=== PATIENT | female | born 1960 | race Caucasian/White ===

== ENCOUNTER 2017-10-28 15:09 | Inpatient (IN) | payer OTHER ==
[2017-10-28] MEDS ORDERED: SODIUM CHLORIDE 0.9% 1,000 ML IV ONE (15:28)
[2017-10-28] MEDS ORDERED: SODIUM CHLORIDE 0.9% 500 ML IV ONE (15:28)
[2017-10-28] MEDS ORDERED: INSULIN REGULAR 100 UNIT/ML VIAL IV ONE (15:29)
[2017-10-28 15:31] LABS: Glucose,Whole Blood 418 mg/dL (75-99)
--- NOTE | 2017-10-28 15:33 | ED ---
General Adult HPI - General Chief complaint: Neuro Symptoms/Deficit Stated complaint: loss of memory Time Seen by Provider: 10/28/17 15:20 Source: patient, family, RN notes reviewed Mode of arrival: ambulatory Limitations: no limitations - History of Present Illness Initial comments: Patient is a pleasant 57-year-old female presenting to the emergency department with memory problems. Patient admits to not feeling well and feeling confused. Majority of history is obtained from family. Patient onset of symptoms was yesterday but worse today. The chair was checked twice today on 2 different meters. One was 360 and the other was 560. Patient admits to being thirsty. No isolated area of weakness. Patient has had some similar symptoms previously with hyperglycemia however not as bad. - Related Data Allergies Allergy/AdvReac Type Severity Reaction Status Date / Time codeine AdvReac Nausea Verified 10/28/17 16:27 Review of Systems ROS Statement: Those systems with pertinent positive or pertinent negative responses have been documented in the HPI. ROS Other: All systems not noted in ROS Statement are negative. Constitutional: Denies: fever Eyes: Denies: eye pain ENT: Denies: ear pain Respiratory: Denies: dyspnea Cardiovascular: Denies: chest pain Endocrine: Reports: polydipsia. Denies: fatigue Gastrointestinal: Denies: abdominal pain Genitourinary: Denies: dysuria Musculoskeletal: Denies: back pain Skin: Denies: rash Neurological: Reports: confusion. Denies: weakness Past Medical History Past Medical History: CVA/TIA, Diabetes Mellitus History of Any Multi-Drug Resistant Organisms: None Reported Past Surgical History: Section, Cholecystectomy Past Psychological History: No Psychological Hx Reported Smoking Status: Never smoker Past Alcohol Use History: None Reported Past Drug Use History: None Reported General Exam Limitations: no limitations General appearance: alert, in no apparent distress Head exam: Present: atraumatic Eye exam: Present: PERRL, other (left eye with cataracts) ENT exam: Present: normal oropharynx Neck exam: Present: normal inspection Respiratory exam: Present: normal lung sounds bilaterally Cardiovascular Exam: Present: regular rate, normal rhythm GI/Abdominal exam: Present: soft. Absent: tenderness Extremities exam: Present: normal inspection Neurological exam: Present: alert, CN II-XII intact. Absent: motor sensory deficit Expanded Neurological exam: Present: protecting the airway Patient oriented to: Present: person, place, time Speech: Present: fluid speech Cranial nerves: EOM's Intact: Normal, Facial Sensation: Normal Sensory exam: Upper Extremity Light Touch: Normal, Lower Extremity Light Touch: Normal Motor strength exam: RUE: 5, LUE: 5, RLE: 5, LLE: 5 Eye Response: (4) open spontaneously Motor Response: (6) obeys commands Verbal Response: (5) oriented Psychiatric exam: Present: normal affect, normal mood Skin exam: Present: normal color Course Vital Signs 10/28/17 10/28/17 10/28/17 15:15 15:55 16:24 Temperature 98.0 F Pulse Rate 70 67 Respiratory 20 20 Rate Blood Pressure 146/114 230/96 232/92 O2 Sat by Pulse 98 96 Oximetry EKG Findings - EKG Comments: EKG Findings:: Normal sinus rhythm 72. MA 136. QRS 92. QT 418. QTC 457. Left axis. LVH with repolarization change. Medical Decision Making - Medical Decision Making Patient reevaluated and resting comfortably in bed. Patient and family updated on results and plan. Dr. Kwan has been paged for admission for hospital call. - Lab Data Result diagrams: 10/28/17 15:40 10/28/17 15:40 Lab Results 10/28/17 10/28/17 10/28/17 Range/Units 15:26 15:40 15:40 WBC 11.2 H (3.8-10.6) k/uL RBC 4.25 (3.80-5.40) m/uL Hgb 12.1 (11.4-16.0) gm/dL Hct 37.8 (34.0-46.0) % MCV 89.1 (80.0-100.0) fL MCH 28.5 (25.0-35.0) pg MCHC 32.0 (31.0-37.0) g/dL RDW 12.3 (11.5-15.5) % Plt Count 304 (150-450) k/uL Neutrophils % 74 % Lymphocytes % 17 % Monocytes % 5 % Eosinophils % 3 % Basophils % 1 % Neutrophils # 8.3 H (1.3-7.7) k/uL Lymphocytes # 1.9 (1.0-4.8) k/uL Monocytes # 0.5 (0-1.0) k/uL Eosinophils # 0.3 (0-0.7) k/uL Basophils # 0.1 (0-0.2) k/uL PT (9.0-12.0) sec INR (<1.2) APTT (22.0-30.0) sec Sodium 134 L (137-145) mmol/L Potassium 4.2 (3.5-5.1) mmol/L Chloride 99 (98-107) mmol/L Carbon Dioxide 26 (22-30) mmol/L Anion Gap 9 mmol/L BUN 34 H (7-17) mg/dL Creatinine 1.10 H (0.52-1.04) mg/dL Est GFR (MDRD) Af Amer >60 (>60 ml/min/1.73 sqM) Est GFR (MDRD) Non-Af 51 (>60 ml/min/1.73 sqM) Glucose 389 H (74-99) mg/dL POC Glucose (mg/dL) 418 H (75-99) mg/dL POC Glu [employer] Associate ID Chioma Lloyd Calcium 9.0 (8.4-10.2) mg/dL Total Bilirubin 0.2 (0.2-1.3) mg/dL AST 11 L (14-36) U/L ALT 19 (9-52) U/L Alkaline Phosphatase 58 (38-126) U/L Total Protein 5.7 L (6.3-8.2) g/dL Albumin 3.2 L (3.5-5.0) g/dL Urine Color Urine Appearance (Clear) Urine pH (5.0-8.0) Ur Specific [place] (1.001-1.035) Urine Protein (Negative) Urine Glucose (UA) (Negative) Urine Ketones (Negative) Urine Blood (Negative) Urine Nitrite (Negative) Urine Bilirubin (Negative) Urine Urobilinogen (<2.0) mg/dL Ur Leukocyte Esterase (Negative) Urine RBC (0-5) /hpf Urine WBC (0-5) /hpf Ur Squamous Epith Cells (0-4) /hpf Urine Mucus (None) /hpf Urine Opiates Screen (NotDetected) Ur Oxycodone Screen (NotDetected) Urine Methadone Screen (NotDetected) Ur Propoxyphene Screen (NotDetected) Ur Barbiturates Screen (NotDetected) U Tricyclic Antidepress (NotDetected) Ur Phencyclidine Scrn (NotDetected) Ur Amphetamines Screen (NotDetected) U Methamphetamines Scrn (NotDetected) U Benzodiazepines Scrn (NotDetected) Urine Cocaine Screen (NotDetected) U Marijuana (THC) Screen (NotDetected) Acetone, Qual Negative (Negative) 10/28/17 10/28/17 Range/Units 15:40 15:53 WBC (3.8-10.6) k/uL RBC (3.80-5.40) m/uL Hgb (11.4-16.0) gm/dL Hct (34.0-46.0) % MCV (80.0-100.0) fL MCH (25.0-35.0) pg MCHC (31.0-37.0) g/dL RDW (11.5-15.5) % Plt Count (150-450) k/uL Neutrophils % % Lymphocytes % % Monocytes % % Eosinophils % % Basophils % % Neutrophils # (1.3-7.7) k/uL Lymphocytes # (1.0-4.8) k/uL Monocytes # (0-1.0) k/uL Eosinophils # (0-0.7) k/uL Basophils # (0-0.2) k/uL PT 9.5 (9.0-12.0) sec INR 1.0 (<1.2) APTT 21.5 L (22.0-30.0) sec Sodium (137-145) mmol/L Potassium (3.5-5.1) mmol/L Chloride (98-107) mmol/L Carbon Dioxide (22-30) mmol/L Anion Gap mmol/L BUN (7-17) mg/dL Creatinine (0.52-1.04) mg/dL Est GFR (MDRD) Af Amer (>60 ml/min/1.73 sqM) Est GFR (MDRD) Non-Af (>60 ml/min/1.73 sqM) Glucose (74-99) mg/dL POC Glucose (mg/dL) (75-99) mg/dL POC Glu [employer] Associate ID Calcium (8.4-10.2) mg/dL Total Bilirubin (0.2-1.3) mg/dL AST (14-36) U/L ALT (9-52) U/L Alkaline Phosphatase (38-126) U/L Total Protein (6.3-8.2) g/dL Albumin (3.5-5.0) g/dL Urine Color Light Yellow Urine Appearance Cloudy H (Clear) Urine pH 6.0 (5.0-8.0) Ur Specific [place] 1.016 (1.001-1.035) Urine Protein 3+ H (Negative) Urine Glucose (UA) 4+ H (Negative) Urine Ketones Negative (Negative) Urine Blood Trace H (Negative) Urine Nitrite Negative (Negative) Urine Bilirubin Negative (Negative) Urine Urobilinogen <2.0 (<2.0) mg/dL Ur Leukocyte Esterase Negative (Negative) Urine RBC 1 (0-5) /hpf Urine WBC 1 (0-5) /hpf Ur Squamous Epith Cells <1 (0-4) /hpf Urine Mucus Rare H (None) /hpf Urine Opiates Screen Not Detected (NotDetected) Ur Oxycodone Screen Not Detected (NotDetected) Urine Methadone Screen Not Detected (NotDetected) Ur Propoxyphene Screen Not Detected (NotDetected) Ur Barbiturates Screen Not Detected (NotDetected) U Tricyclic Antidepress Not Detected (NotDetected) Ur Phencyclidine Scrn Not Detected (NotDetected) Ur Amphetamines Screen Not Detected (NotDetected) U Methamphetamines Scrn Not Detected (NotDetected) U Benzodiazepines Scrn Not Detected (NotDetected) Urine Cocaine Screen Not Detected (NotDetected) U Marijuana (THC) Screen Not Detected (NotDetected) Acetone, Qual (Negative) Disposition Clinical Impression: Hypertension, Altered mental status, Hyperglycemia Disposition: ADMITTED IP TO THIS HOSP Referrals: Silvino Sears DO [Primary Care Provider] - 1-2 days Decision Time: 16:29
[2017-10-28 15:48] LABS: Basophils # (A) 0.1 k/uL (0-0.2); Basophils % (A) 1 %; Eosinophils # (A) 0.3 k/uL (0-0.7); Eosinophils % (A) 3 %; HCT 37.8 % (34.0-46.0); HGB 12.1 gm/dL (11.4-16.0); Lymphocytes # (A) 1.9 k/uL (1.0-4.8); Lymphocytes % (A) 17 %; MCH 28.5 pg (25.0-35.0); MCV 89.1 fL (80.0-100.0); Mean Platelet Volume 8.4; Monocytes # (A) 0.5 k/uL (0-1.0); Monocytes % (A) 5 %; Neutrophils # (A) 8.3 k/uL (1.3-7.7); Neutrophils % (A) 74 %; Platelet Count 304 k/uL (150-450); RBC 4.25 m/uL (3.80-5.40); RDW 12.3 % (11.5-15.5); WBC 11.2 k/uL (3.8-10.6)
[2017-10-28 15:57] LABS: Prothrombin Time 9.5 sec (9.0-12.0)
[2017-10-28 16:01] LABS: ALT 19 U/L (9-52); AST 11 U/L (14-36); Albumin 3.2 g/dL (3.5-5.0); Alkaline Phosphatase 58 U/L (38-126); Anion Gap 9 mmol/L; Blood Urea Nitrogen 34 mg/dL (7-17); Carbon Dioxide 26 mmol/L (22-30); Chloride 99 mmol/L (98-107); Glucose 389 mg/dL (74-99); Potassium 4.2 mmol/L (3.5-5.1); Sodium 134 mmol/L (137-145); Total Bilirubin 0.2 mg/dL (0.2-1.3); Total Protein 5.7 g/dL (6.3-8.2)
[2017-10-28 16:05] LABS: Appearance,Urine Cloudy (Clear); Bilirubin,Urine Negative (Negative); Blood,Urine Trace (Negative); Color,Urine Light Yellow; Glucose,Urine (UA) 4+ (Negative); Ketones,Urine Negative (Negative); Leukocyte Esterase,Urine Negative (Negative); Mucus,Urine Rare /hpf; Nitrite,Urine Negative (Negative); Protein,Urine 3+ (Negative); RBC,Urine 1 /hpf (0-5); Specific Gravity,Urine 1.016 (1.001-1.035); Squamous Epithelial Cell,Urine <1 /hpf (0-4); Urobilinogen,Urine <2.0 mg/dL (<2.0); WBC,Urine 1 /hpf (0-5)
[2017-10-28 16:06] LABS: Partial Thromboplastin Time 21.5 sec (22.0-30.0)
[2017-10-28 16:13] LABS: Amphetamine Screen,Urine Not Detected (NotDetected); Benzodiazepines Screen,Urine Not Detected (NotDetected); Cocaine Screen,Urine Not Detected (NotDetected); Opiate Screen,Urine Not Detected (NotDetected); Phencyclidine Screen,Urine Not Detected (NotDetected); Tricyclic Antidepressant,Urine Not Detected (NotDetected); Urn Cannabinoid Scrn Not Detected (NotDetected)
[2017-10-28 16:14] LABS: Barbiturate Screen,Urine Not Detected (NotDetected); Methadone Screen, Urine Not Detected (NotDetected); Oxycodone Screen, Urine Not Detected (NotDetected)
--- NOTE | 2017-10-28 16:18 | XR ---
EXAMINATION TYPE: XR chest 2V DATE OF EXAM: 10/28/2017 COMPARISON: NONE INDICATION: Altered mental status. TECHNIQUE: Frontal and lateral views of the chest are obtained. FINDINGS: The heart size is normal. The pulmonary vasculature is normal. The lungs are clear. IMPRESSION: 1. No acute pulmonary process.
--- NOTE | 2017-10-28 16:18 | CT ---
EXAMINATION TYPE: CT brain wo con DATE OF EXAM: 10/28/2017 COMPARISON: NONE INDICATION: Confusion. DLP: 951.7 mGycm, Automated exposure control for dose reduction was used. CONTRAST: None CT of the brain is performed utilizing 3 mm thick sections through the posterior fossa and 3 mm thick sections through the remaining calvarium. Study is performed within 24 hours of arrival to the hosp ital. No abnormal hyperdensity is present to suggest an acute intracranial hemorrhage. No mass lesion is evident. No acute infarcts are evident. There is an old lacunar infarct within the right basal ganglion. Ventricles and sulci are appropriate for the patient age. Paranasal sinuses and mastoid air cells within the [id number] are clear. IMPRESSIONS: 1. Old right basal ganglion infarct.
[2017-10-28 16:24] LABS: Creatine Kinase MB 1.5 ng/mL (0.0-2.4); Troponin I 0.012 ng/mL (0.000-0.034)
[2017-10-28] MEDS ORDERED: ENALAPRILAT 1.25 MG/ML 1 ML VIAL IVP STA ×2 (16:25→18:19)
[2017-10-28] MEDS ORDERED: ENALAPRILAT 1.25 MG/ML 1 ML VIAL IVP PRN (16:25)
[2017-10-28] MEDS ORDERED: ASPIRIN 325 MG TAB PO STA (16:29)
[2017-10-28 16:42] LABS: Glucose,Whole Blood 336 mg/dL (75-99)
[2017-10-28 17:03] LABS: Glucose,Whole Blood 299 mg/dL (75-99)
[2017-10-28] MEDS ORDERED: cloNIDine HCL 0.1 MG TAB PO STA (19:20)
--- NOTE | 2017-10-28 20:05 | US ---
EXAMINATION TYPE: US carotid duplex BILAT DATE OF EXAM: 10/28/2017 COMPARISON: NONE CLINICAL HISTORY: Stenosis. loss of memory EXAM MEASUREMENTS: RIGHT: Peak Systolic Velocity (PSV) cm/sec ----- Right CCA: 58.4 ----- Right ICA: 87.8 ----- Right ECA: 112.5 ICA/CCA ratio: 1.5 RIGHT: End Diastole cm/sec ----- Right CCA: 10.4 ----- Right ICA: 21.9 ----- Right ECA: 0.0 LEFT: Peak Systolic Velocity (PSV) cm/sec ----- Left CCA: 67.1 ----- Left ICA: 71.3 ----- Left ECA: 68.0 ICA/CCA ratio: 1.1 LEFT: End Diastole cm/sec ----- Left CCA: 9.5 ----- Left ICA: 17.5 ----- Left ECA: 0.0 VERTEBRALS (direction of flow): Right Vertebral: Antegrade Left Vertebral: Antegrade Rhythm: Normal No significant stenosis seen, mild plaque noted. IMPRESSION: 1. No flow-limiting stenosis. Criteria for Assigning % of Stenosis / Diameter reduction (Estimation based on the indirect measurements of the internal carotid artery velocities (ICA PSV). 1. Normal (no stenosis)=ICA PSV < 125 cm/s: ratio < 2.0: ICA EDV<40 cm/s. 2. Less than 50% stenosis=ICA PSV < 125 cm/s: ratio < 2.0: ICA EDV<40 cm/s. 3. 50 to 69% stenosis=ICA PSV of 125 to 230 cm/s: ration 2.0 ? 4.0: ICA EDV 40-100 cm/s. 4. Greater than 70% stenosis to near occlusion= ICA PSV > 230 cm/s: ratio > 4.0: ICA EDV > 100 cm/s. 5. Near occlusion= ICA PSV velocities may be low or undetectable: variable ratio and ICA EDV. 6. Total occlusion=unable to detect flow.
[2017-10-28 20:10] LABS: Glucose,Whole Blood 184 mg/dL (75-99)
[2017-10-28] MEDS: HYDROCHLOROTHIAZIDE 25 MG TAB PO SCH (20:19)
[2017-10-28 21:56] VITALS: BMI 45.6
[2017-10-28 23:55] LABS: Hemoglobin A1C 12.8 % (4.0-6.0)
[2017-10-28 23:58] LABS: Glucose,Whole Blood 263 mg/dL (75-99)
[2017-10-29] MEDS: SODIUM CHLORIDE 0.9% 1,000 ML IV SCH ×3 (01:09→18:07)
[2017-10-29] MEDS: INSULIN ASPART 100 UNIT/ML 1 ML 10 ML VIAL SQ SCH ×6 (01:09→22:33)
[2017-10-29 01:18] LABS: Glucose,Whole Blood 300 mg/dL (75-99)
[2017-10-29 02:12] LABS: Glucose,Whole Blood 301 mg/dL (75-99)
[2017-10-29 03:51] LABS: Cholesterol 224 mg/dL (<200); HDL Cholesterol 40 mg/dL (40-60); LDL Cholesterol,Calculated 145 mg/dL (0-99); Triglycerides 196 mg/dL (<150)
[2017-10-29 05:24] LABS: Glucose,Whole Blood 213 mg/dL (75-99)
[2017-10-29 07:13] LABS: Glucose,Whole Blood 204 mg/dL (75-99)
[2017-10-29] MEDS: HYDROCHLOROTHIAZIDE 25 MG TAB PO SCH (08:22)
[2017-10-29] MEDS: ASPIRIN 325 MG TAB PO SCH (08:22)
[2017-10-29 12:15] LABS: Glucose,Whole Blood 263 mg/dL (75-99)
--- NOTE | 2017-10-29 14:11 | ECHOF ---
Referral Reason:Thrombus MEASUREMENTS -------- HEIGHT: 152.4 cm WEIGHT: 105.7 kg BP: 156/75 IVSd: 1.3 cm (0.6 - 1.1) LVIDd: 4.4 cm (3.9 - 5.3) LVPWd: 1.1 cm (0.6 - 1.1) IVSs: 1.5 cm LVIDs: 3.4 cm LVPWs: 1.4 cm LAESV Index (A-L): 32.33 ml/m Ao Diam: 3.9 cm (2.0 - 3.7) AV Cusp: 1.2 cm (1.5 - 2.6) LA Diam: 2.9 cm (2.7 - 3.8) MV E Craig: 0.85 m/s MV DecT: 251 ms MV A Craig: 1.11 m/s MV E/A Ratio: 0.77 RAP: 5.00 mmHg RVSP: 8.43 mmHg FINDINGS -------- Sinus rhythm. This was a technically adequate study. The left ventricular size is normal. There is mild concentric left ventricular hypertrophy. Overa ll left ventricular systolic function is normal with, an EF between 55 - 60 %. The right ventricle is normal in size and function. LA is midly dilated 29-33ml/m2. The right atrium is normal in size. The aortic valve is trileaflet, and appears structurally normal. No aortic stenosis or regurgitation. Mild mitral annular calcification present. Mild mitral regurgitation is present. Trace tricuspid regurgitation present. Right ventricular systolic pressure is normal at < 35 mmHg. There is no evidence of pulmonary hypertension. The pulmonic valve was not well visualized. The aortic root size is normal. IVC Not well visulized. There is no pericardial effusion. CONCLUSIONS -------- 1. Sinus rhythm. 2. This was a technically adequate study. 3. The left ventricular size is normal. 4. There is mild concentric left ventricular hypertrophy. 5. Overall left ventricular systolic function is normal with, an EF between 55 - 60 %. 6. LA is midly dilated 29-33ml/m2. 7. The aortic valve is trileaflet, and appears structurally normal. No aortic stenosis or regurgitati on. 8. Mild mitral annular calcification present. 9. Mild mitral regurgitation is present. 10. Trace tricuspid regurgitation present. 11. Right ventricular systolic pressure is normal at < 35 mmHg. 12. The pulmonic valve was not well visualized. 13. The aortic root size is normal. 14. IVC Not well visulized. 15. There is no pericardial effusion. FLIGHT MANAGER: Alexandro Salguero RDCS
[2017-10-29 17:14] LABS: Glucose,Whole Blood 207 mg/dL (75-99)
--- NOTE | 2017-10-29 18:48 | EEG ---
ELECTROENCEPHALOGRAM REPORT DATE OF SERVICE: 10/29/2017. REASON FOR TESTING: Altered mental status. DESCRIPTION OF THE PROCEDURE: This EEG was performed using a 21 channel digital electroencephalograph, following international 10-20 system. DESCRIPTION OF THE RECORDING: From the beginning of the tracing, and with patient's eyes closed, the background rhythm was mostly consisting of 8 Hz alpha frequency in the posterior occipital leads. No obvious asymmetry is seen. Frequent movement artifact and muscle artifacts are seen. Photic stimulation was performed with a minimal driving response seen. No pathological waves were elicited. Hyperventilation was not performed. The patient remains awake throughout the tracing. No epileptiform discharges were seen. Occasional EKG artifacts are noticed. Her EKG lead showed a regular rate and rhythm. INTERPRETATION: This awake EEG can be considered within normal limits. There is no asymmetry seen. No epileptiform discharges were noticed. The absence of epileptiform discharges does not rule out the diagnosis of epilepsy, therefore clinical correlation is recommended. MMYAMILKAL / IJKostas: [id number] /
--- NOTE | 2017-10-29 19:11 | P.CNNES ---
History of Present Illness Consult date: 10/29/17 History of Present Illness: The patient is a 57-year-old right-handed white female who is a poor historian currently. The patient was admitted to the hospital with altered mental status and elevated glucose. The patient's daughter received a text from the patient' s boyfriend yesterday morning saying that the patient woke up very confused. Her other daughter went to see her and realized that she was disoriented and confused. She then checked her Accu-Chek and her blood sugar was 533. Her daughter drove her to the emergency room. Apparently the patient's onset of symptoms symptoms according to the ER no was Sunday where she began getting confused. Urgency room her blood sugar was 389. She was hospitalized earlier in September [address] [facility] for similar event. The patient apparently had been having some issues with memory loss recently and her friend primary care physician had done a CAT scan and carotid ultrasound. In the emergency room she had a repeat CT brain which showed an old right basal ganglion infarct she hadn't carotid ultrasound which showed no flow-limiting stenosis. The patient denies any headache or dizziness. She did have a bout of vertigo at the end of September. She denies any focal weakness or numbness Review of Systems ROS unobtainable: due to mental status Past Medical History Past Medical History: CVA/TIA, Diabetes Mellitus History of Any Multi-Drug Resistant Organisms: None Reported Past Surgical History: Section, Cholecystectomy Past Psychological History: No Psychological Hx Reported Smoking Status: Never smoker Past Alcohol Use History: None Reported Past Drug Use History: None Reported Medications and Allergies Home Medications Medication Instructions Recorded Confirmed Type Hydrochlorothiazide [Hydrodiuril] 25 mg PO HS 10/28/17 10/28/17 History Insulin Glargine [Lantus] 20 unit SQ BID 10/28/17 10/28/17 History Insulin Glulisine [Apidra] See Protocol SQ TID 10/28/17 10/28/17 History Levothyroxine Sodium [Synthroid] 75 mcg PO HS 10/28/17 10/28/17 History Lisinopril [Prinivil] 10 mg PO HS 10/28/17 10/28/17 History Omeprazole 20 mg PO HS 10/28/17 10/28/17 History Oxybutynin Chloride 5 mg PO BID 10/28/17 10/28/17 History Vortioxetine Hydrobromide 10 mg PO HS 10/28/17 10/28/17 History [Trintellix] diphenhydrAMINE [Benadryl] 50 mg PO HS PRN 10/28/17 10/28/17 History Allergies Allergy/AdvReac Type Severity Reaction Status Date / Time codeine AdvReac Nausea Verified 10/28/17 16:27 Physical Examination - Vital Signs Vital Signs: Vital Signs Temp Pulse Pulse Resp BP BP Pulse Ox 10/29/17 15:00 98.6 F 73 18 183/82 95 10/29/17 07:00 98.3 F 77 20 156/75 98 10/29/17 01:33 16 10/28/17 23:29 97.4 F L 73 16 166/84 98 10/28/17 21:08 97.1 F L 67 16 148/79 98 10/28/17 20:33 65 18 192/79 Intake and Output 10/29/17 10/29/17 10/29/17 06:59 14:59 22:59 Other: # Voids 1 4 # Bowel Movements 1 Weight 106 kg Patient Weight 10/30/17 06:59 Weight 106 kg - Constitutional General appearance: average body habitus, cooperative - EENT EENT: PERRL, hearing intact - Cardiovascular Cardiovascular: regular rate, normal S1, normal S2 - Integumentary Integumentary: normal - Neurologic Mental status she was awake she was alert she was oriented to year was 2017 the month was September she was able to give her date of she knew the city she lift and but had some difficulty recalling her apartment number she was able to do simple calculations she knew the season she knew the city she was able to spell [place] but had some difficulty spelling backward there is no aphasia or dysarthria Cranial nerve examination: PERRL, EOMI, VFF, face symmetric, tongue midline, intact Speech examination: intact Sensorimotor examination: intact Detailed motor examination: grossly full strength in all extremities Reflexes: 2+: bicep - Psychiatric Psychiatric: mood/affect appropriate Results - Laboratory Findings CBC and BMP: 10/28/17 15:40 10/28/17 15:40 Abnormal Lab Findings: Abnormal Labs 10/28/17 10/28/17 10/28/17 15:26 15:40 15:40 WBC 11.2 H Neutrophils # 8.3 H APTT Sodium BUN Creatinine Glucose POC Glucose (mg/dL) 418 H Hemoglobin A1c 12.8 H AST Total Protein Albumin Triglycerides Cholesterol LDL Cholesterol, Calc Urine Appearance Urine Protein Urine Glucose (UA) Urine Blood Urine Mucus 10/28/17 10/28/17 10/28/17 15:40 15:40 15:40 WBC Neutrophils # APTT 21.5 L Sodium 134 L BUN 34 H Creatinine 1.10 H Glucose 389 H POC Glucose (mg/dL) Hemoglobin A1c AST 11 L Total Protein 5.7 L Albumin 3.2 L Triglycerides 196 H Cholesterol 224 H LDL Cholesterol, Calc 145 H Urine Appearance Urine Protein Urine Glucose (UA) Urine Blood Urine Mucus 10/28/17 10/28/17 10/28/17 15:53 16:27 16:58 WBC Neutrophils # APTT Sodium BUN Creatinine Glucose POC Glucose (mg/dL) 336 H 299 H Hemoglobin A1c AST Total Protein Albumin Triglycerides Cholesterol LDL Cholesterol, Calc Urine Appearance Cloudy H Urine Protein 3+ H Urine Glucose (UA) 4+ H Urine Blood Trace H Urine Mucus Rare H 10/28/17 10/28/17 10/29/17 20:06 23:56 01:15 WBC Neutrophils # APTT Sodium BUN Creatinine Glucose POC Glucose (mg/dL) 184 H 263 H 300 H Hemoglobin A1c AST Total Protein Albumin Triglycerides Cholesterol LDL Cholesterol, Calc Urine Appearance Urine Protein Urine Glucose (UA) Urine Blood Urine Mucus 10/29/17 10/29/17 10/29/17 02:11 05:21 07:05 WBC Neutrophils # APTT Sodium BUN Creatinine Glucose POC Glucose (mg/dL) 301 H 213 H 204 H Hemoglobin A1c AST Total Protein Albumin Triglycerides Cholesterol LDL Cholesterol, Calc Urine Appearance Urine Protein Urine Glucose (UA) Urine Blood Urine Mucus 10/29/17 10/29/17 12:11 17:12 WBC Neutrophils # APTT Sodium BUN Creatinine Glucose POC Glucose (mg/dL) 263 H 207 H Hemoglobin A1c AST Total Protein Albumin Triglycerides Cholesterol LDL Cholesterol, Calc Urine Appearance Urine Protein Urine Glucose (UA) Urine Blood Urine Mucus Assessment and Plan (1) Altered mental status Current Visit: Yes Status: Acute SNOMED Code(s): 698939656 (2) Hyperglycemia Current Visit: Yes Status: Acute SNOMED Code(s): 36962254 (3) Hypertension Current Visit: Yes Status: Acute SNOMED Code(s): 15736393 Plan: The patient is a 57-year-old woman who presented to the hospital with hypertension confusion and elevated blood glucose. On neurologic examination the patient is awake alert oriented to person and place but is disoriented to certain fax. Does have a history of previous right subcortical infarct. She had a carotid ultrasound which did not show any carotid stenosis. Recommend further testing with EEG, B12 check and thyroid screening
[2017-10-29 20:40] LABS: Glucose,Whole Blood 309 mg/dL (75-99)
[2017-10-29] MEDS ORDERED: LISINOPRIL 10 MG TAB PO SCH (21:00)
[2017-10-29] MEDS: INSULIN DETEMIR 100 UNIT/ML 10 ML VIAL SQ SCH (22:34)
[2017-10-29] MEDS: LEVOTHYROXINE 75 MCG TAB PO SCH (22:35)
[2017-10-29] MEDS: OXYBUTYNIN CHLORIDE 5 MG TAB PO SCH (22:35)
[2017-10-29] MEDS: PANTOPRAZOLE 40 MG TABLET PO SCH (22:35)
--- NOTE | 2017-10-29 23:09 | HP ---
HISTORY AND PHYSICAL DATE OF ADMISSION: 10/28/2017 CHIEF COMPLAINTS: Confusion, memory problems, abdominal pain. HISTORY OF PRESENT ILLNESS: This 57-year-old woman with a past medical history of multiple medical problems including CVA TIA diabetes type 2, history of cholecystectomy being followed by Dr. Silvino Sears in the outpatient setting, was complaining of confusion. Patient has some abdominal pain also. No chest pain. No palpitations. No fever. No headache, loss of conscious or seizures. PAST MEDICAL HISTORY: CVA, TIA, diabetes mellitus, type 2, cholecystectomy. MEDICATIONS: Prior to admission include: 1. Trentillex 10 mg q.h.s. 2. Omeprazole 10 mg. 3. Prinivil 10 mg q.h.s. 4. Synthroid 75 mcg p.o. daily. 5. Lantus 10 units subcu b.i.d. 6. HydroDIURIL 25 mg. 7. Benadryl 50 mg q.6h p.r.n. 8. Oxybutynin 5 mg p.o. b.i.d. 9. Apidra t.i.d. ALLERGIES: CODEINE. FAMILY HISTORY: No history of heart disease or strokes in the family. SOCIAL HISTORY: No history of smoking. No history of alcohol. REVIEW OF SYSTEMS: ENT: No diminished vision. No diminished hearing. Cardiac systems: No angina or palpitations. Respiration: As mentioned earlier. GI as mentioned earlier. : No dysuria. NERVOUS SYSTEM: No numbness or weakness. Allergy/Immunology: No asthma or hayfever. Hematology/Oncology: No history of anemia. Endocrine: As mentioned earlier. Constitutional: As mentioned. Dermatology: Negative. Rheumatology: Negative. Psychiatric: As mentioned earlier. PHYSICAL EXAMINATION: Alert, oriented x3. Pulse 73. Blood pressure 183/82, respiration 18, temperature 98.6, pulse ox 94% on room air. HEENT: Conjunctivae normal. NECK: No jugular venous distention. CARDIOVASCULAR: S1, S2 muffled. RESPIRATORY: Breath sounds diminished in the bases. No rhonchi. No crackles. ABDOMEN: Soft. Mild diffuse discomfort. Legs no edema and no swelling. NERVOUS SYSTEM: Higher functions as mentioned earlier. Moves all four limbs. Lymphatics: No lymph nodes palpable in the neck, axillae or groin. Skin no ulcer, rash or bleeding. LABS: WBC 11.2, sodium 134, creatinine is 1.10 and hemoglobin A1c is 12.8 and cholesterol is 224. UA noted. ASSESSMENT: 1. Change in mental status, possibly multifactorial, acute on chronic encephalopathy. 2. Diabetes type 2, uncontrolled with hemoglobin is 12.8. 3. Mild acute renal failure. 4. Hypocholesterolemia. 5. Hyponatremia. 6. Increased WBC. 7. Old right basal ganglia infarct in the CT scan. 8. History of cerebrovascular accident, transient ischemic attack. 9. Diabetes type 2. 11.Cholecystectomy. RECOMMENDATIONS AND DISCUSSION: In this 57-year-old woman who presented with multiple complex medical issues, we will monitor the patient closely. Continue the current medications, management and symptomatic treatment. Otherwise, at this time, monitor blood sugars closely. Antiplatelet agents. Neurology evaluation. Guarded prognosis. Further recommendations to follow. Neurovascular workup. CAMILA / JOHN: [id number] / MTDD
--- NOTE | 2017-10-29 23:15 | PN ---
PROGRESS NOTE DATE OF SERVICE: 10/29/2017 This 57-year-old woman who was admitted with change in mental status also thought to have either TIA or acute on chronic metabolic encephalopathy. The patient had an old right basal ganglion infarct. uncontrolled diabetes mellitus. No chest pain. No palpitations. No fever. EXAM: Alert oriented x2. Pulse 73, blood pressure 183/82, respiration 18, temperature 98.7, pulse ox 94% on room air. HEENT: Conjunctivae normal. Neck: No jugular venous distention. CARDIOVASCULAR: S1, S2 muffled. Respiratory: Breath sounds diminished in the bases. A few rhonchi. No crackles. Abdomen is soft, nontender. No mass palpable. Legs are no edema. No swelling. Nervous system: Diffusely weak. LAB: Investigations are noted. Glucose 207. ASSESSMENT: 1. Change in mental status, possible acute transient ischemic attack. 2. Old right basal ganglia infarct. 3. Gait dysfunction and generalized weakness. 4. Diabetes type 2 uncontrolled. 5. Cerebrovascular accident/transient ischemic attack. 6. History of cholecystectomy. 7. Hyponatremia mild. 8. Mild acute renal failure. 9. Hyperlipidemia. RECOMMENDATIONS AND DISCUSSION: In this 57-year-old woman who presented with multiple complex medical issues, we will monitor the patient closely. Continue the current medications, symptomatic treatment, and antiplatelet agents. PT/OT evaluation. Neurology consultation. Neurovascular workup. Otherwise I would also recommend PT/OT evaluation, possible ECF rehab also. Guarded prognosis. Further recommendations to follow. CAMILA / JOHN: [id number] /
[2017-10-29] MEDS: Vortioxetine Hydrobromide [Trintellix] 10 MG PO SCH (23:33)
[2017-10-30 02:08] LABS: Glucose,Whole Blood 194 mg/dL (75-99)
[2017-10-30] MEDS: SODIUM CHLORIDE 0.9% 1,000 ML IV SCH ×3 (03:52→17:52)
[2017-10-30 07:20] LABS: Glucose,Whole Blood 139 mg/dL (75-99)
[2017-10-30] MEDS: OXYBUTYNIN CHLORIDE 5 MG TAB PO SCH ×2 (08:05→22:18)
[2017-10-30] MEDS: HYDROCHLOROTHIAZIDE 25 MG TAB PO SCH (08:05)
[2017-10-30] MEDS: ASPIRIN 325 MG TAB PO SCH (08:05)
[2017-10-30] MEDS: INSULIN ASPART 100 UNIT/ML 1 ML 10 ML VIAL SQ SCH ×4 (08:06→22:16)
[2017-10-30] MEDS: INSULIN DETEMIR 100 UNIT/ML 10 ML VIAL SQ SCH ×2 (08:06→22:16)
[2017-10-30 09:29] LABS: Basophils # (A) 0.1 k/uL (0-0.2); Basophils % (A) 1 %; Eosinophils # (A) 0.3 k/uL (0-0.7); Eosinophils % (A) 3 %; HCT 38.6 % (34.0-46.0); HGB 12.2 gm/dL (11.4-16.0); Lymphocytes # (A) 2.2 k/uL (1.0-4.8); Lymphocytes % (A) 21 %; MCH 28.5 pg (25.0-35.0); MCHC 31.6 g/dL (31.0-37.0); MCV 90.1 fL (80.0-100.0); Mean Platelet Volume 8.1; Monocytes # (A) 0.6 k/uL (0-1.0); Monocytes % (A) 5 %; Neutrophils # (A) 7.1 k/uL (1.3-7.7); Neutrophils % (A) 68 %; Platelet Count 314 k/uL (150-450); RBC 4.29 m/uL (3.80-5.40); RDW 12.4 % (11.5-15.5); WBC 10.3 k/uL (3.8-10.6)
[2017-10-30 09:33] LABS: Anion Gap 7 mmol/L; Blood Urea Nitrogen 21 mg/dL (7-17); Calcium 9.2 mg/dL (8.4-10.2); Carbon Dioxide 29 mmol/L (22-30); Chloride 104 mmol/L (98-107); Glucose 177 mg/dL (74-99); Potassium 3.9 mmol/L (3.5-5.1); Sodium 140 mmol/L (137-145)
[2017-10-30 10:31] LABS: T4, Free (Free Thyroxine) 1.32 ng/dL (0.78-2.19)
[2017-10-30 12:20] LABS: Glucose,Whole Blood 208 mg/dL (75-99)
[2017-10-30] MEDS: THIAMINE 100 MG TAB PO SCH (12:45)
[2017-10-30] MEDS: MULTIVITAMINS, THERA 1 EACH TAB PO SCH (12:45)
[2017-10-30] MEDS: FOLIC ACID 1 MG TAB PO SCH (12:45)
[2017-10-30] MEDS ORDERED: LORazepam 2 MG/ML INJ IV STA (12:54)
--- NOTE | 2017-10-30 15:53 | P.PN ---
Subjective Progress Note Date: 10/30/17 The patient is a 57-year-old woman admitted to the hospital with confusion hyperglycemia and hypertension. The patient is laying in bed and her daughter is at her bedside. Her daughter states she's been doing about the same. The patient is still admitting to confusion. The patient is awake she is alert. She is oriented to her name. And unable to recognize her daughter. The year is 2016 the month is October she is in [facility] he is unable to give details about why she is in the hospital. Daughter reports that she has been under a lot of stress recently. Also she had been tried on some antidepressant in August 2017. The patient also admits to being under a lot of stress. She has had a CT of the brain which showed a right basal ganglia infarct. Having an MRI of the brain today. Objective - Vital Signs Vital signs: Vital Signs Temp 98.3 F 10/30/17 07:00 Pulse 78 10/30/17 07:00 Resp 16 10/30/17 07:00 BP 159/75 10/30/17 10:00 Pulse Ox 93 L 10/30/17 07:00 Intake & Output 10/29/17 10/30/17 10/30/17 18:59 06:59 18:59 Weight 106 kg Other: Voiding Method Toilet # Voids 4 5 # Bowel Movements 1 - Constitutional General appearance: Present: cooperative, obese - EENT Eyes: Present: PERRLA ENT: Present: hearing grossly normal - Respiratory Respiratory: bilateral: CTA - Cardiovascular Rhythm: regular - Neurologic Neurologic Comment(s): Neurologic examination mental status: She was awake she was alert she was oriented to person and place he was able to identify her daughter there is no aphasia or dysarthria is unable to give details of why she is in the hospital. She was unable to give details of her past medical history. Cranial nerves II through XII are grossly intact Motor examination revealed no focal weakness Coordination [id number] was intact next Deep tendon reflexes symmetric - Labs CBC & Chem 7: 10/30/17 09:02 10/30/17 09:02 Labs: Abnormal Lab Results - Last 24 Hours (Table) 10/29/17 10/29/17 10/30/17 Range/Units 17:12 20:39 02:06 BUN (7-17) mg/dL Creatinine (0.52-1.04) mg/dL Glucose (74-99) mg/dL POC Glucose (mg/dL) 207 H 309 H 194 H (75-99) mg/dL TSH (0.465-4.680) mIU/L 10/30/17 10/30/17 10/30/17 Range/Units 07:18 09:02 12:18 BUN 21 H (7-17) mg/dL Creatinine 1.12 H (0.52-1.04) mg/dL Glucose 177 H (74-99) mg/dL POC Glucose (mg/dL) 139 H 208 H (75-99) mg/dL TSH 5.020 H (0.465-4.680) mIU/L Microbiology - Last 24 Hours (Table) 10/30/17 00:30 Urine Culture - Preliminary Urine,Voided Assessment and Plan (1) Altered mental status Current Visit: Yes Status: Acute SNOMED Code(s): 459342563 (2) Hyperglycemia Current Visit: Yes Status: Acute SNOMED Code(s): 04620059 (3) Hypertension Current Visit: Yes Status: Acute SNOMED Code(s): 59776596 Plan: The patient is a 57-year-old woman with history of hyperglycemia hypertension admitted to the hospital with altered mental status. The patient is awake alert and oriented to person and place the year is 2016 and the month is October. She has mainly restricted to the memory loss to certain facts in the past. She has had a CT of the brain which showed right basal ganglia infarct which is old. She will have an MRI of the brain today. Some of her concentration difficulty may be due to underlying anxiety disorder and if MRI does not reveal any new findings can consult psychiatry
[2017-10-30] MEDS: amLODIPine 5 MG TAB PO SCH (16:09)
[2017-10-30 17:24] LABS: Glucose,Whole Blood 147 mg/dL (75-99)
--- NOTE | 2017-10-30 19:30 | P.PN ---
Subjective Progress Note Date: 10/30/17 Progress note being dictated for Dr. Rodarte. Hospital course: This is a 49-year-old female admitted with change in mental status, possible TIA or acute on chronic metabolic encephalopathy in a patient with history of right basal ganglion infarct, uncontrolled diabetes mellitus. Denies chest pain, palpitations or increasing shortness of breath. Evaluated by physical therapy, did well with no physical therapy needs identified. Daughter states patient's confusion remains the same; states it is October of 2016. Patient not recommending some of the family members; not recalling which grandchildren belongs to each of her children. Speech fluent. When patient questioned on specific details of her admission, past medical history, psychiatry history.... Responds with she does not know. Family states patient recently started on antidepressant approximate 6-8 weeks ago and that she has been under significant amount of stress. TSH, free T4 noted. MRI scheduled. Objective - Vital Signs Vital signs: Vital Signs Temp 97.7 F 10/30/17 15:00 Pulse 69 10/30/17 15:00 Resp 16 10/30/17 15:00 BP 146/95 10/30/17 15:00 Pulse Ox 93 L 10/30/17 15:00 Intake & Output 10/30/17 10/30/17 10/31/17 06:59 18:59 06:59 Intake Total 1200 Balance 1200 Intake: Oral 1200 Other: Voiding Method Toilet # Voids 5 3 - Exam PHYSICAL EXAM: VITAL SIGNS: As above GENERAL: Sitting up in bed, visiting with family around her. HEENT: Conjunctivae normal. eyes normal. Oral mucosa moist NECK: No JVD. No thyroid enlargement. No LNs CARDIOVASCULAR: S1, S2 muffled. No murmur RESPIRATION: Breath sounds diminished in the bases. No rhonchi or crackles. No wheezing ABDOMEN: Soft, nontender . No guarding. no masses palpable.Bowel sounds heard. LEGS: No edema. no swelling PSYCHIATRY: Alert and oriented -3, mood and affect normal. NERVOUS SYSTEM: Cranial N 2-12 grossly normal. Moves all 4 limbs. Diffuse weakness, No focal deficits. Speech fluent. Refer to above details. - Labs CBC & Chem 7: 10/30/17 09:02 10/30/17 09:02 Labs: Abnormal Lab Results - Last 24 Hours (Table) 10/29/17 10/30/1718 Range/Units 20:39 02:06 07:18 BUN (7-17) mg/dL Creatinine (0.52-1.04) mg/dL Glucose (74-99) mg/dL POC Glucose (mg/dL) 309 H 194 H 139 H (75-99) mg/dL TSH (0.465-4.680) mIU/L 10/30/17 10/30/17 10/30/17 Range/Units 09:02 12:18 17:22 BUN 21 H (7-17) mg/dL Creatinine 1.12 H (0.52-1.04) mg/dL Glucose 177 H (74-99) mg/dL POC Glucose (mg/dL) 208 H 147 H (75-99) mg/dL TSH 5.020 H (0.465-4.680) mIU/L Microbiology - Last 24 Hours (Table) 10/30/17 00:30 Urine Culture - Preliminary Urine,Voided Assessment and Plan Assessment: 1. Change in mental status, possible acute TIA, CVA in a patient with history of old right basal ganglia infarct. MRI pending. 2. Gait dysfunction and generalized weakness 3. Diabetes type 2, uncontrolled 4. Mild acute renal failure 5. Depression 6. Possible anxiety disorder Plan: Continue on current medication regime ,monitoring and symptomatic treatment. Scheduled for MRI. Patient states patient recently started on antidepressant about 6-8 weeks ago. If MRI negative, will consult psychiatry for evaluation. Plan of care discussed at bedside with patient and family. Stated understanding and agreement with. Further recommendations to follow. The impression and plan of care has been dictated as directed. : I performed a history and examination of this patient, discussed the same with the dictator. I agree with the dictator's note ,documented as a scribe. Any additional findings or plans will be noted.
[2017-10-30 20:37] LABS: Glucose,Whole Blood 203 mg/dL (75-99)
[2017-10-30] MEDS ORDERED: LISINOPRIL 20 MG TAB PO SCH (21:00)
[2017-10-30] MEDS: LEVOTHYROXINE 75 MCG TAB PO SCH (22:17)
[2017-10-30] MEDS: PANTOPRAZOLE 40 MG TABLET PO SCH (22:18)
[2017-10-30] MEDS: Vortioxetine Hydrobromide [Trintellix] 10 MG PO SCH (22:18)
--- NOTE | 2017-10-30 22:50 | MR ---
EXAMINATION TYPE: MR brain wo con DATE OF EXAM: 10/30/2017 COMPARISON: CT brain from 2 days ago. HISTORY: CONFUSION per order and on admission 2 days earlier. TECHNIQUE: Multiplanar, multisequence imaging of the brain and brainstem is performed without IV cont rast. FINDINGS: Diffusion weighted images demonstrate no evidence of a recent infarct or other diffusion abnormality. There is no worrisome extra-axial fluid collection. There is ventricular and sulcal prominence consis tent with diffuse cerebral atrophy. There are focal areas of T2 hyperintensity in the deep and perive ntricular white matter. This area of old infarct right fatima radiata. Midline structures demonstrate normal morphology. The craniocervical junction appears within normal limits. Normal vascular flow voids are present. There is 2.2 cm mucous retention cyst or polyp in the right maxillary sinus inferiorly. Remainder paranasal sinuses are clear. The globes are intact bilat erally. IMPRESSION: 1. No evidence of a recent infarct. 2. There is mild to moderate diffuse cerebral atrophy and chronic small vessel ischemic change with o ld right frontal lobe fatima radiata infarct redemonstrated.
[2017-10-31 02:19] LABS: Glucose,Whole Blood 267 mg/dL (75-99)
[2017-10-31 08:08] LABS: Glucose,Whole Blood 203 mg/dL (75-99)
[2017-10-31] MEDS: INSULIN ASPART 100 UNIT/ML 1 ML 10 ML VIAL SQ SCH ×4 (08:15→22:12)
[2017-10-31] MEDS: OXYBUTYNIN CHLORIDE 5 MG TAB PO SCH ×2 (08:44→22:00)
[2017-10-31] MEDS: INSULIN DETEMIR 100 UNIT/ML 10 ML VIAL SQ SCH ×2 (08:44→22:13)
[2017-10-31] MEDS: ASPIRIN 325 MG TAB PO SCH (08:44)
[2017-10-31] MEDS: amLODIPine 5 MG TAB PO SCH (08:44)
[2017-10-31] MEDS: HYDROCHLOROTHIAZIDE 25 MG TAB PO SCH (08:45)
[2017-10-31 09:07] LABS: Basophils # (A) 0.1 k/uL (0-0.2); Basophils % (A) 1 %; Eosinophils # (A) 0.3 k/uL (0-0.7); Eosinophils % (A) 3 %; HCT 36.1 % (34.0-46.0); HGB 11.3 gm/dL (11.4-16.0); Lymphocytes # (A) 1.8 k/uL (1.0-4.8); Lymphocytes % (A) 18 %; MCH 28.3 pg (25.0-35.0); MCHC 31.3 g/dL (31.0-37.0); MCV 90.5 fL (80.0-100.0); Monocytes # (A) 0.6 k/uL (0-1.0); Monocytes % (A) 6 %; Neutrophils # (A) 6.8 k/uL (1.3-7.7); Neutrophils % (A) 70 %; Platelet Count 296 k/uL (150-450); RBC 3.99 m/uL (3.80-5.40); RDW 12.4 % (11.5-15.5); WBC 9.7 k/uL (3.8-10.6)
[2017-10-31 09:27] LABS: Calcium 9.2 mg/dL (8.4-10.2); Potassium 4.3 mmol/L (3.5-5.1)
[2017-10-31] MEDS: SODIUM CHLORIDE 0.9% 1,000 ML IV SCH (11:02)
[2017-10-31 11:46] LABS: Glucose,Whole Blood 268 mg/dL (75-99)
[2017-10-31] MEDS: THIAMINE 100 MG TAB PO SCH (12:53)
[2017-10-31] MEDS: FOLIC ACID 1 MG TAB PO SCH (12:54)
[2017-10-31] MEDS: MULTIVITAMINS, THERA 1 EACH TAB PO SCH (12:54)
[2017-10-31 17:02] LABS: Glucose,Whole Blood 211 mg/dL (75-99)
[2017-10-31] MEDS ORDERED: amLODIPine 5 MG TAB PO STA (19:55)
--- NOTE | 2017-10-31 19:56 | P.PN ---
Subjective Progress Note Date: 10/31/17 Progress note being dictated for Dr. Rodarte. Hospital course: This is a 49-year-old female admitted with change in mental status, possible TIA or acute on chronic metabolic encephalopathy in a patient with history of right basal ganglion infarct, uncontrolled diabetes mellitus. Denies chest pain, palpitations or increasing shortness of breath. Evaluated by physical therapy, did well with no physical therapy needs identified. Daughter states patient's confusion remains the same; states it is October of 2016. Patient not recommending some of the family members; not recalling which grandchildren belongs to each of her children. Speech fluent. When patient questioned on specific details of her admission, past medical history, psychiatry history.... Responds with she does not know. Family states patient recently started on antidepressant approximate 6-8 weeks ago and that she has been under significant amount of stress. TSH, free T4 noted. MRI scheduled. 10/31/17 Memory deficit persists. Brain MRI reporting no evidence of recent infarct, mild to moderate diffuse cerebral atrophy with chronic small vessel ischemic change and old right frontal lobe fatima infarct redemonstrated. Psychiatry consulted with recommendations pending. Afebrile. Worsening renal function. Good diet intake with 100% consumed, no nausea vomiting. Blood sugars elevated in the 200s. Objective - Vital Signs Vital signs: Vital Signs Temp 97.5 F L 10/31/17 07:00 Pulse 83 10/31/17 07:00 Resp 18 10/31/17 07:00 BP 169/91 10/31/17 07:00 Pulse Ox 94 L 10/31/17 07:00 Intake & Output 10/30/17 10/31/17 10/31/17 18:59 06:59 18:59 Intake Total 1200 Balance 1200 Intake: Oral 1200 Other: # Voids 3 2 - Exam PHYSICAL EXAM: VITAL SIGNS: As above GENERAL: Sitting up in bed, no acute distress HEENT: Conjunctivae normal. eyes normal. Oral mucosa moist NECK: No JVD. No thyroid enlargement. No LNs CARDIOVASCULAR: S1, S2 muffled. No murmur RESPIRATION: Breath sounds diminished in the bases. No rhonchi or crackles. No wheezing ABDOMEN: Soft, nontender . No guarding. no masses palpable.Bowel sounds heard. LEGS: No edema. no swelling PSYCHIATRY: Alert and oriented -3, mood and affect normal. NERVOUS SYSTEM: Cranial N 2-12 grossly normal. Moves all 4 limbs. Diffuse weakness, No focal deficits. Speech fluent. - Labs CBC & Chem 7: 10/31/17 08:34 10/31/17 08:34 Labs: Abnormal Lab Results - Last 24 Hours (Table) 10/30/17 10/30/17 10/30/17 Range/Units 09:02 12:18 17:22 BUN 21 H (7-17) mg/dL Creatinine 1.12 H (0.52-1.04) mg/dL Glucose 177 H (74-99) mg/dL POC Glucose (mg/dL) 208 H 147 H (75-99) mg/dL TSH 5.020 H (0.465-4.680) mIU/L 10/30/17 10/31/17 10/31/17 Range/Units 20:35 02:17 07:16 BUN (7-17) mg/dL Creatinine (0.52-1.04) mg/dL Glucose (74-99) mg/dL POC Glucose (mg/dL) 203 H 267 H 203 H (75-99) mg/dL TSH (0.465-4.680) mIU/L Microbiology - Last 24 Hours (Table) 10/29/17 20:37 Blood Culture - Preliminary Blood No Growth after 24 hours 10/30/17 00:30 Urine Culture - Preliminary Urine,Voided Assessment and Plan Assessment: 1. Change in mental status, possible acute TIA, CVA in a patient with history of old right basal ganglia infarct. MRI reported no evidence of recent infarct. 2. Gait dysfunction and generalized weakness 3. Diabetes type 2, uncontrolled 4. Mild acute renal failure 5. Depression 6. Possible anxiety disorder Plan: Continue on current medication regime ,monitoring and symptomatic treatment. Psychiatry consult initiated. Worsening renal function, avoiding nephrotoxic agents, hydrochlorothiazide and lisinopril, prn Vasotec discontinued. Norvasc dose increased . Close monitoring of renal function with repeat labs ordered for a.m. Elevated blood sugars, long-acting insulin dose increased . Follow closely with psychiatry and neurology. Further recommendations to follow. Discharge planning in progress. The impression and plan of care has been dictated as directed. : I performed a history and examination of this patient, discussed the same with the dictator. I agree with the dictator's note ,documented as a scribe. Any additional findings or plans will be noted.
[2017-10-31 21:07] LABS: Glucose,Whole Blood 303 mg/dL (75-99)
[2017-10-31] MEDS: LEVOTHYROXINE 75 MCG TAB PO SCH (22:00)
[2017-10-31] MEDS: PANTOPRAZOLE 40 MG TABLET PO SCH (22:00)
[2017-10-31] MEDS: Vortioxetine Hydrobromide [Trintellix] 10 MG PO SCH (22:01)
[2017-11-01 02:08] LABS: Glucose,Whole Blood 180 mg/dL (75-99)
[2017-11-01 07:44] LABS: Glucose,Whole Blood 167 mg/dL (75-99)
[2017-11-01] MEDS: INSULIN ASPART 100 UNIT/ML 1 ML 10 ML VIAL SQ SCH ×4 (07:56→21:39)
[2017-11-01] MEDS: amLODIPine 10 MG TAB PO SCH (07:57)
[2017-11-01] MEDS: OXYBUTYNIN CHLORIDE 5 MG TAB PO SCH ×2 (07:57→20:38)
[2017-11-01] MEDS: ASPIRIN 325 MG TAB PO SCH (07:57)
[2017-11-01] MEDS: INSULIN DETEMIR 100 UNIT/ML 10 ML VIAL SQ SCH ×2 (08:57→21:39)
[2017-11-01 08:58] LABS: Basophils # (A) 0.1 k/uL (0-0.2); Basophils % (A) 1 %; Eosinophils # (A) 0.4 k/uL (0-0.7); Eosinophils % (A) 3 %; HCT 39.1 % (34.0-46.0); HGB 12.6 gm/dL (11.4-16.0); Lymphocytes # (A) 2.6 k/uL (1.0-4.8); Lymphocytes % (A) 21 %; MCH 28.5 pg (25.0-35.0); MCHC 32.2 g/dL (31.0-37.0); MCV 88.7 fL (80.0-100.0); Mean Platelet Volume 8.1; Monocytes # (A) 0.6 k/uL (0-1.0); Monocytes % (A) 5 %; Neutrophils # (A) 8.6 k/uL (1.3-7.7); Neutrophils % (A) 69 %; Platelet Count 333 k/uL (150-450); RBC 4.41 m/uL (3.80-5.40); RDW 12.4 % (11.5-15.5); WBC 12.4 k/uL (3.8-10.6)
[2017-11-01 09:31] LABS: Calcium 9.4 mg/dL (8.4-10.2); Potassium 4.5 mmol/L (3.5-5.1)
[2017-11-01] MEDS ORDERED: hydrALAZINE HCL 25 MG TAB PO SCH (10:00)
[2017-11-01 12:12] LABS: Glucose,Whole Blood 209 mg/dL (75-99)
[2017-11-01] MEDS: THIAMINE 100 MG TAB PO SCH (13:49)
[2017-11-01] MEDS: FOLIC ACID 1 MG TAB PO SCH (13:49)
[2017-11-01] MEDS: MULTIVITAMINS, THERA 1 EACH TAB PO SCH (13:49)
--- NOTE | 2017-11-01 15:42 | P.CN ---
Psychiatric Consult - . Consult date: 11/01/17 Consult:: 11/01/17 15:27 Identification: Patient is a 57-year-old female who is admitted secondary to elevated blood sugar and confusion. Reason for Consult: Consultation was requested for altered mental status History of Present Illness: Patient was seen and interviewed in her room, the chart was reviewed and her daughter was present to provide additional information. Patient's daughter states that her mother's partner reported that on Sunday the patient was asking questions such as what day it was where her car was and he thought she was making jokes. Patient continued to ask these questions and so he contacted her daughter's who came to the patient's home and brought her to the hospital. Her her daughter states that when she tested her mother's blood sugar at home it was 530. Patient states she does not remember anything at home and states she does know that she is confused at times. I asked the patient's daughter if she knew why her mother was on trintellix 10 mg at bedtime, she states that her sister reports the patient denied for a few weeks but is unclear why. Patient's daughter then stated that for the last several years her mother has had periods where she stays in bed and her boyfriend/partner has threatened to leave on several occasions. Patient has been known to have crying spells but has never sought treatment or receive treatment for her depression in the past per the patient or her daughter. Patient's daughter reported that for the last several months the patient has been forgetting things on the stove and so the boyfriend has been cooking. Patient states that her boyfriend pays the bills but it is unclear from questioning both the daughter and the patient how she handles her money area patient daughter states that she had an infarct in the past but they never noticed any changes in her and they found out at some point later in time that she could not state to me that any behavior changes were noted. Patient states that she is confused and can't remember some things but is not able to endorse symptoms of otf, psychosis and her daughter states that the last several months she's been forgetting things on the stove, and that for the last several years she's been staying in bed at times, boyfriend is threatening to leave at these times and has had crying spells. Both the patient and her daughter deny that the patient has ever made any suicide attempts in the patient denies that she is ever felt suicidal. Patient and her daughter unable to tell me why she was prescribed Trintellix several weeks ago and the patient and her daughter unable to tell me if she has had any benefit or side effects from this medication. Past Psychiatric History: Patient has no past psychiatric inpatient treatment and apparently the Trintellix was only recently prescribed. Past Medical/Surgical History: Patient has diabetes mellitus, hypothyroidism, hypertension, status post cholecystectomy status post right cataract surgery. Patient has a prior right frontal lobe infarct. Family History: Maternal uncle who is depressed Social History: Patient was born in [place] and raised in both [place] and [place]. Her father is and her mother is alive. Patient quit high school but then when on many years later to complete her diploma. She was at the age of 16. She has 4 girls and 1 boy and had great difficulty telling me their ages are the years they were born. 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 She and her are but have never . She has been living with her current partner for an unknown period of time. Substance Use History: Patient denies any drug use currently or in the past, states that she only occasionally has any alcohol. Legal History: None Mental status: Appearance/Attitude: Patient is lying in a hospital bed, made good eye contact and was cooperative Behavior: Patient didn't not exhibit any psychomotor agitation and there was some evidence of psychomotor retardation. Speech/Language: Patient's speech was slowed of normal volume, she was coherent Thought Process: Patient responded to many questions with she didn't know, at times was goal-directed in her response there is no evidence of loose associations or flight of ideas Thought Content: Patient denied any auditory or visual hallucinations and no delusions or paranoid ideation were elicited. Patient reports that she is sleeping and eating well. Patient states that she feels confused but was unable to tell me if she was feeling depressed or not. Suicidal/Homicidal Ideation: Patient denied any current suicidal or homicidal ideation Sensorium/Cognition: Patient is alert and oriented to person, place, date. Patient was able to recall apple and orange and umbrella after 3 minutes. Patient knew the current president was. Patient was able to do serial sevens. Patient had difficulty recalling her children's age and the years they were born , it took her a while to do serial sevens and she had difficulty knowing the year of her children's how old they were with the current year. Mood/Affect: Patient's mood was pleasant with a flattened affect Insight/Judgment: Patient's insight and judgment are impaired Assessment: Patient presented to the hospital with a blood sugar that was elevated to 418 and a hemoglobin A1c of 12.8, patient had an MRI which revealed diffuse atrophy, chronic small vessel ischemia and an old right frontal lobe infarct with no acute changes. Patient had recently been placed on Trintellix, for the last several weeks and at a dosage of 10 mg at bedtime. Patient became confused on Sunday asking what day it was where her car was and other questions that she should've known the answer to, she was brought into the emergency room on Sunday when her partner realized that she was not making a joke. Her daughter reports that for the last several years she has had periods where she stays in bed, the boyfriend has threatened to leave her and she has had crying spells but no suicidal ideation or attempts. Patient has never been treated for depression in the past. Patient does not care for her diabetes well and was unable to tell me if she tested her blood sugars or not. A she'll also per her daughter the last several months has been forgetting things on the stove and the boyfriend has been cooking. This time it appears that the patient has become confused and perhaps secondary to her poorly controlled diabetes as well as the addition of a new medication. She does appear to have had some cognitive difficulties with leaving things on the stove and it is unclear at this time what other difficulties she may have had. Per staff the patient has been improving since Sunday. Diagnosis: Delirium, mixed etiology Plan: I would not restart the antidepressant medication and so it was discontinued. At this time the patient has continued to improve and I suspect her confusion may have been secondary to a delirium caused by her elevated blood sugar and perhaps the addition of the antidepressant. We will follow the patient and evaluate her mental status. It is unclear what the extent of her cognitive difficulties are secondary to her infarct in the past and her chronic small vessel disease. At this time I would not start any antidepressants and she does not require any medication for her delirium as she is been cooperative with staff. 11/01/17 15:38
[2017-11-01 17:37] LABS: Glucose,Whole Blood 209 mg/dL (75-99)
--- NOTE | 2017-11-01 17:50 | P.PN ---
Subjective Progress Note Date: 11/01/17 Progress note being dictated for Dr. Rodarte. Hospital course: This is a 49-year-old female admitted with change in mental status, possible TIA or acute on chronic metabolic encephalopathy in a patient with history of right basal ganglion infarct, uncontrolled diabetes mellitus. Denies chest pain, palpitations or increasing shortness of breath. Evaluated by physical therapy, did well with no physical therapy needs identified. Daughter states patient's confusion remains the same; states it is October of 2016. Patient not recommending some of the family members; not recalling which grandchildren belongs to each of her children. Speech fluent. When patient questioned on specific details of her admission, past medical history, psychiatry history.... Responds with she does not know. Family states patient recently started on antidepressant approximate 6-8 weeks ago and that she has been under significant amount of stress. TSH, free T4 noted. MRI scheduled. 10/31/17 Memory deficit persists. Brain MRI reporting no evidence of recent infarct, mild to moderate diffuse cerebral atrophy with chronic small vessel ischemic change and old right frontal lobe fatima infarct redemonstrated. Psychiatry consulted with recommendations pending. Afebrile. Worsening renal function. Good diet intake with 100% consumed, no nausea vomiting. Blood sugars elevated in the 200s. 11/01/17 No overnight events. Metabolic encephalopathy improving. Psychiatry consult in place with recommendations pending. Blood sugars improving currently in the low 200s. Llisinopril, hydrochlorothiazide discontinued yesterday. Blood pressure med regime adjusted. Renal function slowly improving. hypertensive. Denies lightheadedness dizziness or focal deficits. Denies chest pain or palpitations. Sitting up at bedside visiting with daughter. Objective - Vital Signs Vital signs: Vital Signs Temp 98.0 F 11/01/17 07:00 Pulse 94 11/01/17 07:00 Resp 16 11/01/17 07:00 BP 174/87 11/01/17 08:22 Pulse Ox 95 11/01/17 07:00 Intake & Output 10/31/17 11/01/17 11/01/17 18:59 06:59 18:59 Intake Total 980 Balance 980 Intake: Oral 980 Other: Voiding Method Toilet Toilet Bedside Commode Bedside Commode # Voids 3 7 - Exam PHYSICAL EXAM: VITAL SIGNS: As above GENERAL: Sitting up at bedside, no acute distress, visiting with daughter HEENT: Conjunctivae normal. eyes normal. Oral mucosa moist NECK: No JVD. No thyroid enlargement. No LNs CARDIOVASCULAR: S1, S2 muffled. No murmur RESPIRATION: Breath sounds diminished in the bases. No rhonchi or crackles. No wheezing ABDOMEN: Soft, nontender . No guarding. no masses palpable.Bowel sounds heard. LEGS: No edema. no swelling PSYCHIATRY: Alert and oriented -3, mood and affect normal. NERVOUS SYSTEM: Cranial N 2-12 grossly normal. Moves all 4 limbs. Diffuse weakness, No focal deficits. Speech continues to be fluent. - Labs CBC & Chem 7: 11/01/17 08:11 11/01/17 08:11 Labs: Abnormal Lab Results - Last 24 Hours (Table) 10/31/17 10/31/17 11/01/17 Range/Units 16:59 21:01 02:05 WBC (3.8-10.6) k/uL Neutrophils # (1.3-7.7) k/uL BUN (7-17) mg/dL Creatinine (0.52-1.04) mg/dL Glucose (74-99) mg/dL POC Glucose (mg/dL) 211 H 303 H 180 H (75-99) mg/dL 11/01/17 11/01/17 11/01/17 Range/Units 07:35 08:11 08:11 WBC 12.4 H (3.8-10.6) k/uL Neutrophils # 8.6 H (1.3-7.7) k/uL BUN 27 H (7-17) mg/dL Creatinine 1.20 H (0.52-1.04) mg/dL Glucose 156 H (74-99) mg/dL POC Glucose (mg/dL) 167 H (75-99) mg/dL 11/01/17 Range/Units 12:09 WBC (3.8-10.6) k/uL Neutrophils # (1.3-7.7) k/uL BUN (7-17) mg/dL Creatinine (0.52-1.04) mg/dL Glucose (74-99) mg/dL POC Glucose (mg/dL) 209 H (75-99) mg/dL Microbiology - Last 24 Hours (Table) 10/29/17 20:37 Blood Culture - Preliminary Blood No Growth after 48 hours 10/30/17 00:30 Urine Culture - Final Urine,Voided Assessment and Plan Assessment: 1. Change in mental status, acute metabolic encephalopathy, multifactorial, delirium. possible acute TIA, CVA in a patient with history of old right basal ganglia infarct. MRI reported no evidence of recent infarct. 2. Gait dysfunction and generalized weakness 3. Diabetes type 2, uncontrolled 4. Mild acute renal failure 5. Depression 6. Possible anxiety disorder Plan: Continue on current medication regime ,monitoring and symptomatic treatment. Hydralazine increased, close monitoring of blood pressures. Lantus increased, close monitoring of blood sugars. Psychiatry evaluation/ recommendations pending. Close monitoring of renal function with repeat labs ordered for a.m. Discharge planning in progress for tomorrow-discussed with patient and daughter at bedside. The impression and plan of care has been dictated as directed. : I performed a history and examination of this patient, discussed the same with the dictator. I agree with the dictator's note ,documented as a scribe. Any additional findings or plans will be noted.
[2017-11-01] MEDS: hydrALAZINE HCL 25 MG TAB PO SCH ×2 (18:52→21:39)
[2017-11-01] MEDS: LEVOTHYROXINE 75 MCG TAB PO SCH (20:36)
[2017-11-01] MEDS: PANTOPRAZOLE 40 MG TABLET PO SCH (20:37)
[2017-11-01] MEDS ORDERED: INSULIN DETEMIR 100 UNIT/ML 10 ML VIAL SQ SCH (21:00)
[2017-11-01 21:23] LABS: Glucose,Whole Blood 231 mg/dL (75-99)
[2017-11-02 02:04] LABS: Glucose,Whole Blood 145 mg/dL (75-99)
[2017-11-02 07:38] LABS: Glucose,Whole Blood 116 mg/dL (75-99)
[2017-11-02] MEDS: INSULIN ASPART 100 UNIT/ML 1 ML 10 ML VIAL SQ SCH ×2 (07:39→12:45)
[2017-11-02 07:48] LABS: Basophils # (A) 0.1 k/uL (0-0.2); Basophils % (A) 1 %; Eosinophils # (A) 0.4 k/uL (0-0.7); Eosinophils % (A) 4 %; HCT 38.5 % (34.0-46.0); HGB 12.1 gm/dL (11.4-16.0); Lymphocytes # (A) 2.4 k/uL (1.0-4.8); Lymphocytes % (A) 22 %; MCH 28.4 pg (25.0-35.0); MCHC 31.5 g/dL (31.0-37.0); MCV 90.4 fL (80.0-100.0); Mean Platelet Volume 7.7; Monocytes # (A) 0.7 k/uL (0-1.0); Monocytes % (A) 6 %; Neutrophils # (A) 7.5 k/uL (1.3-7.7); Neutrophils % (A) 67 %; Platelet Count 344 k/uL (150-450); RBC 4.26 m/uL (3.80-5.40); RDW 12.3 % (11.5-15.5); WBC 11.3 k/uL (3.8-10.6)
[2017-11-02 08:02] LABS: Calcium 9.3 mg/dL (8.4-10.2); Potassium 4.4 mmol/L (3.5-5.1)
[2017-11-02] MEDS: INSULIN DETEMIR 100 UNIT/ML 10 ML VIAL SQ SCH (08:58)
[2017-11-02] MEDS: OXYBUTYNIN CHLORIDE 5 MG TAB PO SCH (08:58)
[2017-11-02] MEDS: amLODIPine 10 MG TAB PO SCH (08:58)
[2017-11-02] MEDS: hydrALAZINE HCL 25 MG TAB PO SCH ×2 (08:58→17:04)
[2017-11-02] MEDS: ASPIRIN 325 MG TAB PO SCH (08:59)
[2017-11-02] MEDS: MULTIVITAMINS, THERA 1 EACH TAB PO SCH (12:45)
[2017-11-02] MEDS: FOLIC ACID 1 MG TAB PO SCH (12:45)
[2017-11-02] MEDS: THIAMINE 100 MG TAB PO SCH (12:46)
[2017-11-02 12:49] LABS: Glucose,Whole Blood 189 mg/dL (75-99)
--- NOTE | 2017-11-02 14:40 | P.PN ---
Progress Note - Text Progress Note Date: 11/02/17 Interval History: Patient is a 57-year-old female who was seen today in her room , her daughter who was present yesterday is present today as well. Patient states that she may have seen me before but does not recall who I am I saw her. Patient states that she continues to feel confused about why she is in the hospital. She she stated that she was brought back to the hospital this morning. Daughter states that every morning she thinks that she has gone home and brought back to the hospital. Patient reports that she is doing no better than she was when I saw her yesterday and states that her memory is bad and she cannot recall anything. Patient reported that she was doing fine at home and states she felt better prior to her admission. She states that her blood sugars are fine even though they run high. Mental Status: Appearance/Attitude: Patient was sitting at the edge of the bed and was eating her lunch, she is dressed in a hospital gown and was cooperative Behavior: Patient did not display any psychomotor agitation or retardation. Speech/Language: Patient responded to my questions and was spontaneous speaking in a normal volume and rhythm and she was coherent Thought Process: Patient was goal-directed in her answers which mostly consisted of feeling confused about why she was here, not sure why she was here Thought Content: Patient denied any auditory or visual hallucinations and no paranoid delusional ideation was elicited. Patient reports that she is unsure if she slept well last evening and states that she was just brought here this morning. Her daughter states that every morning she thinks that she's gone home and been brought back here. Suicidal/Homicidal Ideation: Patient denies any suicidal or homicidal ideation at this time Sensorium/Cognition: Patient is alert and oriented to person, place and date. Further cognitive testing was not performed today. Mood/Affect: Patient's mood is pleasant and her affect is blunted Assessment: Patient continues to be a unable to tell me why she was started on an antidepressant, she reports that she was not feeling depressed and felt that she was doing better before she came to the hospital. She states that she is confused about why she is here. Yesterday when she was examined she was oriented 3 and was able to recall 3 objects after 3 minutes. Patient was also able to do serial sevens. She did have difficulty calculating her children's ages from the year they were born and today's date. Patient has been cooperative on the unit and has been sleeping and eating well. Plan: I spoke with both the patient and her daughter regarding the antidepressant and I would recommend that she not be restarted on an antidepressant at this time. Patient's daughter informed me yesterday that the last several months the patient has been forgetting things on her stove so the boyfriend has been doing the cooking. Patient has an MRI that reveals chronic small vessel changes, cerebral atrophy and an old right frontal lobe infarct. This time it is difficult to assess whether the patient is experiencing any evidence of depression combined with neurocognitive deficits as when she was admitted to the hospital her blood sugars were elevated and she was disoriented and confused. I discussed with her daughter that once the patient is discharged , over the next several months she can be observed to assess whether she is experiencing any symptoms of depression and/or evidence that she is having cognitive difficulties to request a referral psychiatric/psychological evaluation. If there are any further questions or concerns please don't hesitate to contact me and I will sign off the case at this time.
[2017-11-02 14:54] VITALS: BP 147/69; PULSE 80; RESP 18; TEMP 97.8
--- NOTE | 2017-11-02 15:12 | P.PN ---
Subjective Progress Note Date: 11/02/17 The patient is a 57-year-old man woman admitted to the hospital with hypertension hyperglycemia and confusion. The patient has been having progressive problems with anxiety depression and memory loss over the past several months prior to admission. She had been started on an antidepressant by her primary care physician. The patient's daughter is at her bedside. The patient states she's doing about the same. She states she is not sure whether she has seen the examiner before. She does not recall going into the MRI scanner. She did have an MRI of the brain which did not show any acute findings. She had an EEG which was normal. Slightly elevated TSH. He has no focal neurologic deficits on examination. Denies any headache weakness numbness or visual complaint. Objective - Vital Signs Vital signs: Vital Signs Temp 97.8 F 11/02/17 14:53 Pulse 80 11/02/17 14:53 Resp 18 11/02/17 14:53 BP 147/69 11/02/17 14:53 Pulse Ox 96 11/02/17 14:53 Intake & Output 11/01/17 11/02/17 11/02/17 18:59 06:59 18:59 Intake Total 960 590 Balance 960 590 Intake: Oral 960 590 Other: Voiding Method Toilet Toilet # Voids 3 3 1 # Bowel Movements 0 - Constitutional General appearance: Present: obese - EENT Eyes: Present: EOMI, PERRLA ENT: Present: hearing grossly normal - Neurologic Neurologic Comment(s): Neurologic examination Mental status she was awake she was alert she was oriented to place. The year was 2016 she was not sure of the month although per the past several visits he was able to name the month. Is able to name her children was able to do calculations and spell world able to name what states she is in there is no a aphasia or dysarthria next Cranial nerves II through XII are grossly intact etc. motor examination revealed no focal weakness X Coordination was intact next Gait she had a normal gait - Musculoskeletal Musculoskeletal: Present: gait normal - Labs CBC & Chem 7: 11/02/17 07:31 11/02/17 07:31 Labs: Abnormal Lab Results - Last 24 Hours (Table) 11/01/17 11/01/17 11/02/17 Range/Units 17:33 21:15 02:00 WBC (3.8-10.6) k/uL BUN (7-17) mg/dL Creatinine (0.52-1.04) mg/dL Glucose (74-99) mg/dL POC Glucose (mg/dL) 209 H 231 H 145 H (75-99) mg/dL 11/02/17 11/02/17 11/02/17 Range/Units 07:31 07:31 07:35 WBC 11.3 H (3.8-10.6) k/uL BUN 30 H (7-17) mg/dL Creatinine 1.31 H (0.52-1.04) mg/dL Glucose 122 H (74-99) mg/dL POC Glucose (mg/dL) 116 H (75-99) mg/dL 11/02/17 Range/Units 12:09 WBC (3.8-10.6) k/uL BUN (7-17) mg/dL Creatinine (0.52-1.04) mg/dL Glucose (74-99) mg/dL POC Glucose (mg/dL) 189 H (75-99) mg/dL Microbiology - Last 24 Hours (Table) 10/29/17 20:37 Blood Culture - Preliminary Blood No Growth after 72 hours Assessment and Plan (1) Altered mental status Current Visit: Yes Status: Acute SNOMED Code(s): 501959676 (2) Hyperglycemia Current Visit: Yes Status: Acute SNOMED Code(s): 50545028 (3) Hypertension Current Visit: Yes Status: Acute SNOMED Code(s): 35544369 Plan: The patient is a 57-year-old woman with history of ongoing memory loss prior to admission which had become exacerbated on admission when she came in with hypertension and hyperglycemia. The patient has no focal neurologic deficit. She may have underlying cognitive impairment which can be worked up further outpatient with neuropsychological testing.
--- NOTE | 2017-11-02 19:39 | P.DS ---
Providers Date of admission: 10/28/17 16:29 Expected date of discharge: 11/02/17 Attending physician: Stew Rodarte Consults: 10/28/17 16:30 Consult Physician Urgent Consulting Provider: Sunshine Marlow Consult Reason/Comments: ams Do you want consulting provider notified?: Yes 10/31/17 09:31 Consult Physician Urgent Consulting Provider: Ashlee Davenport Consult Reason/Comments: altered mental status change Do you want consulting provider notified?: Already Contacted [facility] [place] Hospital Course: Final Diagnoses: 1. Change in mental status, acute hypertensive encephalopathy, acute metabolic encephalopathy, multifactorial, delirium. TIA, CVA ruled out in a patient with history of old right basal ganglia infarct. MRI reported no evidence of recent infarct. 2. Hypertensive urgency, improved 3. Diabetes type 2, better controlled 4. Mild acute renal failure 5. Depression 6. Possible anxiety disorder Hospital course:This is a 49-year-old female admitted with change in mental status, hypertensive urgency, hyperglycemic, hypertensive encephalopathy , acute metabolic encephalopathy. Evaluated by physical therapy, neurology, psychiatry. Neurology workup completed, ruling out TIA, CVA. EEG reported as normal. MRI non-acute. Psychiatry recommended antidepressant be discontinued and not be restarted at this time. Norvasc added to patient's current home med regime, with close monitoring of renal function. Repeat BMP in 3 days. Patient has been cleared by both psychiatry and neurology for discharge. Patient is being discharged home in a stable condition with guarded prognosis. PHYSICAL EXAM: GENERAL: VSS, A & O X 3,no acute distress, visiting with daughter.CARDIOVASCULAR : S1, S2 muffled. No murmur RESPIRATION: Breath sounds diminished in the bases. No rhonchi or crackles. No wheezing.ABDOMEN: Soft, nontender . No guarding. no masses palpable.Bowel sounds heard.NERVOUS SYSTEM:No focal deficits. The impression and plan of care has been dictated as directed. : I performed a history and examination of this patient, discussed the same with the dictator. I agree with the dictator's note ,documented as a scribe. Any additional findings or plans will be noted. Time taken: 35 minutes Patient Condition at Discharge: Stable Plan - Discharge Summary Discharge Rx Participant: Yes New Discharge Prescriptions: New amLODIPine BESYLATE [Norvasc] 5 mg PO DAILY #30 tablet Aspirin EC [Ecotrin Low Dose] 81 mg PO DAILY #30 tablet. Folic Acid 1 mg PO DAILY@1200 #30 tab Multivitamins, Thera [Multivitamin (formulary)] 1 each PO DAILY@1200 #30 tab Thiamine [Vitamin B-1] 100 mg PO DAILY@1200 #30 tab Insulin Detemir [Levemir] 30 unit SQ BID 30 Days #2 syr Continue Oxybutynin Chloride 5 mg PO BID Omeprazole 20 mg PO HS Hydrochlorothiazide [Hydrodiuril] 25 mg PO HS Lisinopril [Prinivil] 10 mg PO HS Levothyroxine Sodium [Synthroid] 75 mcg PO HS Discontinued diphenhydrAMINE [Benadryl] 50 mg PO HS PRN PRN Reason: Allergy Symptoms Insulin Glargine [Lantus] 20 unit SQ BID Vortioxetine Hydrobromide [Trintellix] 10 mg PO HS Insulin Glulisine [Apidra] See Protocol SQ TID Discharge Medication List Hydrochlorothiazide [Hydrodiuril] 25 mg PO HS 10/28/17 [History] Levothyroxine Sodium [Synthroid] 75 mcg PO HS 10/28/17 [History] Lisinopril [Prinivil] 10 mg PO HS 10/28/17 [History] Omeprazole 20 mg PO HS 10/28/17 [History] Oxybutynin Chloride 5 mg PO BID 10/28/17 [History] Aspirin EC [Ecotrin Low Dose] 81 mg PO DAILY #30 tablet. 11/02/17 [Rx] Folic Acid 1 mg PO DAILY@1200 #30 tab 11/02/17 [Rx] Insulin Detemir [Levemir] 30 unit SQ BID 30 Days #2 syr 11/02/17 [Rx] Multivitamins, Thera [Multivitamin (formulary)] 1 each PO DAILY@1200 #30 tab [Rx] Thiamine [Vitamin B-1] 100 mg PO DAILY@1200 #30 tab 11/02/17 [Rx] amLODIPine BESYLATE [Norvasc] 5 mg PO DAILY #30 tablet 11/02/17 [Rx] Follow up Appointment(s)/Referral(s): [facility], Psychiatry [Other] - 1 Week Sunshine Marlow MD [STAFF PHYSICIAN] - 2 Weeks Silvino Sears DO [Primary Care Provider] - 11/06/17 (Office currently closed, please call for appointment. ) Ambulatory/Diagnostic Orders: Complete Blood Count w/diff [LAB.AMB] Time Frame: 3 Days, Location: Determined By Patient Patient Instructions/Handouts: Hypertension (DC), Diabetic Hyperglycemia (DC) Activity/Diet/Wound Care/Special Instructions: [facility]: #[phone] Cardiac, diabetic diet accu cheks achs, maintain log and take to F.U visit with PCP for further rec. Activity as tolerated. Fall precautions. Maintain log of daily AM BP, take to F/U visit with PCP for further rec. Discharge Disposition: HOME WITH HOME HEALTH SERVICES
--- NOTE | 2017-11-12 14:52 | EEG ---
ELECTROENCEPHALOGRAM REPORT DATE OF EE10/29/2017 ELECTROENCEPHALOGRAPHIC EXAMINATION REPORT: INDICATION FOR EXAMINATION: This patient is a 57-year-old female being evaluated for altered mental status and confusion. AGE: 57. EEG FINDINGS: A routine 21-channel awake digital EEG recording was accomplished utilizing the 10-20 international system with bipolar and referential montages. The background activity in the most alert resting state consists of a low to medium amplitude, fairly well- developed and well-sustained 8 Hz activity over the posterior head regions. This posterior rhythm attenuates to eye opening. Muscle and movement artifact was observed on a few occasions during the tracing. Hyperventilation was not performed. Photic stimulation at flash frequencies of 2-30 Hz produced a good symmetrical occipital driving response. No epileptiform discharges were seen. IMPRESSION: This EEG is within normal limits for the patient's age. The EEG failed to reveal any focal, lateralized, or epileptiform abnormalities. Clinical correlation is recommended. MMROCKY / ALIREZAN: [id number] /
== END 2017-11-02 18:08 | disposition home health service (06) | DRG 77 ==
LOC: EC 15:09 → 4MS4W 16:29 → OBSVTOIN 16:29 → 4MS4W 20:19
PROVIDERS: ADMIT Hospitalist; ATTEND Hospitalist
DX: I67.4 Hypertensive encephalopathy (principal); G93.41 Metabolic encephalopathy; E87.1 Hypo-osmolality and hyponatremia; E11.65 Type 2 diabetes mellitus with hyperglycemia; F32.9 Major depressive disorder, single episode, unspecified; I10 Essential (primary) hypertension; R26.9 Unspecified abnormalities of gait and mobility; F41.8 Other specified anxiety disorders; Z79.4 Long term (current) use of insulin; Z79.899 Other long term (current) drug therapy; Z90.49 Acquired absence of other specified parts of digestive tract; Z86.73 Personal history of transient ischemic attack (TIA), and cerebral infarction without residual deficits; Z88.5 Allergy status to narcotic agent; I16.0 Hypertensive urgency; E78.5 Hyperlipidemia, unspecified
CPT/HCPCS: 36415; 70450; 70551; 71046; 80048; 80053; 80061; 80306; 81001; 82009; 82550; 82553; 82607; 83036; 84439; 84443; 84484; 85025; 85610; 85730; 87040; 87086; 93005; 93306; 93880; 95819; 96360; 96361; 96374; 96376; 99285

== ENCOUNTER → 2020-01-18 | Outpatient (CLI) | payer OTHER | END | disposition home or self-care (01) | LOC: LABWHC1 08:40 | PROVIDERS: ATTEND Surgery | DX: U07.1 COVID-19 (principal) | CPT/HCPCS: 87635 ==

== ENCOUNTER → 2020-02-03 | Day surgery (SDC) | payer OTHER ==
[2020-02-02 10:58] VITALS: BMI 35.4
[~2020-02-03] MED LIST: DEXAMETHASONE SOD PHOSPHATE 10 MG/ML 1 ML VIAL IV ONE; HEPARIN SODIUM,PORCINE 5,000 UNIT/ML 1 ML VIAL ONE; HYDROmorphone 0.5 MG/0.5 ML SYRINGE IVP PRN; LACTATED RINGERS 1,000 ML IV SCH; LIDOCAINE 1% (10MG/ML) FOR IV START INTRADERMA PRN; LIDOCAINE 2%-EPI 1:100,000 20 ML VIAL ONE; MIDAZOLAM 2 MG/2 ML VIAL IV ONE; MIDAZOLAM 2 MG/2 ML VIAL IV PRN; MIDAZOLAM 2 MG/2 ML VIAL ONE; ONDANSETRON 4 MG/2 ML VIAL IVP ONE; PROPOFOL 10 MG/ML 20 ML VIAL IV ONE; ROPIVACAINE 5 MG/ML 30 ML VIAL ONE; SODIUM CHLORIDE 0.9% 1,000 ML IV ONE; ceFAZolin 2 GM in SODIUM CHLORIDE 0.9% 500 ML 500 ML IRRIGATION ONE; fentaNYL (PF) 50 MCG/ML 2 ML AMP IV ONE; fentaNYL (PF) 50 MCG/ML 2 ML AMP ONE
[2020-02-03 07:10] LABS: Glucose,Whole Blood 143 mg/dL (75-99)
--- NOTE | 2020-02-03 07:30 | P.GSHP ---
History of Present Illness H&P Date: 02/03/20 Chief Complaint: chronic renal failure 59 year old female with history of chronic renal failure presented to the office for discussion of creation of a fistula for future dialysis access. Patient presents to the hospital today for left upper extremity lynn fistula creation. In office she had an ultrasound that showed good size cephalic vein at the wrist which is suitable for fistula creation. She denies any fevers, chills, chest pain or shortness of breath. - Review of Systems All systems: negative (what is mentioned in HPI or PMH) Past Medical History Past Medical History: CVA/TIA, Diabetes Mellitus, Hypertension, Renal Disease Additional Past Medical History / Comment(s): HX OF CVA X2 -WITH MEMORY LOSS AND MOVES SLOWLY-USES WALKER., HX OF HEPATITIS B., BACK PAIN. History of Any Multi-Drug Resistant Organisms: None Reported Past Surgical History: Section, Cholecystectomy Past Anesthesia/Blood Transfusion Reactions: No Reported Reaction Smoking Status: Never smoker - Past Family History Mother Family Medical History: No Reported History Medications and Allergies Home Medications Medication Instructions Recorded Confirmed Type Levothyroxine Sodium [Synthroid] 75 mcg PO DAILY 10/28/17 02/02/20 History Oxybutynin Chloride 10 mg PO BID 10/28/17 02/02/20 History amLODIPine BESYLATE [Norvasc] 5 mg PO DAILY #30 tablet 11/02/17 02/02/20 Rx Allopurinol [Zyloprim] 100 mg PO DAILY 01/19/20 02/02/20 History Atorvastatin [Lipitor] 10 mg PO DAILY 01/19/20 02/02/20 History Docusate Sodium [Dok] 100 mg PO DIRECTED PRN 01/19/20 02/02/20 History Ergocalciferol [Vitamin D2] 50,000 unit PO MO 01/19/20 02/02/20 History Furosemide [Lasix] 40 mg PO DAILY 01/19/20 02/02/20 History Insulin Glargine,Hum.rec.anlog 20 unit SQ BID 01/19/20 02/02/20 History [Basaglar Kwikpen U-100] Magnesium Oxide 400 mg PO DAILY 01/19/20 02/02/20 History Metoprolol Tartrate [Lopressor] 100 mg PO BID 01/19/20 02/02/20 History Allergies Allergy/AdvReac Type Severity Reaction Status Date / Time codeine AdvReac Nausea Verified 02/03/20 06:32 Surgical - Exam Vital Signs Temp Pulse Resp BP Pulse Ox 97.1 F L 64 16 173/69 95 02/03/20 07:05 02/03/20 07:05 02/03/20 07:05 02/03/20 07:05 02/03/20 07:05 palpable radial and ulnar pulse bilaterally. - General well developed, no distress, no pain - Eyes PERRL - ENT normal pinna, normal nares - Neck no masses, no bruits, trachea midline - Respiratory normal expansion - Cardiovascular Rhythm: regular - Abdomen Abdomen: soft, non tender - Integumentary no rash - Neurologic normal coordination, normal sensation - Psychiatric oriented to time, oriented to person, oriented to place, speech is normal Results - Labs Abnormal Lab Results - Last 24 Hours (Table) 02/03/20 Range/Units 07:02 POC Glucose (mg/dL) 143 H (75-99) mg/dL Assessment and Plan Assessment: 1. Chronic renal failure 2. DM 3. CAD Plan: To OR for creation of left upper extremity Lynn fistula.
[2020-02-03 09:27] VITALS: TEMP 97.4
[2020-02-03 09:34] LABS: Glucose,Whole Blood 181 mg/dL (75-99)
--- NOTE | 2020-02-03 09:36 | P.OP ---
Date of Procedure: 02/03/20 Preoperative Diagnosis: Chronic Renal Failure Postoperative Diagnosis: Chronic renal failure Procedure(s) Performed: Left upper extremity radiocephalic Lynn fistula creation Anesthesia: regional Surgeon: Olivier Camacho Estimated Blood Loss (ml): 15 IV fluids (ml): 800 Pathology: none sent Condition: stable Disposition: PACU Indications for Procedure: 59-year-old female with history of chronic renal failure presents to the operating room for creation of left upper extremity Lynn fistula. She underwent ultrasound which demonstrated the cephalic vein at the wrist measuring 2.9 mm and therefore attempts to create a Lynn fistula was scheduled. She is currently not on hemodialysis but is anticipated to start in the next coming months. Description of Procedure: After written and informed consent was obtained from the patient the patient was brought to the operative suite and laid in a supine position. The left arm was prepped and draped in the usual sterile fashion after appropriate anesthesia was performed per the anesthesiologist. Utilizing ultrasound the cephalic vein was visualized and marked and shown to be good size. A small vertical incision was then created with a 15 blade scalpel just proximal to the wrist and dissection was carried down to the radial artery which was dissected free in a circumferential manner. Proximal distal control was then obtained with vessel loops. Attention was then placed back to the cephalic vein which was located and dissected free in a circumferential manner distally to the wrist. At the wrist it was ligated with silk suture. Further dissection was carried around the vein and the vein was brought over to the radial artery. Serial dilation was then performed on the vein and good backbleeding was noted. Patient was administered 3000 units of heparin and the radial artery was clamped at the proximal and distal aspect. Utilizing 11 blade scalpel and arteriotomy was created and extended with Pott Limon scissors. There was good brisk backbleeding noted from the radial artery and pulsatile blood flow visualized from the proximal aspect. The vein was then spatulated and an end-to-side anastomosis was created with a 7-0 Prolene suture. Prior to last sutures being placed the control was released from the vein revealing good backbleeding and distal control on the radial artery was released revealing good back flow. The proximal control was then released and good pulsatile blood flow was visualized in the fistula and final sutures were secured. The area was copiously irrigated with antibiotic solution. Hemostasis was assured. The vessels were then interrogated with Doppler which demonstrated good multiphasic signal distal to the anastomosis as well as positive bruit within the vein consistent with good fistula creation. Under ultrasound there was pulsatile flow noted in the cephalic vein. The incision was then closed in a multilayer fashion. The skin was cleansed and dressings were placed. Patient does procedure well and was sent to PACU for recovery. Plan - Discharge Summary Discharge Rx Participant: Yes New Discharge Prescriptions: No Action Oxybutynin Chloride 10 mg PO BID Levothyroxine Sodium [Synthroid] 75 mcg PO DAILY amLODIPine BESYLATE [Norvasc] 5 mg PO DAILY #30 tablet Furosemide [Lasix] 40 mg PO DAILY Allopurinol [Zyloprim] 100 mg PO DAILY Metoprolol Tartrate [Lopressor] 100 mg PO BID Ergocalciferol [Vitamin D2] 50,000 unit PO MO Atorvastatin [Lipitor] 10 mg PO DAILY Magnesium Oxide 400 mg PO DAILY Insulin Glargine,Hum.rec.anlog [Basaglar Kwikpen U-100] 20 unit SQ BID Docusate Sodium [Dok] 100 mg PO DIRECTED PRN PRN Reason: Constipation Discharge Medication List Levothyroxine Sodium [Synthroid] 75 mcg PO DAILY 10/28/17 [History] Oxybutynin Chloride 10 mg PO BID 10/28/17 [History] amLODIPine BESYLATE [Norvasc] 5 mg PO DAILY #30 tablet 11/02/17 [Rx] Allopurinol [Zyloprim] 100 mg PO DAILY 01/19/20 [History] Atorvastatin [Lipitor] 10 mg PO DAILY 01/19/20 [History] Docusate Sodium [Dok] 100 mg PO DIRECTED PRN 01/19/20 [History] Ergocalciferol [Vitamin D2] 50,000 unit PO MO 01/19/20 [History] Furosemide [Lasix] 40 mg PO DAILY 01/19/20 [History] Insulin Glargine,Hum.rec.anlog [Basaglar Kwikpen U-100] 20 unit SQ BID 01/19/20 [History] Magnesium Oxide 400 mg PO DAILY 01/19/20 [History] Metoprolol Tartrate [Lopressor] 100 mg PO BID 01/19/20 [History] Follow up Appointment(s)/Referral(s): Olivier Camacho DO [STAFF PHYSICIAN] - 2 Weeks Discharge Disposition: HOME SELF-CARE
[2020-02-03 10:11] VITALS: RESP 20
[2020-02-03] MEDS: diphenhydrAMINE 50 MG/ML 1 ML VIAL IVP ONE ×2 (10:25→11:00)
[2020-02-03 11:04] VITALS: BP 159/71; PULSE 70
--- NOTE | 2020-02-03 18:12 | P.ANPRN ---
Procedure Note - Anesthesia - Nerve Block Performed Left Supraclavicular Single Time Out Performed: Yes Date of Procedure: 02/03/20 Procedure Start Time: Procedure Stop Time: Location of Patient: PreOp Indication: Acute Post-Operative Pain, Requested by Surgeon Specifically requested for management of pain by DrNelida: Olivier Camacho Sedation Type: Sedate with meaningful contact maintained Preparation: Sterile Prep Position: Supine Catheter: None Needle Types: Pajunk Needle Gauge: 21 Ultrasound used to visualize needle placement: Yes Ultrasound used to observe medication spread: Yes Injectate: 0.5% Ropivacaine (see comment for volume) Adjunct: Epinephrine (see comment for dilution ratio) Blood Aspirated: No Pain Paresthesia on Injection Noted: No Resistance on Injection: Normal Image Stored and Saved: Yes Events: Uneventful and Well Tolerated (10cc 0.5% ropivacaine 5cc 2% lidocaine with epi)
== END | disposition home or self-care (01) ==
LOC: OR 06:10
PROVIDERS: ATTEND Surgery
DX: I12.9 Hypertensive chronic kidney disease with stage 1 through stage 4 chronic kidney disease, or unspecified chronic kidney disease (principal); E11.22 Type 2 diabetes mellitus with diabetic chronic kidney disease; N18.9 Chronic kidney disease, unspecified; I25.10 Atherosclerotic heart disease of native coronary artery without angina pectoris; F03.90 Unspecified dementia, unspecified severity, without behavioral disturbance, psychotic disturbance, mood disturbance, and anxiety; E66.9 Obesity, unspecified; Z86.73 Personal history of transient ischemic attack (TIA), and cerebral infarction without residual deficits; Z11.59 Encounter for screening for other viral diseases; Z86.19 Personal history of other infectious and parasitic diseases; Z90.49 Acquired absence of other specified parts of digestive tract; Z98.891 History of uterine scar from previous surgery; Z79.890 Hormone replacement therapy; Z79.4 Long term (current) use of insulin; Z79.899 Other long term (current) drug therapy; Z88.5 Allergy status to narcotic agent; Z68.35 Body mass index [BMI] 35.0-35.9, adult
CPT/HCPCS: 36821; 64415; 76942; 87635; J2250; J1200; J1644; J1100; J0690; J2405; J3010; J2795; J2704; 64418

== ENCOUNTER → 2020-07-27 | Day surgery (SDC) | payer OTHER ==
[2020-07-26 12:21] VITALS: BMI 40.2
[~2020-07-27] MED LIST changes: -DEXAMETHASONE SOD PHOSPHATE 10 MG/ML 1 ML VIAL IV ONE; -HEPARIN SODIUM,PORCINE 5,000 UNIT/ML 1 ML VIAL ONE; -HYDROmorphone 0.5 MG/0.5 ML SYRINGE IVP PRN; -LACTATED RINGERS 1,000 ML IV SCH; -LIDOCAINE 1% (10MG/ML) FOR IV START INTRADERMA PRN; +LIDOCAINE 1% INJ 10MG/ML (20 ML MDV) SQ ONE; -LIDOCAINE 2%-EPI 1:100,000 20 ML VIAL ONE; +METOPROLOL TARTRATE 50 MG TAB PO ONE; -MIDAZOLAM 2 MG/2 ML VIAL IV PRN; -MIDAZOLAM 2 MG/2 ML VIAL ONE; -ONDANSETRON 4 MG/2 ML VIAL IVP ONE; -PROPOFOL 10 MG/ML 20 ML VIAL IV ONE; -ROPIVACAINE 5 MG/ML 30 ML VIAL ONE; -SODIUM CHLORIDE 0.9% 1,000 ML IV ONE; +SODIUM CHLORIDE 0.9% 500 ML 500 ML IV ONE; +SODIUM CHLORIDE 0.9% 500 ML 500 ML IV SCH; +amLODIPine 5 MG TAB PO ONE; -ceFAZolin 2 GM in SODIUM CHLORIDE 0.9% 500 ML 500 ML IRRIGATION ONE; -fentaNYL (PF) 50 MCG/ML 2 ML AMP ONE; +hydrALAZINE HCL 20 MG/ML 1 ML VIAL IVP STA; +hydrALAZINE HCL 20 MG/ML 1 ML VIAL ONE
[2020-07-27 11:17] LABS: Glucose,Whole Blood 77 mg/dL (75-99)
[2020-07-27 11:22] VITALS: RESP 16; TEMP 98.1
[2020-07-27 11:23] LABS: Basophils # (A) 0.1 k/uL (0-0.2); Basophils % (A) 1 %; Eosinophils # (A) 0.4 k/uL (0-0.7); Eosinophils % (A) 3 %; HCT 33.8 % (34.0-46.0); Lymphocytes # (A) 2.1 k/uL (1.0-4.8); Lymphocytes % (A) 19 %; MCH 30.5 pg (25.0-35.0); MCHC 32.5 g/dL (31.0-37.0); MCV 93.7 fL (80.0-100.0); Mean Platelet Volume 8.9; Monocytes # (A) 0.7 k/uL (0-1.0); Monocytes % (A) 6 %; Neutrophils # (A) 7.8 k/uL (1.3-7.7); Neutrophils % (A) 70 %; Platelet Count 335 k/uL (150-450); RDW 14.1 % (11.5-15.5); WBC 11.1 k/uL (3.8-10.6)
[2020-07-27 11:47] LABS: Calcium 8.9 mg/dL (8.4-10.2); Potassium 4.1 mmol/L (3.5-5.1)
[2020-07-27 12:48] LABS: Glucose,Whole Blood 83 mg/dL (75-99)
--- NOTE | 2020-07-27 16:48 | P.OP ---
Description of Procedure: DATE OF SERVICE: 07/27/2020. SURGEON: Olivier Camacho PREOPERATIVE DIAGNOSIS: ESRD POSTOPERATIVE DIAGNOSIS: ESRD. OPERATION: Right tunneled hemodialysis catheter placement under ultrasound guided right internal jugular vein access. ANESTHESIA: local with moderate sedation x 22 minutes ESTIMATED BLOOD LOSS: 10cc SPECIMENS REMOVED: COMPLICATIONS: None After written informed consent was obtained and all risks, benefits, competitions were described the procedure was performed at bedside. Utilizing ultrasound the right internal jugular vein was visualized and shown to be patent without any thrombus. Utilizing a multipurpose needle the right internal jugular vein was accessed. Dark nonpulsatile blood flow was visualized. Guidewire was placed and needle was removed. Attention was then placed to the chest area and after local anesthetic was infused overlying the chest wall approximately 2 fingerbreadths below the angle of the clavicle small incision was created with 11 blade scalpel. Small incision was then also created at the neck access site. A 23 cm palindrome tunneled him analysis catheter was then tunneled from the chest to the neck incision site. Serial dilation was then performed under direct visualization of fluoroscopy. Breakaway sheath was then placed and catheter was placed through the breakaway sheath. The catheter was then assessed for patency injured flushed easily and then was hep-locked. The catheter was then sutured in place with nylon suture. The area was then cleansed and dressings were placed. Patient tolerated procedure well. Plan - Discharge Summary Discharge Rx Participant: No New Discharge Prescriptions: No Action Oxybutynin Chloride 10 mg PO BID Levothyroxine Sodium [Synthroid] 75 mcg PO DAILY amLODIPine BESYLATE [Norvasc] 5 mg PO DAILY #30 tablet Furosemide [Lasix] 40 mg PO DAILY allopurinoL [Zyloprim] 100 mg PO DAILY Metoprolol Tartrate [Lopressor] 100 mg PO BID Ergocalciferol [Vitamin D2] 50,000 unit PO MO Atorvastatin [Lipitor] 10 mg PO DAILY Magnesium Oxide 400 mg PO DAILY Insulin Glargine,Hum.rec.anlog [Basaglar Kwikpen U-100] 22 unit SQ BID Docusate Sodium [Dok] 100 mg PO DIRECTED PRN PRN Reason: Constipation Discharge Medication List Levothyroxine Sodium [Synthroid] 75 mcg PO DAILY 10/28/17 [History] Oxybutynin Chloride 10 mg PO BID 10/28/17 [History] amLODIPine BESYLATE [Norvasc] 5 mg PO DAILY #30 tablet 11/02/17 [Rx] Atorvastatin [Lipitor] 10 mg PO DAILY 01/19/20 [History] Docusate Sodium [Dok] 100 mg PO DIRECTED PRN 01/19/20 [History] Ergocalciferol [Vitamin D2] 50,000 unit PO MO 01/19/20 [History] Furosemide [Lasix] 40 mg PO DAILY 01/19/20 [History] Insulin Glargine,Hum.rec.anlog [Basaglar Kwikpen U-100] 22 unit SQ BID 01/19/20 [History] Magnesium Oxide 400 mg PO DAILY 01/19/20 [History] Metoprolol Tartrate [Lopressor] 100 mg PO BID 01/19/20 [History] allopurinoL [Zyloprim] 100 mg PO DAILY 01/19/20 [History] Follow up Appointment(s)/Referral(s): Olivier Camacho DO [STAFF PHYSICIAN] - 2 Weeks Discharge Disposition: HOME SELF-CARE
--- NOTE | 2020-07-27 17:21 | XR ---
EXAMINATION TYPE: XR chest 1V portable DATE OF EXAM: 07/27/2020 COMPARISON: 10/28/2017 HISTORY: Catheter placement TECHNIQUE: FINDINGS: There is dual-lumen right central venous catheter with tip in the right atrium. There is no heart failure nor confluent pneumonic infiltrate. Costophrenic angles are clear. IMPRESSION: No active cardiopulmonary disease. Normal heart. No change.
[2020-07-27 18:55] VITALS: PULSE 66
[2020-07-27 18:56] VITALS: BP 151/84
--- NOTE | 2020-07-28 09:53 | IR ---
Fluoroscopy HISTORY: Dialysis catheter placement 0.6 minutes fluoroscopy time supplied to the referring clinician. 116 intraoperative C-arm images do cument the procedure. See dictated report from vascular surgery.
== END | disposition home or self-care (01) ==
LOC: CATHCVL 10:27
PROVIDERS: ATTEND Surgery
DX: I12.0 Hypertensive chronic kidney disease with stage 5 chronic kidney disease or end stage renal disease (principal); E11.22 Type 2 diabetes mellitus with diabetic chronic kidney disease; N18.6 End stage renal disease; D64.9 Anemia, unspecified; K80.20 Calculus of gallbladder without cholecystitis without obstruction; E21.3 Hyperparathyroidism, unspecified; Z86.73 Personal history of transient ischemic attack (TIA), and cerebral infarction without residual deficits; E55.9 Vitamin D deficiency, unspecified; Z90.49 Acquired absence of other specified parts of digestive tract; Z98.891 History of uterine scar from previous surgery; Z83.3 Family history of diabetes mellitus; Z82.49 Family history of ischemic heart disease and other diseases of the circulatory system; Z79.899 Other long term (current) drug therapy
CPT/HCPCS: 36558; 76937; 77001; 80048; 85025; 81025; 71045; C1769 ×2; C1750; J2250; J0360; J2001; J3010; J1644; 36556

== ENCOUNTER 2020-12-20 17:23 | Emergency (ER) | payer OTHER ==
[2020-12-20 19:21] VITALS: BP 161/78; PULSE 59; RESP 15; TEMP 97.8
[2020-12-20 19:25] LABS: Glucose,Whole Blood 156 mg/dL (75-99)
== END 2020-12-20 20:50 | disposition left against medical advice (07) ==
LOC: EC 17:23
DX: Z53.21 Procedure and treatment not carried out due to patient leaving prior to being seen by health care provider (principal)
CPT/HCPCS: 36415; 99499

== ENCOUNTER 2021-07-29 01:08 | Emergency (ER) | payer OTHER ==
[2021-07-29 01:26] VITALS: BP 162/66; PULSE 75; RESP 16; TEMP 97.8
--- NOTE | 2021-07-29 01:40 | ED ---
Weakness HPI - General Chief complaint: Fall Stated complaint: Fall Time Seen by Provider: 07/29/21 01:16 Source: EMS, RN notes reviewed, old records reviewed Mode of arrival: EMS Limitations: physical limitation - History of Present Illness Initial comments: This is a 60-year-old female of a DO NOT RESUSCITATE presenting with for evaluation of persistent weakness persistent falls increasing weakness increasing activity level. Patient otherwise is a poor historian history of pain from family. MD Complaint: generalized weakness, lack of energy, difficulty walking -: month(s) Location: generalized Severity: moderate Severity scale (1-10): 6 Consistency: constant Improves with: none Worsens with: none Context: recent illness, history of similar Associated Symptoms: confusion, loss of appetite, nausea/vomiting - Related Data Home Medications Medication Instructions Recorded Confirmed Levothyroxine Sodium [Synthroid] 75 mcg PO DAILY 10/28/17 07/27/20 Oxybutynin Chloride 10 mg PO BID 10/28/17 07/27/20 Atorvastatin [Lipitor] 10 mg PO DAILY 01/19/20 07/27/20 Docusate Sodium [Dok] 100 mg PO DIRECTED PRN 01/19/20 07/27/20 Ergocalciferol [Vitamin D2] 50,000 unit PO MO 01/19/20 07/27/20 Furosemide [Lasix] 40 mg PO DAILY 01/19/20 07/27/20 Insulin Glargine,Hum.rec.anlog 22 unit SQ BID 01/19/20 07/27/20 [Basaglar Kwikpen U-100] Magnesium Oxide 400 mg PO DAILY 01/19/20 07/27/20 Metoprolol Tartrate [Lopressor] 100 mg PO BID 01/19/20 07/27/20 allopurinoL [Zyloprim] 100 mg PO DAILY 01/19/20 07/27/20 Previous Rx's Medication Instructions Recorded amLODIPine BESYLATE [Norvasc] 5 mg PO DAILY #30 tablet 11/02/17 Allergies Allergy/AdvReac Type Severity Reaction Status Date / Time codeine AdvReac Nausea Verified 12/20/20 19:17 Review of Systems ROS Statement: Those systems with pertinent positive or pertinent negative responses have been documented in the HPI. ROS Other: All systems not noted in ROS Statement are negative. Past Medical History Past Medical History: CVA/TIA, Diabetes Mellitus, Dialysis, Hypertension, Renal Disease Additional Past Medical History / Comment(s): HX OF CVA X2 -WITH MEMORY LOSS AND MOVES SLOWLY-USES WALKER., HX OF HEPATITIS B., BACK PAIN. Never started dialysis per spouse History of Any Multi-Drug Resistant Organisms: None Reported Past Surgical History: Section, Cholecystectomy Additional Past Surgical History / Comment(s): left upper arm fistula Past Anesthesia/Blood Transfusion Reactions: No Reported Reaction Past Psychological History: No Psychological Hx Reported Smoking Status: Never smoker Past Alcohol Use History: None Reported Past Drug Use History: Marijuana - Past Family History Mother Family Medical History: No Reported History General Exam Limitations: physical limitation General appearance: alert, in no apparent distress Head exam: Present: atraumatic, normocephalic, normal inspection Eye exam: Present: normal appearance, PERRL, EOMI. Absent: scleral icterus, conjunctival injection, periorbital swelling ENT exam: Present: normal exam, mucous membranes moist Neck exam: Present: normal inspection. Absent: tenderness, meningismus, lymphadenopathy Respiratory exam: Present: normal lung sounds bilaterally. Absent: respiratory distress, wheezes, rales, rhonchi, stridor Cardiovascular Exam: Present: regular rate, normal rhythm, normal heart sounds. Absent: systolic murmur, diastolic murmur, rubs, gallop, clicks GI/Abdominal exam: Present: soft, normal bowel sounds. Absent: distended, tenderness, guarding, rebound, rigid Extremities exam: Present: normal inspection, full ROM, normal capillary refill. Absent: tenderness, pedal edema, joint swelling, calf tenderness Back exam: Present: normal inspection Neurological exam: Present: alert, oriented X3, CN II-XII intact Psychiatric exam: Present: normal affect, normal mood Skin exam: Present: warm, dry, intact, normal color. Absent: rash Course Vital Signs 07/29/21 01:21 Temperature 97.8 F Pulse Rate 75 Respiratory 16 Rate Blood Pressure 162/66 O2 Sat by Pulse 95 Oximetry - Reevaluation(s) Reevaluation #1: Medical records reviewed Patient has significant improvement here in the emergency department Patient informed results and questions answered EKG Findings - EKG Comments: EKG Findings:: EkG shows nsr 65 VA 150 QRS 116 QRc 503 Medical Decision Making - Medical Decision Making 60 female with significantly decreased weakness increasing renal failure dehydration, patient will be discharged home back to care of family. - Lab Data Result diagrams: 07/29/21 02:04 07/29/21 02:04 Lab Results 07/29/21 07/29/21 07/29/21 Range/Units 02:04 02:04 02:04 WBC 7.9 (3.8-10.6) k/uL RBC 3.29 L (3.80-5.40) m/uL Hgb 10.7 L (11.4-16.0) gm/dL Hct 33.5 L (34.0-46.0) % MCV 101.8 H (80.0-100.0) fL MCH 32.5 (25.0-35.0) pg MCHC 32.0 (31.0-37.0) g/dL RDW 12.8 (11.5-15.5) % Plt Count 335 (150-450) k/uL MPV 7.8 Neutrophils % 61 % Lymphocytes % 25 % Monocytes % 7 % Eosinophils % 4 % Basophils % 1 % Neutrophils # 4.8 (1.3-7.7) k/uL Lymphocytes # 1.9 (1.0-4.8) k/uL Monocytes # 0.6 (0-1.0) k/uL Eosinophils # 0.3 (0-0.7) k/uL Basophils # 0.1 (0-0.2) k/uL Macrocytosis Slight PT 10.0 (9.0-12.0) sec INR 0.9 (<1.2) APTT 23.5 (22.0-30.0) sec Sodium 132 L (137-145) mmol/L Potassium 4.4 (3.5-5.1) mmol/L Chloride 94 L (98-107) mmol/L Carbon Dioxide 28 (22-30) mmol/L Anion Gap 10 mmol/L BUN 44 H (7-17) mg/dL Creatinine 4.80 H (0.52-1.04) mg/dL Est GFR (CKD-EPI)AfAm 11 (>60 ml/min/1.73 sqM) Est GFR (CKD-EPI)NonAf 9 (>60 ml/min/1.73 sqM) Glucose 179 H (74-99) mg/dL Plasma Lactic Acid Artur (0.7-2.0) mmol/L Calcium 8.7 (8.4-10.2) mg/dL Phosphorus 7.4 H (2.5-4.5) mg/dL Magnesium 2.3 (1.6-2.3) mg/dL Total Bilirubin 0.2 (0.2-1.3) mg/dL AST 14 (14-36) U/L ALT 9 (4-34) U/L Alkaline Phosphatase 54 (38-126) U/L Creatine Kinase 32 (30-135) U/L Troponin I (0.000-0.034) ng/mL NT-Pro-B Natriuret Pep pg/mL Total Protein 6.0 L (6.3-8.2) g/dL Albumin 3.6 (3.5-5.0) g/dL Urine Color Urine Appearance (Clear) Urine pH (5.0-8.0) Ur Specific [place] (1.001-1.035) Urine Protein (Negative) Urine Glucose (UA) (Negative) Urine Ketones (Negative) Urine Blood (Negative) Urine Nitrite (Negative) Urine Bilirubin (Negative) Urine Urobilinogen (<2.0) mg/dL Ur Leukocyte Esterase (Negative) Urine RBC (0-5) /hpf Urine WBC (0-5) /hpf Ur Squamous Epith Cells (0-4) /hpf Urine Bacteria (None) /hpf Hyaline Casts (0-2) /lpf 07/29/21 07/29/21 07/29/21 Range/Units 02:04 02:04 02:04 WBC (3.8-10.6) k/uL RBC (3.80-5.40) m/uL Hgb (11.4-16.0) gm/dL Hct (34.0-46.0) % MCV (80.0-100.0) fL MCH (25.0-35.0) pg MCHC (31.0-37.0) g/dL RDW (11.5-15.5) % Plt Count (150-450) k/uL MPV Neutrophils % % Lymphocytes % % Monocytes % % Eosinophils % % Basophils % % Neutrophils # (1.3-7.7) k/uL Lymphocytes # (1.0-4.8) k/uL Monocytes # (0-1.0) k/uL Eosinophils # (0-0.7) k/uL Basophils # (0-0.2) k/uL Macrocytosis PT (9.0-12.0) sec INR (<1.2) APTT (22.0-30.0) sec Sodium (137-145) mmol/L Potassium (3.5-5.1) mmol/L Chloride (98-107) mmol/L Carbon Dioxide (22-30) mmol/L Anion Gap mmol/L BUN (7-17) mg/dL Creatinine (0.52-1.04) mg/dL Est GFR (CKD-EPI)AfAm (>60 ml/min/1.73 sqM) Est GFR (CKD-EPI)NonAf (>60 ml/min/1.73 sqM) Glucose (74-99) mg/dL Plasma Lactic Acid Artur 1.3 (0.7-2.0) mmol/L Calcium (8.4-10.2) mg/dL Phosphorus (2.5-4.5) mg/dL Magnesium (1.6-2.3) mg/dL Total Bilirubin (0.2-1.3) mg/dL AST (14-36) U/L ALT (4-34) U/L Alkaline Phosphatase (38-126) U/L Creatine Kinase (30-135) U/L Troponin I 0.015 (0.000-0.034) ng/mL NT-Pro-B Natriuret Pep 2850 pg/mL Total Protein (6.3-8.2) g/dL Albumin (3.5-5.0) g/dL Urine Color Urine Appearance (Clear) Urine pH (5.0-8.0) Ur Specific [place] (1.001-1.035) Urine Protein (Negative) Urine Glucose (UA) (Negative) Urine Ketones (Negative) Urine Blood (Negative) Urine Nitrite (Negative) Urine Bilirubin (Negative) Urine Urobilinogen (<2.0) mg/dL Ur Leukocyte Esterase (Negative) Urine RBC (0-5) /hpf Urine WBC (0-5) /hpf Ur Squamous Epith Cells (0-4) /hpf Urine Bacteria (None) /hpf Hyaline Casts (0-2) /lpf 07/29/21 Range/Units 02:46 WBC (3.8-10.6) k/uL RBC (3.80-5.40) m/uL Hgb (11.4-16.0) gm/dL Hct (34.0-46.0) % MCV (80.0-100.0) fL MCH (25.0-35.0) pg MCHC (31.0-37.0) g/dL RDW (11.5-15.5) % Plt Count (150-450) k/uL MPV Neutrophils % % Lymphocytes % % Monocytes % % Eosinophils % % Basophils % % Neutrophils # (1.3-7.7) k/uL Lymphocytes # (1.0-4.8) k/uL Monocytes # (0-1.0) k/uL Eosinophils # (0-0.7) k/uL Basophils # (0-0.2) k/uL Macrocytosis PT (9.0-12.0) sec INR (<1.2) APTT (22.0-30.0) sec Sodium (137-145) mmol/L Potassium (3.5-5.1) mmol/L Chloride (98-107) mmol/L Carbon Dioxide (22-30) mmol/L Anion Gap mmol/L BUN (7-17) mg/dL Creatinine (0.52-1.04) mg/dL Est GFR (CKD-EPI)AfAm (>60 ml/min/1.73 sqM) Est GFR (CKD-EPI)NonAf (>60 ml/min/1.73 sqM) Glucose (74-99) mg/dL Plasma Lactic Acid Artur (0.7-2.0) mmol/L Calcium (8.4-10.2) mg/dL Phosphorus (2.5-4.5) mg/dL Magnesium (1.6-2.3) mg/dL Total Bilirubin (0.2-1.3) mg/dL AST (14-36) U/L ALT (4-34) U/L Alkaline Phosphatase (38-126) U/L Creatine Kinase (30-135) U/L Troponin I (0.000-0.034) ng/mL NT-Pro-B Natriuret Pep pg/mL Total Protein (6.3-8.2) g/dL Albumin (3.5-5.0) g/dL Urine Color Light Yellow Urine Appearance Clear (Clear) Urine pH 7.5 (5.0-8.0) Ur Specific [place] 1.008 (1.001-1.035) Urine Protein 1+ H (Negative) Urine Glucose (UA) 2+ H (Negative) Urine Ketones Negative (Negative) Urine Blood Negative (Negative) Urine Nitrite Negative (Negative) Urine Bilirubin Negative (Negative) Urine Urobilinogen <2.0 (<2.0) mg/dL Ur Leukocyte Esterase Moderate H (Negative) Urine RBC <1 (0-5) /hpf Urine WBC 16 H (0-5) /hpf Ur Squamous Epith Cells 1 (0-4) /hpf Urine Bacteria Rare H (None) /hpf Hyaline Casts 3 H (0-2) /lpf - Radiology Data Radiology results: report reviewed (Chest and pelvis x-ray are negative for traumatic injury), image reviewed Disposition Clinical Impression: Fall, Weakness Disposition: HOME SELF-CARE Condition: Fair Instructions (If sedation given, give patient instructions): Fall Prevention for Older Adults (ED), Weakness (ED), Fall Prevention (ED) Is patient prescribed a controlled substance at d/c from ED?: No Referrals: None,Stated [Primary Care Provider] - 1-2 days
--- NOTE | 2021-07-29 02:18 | XR ---
EXAMINATION TYPE: XR chest 1V DATE OF EXAM: 07/29/2021 COMPARISON: 07/27/2020 HISTORY: Fall. Pain TECHNIQUE: Single view FINDINGS: Heart and mediastinum are normal. Lungs are clear. Diaphragm is normal. Bony thorax is inta ct. IMPRESSION: Normal chest. No change.
--- NOTE | 2021-07-29 02:18 | XR ---
EXAMINATION TYPE: XR pelvis AP view DATE OF EXAM: 07/29/2021 COMPARISON: NONE HISTORY: Fall. Weakness TECHNIQUE: Single view FINDINGS: Pelvic ring is intact. Proximal femurs and hip joints are intact. IMPRESSION: Normal exam. No fracture.
[2021-07-29 02:28] LABS: Basophils # (A) 0.1 k/uL (0-0.2); Basophils % (A) 1 %; Eosinophils # (A) 0.3 k/uL (0-0.7); Eosinophils % (A) 4 %; HCT 33.5 % (34.0-46.0); HGB 10.7 gm/dL (11.4-16.0); Lymphocytes # (A) 1.9 k/uL (1.0-4.8); Lymphocytes % (A) 25 %; MCH 32.5 pg (25.0-35.0); MCV 101.8 fL (80.0-100.0); Macrocytosis Slight; Mean Platelet Volume 7.8; Monocytes # (A) 0.6 k/uL (0-1.0); Monocytes % (A) 7 %; Neutrophils # (A) 4.8 k/uL (1.3-7.7); Neutrophils % (A) 61 %; Platelet Count 335 k/uL (150-450); RBC 3.29 m/uL (3.80-5.40); RDW 12.8 % (11.5-15.5); WBC 7.9 k/uL (3.8-10.6)
[2021-07-29 02:48] LABS: Albumin 3.6 g/dL (3.5-5.0); Calcium 8.7 mg/dL (8.4-10.2); INR 0.9 (<1.2); Magnesium 2.3 mg/dL (1.6-2.3); Partial Thromboplastin Time 23.5 sec (22.0-30.0); Phosphorus 7.4 mg/dL (2.5-4.5); Potassium 4.4 mmol/L (3.5-5.1); Total Bilirubin 0.2 mg/dL (0.2-1.3)
[2021-07-29 03:19] LABS: Appearance,Urine Clear (Clear); Bacteria,Urine Rare /hpf; Bilirubin,Urine Negative (Negative); Blood,Urine Negative (Negative); Color,Urine Light Yellow; Glucose,Urine (UA) 2+ (Negative); Hyaline Casts,Urine 3 /lpf (0-2); Ketones,Urine Negative (Negative); Leukocyte Esterase,Urine Moderate (Negative); Nitrite,Urine Negative (Negative); PH, Urine 7.5 (5.0-8.0); Protein,Urine 1+ (Negative); RBC,Urine <1 /hpf (0-5); Specific Gravity,Urine 1.008 (1.001-1.035); Squamous Epithelial Cell,Urine 1 /hpf (0-4); Urobilinogen,Urine <2.0 mg/dL (<2.0); WBC,Urine 16 /hpf (0-5)
== END 2021-07-29 04:27 | disposition home or self-care (01) ==
LOC: EC 01:08
DX: R53.1 Weakness (principal); E11.9 Type 2 diabetes mellitus without complications; I10 Essential (primary) hypertension; F12.90 Cannabis use, unspecified, uncomplicated; Z79.890 Hormone replacement therapy; Z79.4 Long term (current) use of insulin; Z79.899 Other long term (current) drug therapy; W19.XXXA Unspecified fall, initial encounter
CPT/HCPCS: 36415; 71045; 72170; 80053; 81001; 82550; 83605; 83735; 83880; 84100; 84484; 85025; 85610; 85730; 87086; 93005; 99285

== ENCOUNTER 2021-08-31 13:29 | Inpatient (IN) | payer OTHER ==
[2021-08-31] MEDS ORDERED: ACETAMINOPHEN TAB 500 MG TAB PO STA (13:46)
[2021-08-31] MEDS ORDERED: ACETAMINOPHEN IV (For NPO) 1,000 MG in EMPTY BAG 1 BAG IVPB ONE (14:01)
--- NOTE | 2021-08-31 14:20 | ED ---
General Adult HPI - General Source: EMS Mode of arrival: EMS Limitations: no limitations <Lewis Mejia Juliane - Last Filed: 08/31/21 15:06> <Yuliya Valero Zaina - Last Filed: 09/08/21 00:51> - General Chief complaint: Recheck/Abnormal Lab/Rx Stated complaint: Back Pain Time Seen by Provider: 08/31/21 13:33 - History of Present Illness Initial comments: Dictation was produced using [employer] ([employer] / [employer]) dictation software. please excuse any grammatical, word or spelling errors. Chief Complaint: 60-year-old female past medical history dementia presents emergency department for pain History of Present Illness: Is 60-year-old female she has past medical history dementia. Patient is brought in by EMS. Patient unable to provide history present illness. According to EMS patient had episode where she appeared to be in pain at dialysis. She was sent to the emergency room. EMS reports that she initially told dialysis staff that she was having abdominal pain. She didn't told EMS staff that she was having back pain. Patient evaluated the bedside does not provide any history. at the bedside states that patient is prescribed Toradol. has been giving patient large amounts of Toradol last couple days. The ROS documented in this emergency department record has been reviewed and confirmed by me. Those systems with pertinent positive or negative responses have been documented in the HPI. All other systems are other negative and/or noncontributory. PHYSICAL EXAM: General Impression: Tremulous HEENT: Normocephalic atraumatic, extra-ocular movements intact, pupils equal and reactive to light bilaterally, dry mucous membranes Cardiovascular: Heart regular rate and rhythm Chest: no retractions, no tachypnea Abdomen: abdomen soft, non-tender, non-distended, no organomegaly Musculoskeletal: Pulses present and equal in all extremities, no peripheral edema Motor: no focal deficits noted Neurological: CN II-XII grossly intact, no focal motor or sensory deficits noted ED course: 60-year-old female presents emergency department for pain episode while at dialysis. According to EMS patient completed dialysis. Patient unable to provide history of present illness. Vital signs upon arrival shows denture 103.9, heart rate 133, respiratory 24, oxygen of 89% on room air. is at the bedside provides more history present illness. She is allegedly fine the last couple days until this morning she slipped to be significantly weak that her baseline. She has has a history of dementia and mentally and neurologically she appears to be at her baseline according . He did notice that patient had a slight cough. Patient has been exposed to her daughter who allegedly had coronavirus. Patient's ideal body weight is 49.9 kg 452 female. Patient given 1500 mL bolus. Patient has a white count of 27.3. There is concern of sepsis. Patient still has normal blood pressure. Metabolic panel shows elevated renal markers. She has history of ESRD. Lactic acidosis of 4.9. Rest of metabolic panel is unremarkable. Normal abdominal labs. Chest x-ray shows interstitial findings concerning for interstitial at this point clinical presentation concerning for sepsis. Given patient has history of ESRD there is concern of bacteremia. Patient is reevaluated the bedside her tachycardia is improved. Patient was rolled onto her back. She did not have any ulcer or rash to her back. Negative Brudzinski's, negative Kernig's negative Lhermitte sign. She does not have any neck stiffness. Patient again complained to me of stomach pain. Computed tomography scan ordered. Patient started on broad-spectrum antibiotics. Patient is signed out to Dr. Valero for follow-up of pending computed tomography scan. (Lewis Mejia) - Related Data Home Medications Medication Instructions Recorded Confirmed Levothyroxine Sodium [Synthroid] 75 mcg PO DAILY 10/28/17 08/31/21 Oxybutynin Chloride 5 mg PO DAILY 10/28/17 08/31/21 Ergocalciferol [Vitamin D2 50,000 unit PO MO 01/19/20 08/31/21 (DRISDOL)] Insulin Glargine,Hum.rec.anlog 22 unit SQ BID 01/19/20 08/31/21 [Basaglar Kwikpen U-100] Magnesium Oxide 400 mg PO DAILY 01/19/20 08/31/21 allopurinoL [Zyloprim] 100 mg PO DAILY 01/19/20 08/31/21 Acetaminophen [Tylenol Arthritis] 1,300 mg PO TID PRN 08/31/21 08/31/21 Aspirin EC [Ecotrin Low Dose] 81 mg PO DAILY 08/31/21 08/31/21 Calcium Acetate [PhosLo] 667 mg PO TID-W/MEALS 08/31/21 08/31/21 Diclofenac Sodium Gel [Voltaren 1 applicate TOPICAL QID PRN 08/31/21 08/31/21 Gel] Loratadine 10 mg PO DAILY 08/31/21 08/31/21 Nystatin 100,000 Unit/gm Powd 1 applic TOPICAL BID PRN 08/31/21 08/31/21 [Mycostatin Powder] Rosuvastatin Calcium [Crestor] 5 mg PO DAILY 08/31/21 08/31/21 Thiamine [Vitamin B-1] 100 mg PO DAILY 08/31/21 08/31/21 amLODIPine [Norvasc] 10 mg PO DAILY 08/31/21 08/31/21 traMADol HCL 50 mg PO BID PRN 08/31/21 08/31/21 Previous Rx's Medication Instructions Recorded Cefuroxime [Ceftin] 250 mg PO BID 3 Days #6 tab 09/05/21 Famotidine [Pepcid] 20 mg PO DAILY #30 tab 09/05/21 Phenazopyridine [Pyridium] 100 mg PO TID #6 tab 09/05/21 Sennosides-Docusate Sodium 1 each PO DAILY tab 09/05/21 [Senokot-S] Sucralfate [Carafate] 1 gm PO AC-TID #90 tab 09/05/21 hydrALAZINE HCL [Apresoline] 25 mg PO TID #90 tab 09/05/21 methocarbamoL [Robaxin] 750 mg PO TID PRN #90 tab 09/05/21 Allergies Allergy/AdvReac Type Severity Reaction Status Date / Time codeine AdvReac Nausea Verified 08/31/21 16:53 Review of Systems ROS Other: All systems not noted in ROS Statement are negative. <Lewis Mejia - Last Filed: 08/31/21 15:06> ROS Other: All systems not noted in ROS Statement are negative. <Yuliya Valero - Last Filed: 09/08/21 00:51> ROS Statement: Those systems with pertinent positive or pertinent negative responses have been documented in the HPI. Past Medical History Past Medical History: CVA/TIA, Diabetes Mellitus, Dialysis, Hypertension, Renal Disease Additional Past Medical History / Comment(s): HX OF CVA X2 -WITH MEMORY LOSS AND MOVES SLOWLY-USES WALKER., HX OF HEPATITIS B., BACK PAIN. Never started dialysis per spouse History of Any Multi-Drug Resistant Organisms: None Reported Past Surgical History: Section, Cholecystectomy Additional Past Surgical History / Comment(s): left upper arm fistula Past Anesthesia/Blood Transfusion Reactions: No Reported Reaction Past Psychological History: No Psychological Hx Reported Smoking Status: Never smoker Past Alcohol Use History: None Reported Past Drug Use History: Marijuana - Past Family History Mother Family Medical History: No Reported History <Lewis Mejia - Last Filed: 08/31/21 15:06> General Exam Limitations: no limitations <Lewis Mejia - Last Filed: 08/31/21 15:06> Course Vital Signs 08/31/21 08/31/21 08/31/21 13:30 13:43 17:00 Temperature 100.1 F H 103.9 F H Pulse Rate 133 H 90 Respiratory 24 16 Rate Blood Pressure 178/133 111/93 O2 Sat by Pulse 89 L 3 L Oximetry 08/31/21 18:47 Temperature 101 F H Pulse Rate 95 Respiratory 14 Rate Blood Pressure 112/55 O2 Sat by Pulse 97 Oximetry Procedures - Sepsis Sepsis Focused Exam #1 Time Sepsis Criteria Met: 15:07 Sepsis Focused Exam Date: 08/31/21 Sepsis Focused Exam Time: 15:09 Sepsis Focused Exam Complete: Yes Vital Signs & RN Notes Reviewed: Yes Capillary Refill: > 2 Seconds: Fingers, Toes Peripheral Pulses: Normal: Radial (R), Radial (L), Posterior Tibialis (R), Posterior Tibialis (L), Dorsalis Pedis (R), Dorsalis Pedis (L) Skin Color: Normal for Patient Respiratory Exam: normal lung sounds Cardiovascular Exam: tachycardia <Lewis Mejia - Last Filed: 08/31/21 15:06> Medical Decision Making - Lab Data Result diagrams: 08/31/21 Unknown 08/31/21 13:55 <Lewis Mejia - Last Filed: 08/31/21 15:06> - Lab Data Result diagrams: 09/04/21 07:54 09/04/21 07:54 <Yuliya Valero - Last Filed: 09/08/21 00:51> - Medical Decision Making Patient signed out to me. Does receive CT scan without contrast as radiologist recommends not giving the patient contrast. Reviewed CT result which is negative for acute process. Patient admitted to the floor on antibiotics. (Yuliya Valero) - Lab Data Lab Results 08/31/21 08/31/21 08/31/21 Range/Units 13:55 13:55 13:59 PT (9.0-12.0) sec INR (<1.2) APTT (22.0-30.0) sec Sodium 133 L (137-145) mmol/L Potassium 4.8 (3.5-5.1) mmol/L Chloride 89 L (98-107) mmol/L Carbon Dioxide 24 (22-30) mmol/L Anion Gap 20 mmol/L BUN 35 H (7-17) mg/dL Creatinine 4.33 H (0.52-1.04) mg/dL Est GFR (CKD-EPI)AfAm 12 (>60 ml/min/1.73 sqM) Est GFR (CKD-EPI)NonAf 10 (>60 ml/min/1.73 sqM) Glucose 185 H (74-99) mg/dL Lactic Ac Sepsis Rflx Plasma Lactic Acid Artur 4.9 H* (0.7-2.0) mmol/L Calcium 9.6 (8.4-10.2) mg/dL Magnesium 2.1 (1.6-2.3) mg/dL Total Bilirubin 0.6 (0.2-1.3) mg/dL AST 27 (14-36) U/L ALT 16 (4-34) U/L Alkaline Phosphatase 72 (38-126) U/L Total Protein 8.1 (6.3-8.2) g/dL Albumin 4.8 (3.5-5.0) g/dL Urine Color Urine Appearance (Clear) Urine pH (5.0-8.0) Ur Specific [place] (1.001-1.035) Urine Protein (Negative) Urine Glucose (UA) (Negative) Urine Ketones (Negative) Urine Blood (Negative) Urine Nitrite (Negative) Urine Bilirubin (Negative) Urine Urobilinogen (<2.0) mg/dL Ur Leukocyte Esterase (Negative) Urine RBC (0-5) /hpf Urine WBC Clumps (None) /hpf Ur Squamous Epith Cells (0-4) /hpf Urine Bacteria (None) /hpf Urine Mucus (None) /hpf Urine Yeast (Budding) (None) /hpf Coronavirus (PCR) Not Detected (Not Detectd) 08/31/21 08/31/21 08/31/21 Range/Units 14:15 14:32 15:17 PT 11.2 (9.0-12.0) sec INR 1.1 (<1.2) APTT 22.2 (22.0-30.0) sec Sodium (137-145) mmol/L Potassium (3.5-5.1) mmol/L Chloride (98-107) mmol/L Carbon Dioxide (22-30) mmol/L Anion Gap mmol/L BUN (7-17) mg/dL Creatinine (0.52-1.04) mg/dL Est GFR (CKD-EPI)AfAm (>60 ml/min/1.73 sqM) Est GFR (CKD-EPI)NonAf (>60 ml/min/1.73 sqM) Glucose (74-99) mg/dL Lactic Ac Sepsis Rflx Y Plasma Lactic Acid Artur (0.7-2.0) mmol/L Calcium (8.4-10.2) mg/dL Magnesium (1.6-2.3) mg/dL Total Bilirubin (0.2-1.3) mg/dL AST (14-36) U/L ALT (4-34) U/L Alkaline Phosphatase (38-126) U/L Total Protein (6.3-8.2) g/dL Albumin (3.5-5.0) g/dL Urine Color Yellow Urine Appearance Turbid H (Clear) Urine pH 5.5 (5.0-8.0) Ur Specific [place] 1.018 (1.001-1.035) Urine Protein 2+ H (Negative) Urine Glucose (UA) 1+ H (Negative) Urine Ketones Negative (Negative) Urine Blood Small H (Negative) Urine Nitrite Negative (Negative) Urine Bilirubin Negative (Negative) Urine Urobilinogen <2.0 (<2.0) mg/dL Ur Leukocyte Esterase Negative (Negative) Urine RBC 2 (0-5) /hpf Urine WBC Clumps Few H (None) /hpf Ur Squamous Epith Cells 1 (0-4) /hpf Urine Bacteria Occasional H (None) /hpf Urine Mucus Rare H (None) /hpf Urine Yeast (Budding) Many H (None) /hpf Coronavirus (PCR) (Not Detectd) Disposition <Lewis Mejia - Last Filed: 08/31/21 15:06> Is patient prescribed a controlled substance at d/c from ED?: No Decision to Admit Reason: Admit from EC Decision Date: 08/31/21 Decision Time: 17:54 <Yuliya Valero - Last Filed: 09/08/21 00:51> Clinical Impression: Altered mental status, Sepsis, ESRD (end stage renal disease) on dialysis, Pyrexia Disposition: ADMITTED IP TO THIS HOSP Condition: Stable
[2021-08-31 14:37] LABS: Albumin 4.8 g/dL (3.5-5.0); Calcium 9.6 mg/dL (8.4-10.2); Magnesium 2.1 mg/dL (1.6-2.3); Potassium 4.8 mmol/L (3.5-5.1); Total Bilirubin 0.6 mg/dL (0.2-1.3); Total Protein 8.1 g/dL (6.3-8.2)
[2021-08-31 14:37] LABS: Basophils # (A) 0.1 k/uL (0-0.2); Basophils % (A) 0 %; Eosinophils # (A) 0.1 k/uL (0-0.7); Eosinophils % (A) 0 %; HCT 37.5 % (34.0-46.0); HGB 11.7 gm/dL (11.4-16.0); Lymphocytes # (A) 0.7 k/uL (1.0-4.8); Lymphocytes % (A) 3 %; MCH 32.8 pg (25.0-35.0); MCHC 31.1 g/dL (31.0-37.0); MCV 105.5 fL (80.0-100.0); Macrocytosis Moderate; Mean Platelet Volume 7.9; Monocytes # (A) 1.4 k/uL (0-1.0); Monocytes % (A) 5 %; Neutrophils # (A) 24.8 k/uL (1.3-7.7); Neutrophils % (A) 91 %; Platelet Count 326 k/uL (150-450); RBC 3.56 m/uL (3.80-5.40); WBC 27.3 k/uL (3.8-10.6)
--- NOTE | 2021-08-31 14:47 | XR ---
EXAMINATION TYPE: XR chest 1V portable DATE OF EXAM: 08/31/2021 COMPARISON: 07/29/2021 HISTORY: Fever TECHNIQUE: Single frontal view of the chest is obtained. FINDINGS: Limited inspiration heart size normal. Perihilar interstitial changes seen with no pleural effusion or pneumothorax. Diffuse osteopenia and arthropathy of the shoulders. IMPRESSION: Perihilar interstitial findings could been the basis of interstitial pneumonitis. Venous congestion not excluded correlate clinically.
[2021-08-31] MEDS ORDERED: VANCOMYCIN IV PER PHARMACY 1 EACH MISC MISCELLANE PRN (14:59)
[2021-08-31] MEDS ORDERED: PIPERACILLIN-TAZOBACTAM 3.375 GM in SODIUM CHLORIDE 0.9% 100 ML IVPB STA (15:00)
[2021-08-31] MEDS ORDERED: SODIUM CHLORIDE 0.9% 1,500 ML IV STA (15:01)
[2021-08-31] MEDS ORDERED: VANCOMYCIN 1,500 MG in SODIUM CHLORIDE 0.9% 250 ML IVPB STA (15:09)
[2021-08-31] MEDS ORDERED: MORPHINE SULFATE 4 MG/ML SYRINGE IVP STA (15:22)
[2021-08-31 15:37] LABS: Appearance,Urine Turbid (Clear); Bacteria,Urine Occasional /hpf; Bilirubin,Urine Negative (Negative); Blood,Urine Small (Negative); Budding Yeast,Urine Many /hpf; Color,Urine Yellow; Glucose,Urine (UA) 1+ (Negative); Ketones,Urine Negative (Negative); Leukocyte Esterase,Urine Negative (Negative); Mucus,Urine Rare /hpf; Nitrite,Urine Negative (Negative); PH, Urine 5.5 (5.0-8.0); Protein,Urine 2+ (Negative); RBC,Urine 2 /hpf (0-5); Specific Gravity,Urine 1.018 (1.001-1.035); Squamous Epithelial Cell,Urine 1 /hpf (0-4); Urobilinogen,Urine <2.0 mg/dL (<2.0)
[2021-08-31 15:47] LABS: INR 1.1 (<1.2); Partial Thromboplastin Time 22.2 sec (22.0-30.0); Prothrombin Time 11.2 sec (9.0-12.0)
[2021-08-31] MEDS ORDERED: LORazepam 2 MG/ML INJ IV STA (17:11)
[2021-08-31] MEDS ORDERED: NALOXONE 0.4 MG/ML 1 ML VIAL IV PRN (17:55)
--- NOTE | 2021-08-31 18:08 | CT ---
EXAMINATION TYPE: CT abdomen pelvis wo con DATE OF EXAM: 08/31/2021 COMPARISON: None available. HISTORY: Back pain after dialysis. Sepsis. CT DLP: 1521.4 mGycm Automated exposure control for dose reduction was used. TECHNIQUE: Helical acquisition of images was performed from the lung bases through the pelvis. FINDINGS: LUNG BASES: No significant abnormality is appreciated. LIVER/GB: No acute abnormality is appreciated. Cholecystectomy and associated biliary ductal dilatati on seen. PANCREAS: No significant abnormality is seen. SPLEEN: No significant abnormality is seen. ADRENALS: No significant abnormality is seen. KIDNEYS: No significant abnormality is seen. FREE AIR: No free air is visualized RETROPERITONEAL ADENOPATHY: None visualized REPRODUCTIVE ORGANS: No significant abnormality is seen URINARY BLADDER: No acute abnormality is seen. Urinary bladder is decompressed by Potter catheter wit h trace intraluminal air seen. PELVIC ADENOPATHY: None visualized. OSSEOUS STRUCTURES: No significant abnormality is seen. BOWEL: No significant abnormality is seen. OTHER: Advanced atherosclerotic disease involving the peripheral arteries and abdominal distal branch es. IMPRESSION: NO ACUTE ABNORMALITY. CHRONIC FINDINGS ABOVE.
[2021-08-31] MEDS ORDERED: NON FORMULARY DRUG (Acetaminophen [Tylenol Arthritis] 650 MG Tablet) PO PRN (21:55)
--- NOTE | 2021-08-31 21:55 | P.HPIM ---
History of Present Illness H&P Date: 08/31/21 Chief Complaint: abdominal pain, sepsis, UTI, end-stage renal disease, hyper tension, HISTORY OF PRESENT ILLNESS 60-year-old female mentally challenged with past medical history of dementia, TIA/CVA, type 2 diabetes, stage V chronic kidney disease, peripheral arterial disease, hypertension and hyperlipidemia who had recurrent urinary tract infection who presented to the emergency department at [facility] on 08/31/2021 because of an episode of severe pain at dialysis her abdominal pain started gradually and become a lot worse at dialysis Center patient pain was impenetrable end up coming to the emergency departmentpatient found to have sepsis from a known source originally try to exclude the possibility of abscess or perforation CAT scan of the abdomen and pelvis was order and done failed to show any abscess or any abnormality. Her urine was very positive white blood cell was high and lactic acid was significantly elevated to indicate patient be in septic. Patient was giving 1 g of Vanco along with Zosyn and admitted to the hospital for the above problem. REVIEW OF SYSTEMS Constitutional: positive fever and chills along with night sweats no weight change positive generalized weakness and fatigue with tiredness and daytime sleepiness. EENT: No headache. No blurred vision or double vision, no loss of vision. No loss of Hearing, no ringing in the ears, no dizziness. No nasal drainage or c ongestion. No epistaxis. No sore throat. Lungs: No shortness of breath, cough, no sputum production. No wheezing. Cardiovascular: No chest pain, no lower extremity edema. mild palpitation and tachycardia.. No paroxysmal nocturnal dyspnea. No orthopnea. No lightheadedness or dizziness. No syncopal episodes. Abdominal: No abdominal pain. No nausea, vomiting. No diarrhea. No constipation. No bloody or tarry stools.. No loss of appetite. Genitourinary: worsening incontinence burning of discomfort patient is on hemodialysis. Musculoskeletal: No myalgias. No muscle weakness, no gait dysfunction, no frequent falls. No back pain. No neck pain. Integumentary: No wounds, no lesions. No rash or pruritus. No unusual bruising. No change in hair or nails. Neurologic: altered mental status with worsening confusion and encephalopathy.. Psychiatric: No depression. No anxiety. No mood swings. Endocrine: No abnormal blood sugars. No weight change. No excessive sweating or thirst. No cold intolerance. SOCIAL HISTORY patient does not smoke, no alcohol abuse, she is and use marijuana sometimes. FAMILY HISTORY she had 5 children with no major medical problem. Both parents passed from atherosclerotic heart disease. Family history of diabetes hypertension and heart disease along with depression. PHYSICAL EXAMINATION Gen: This is mildly overweight laying on her side apparently her abdominal pain is slightly bit better. HEENT: Head is atraumatic, normocephalic. Pupils equal, round. Sclerae is anicteric. NECK: Supple. No JVD. No lymphadenopathy. No thyromegaly. LUNGS: Clear to auscultation. No wheezes or rhonchi. No intercostal retractions. HEART: Regular rate and rhythm. No murmur. ABDOMEN: soft positive bowel sounds slight discomfort lower abdominal region area with tenderness no rebound or rigidity. EXTREMITIES: No pedal edema. No calf tenderness. NEUROLOGICAL: Patient is awake, alert with confusion. Cranial nerves 2 through 12 are grossly intact. not able to do gait exam. ASSESSMENT AND PLAN 1.sepsis: Not a clear source at this point most likely right tract all other results are negative with her white blood cell been 27,000 with positive lactic acid and CAT scan does not show any abscess at the time, patient was giving 1 g of Vanco along with Zosyn culture was done awaiting results at this point continue current management will consult infectious disease and nephrology. Repeat lactic acid after hydration after antibiotics. 2 severe abdominal pain the only source so far to be found his urinary tract infection continue to treat underlying disease watch for any further symptom with her abdominal pain. 3 severe pyrexia secondary to UTI and sepsis continue treat underlying disease watch for any further fever or chills. 4 end-stage renal disease on hemodialysis 3 times a week, consult nephrology and resume dialysis at this point. 5 hypertension: Remain on amlodipine 10 mg a day continue medication. 6 type 2 diabetes: Has been on Humalog along with Evangelista clear 22 units twice a day Accu-Chek with sliding scales coverage and be done. 7 hypothyroidism: Continue levothyroxine 75 g daily. 8 hyperlipidemia: Continue Crestor at 5 mg a day. 9 GI prophylaxis: Patient be on Pepcid. 10 DVT prophylaxis: Heparin subcutaneous abuse. CODE STATUS: Full code. COVID-19 testing was negative patient was admitted to the hospital during pandemic time. Patient will be admitted to the hospital for a minimum of 2 night stay. Past Medical History Past Medical History: CVA/TIA, Diabetes Mellitus, Dialysis, Hypertension, Renal Disease Additional Past Medical History / Comment(s): HX OF CVA X2 -WITH MEMORY LOSS AND MOVES SLOWLY-USES WALKER., HX OF HEPATITIS B., BACK PAIN. Never started dialysis per spouse History of Any Multi-Drug Resistant Organisms: None Reported Past Surgical History: Section, Cholecystectomy Additional Past Surgical History / Comment(s): left upper arm fistula Past Anesthesia/Blood Transfusion Reactions: No Reported Reaction Past Psychological History: No Psychological Hx Reported Smoking Status: Never smoker Past Alcohol Use History: None Reported Past Drug Use History: Marijuana - Past Family History Mother Family Medical History: No Reported History Medications and Allergies Home Medications Medication Instructions Recorded Confirmed Type Levothyroxine Sodium [Synthroid] 75 mcg PO DAILY 10/28/17 08/31/21 History Oxybutynin Chloride 5 mg PO DAILY 10/28/17 08/31/21 History Ergocalciferol [Vitamin D2] 50,000 unit PO MO 01/19/20 08/31/21 History Insulin Glargine,Hum.rec.anlog 22 unit SQ BID 01/19/20 08/31/21 History [Basaglar Kwikpen U-100] Magnesium Oxide 400 mg PO DAILY 01/19/20 08/31/21 History allopurinoL [Zyloprim] 100 mg PO DAILY 01/19/20 08/31/21 History Acetaminophen [Tylenol Arthritis] 1,300 mg PO TID PRN 08/31/21 08/31/21 History Aspirin EC [Ecotrin Low Dose] 81 mg PO DAILY 08/31/21 08/31/21 History Calcium Acetate [Phoslo] 667 mg PO TID-W/MEALS 08/31/21 08/31/21 History Diclofenac Sodium Gel [Voltaren 1 applicate TOPICAL QID PRN 08/31/21 08/31/21 History Gel] Loratadine 10 mg PO DAILY 08/31/21 08/31/21 History Nystatin 100,000 Unit/gm Powd 1 applic TOPICAL BID PRN 08/31/21 08/31/21 History [Mycostatin Powder] Rosuvastatin Calcium [Crestor] 5 mg PO DAILY 08/31/21 08/31/21 History Thiamine [Vitamin B-1] 100 mg PO DAILY 08/31/21 08/31/21 History amLODIPine [Norvasc] 10 mg PO DAILY 08/31/21 08/31/21 History traMADol HCL 50 mg PO BID PRN 08/31/21 08/31/21 History Allergies Allergy/AdvReac Type Severity Reaction Status Date / Time codeine AdvReac Nausea Verified 08/31/21 16:53 Physical Exam Vitals: Vital Signs Temp Pulse Resp BP Pulse Ox 08/31/21 18:47 101 F H 95 14 112/55 97 08/31/21 17:00 90 16 111/93 3 L 08/31/21 13:43 103.9 F H 08/31/21 13:30 100.1 F H 133 H 24 178/133 89 L Intake and Output 08/31/21 08/31/21 08/31/21 06:59 14:59 22:59 Other: Weight 103.5 kg Results CBC & Chem 7: 08/31/21 Unknown 08/31/21 13:55 Labs: Abnormal Lab Results - Last 24 Hours (Table) 08/31/21 08/31/21 08/31/21 Range/Units 13:55 13:55 14:15 WBC (3.8-10.6) k/uL RBC (3.80-5.40) m/uL MCV (80.0-100.0) fL Neutrophils # (1.3-7.7) k/uL Lymphocytes # (1.0-4.8) k/uL Monocytes # (0-1.0) k/uL Sodium 133 L (137-145) mmol/L Chloride 89 L (98-107) mmol/L BUN 35 H (7-17) mg/dL Creatinine 4.33 H (0.52-1.04) mg/dL Glucose 185 H (74-99) mg/dL Plasma Lactic Acid Artur 4.9 H* (0.7-2.0) mmol/L Urine Appearance Turbid H (Clear) Urine Protein 2+ H (Negative) Urine Glucose (UA) 1+ H (Negative) Urine Blood Small H (Negative) Urine WBC Clumps Few H (None) /hpf Urine Bacteria Occasional H (None) /hpf Urine Mucus Rare H (None) /hpf Urine Yeast (Budding) Many H (None) /hpf 08/31/21 08/31/21 Range/Units 19:11 Unknown WBC 27.3 H (3.8-10.6) k/uL RBC 3.56 L (3.80-5.40) m/uL MCV 105.5 H (80.0-100.0) fL Neutrophils # 24.8 H (1.3-7.7) k/uL Lymphocytes # 0.7 L (1.0-4.8) k/uL Monocytes # 1.4 H (0-1.0) k/uL Sodium (137-145) mmol/L Chloride (98-107) mmol/L BUN (7-17) mg/dL Creatinine (0.52-1.04) mg/dL Glucose (74-99) mg/dL Plasma Lactic Acid Artur 2.1 H* (0.7-2.0) mmol/L Urine Appearance (Clear) Urine Protein (Negative) Urine Glucose (UA) (Negative) Urine Blood (Negative) Urine WBC Clumps (None) /hpf Urine Bacteria (None) /hpf Urine Mucus (None) /hpf Urine Yeast (Budding) (None) /hpf
[2021-08-31] MEDS: traMADol 50 MG TAB PO PRN (22:39)
[2021-09-01 06:06] LABS: Glucose,Whole Blood 130 mg/dL (75-99)
[2021-09-01] MEDS: LEVOTHYROXINE 75 MCG TAB PO SCH (06:39)
[2021-09-01] MEDS: CALCIUM ACETATE 667 MG TAB PO SCH ×3 (06:39→17:24)
[2021-09-01] MEDS ORDERED: VANCOMYCIN 1,500 MG in SODIUM CHLORIDE 0.9% 250 ML IVPB ONE (08:00)
[2021-09-01 09:17] LABS: Basophils # (A) 0.1 k/uL (0-0.2); Basophils % (A) 0 %; Eosinophils % (A) 0 %; HCT 30.1 % (34.0-46.0); Lymphocytes # (A) 1.9 k/uL (1.0-4.8); Lymphocytes % (A) 6 %; MCH 33.6 pg (25.0-35.0); MCHC 32.2 g/dL (31.0-37.0); MCV 104.5 fL (80.0-100.0); Macrocytosis Slight; Mean Platelet Volume 8.3; Monocytes # (A) 1.4 k/uL (0-1.0); Monocytes % (A) 5 %; Neutrophils # (A) 27.4 k/uL (1.3-7.7); Neutrophils % (A) 88 %; Platelet Count 268 k/uL (150-450); RBC 2.88 m/uL (3.80-5.40); RDW 13.5 % (11.5-15.5)
[2021-09-01 09:19] LABS: Calcium 8.7 mg/dL (8.4-10.2); Potassium 4.7 mmol/L (3.5-5.1)
[2021-09-01 09:21] LABS: HGB 9.7 gm/dL (11.4-16.0)
[2021-09-01] MEDS: HEPARIN SODIUM,PORCINE/PF 5,000 UNIT/0.5 ML SYRINGE SQ SCH ×2 (09:25→20:03)
[2021-09-01] MEDS: ATORVASTATIN 10 MG TAB PO SCH (09:26)
[2021-09-01] MEDS: ASPIRIN 81 MG PO SCH (09:26)
[2021-09-01] MEDS: LORATADINE 10 MG TAB PO SCH (09:26)
[2021-09-01] MEDS: OXYBUTYNIN CHLORIDE 5 MG TAB PO SCH (09:26)
[2021-09-01] MEDS: FAMOTIDINE 20 MG TAB PO SCH (09:26)
[2021-09-01] MEDS: THIAMINE 100 MG TAB PO SCH (09:26)
[2021-09-01] MEDS: allopurinoL 100 MG TAB PO SCH (09:26)
[2021-09-01] MEDS: amLODIPine 10 MG TAB PO SCH (09:26)
[2021-09-01] MEDS: MAGNESIUM OXIDE 400 MG TAB PO SCH (09:26)
[2021-09-01] MEDS: INSULIN DETEMIR (LEVEMIR) 100 UNIT/ML SYR SQ SCH ×2 (09:28→20:03)
[2021-09-01 11:39] LABS: Glucose,Whole Blood 200 mg/dL (75-99)
--- NOTE | 2021-09-01 12:29 | P.PN ---
Subjective Progress Note Date: 09/01/21 HISTORY OF PRESENT ILLNESS 60-year-old female mentally challenged with past medical history of dementia, TIA/CVA, type 2 diabetes, stage V chronic kidney disease, peripheral arterial disease, hypertension and hyperlipidemia who had recurrent urinary tract infection who presented to the emergency department at [facility] on 08/31/2021 because of an episode of severe pain at dialysis her abdominal pain started gradually and become a lot worse at dialysis Center patient pain was impenetrable end up coming to the emergency departmentpatient found to have sepsis from a known source originally try to exclude the possibility of abscess or perforation CAT scan of the abdomen and pelvis was order and done failed to show any abscess or any abnormality. Her urine was very positive white blood cell was high and lactic acid was significantly elevated to indicate patient be in septic. Patient was giving 1 g of Vanco along with Zosyn and admitted to the hospital for the above problem. 09/01: Patient's mental status is improved from yesterday, she is more awake. She also states that she is feeling better from yesterday. A has been afebrile since midnight, heart rate 86, blood pressure 150/74, pulse ox 94% on 3 L nasal cannula. Repeat blood work reveals WBC 31, hemoglobin 9.7, platelet count 268. Sodium 132, potassium 4.7, chloride 92, CO2 27, BUN 43 creatinine 5.33. Blood sugars are running between 130 and 200. Regarding discharge planning, is stating to the case management assistant the patient is barely able to walk and looking [facility]. PT and OT in place. REVIEW OF SYSTEMS Constitutional: positive fever and chills along with night sweats no weight change positive generalized weakness and fatigue with tiredness and daytime sleepiness. EENT: No headache. No blurred vision or double vision, no loss of vision. No loss of Hearing, no ringing in the ears, no dizziness. No nasal drainage or congestion. No epistaxis. No sore throat. Lungs: No shortness of breath, cough, no sputum production. No wheezing. Cardiovascular: No chest pain, no lower extremity edema. mild palpitation and tachycardia.. No paroxysmal nocturnal dyspnea. No orthopnea. No lightheadedness or dizziness. No syncopal episodes. Abdominal: No abdominal pain. No nausea, vomiting. No diarrhea. No constipation. No bloody or tarry stools.. No loss of appetite. Genitourinary: worsening incontinence burning of discomfort patient is on hemodialysis. Musculoskeletal: No myalgias. No muscle weakness, no gait dysfunction, no fr equent falls. No back pain. No neck pain. Integumentary: No wounds, no lesions. No rash or pruritus. No unusual bruising. No change in hair or nails. Neurologic: altered mental status with worsening confusion and encephalopathy.. Psychiatric: No depression. No anxiety. No mood swings. Endocrine: No abnormal blood sugars. No weight change. No excessive sweating or thirst. No cold intolerance. PHYSICAL EXAMINATION Gen: This is mildly overweight laying on her side apparently her abdominal pain is slightly bit better. HEENT: Head is atraumatic, normocephalic. Pupils equal, round. Sclerae is anicteric. NECK: Supple. No JVD. No lymphadenopathy. No thyromegaly. LUNGS: Clear to auscultation. No wheezes or rhonchi. No intercostal retractions. HEART: Regular rate and rhythm. No murmur. ABDOMEN: soft positive bowel sounds slight discomfort lower abdominal region area with tenderness no rebound or rigidity. EXTREMITIES: No pedal edema. No calf tenderness. NEUROLOGICAL: Patient is awake, alert with confusion. Cranial nerves 2 through 12 are grossly intact. not able to do gait exam. ASSESSMENT AND PLAN 1. Sepsis: Not a clear source at this point most likely right tract all other results are negative with her white blood cell been 27,000 with positive lactic acid and CAT scan does not show any abscess at the time, patient was giving 1 g of Vanco along with Zosyn culture was done awaiting results at this point continue current management will consult infectious disease and nephrology. Repeat lactic acid after hydration after antibiotics. 2 severe abdominal pain that resolved. Nothing on CAT scan to explain symptoms. 3 severe pyrexia secondary to UTI and sepsis continue treat underlying disease watch for any further fever or chills. 4 lactic acidosis secondary to sepsis. 5 end-stage renal disease on hemodialysis 3 times a week, consult nephrology and resume dialysis at this point. 6 hypertension: Remain on amlodipine 10 mg a day continue medication. 7 type 2 diabetes: Has been on Humalog along with Levemir 22 units twice a day Accu-Chek with sliding scales coverage and be done. 8 hypothyroidism: Continue levothyroxine 75 g daily. 9 hyperlipidemia: Continue Crestor at 5 mg a day. 10 GI prophylaxis: Patient be on Pepcid. 11 DVT prophylaxis: Heparin subcutaneous abuse. 12 generalized debility. PT, OT, subacute rehab. CODE STATUS: Full code. COVID-19 testing was negative patient was admitted to the hospital during pandemic time. DISCHARGE DIAGNOSES Subacute rehab at [facility] Impression and plan of care have been directed as dictated by the signing physician. Maricarmen Cherry nurse practitioner acting as scribe for signing physician. Objective - Vital Signs Vital signs: Vital Signs Temp 98.3 F 09/01/21 08:00 Pulse 86 09/01/21 08:00 Resp 18 09/01/21 08:00 BP 150/74 09/01/21 08:00 Pulse Ox 94 L 09/01/21 08:00 Intake & Output 08/31/21 09/01/21 09/01/21 18:59 06:59 18:59 Intake Total 30 0 Output Total 175 Balance 30 -175 Weight 103.5 kg 103.5 kg Intake: IV 30 Invasive Line 1 20 Invasive Line 2 10 Oral 0 Output: Urine 175 Other: Voiding Method Indwelling Catheter # Bowel Movements 1 - Labs CBC & Chem 7: 09/01/21 08:29 09/01/21 08:29 Labs: Abnormal Lab Results - Last 24 Hours (Table) 08/31/21 08/31/21 08/31/21 Range/Units 13:55 13:55 14:15 WBC (3.8-10.6) k/uL RBC (3.80-5.40) m/uL Hgb (11.4-16.0) gm/dL Hct (34.0-46.0) % MCV (80.0-100.0) fL Neutrophils # (1.3-7.7) k/uL Lymphocytes # (1.0-4.8) k/uL Monocytes # (0-1.0) k/uL Sodium 133 L (137-145) mmol/L Chloride 89 L (98-107) mmol/L BUN 35 H (7-17) mg/dL Creatinine 4.33 H (0.52-1.04) mg/dL Glucose 185 H (74-99) mg/dL POC Glucose (mg/dL) (75-99) mg/dL Plasma Lactic Acid Artur 4.9 H* (0.7-2.0) mmol/L Urine Appearance Turbid H (Clear) Urine Protein 2+ H (Negative) Urine Glucose (UA) 1+ H (Negative) Urine Blood Small H (Negative) Urine WBC Clumps Few H (None) /hpf Urine Bacteria Occasional H (None) /hpf Urine Mucus Rare H (None) /hpf Urine Yeast (Budding) Many H (None) /hpf 08/31/21 08/31/21 08/31/21 Range/Units 19:11 22:21 Unknown WBC 27.3 H (3.8-10.6) k/uL RBC 3.56 L (3.80-5.40) m/uL Hgb (11.4-16.0) gm/dL Hct (34.0-46.0) % MCV 105.5 H (80.0-100.0) fL Neutrophils # 24.8 H (1.3-7.7) k/uL Lymphocytes # 0.7 L (1.0-4.8) k/uL Monocytes # 1.4 H (0-1.0) k/uL Sodium (137-145) mmol/L Chloride (98-107) mmol/L BUN (7-17) mg/dL Creatinine (0.52-1.04) mg/dL Glucose (74-99) mg/dL POC Glucose (mg/dL) (75-99) mg/dL Plasma Lactic Acid Artur 2.1 H* 3.0 H* (0.7-2.0) mmol/L Urine Appearance (Clear) Urine Protein (Negative) Urine Glucose (UA) (Negative) Urine Blood (Negative) Urine WBC Clumps (None) /hpf Urine Bacteria (None) /hpf Urine Mucus (None) /hpf Urine Yeast (Budding) (None) /hpf 09/01/21 09/01/21 09/01/21 Range/Units 06:01 08:29 08:29 WBC 31.0 H (3.8-10.6) k/uL RBC 2.88 L (3.80-5.40) m/uL Hgb 9.7 L D (11.4-16.0) gm/dL Hct 30.1 L (34.0-46.0) % MCV 104.5 H (80.0-100.0) fL Neutrophils # (1.3-7.7) k/uL Lymphocytes # (1.0-4.8) k/uL Monocytes # (0-1.0) k/uL Sodium 132 L (137-145) mmol/L Chloride 92 L (98-107) mmol/L BUN 43 H (7-17) mg/dL Creatinine 5.33 H (0.52-1.04) mg/dL Glucose 116 H (74-99) mg/dL POC Glucose (mg/dL) 130 H (75-99) mg/dL Plasma Lactic Acid Artur (0.7-2.0) mmol/L Urine Appearance (Clear) Urine Protein (Negative) Urine Glucose (UA) (Negative) Urine Blood (Negative) Urine WBC Clumps (None) /hpf Urine Bacteria (None) /hpf Urine Mucus (None) /hpf Urine Yeast (Budding) (None) /hpf
[2021-09-01] MEDS ORDERED: DARBEPOETIN ALFA 40 MCG/0.4 ML SYRINGE SQ SCH (16:00)
[2021-09-01 16:18] LABS: Glucose,Whole Blood 162 mg/dL (75-99)
[2021-09-01] MEDS: traMADol 50 MG TAB PO PRN (17:24)
--- NOTE | 2021-09-01 19:51 | CONS ---
CONSULTATION REASON FOR CONSULTATION: End-stage renal disease. HISTORY OF PRESENT ILLNESS: Patient is a 60-year-old female with end-stage renal disease, on hemodialysis on a Sunday, Sunday, Sunday schedule at the [facility]. Patient is not sure why she was admitted to the hospital. Upon review of medical records, it appears that she does have underlying dementia and has recurrent urinary tract infections. She presented with abdominal pain. Patient had about 2-1/2 hours of treatment yesterday. Patient currently denies any significant chest pains or shortness of breath. CT of the abdomen done yesterday shows no significant abnormality. Blood pressure is not low; in fact it is high. PAST MEDICAL HISTORY: End-stage renal disease, type 2 diabetes, history of CVA/TIA, hypertension, hepatitis B, dementia, CKD mineral bone disorder. PAST SURGICAL HISTORY: , cholecystectomy, left forearm AV fistula. SOCIAL HISTORY: Negative for smoking, drug abuse or alcohol abuse. MEDICATIONS: Medications at home prior to admission included Synthroid, oxybutynin, vitamin D2, magnesium, Zyloprim, PhosLo, Norvasc, tramadol, loratadine. ALLERGIES: ALLERGIES include CODEINE. PHYSICAL EXAMINATION: Patient is comfortable, awake, not in any acute distress. EXAMINATION OF THE HEART: S1 and S2. EXAMINATION OF LUNGS: Bilateral breath sounds are heard. Abdomen is soft, non-tender. Examination of lower extremities shows edema 1+ bilaterally. 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 Patient is moving all 4 extremities. LABS: Sodium 132, potassium 4.7, BUN 43, creatinine 5.3, hemoglobin of 9.7 g/dL. ASSESSMENT: 1. End-stage renal disease, on hemodialysis on a Sunday, Sunday, Sunday schedule. We will arrange for hemodialysis in a.m. 2. Abdominal pain with no major abnormality noted on the CT. UA does not show significant WBCs. 3. Chronic kidney disease mineral bone disorder. 4. Hypertension, maintained on Norvasc. 5. Anemia of chronic disease. Will add Aranesp. PLAN: Hemodialysis in a.m. Add Aranesp for anemia. Continue current phosphate binders. Thank you for this consultation. MMODL / IJN: [id number] /
[2021-09-01 20:01] LABS: Glucose,Whole Blood 154 mg/dL (75-99)
[2021-09-02 05:51] LABS: Glucose,Whole Blood 96 mg/dL (75-99)
[2021-09-02] MEDS: CALCIUM ACETATE 667 MG TAB PO SCH ×3 (06:37→17:22)
[2021-09-02] MEDS: traMADol 50 MG TAB PO PRN (06:37)
[2021-09-02] MEDS: LEVOTHYROXINE 75 MCG TAB PO SCH (06:37)
[2021-09-02 07:00] LABS: Appearance,Urine Clear (Clear); Bacteria,Urine Rare /hpf; Bilirubin,Urine Negative (Negative); Blood,Urine Moderate (Negative); Color,Urine Light Yellow; Glucose,Urine (UA) Trace (Negative); Granular Casts,Urine 1 /lpf (0); Hyaline Casts,Urine 4 /lpf (0-2); Ketones,Urine Negative (Negative); Leukocyte Esterase,Urine Moderate (Negative); Nitrite,Urine Negative (Negative); PH, Urine 7.5 (5.0-8.0); Protein,Urine 1+ (Negative); RBC,Urine 3 /hpf (0-5); Specific Gravity,Urine 1.008 (1.001-1.035); Squamous Epithelial Cell,Urine <1 /hpf (0-4); Urobilinogen,Urine <2.0 mg/dL (<2.0); WBC,Urine 20 /hpf (0-5)
[2021-09-02] MEDS: allopurinoL 100 MG TAB PO SCH (09:00)
[2021-09-02] MEDS: ATORVASTATIN 10 MG TAB PO SCH (09:00)
[2021-09-02] MEDS: INSULIN DETEMIR (LEVEMIR) 100 UNIT/ML SYR SQ SCH ×2 (09:00→20:16)
[2021-09-02] MEDS: ASPIRIN 81 MG PO SCH (09:00)
[2021-09-02] MEDS: amLODIPine 10 MG TAB PO SCH (09:00)
[2021-09-02] MEDS: LORATADINE 10 MG TAB PO SCH (09:01)
[2021-09-02] MEDS: FAMOTIDINE 20 MG TAB PO SCH (09:01)
[2021-09-02] MEDS: MAGNESIUM OXIDE 400 MG TAB PO SCH (09:01)
[2021-09-02] MEDS: HEPARIN SODIUM,PORCINE/PF 5,000 UNIT/0.5 ML SYRINGE SQ SCH ×2 (09:01→20:17)
[2021-09-02] MEDS: OXYBUTYNIN CHLORIDE 5 MG TAB PO SCH (09:01)
--- NOTE | 2021-09-02 09:01 | P.CONS ---
History of Present Illness - Reason for Consult Consult date: 09/01/21 FUO Requesting physician: Maricarmen Cherry - Chief Complaint abd pain x few days - History of Present Illness History of present illness : Patient is a 60-year-old female with a past medical history significant for end-stage renal disease on dialysis however the patient still makes urine patient presented to the hospital for evaluation of abdominal pain pain is mostly in the lower abdominal area and mention she wanted to pee describing to be more of a sharp in nature unable to quantify it any further some nausea but no vomiting denies having any chest pain no shortness of breath or cough on presentation to the hospital patient did have a fever of 103.9 F patient also have elevated white count 27.0 which is up to 31,000 today did have elevated BUN and creatinine from her renal failure elevated lactic acid level exams are normal urine was significantly positive fatima PCR was negative patient did have a chest x-ray perihilar interstitial findings could be on the basis of interstitial pneumonitis patient did have a CT of abdominal pelvis no acute abnormality patient received a dose of Zosyn subsequent has been continued on vancomycin infectious was consulted for further management because of her fever patient not have a good historian so most information has been obtained from review the chart Review of system: Positive point has been mentioned in HPI complete review could not be obtained because of underlying mental status Past medical history : Reviewed, documented below Past surgical history : Reviewed, documented below Social history: Reviewed, documented below Medications: Reviewed, as documented below EXAMINATION: Vital sigans= Reviewed and documented below GENERAL DESCRIPTION: Middle-aged female lying in bed, no distress. No tachypnea or accessory muscle of respiration use. HEENT: Shows Pallor , no scleral icterus. Oral mucous membrane is dry. NECK: Trachea central, no thyromegaly. LUNGS: Unlabored breathing. Clear to auscultation anteriorly. No wheeze or crackle. HEART: S1, S2, regular rate and rhythm. ABDOMEN: Soft, mild lower abdominal tenderness , no guarding or rigidity EXTREMITIES: No edema of feet. SKIN: No rash, no masses palpable. NEUROLOGICAL: The patient is awake, alert, oriented x2, mood and affect normal. LABS AND RADIOLOGY: Reviewed results see below Assessment : Patient presented to hospital with sepsis in this we did have fever elevated white count patient complaining mostly of the lower abdominal pain even though the patient is a dialysis dependent still making urine high clinic suspicious for urinary source CT abdominal pelvis was negative for any other acute findings chest x-ray was negative no evidence of any cellulitis at her dialysis catheter site Plan: 1-we will repeat her UA and a culture 2-empirically add Rocephin 1 g daily We will follow on clinical condition and cultures to further adjust medication if needed Thank you for this consultation we will follow the patient along with you Past Medical History Past Medical History: CVA/TIA, Dementia, Diabetes Mellitus, Dialysis, Hypertension, Renal Disease Additional Past Medical History / Comment(s): CVA x2 w/ memory loss, uses walker at home, hepatitis B, back pain, ESRD on hemodialysis History of Any Multi-Drug Resistant Organisms: None Reported Past Surgical History: Section, Cholecystectomy Additional Past Surgical History / Comment(s): left upper arm fistula Past Anesthesia/Blood Transfusion Reactions: No Reported Reaction Past Psychological History: No Psychological Hx Reported Smoking Status: Unknown if ever smoked Past Alcohol Use History: None Reported Past Drug Use History: Marijuana - Past Family History Mother Family Medical History: No Reported History Medications and Allergies Home Medications Medication Instructions Recorded Confirmed Type Levothyroxine Sodium [Synthroid] 75 mcg PO DAILY 10/28/17 08/31/21 History Oxybutynin Chloride 5 mg PO DAILY 10/28/17 08/31/21 History Ergocalciferol [Vitamin D2] 50,000 unit PO MO 01/19/20 08/31/21 History Insulin Glargine,Hum.rec.anlog 22 unit SQ BID 01/19/20 08/31/21 History [Basaglar Kwikpen U-100] Magnesium Oxide 400 mg PO DAILY 01/19/20 08/31/21 History allopurinoL [Zyloprim] 100 mg PO DAILY 01/19/20 08/31/21 History Acetaminophen [Tylenol Arthritis] 1,300 mg PO TID PRN 08/31/21 08/31/21 History Aspirin EC [Ecotrin Low Dose] 81 mg PO DAILY 08/31/21 08/31/21 History Calcium Acetate [Phoslo] 667 mg PO TID-W/MEALS 08/31/21 08/31/21 History Diclofenac Sodium Gel [Voltaren 1 applicate TOPICAL QID PRN 08/31/21 08/31/21 History Gel] Loratadine 10 mg PO DAILY 08/31/21 08/31/21 History Nystatin 100,000 Unit/gm Powd 1 applic TOPICAL BID PRN 08/31/21 08/31/21 History [Mycostatin Powder] Rosuvastatin Calcium [Crestor] 5 mg PO DAILY 08/31/21 08/31/21 History Thiamine [Vitamin B-1] 100 mg PO DAILY 08/31/21 08/31/21 History amLODIPine [Norvasc] 10 mg PO DAILY 08/31/21 08/31/21 History traMADol HCL 50 mg PO BID PRN 08/31/21 08/31/21 History Allergies Allergy/AdvReac Type Severity Reaction Status Date / Time codeine AdvReac Nausea Verified 08/31/21 16:53 Physical Exam Vitals: Vital Signs Temp Pulse Pulse Resp BP BP Pulse Ox 09/01/21 13:28 18 09/01/21 12:00 89 18 158/72 99 09/01/21 08:00 98.3 F 86 18 150/74 94 L 09/01/21 03:56 98.3 F 104 H 16 148/70 95 09/01/21 00:00 98.1 F 105 H 16 146/61 95 08/31/21 20:00 100.5 F H 101 H 15 174/64 94 L 08/31/21 18:47 101 F H 95 14 112/55 97 08/31/21 17:00 90 16 111/93 3 L Intake and Output 09/01/21 09/01/21 09/01/21 06:59 14:59 22:59 Intake Total 10 240 Output Total 175 Balance 10 65 Intake: IV 10 Invasive Line 1 10 Oral 240 Output: Urine 175 Other: Voiding Method Indwelling Catheter Indwelling Catheter # Bowel Movements 1 Weight 103.5 kg Results CBC & Chem 7: 09/01/21 08:29 09/01/21 08:29 Labs: Abnormal Lab Results - Last 24 Hours (Table) 08/31/21 08/31/21 09/01/21 Range/Units 19:11 22:21 06:01 WBC (3.8-10.6) k/uL RBC (3.80-5.40) m/uL Hgb (11.4-16.0) gm/dL Hct (34.0-46.0) % MCV (80.0-100.0) fL Neutrophils # (1.3-7.7) k/uL Monocytes # (0-1.0) k/uL Sodium (137-145) mmol/L Chloride (98-107) mmol/L BUN (7-17) mg/dL Creatinine (0.52-1.04) mg/dL Glucose (74-99) mg/dL POC Glucose (mg/dL) 130 H (75-99) mg/dL Plasma Lactic Acid Artur 2.1 H* 3.0 H* (0.7-2.0) mmol/L 09/01/21 09/01/21 09/01/21 Range/Units 08:29 08:29 11:38 WBC 31.0 H (3.8-10.6) k/uL RBC 2.88 L (3.80-5.40) m/uL Hgb 9.7 L D (11.4-16.0) gm/dL Hct 30.1 L (34.0-46.0) % MCV 104.5 H (80.0-100.0) fL Neutrophils # 27.4 H (1.3-7.7) k/uL Monocytes # 1.4 H (0-1.0) k/uL Sodium 132 L (137-145) mmol/L Chloride 92 L (98-107) mmol/L BUN 43 H (7-17) mg/dL Creatinine 5.33 H (0.52-1.04) mg/dL Glucose 116 H (74-99) mg/dL POC Glucose (mg/dL) 200 H (75-99) mg/dL Plasma Lactic Acid Artur (0.7-2.0) mmol/L 09/01/21 Range/Units 16:17 WBC (3.8-10.6) k/uL RBC (3.80-5.40) m/uL Hgb (11.4-16.0) gm/dL Hct (34.0-46.0) % MCV (80.0-100.0) fL Neutrophils # (1.3-7.7) k/uL Monocytes # (0-1.0) k/uL Sodium (137-145) mmol/L Chloride (98-107) mmol/L BUN (7-17) mg/dL Creatinine (0.52-1.04) mg/dL Glucose (74-99) mg/dL POC Glucose (mg/dL) 162 H (75-99) mg/dL Plasma Lactic Acid Artur (0.7-2.0) mmol/L
[2021-09-02] MEDS: THIAMINE 100 MG TAB PO SCH (09:05)
[2021-09-02 09:51] LABS: HCT 30.5 % (34.0-46.0); HGB 9.5 gm/dL (11.4-16.0); Hypochromasia Slight; MCH 32.9 pg (25.0-35.0); MCHC 31.1 g/dL (31.0-37.0); MCV 106.1 fL (80.0-100.0); Macrocytosis Moderate; Mean Platelet Volume 8.6; Platelet Count 279 k/uL (150-450); RBC 2.87 m/uL (3.80-5.40); RDW 13.7 % (11.5-15.5)
[2021-09-02 09:55] LABS: Calcium 8.9 mg/dL (8.4-10.2); Potassium 4.3 mmol/L (3.5-5.1)
[2021-09-02 11:47] LABS: Glucose,Whole Blood 116 mg/dL (75-99)
--- NOTE | 2021-09-02 15:26 | P.PN ---
Subjective Progress Note Date: 09/02/21 HISTORY OF PRESENT ILLNESS 60-year-old female mentally challenged with past medical history of dementia, TIA/CVA, type 2 diabetes, stage V chronic kidney disease, peripheral arterial disease, hypertension and hyperlipidemia who had recurrent urinary tract infection who presented to the emergency department at [facility] on 08/31/2021 because of an episode of severe pain at dialysis her abdominal pain started gradually and become a lot worse at dialysis Center patient pain was impenetrable end up coming to the emergency departmentpatient found to have sepsis from a known source originally try to exclude the possibility of abscess or perforation CAT scan of the abdomen and pelvis was order and done failed to show any abscess or any abnormality. Her urine was very positive white blood cell was high and lactic acid was significantly elevated to indicate patient be in septic. Patient was giving 1 g of Vanco along with Zosyn and admitted to the hospital for the above problem. 09/01: Patient's mental status is improved from yesterday, she is more awake. She also states that she is feeling better from yesterday. A has been afebrile since midnight, heart rate 86, blood pressure 150/74, pulse ox 94% on 3 L nasal cannula. Repeat blood work reveals WBC 31, hemoglobin 9.7, platelet count 268. Sodium 132, potassium 4.7, chloride 92, CO2 27, BUN 43 creatinine 5.33. Blood sugars are running between 130 and 200. Regarding discharge planning, is stating to the case work aide the patient is barely able to walk and looking at [facility]. PT and OT in place. 09/02: Patient has been afebrile, heart rate 82, blood pressure 137/64, pulse ox 93% on room air. Urinalysis sent this morning is clear, moderate blood, moderate leukoesterase. Vancomycin level 26.8. Blood sugars running between 96-162. Urine cultures are in progress. Blood culture no growth at 24 hours 2 specimens. Patient has been seen by Dr. Tellez and recommended adding Rocephin 1 g daily, patient is currently on Rocephin and vancomycin. She was also been seen by Dr. Shelby with plan for hemodialysis today, Aranesp added for anemia of chronic kidney disease. Patient has been seen by physical therapy with recommendations for subacute rehab and now has changes mind that he wants her to come home. He is her primary caregiver. post office manager has ordered a wheelchair. REVIEW OF SYSTEMS Constitutional: positive fever and chills along with night sweats no weight change positive generalized weakness and fatigue with tiredness and daytime sleepiness. EENT: No headache. No blurred vision or double vision, no loss of vision. No loss of Hearing, no ringing in the ears, no dizziness. No nasal drainage or congestion. No epistaxis. No sore throat. Lungs: No shortness of breath, cough, no sputum production. No wheezing. Cardiovascular: No chest pain, no lower extremity edema. mild palpitation and tachycardia.. No paroxysmal nocturnal dyspnea. No orthopnea. No lightheadedness or dizziness. No syncopal episodes. Abdominal: No abdominal pain. No nausea, vomiting. No diarrhea. No constipation. No bloody or tarry stools. No loss of appetite. Genitourinary: worsening incontinence burning of discomfort patient is on hemodialysis. Musculoskeletal: No myalgias. No muscle weakness, no gait dysfunction, no frequent falls. No back pain. No neck pain. Integumentary: No wounds, no lesions. No rash or pruritus. No unusual bruising. No change in hair or nails. Neurologic: altered mental status with worsening confusion and encephalopathy.. Psychiatric: No depression. No anxiety. No mood swings. Endocrine: Noted mildly abnormal blood sugars. No weight change. No excessive sweating or thirst. No cold intolerance. PHYSICAL EXAMINATION Gen: This is mildly overweight laying on her side apparently her abdominal pain is slightly bit better. HEENT: Head is atraumatic, normocephalic. Pupils equal, round. Sclerae is anicteric. NECK: Supple. No JVD. No lymphadenopathy. No thyromegaly. LUNGS: Clear to auscultation. No wheezes or rhonchi. No intercostal retractions. HEART: Regular rate and rhythm. No murmur. ABDOMEN: soft positive bowel sounds slight discomfort lower abdominal region area with tenderness no rebound or rigidity. EXTREMITIES: No pedal edema. No calf tenderness. NEUROLOGICAL: Patient is awake, alert 3. Cranial nerves 2 through 12 are grossly intact. not able to do gait exam. ASSESSMENT AND PLAN 1. Sepsis metabolic encephalopathy secondary to possible UTI. Patient is on ceftriaxone and vancomycin. Consult with Dr. petersen is appreciated. Urine culture is in progress. 2 severe abdominal pain that resolved. Nothing on CAT scan to explain symptoms. 3 severe pyrexia secondary to UTI and sepsis continue treat underlying disease watch for any further fever or chills. 4 lactic acidosis secondary to sepsis. 5 end-stage renal disease on hemodialysis 3 times a week, consult nephrology and resume dialysis at this point. 6 hypertension: Remain on amlodipine 10 mg a day continue medication. 7 type 2 diabetes: Has been on Humalog along with Levemir 22 units twice a day Accu-Chek with sliding scales coverage and be done. 8 hypothyroidism: Continue levothyroxine 75 g daily. 9 hyperlipidemia: Continue Crestor at 5 mg a day. 10. Anemia of chronic kidney disease. Patient has been started on Aranesp. 11. GI prophylaxis: Patient be on Pepcid. 12. DVT prophylaxis: Heparin subcutaneous abuse. 13. Generalized debility. PT, OT, subacute rehab. CODE STATUS: Full code. COVID-19 testing was negative patient was admitted to the hospital during pandemic time. DISCHARGE DIAGNOSES Home with Home Care, case work aide has ordered wheelchair for home Impression and plan of care have been directed as dictated by the signing physician. Maricarmen Cherry nurse practitioner acting as scribe for signing physician. Objective - Vital Signs Vital signs: Vital Signs Temp 98.2 F 09/02/21 08:00 Pulse 82 09/02/21 08:00 Resp 18 09/02/21 08:00 BP 137/64 09/02/21 08:00 Pulse Ox 93 L 09/02/21 08:00 Intake & Output 09/01/21 09/02/21 09/02/21 18:59 06:59 18:59 Intake Total 358 240 Output Total 175 450 500 Balance 183 -450 -260 Intake: Oral 358 240 Output: Urine 175 450 500 Other: Voiding Method Indwelling Catheter Indwelling Catheter # Bowel Movements 0 - Labs CBC & Chem 7: 09/02/21 06:27 09/02/21 06:27 Labs: Abnormal Lab Results - Last 24 Hours (Table) 09/01/21 09/01/21 09/01/21 Range/Units 08:29 08:29 11:38 WBC 31.0 H (3.8-10.6) k/uL RBC 2.88 L (3.80-5.40) m/uL Hgb 9.7 L D (11.4-16.0) gm/dL Hct 30.1 L (34.0-46.0) % MCV 104.5 H (80.0-100.0) fL Neutrophils # 27.4 H (1.3-7.7) k/uL Monocytes # 1.4 H (0-1.0) k/uL Sodium 132 L (137-145) mmol/L Chloride 92 L (98-107) mmol/L BUN 43 H (7-17) mg/dL Creatinine 5.33 H (0.52-1.04) mg/dL Glucose 116 H (74-99) mg/dL POC Glucose (mg/dL) 200 H (75-99) mg/dL Urine Protein (Negative) Urine Glucose (UA) (Negative) Urine Blood (Negative) Ur Leukocyte Esterase (Negative) Urine WBC (0-5) /hpf Urine Bacteria (None) /hpf Hyaline Casts (0-2) /lpf 09/01/21 09/01/21 09/02/21 Range/Units 16:17 20:00 05:45 WBC (3.8-10.6) k/uL RBC (3.80-5.40) m/uL Hgb (11.4-16.0) gm/dL Hct (34.0-46.0) % MCV (80.0-100.0) fL Neutrophils # (1.3-7.7) k/uL Monocytes # (0-1.0) k/uL Sodium (137-145) mmol/L Chloride (98-107) mmol/L BUN (7-17) mg/dL Creatinine (0.52-1.04) mg/dL Glucose (74-99) mg/dL POC Glucose (mg/dL) 162 H 154 H (75-99) mg/dL Urine Protein 1+ H (Negative) Urine Glucose (UA) Trace H (Negative) Urine Blood Moderate H (Negative) Ur Leukocyte Esterase Moderate H (Negative) Urine WBC 20 H (0-5) /hpf Urine Bacteria Rare H (None) /hpf Hyaline Casts 4 H (0-2) /lpf Microbiology - Last 24 Hours (Table) 09/01/21 13:04 Urine Culture - Preliminary Urine,Catheterized 08/31/21 14:18 Blood Culture - Preliminary Blood No Growth after 24 hours 08/31/21 14:00 Blood Culture - Preliminary Blood No Growth after 24 hours
[2021-09-02 16:38] LABS: Glucose,Whole Blood 99 mg/dL (75-99)
--- NOTE | 2021-09-02 17:04 | PN ---
PROGRESS NOTE Patient is seen for followup for end-stage renal disease. She is scheduled for hemodialysis today. Patient was admitted with increased weakness. She is noted to have an elevated white count. No growth noted on the blood cultures or urine cultures. PHYSICAL EXAMINATION: On examination today, blood pressure 158/67, heart rate 92 per minute. Patient is afebrile. Examination of the heart S1, S2. Examination of the lungs, bilateral breath sounds are heard. Abdomen is soft, nontender. Examination of lower extremities shows no evidence of edema. CH[employer]ER exam shows patient moving all four extremities. LAB: Show sodium 131, potassium 4.3, chloride 94, BUN 57, creatinine 6.6, hemoglobin 9.5. ASSESSMENT: 1. End-stage renal disease on hemodialysis on a Sunday, Sunday, Sunday schedule. 2. Underlying dementia. 3. CKD mineral bone disorder. 4. Mental status changes, now improved. 5. Abdominal pain with no major abnormalities noted on CT. PLAN: Hemodialysis today. MMODL / IJN: [id number] /
[2021-09-02] MEDS: PHENAZOPYRIDINE 100 MG TAB PO SCH ×2 (20:15→22:23)
[2021-09-02 20:17] LABS: Glucose,Whole Blood 103 mg/dL (75-99)
--- NOTE | 2021-09-03 01:37 | PN ---
PROGRESS NOTE DATE OF SERVICE: 09/02/2021 REASON FOR FOLLOWUP: Sepsis, likely urinary source. INTERVAL HISTORY: The patient is afebrile. The patient is feeling better, breathing comfortably. Patient denies having any chest pain. No shortness of breath or cough. Abdominal pain has improved. No vomiting or diarrhea. PHYSICAL EXAMINATION: Her blood pressure is 126/55 with a pulse of 67, temperature 97.6. She is 94% on room air. General description is a middle-aged female lying in bed in no distress. Respiratory system: Unlabored breathing, decreased intensity of breath sounds, no wheeze. Heart S1, S2. Regular rate and rhythm. Abdomen soft, no tenderness. LABS: Hemoglobin is 9.5, white count 20,000, creatinine 6.60. DIAGNOSTIC IMPRESSION AND PLAN: Patient with a fever, elevated white count, source likely urinary in this patient symptoms clinically improving with Rocephin and that will be continued for now while monitoring her clinical course and culture closely. Continues supportive care. MMODL / IJN: [id number] /
[2021-09-03] MEDS: LEVOTHYROXINE 75 MCG TAB PO SCH (06:11)
[2021-09-03] MEDS: INSULIN DETEMIR (LEVEMIR) 100 UNIT/ML SYR SQ SCH ×2 (06:12→20:08)
[2021-09-03] MEDS: CALCIUM ACETATE 667 MG TAB PO SCH ×3 (06:12→17:39)
[2021-09-03 06:50] LABS: Glucose,Whole Blood 129 mg/dL (75-99)
[2021-09-03 07:09] LABS: HCT 31.1 % (34.0-46.0); Hypochromasia Slight; MCH 33.6 pg (25.0-35.0); MCHC 32.2 g/dL (31.0-37.0); MCV 104.3 fL (80.0-100.0); Macrocytosis Slight; Mean Platelet Volume 8.1; Platelet Count 305 k/uL (150-450); RBC 2.98 m/uL (3.80-5.40); RDW 13.3 % (11.5-15.5); WBC 14.1 k/uL (3.8-10.6)
[2021-09-03 08:18] LABS: Calcium 9.3 mg/dL (8.4-10.2); Potassium 4.1 mmol/L (3.5-5.1)
[2021-09-03 08:23] LABS: Vancomycin,Random 19.5 ug/mL
[2021-09-03] MEDS: ATORVASTATIN 10 MG TAB PO SCH (10:00)
[2021-09-03] MEDS: MAGNESIUM OXIDE 400 MG TAB PO SCH (10:00)
[2021-09-03] MEDS: ASPIRIN 81 MG PO SCH (10:00)
[2021-09-03] MEDS: THIAMINE 100 MG TAB PO SCH (10:00)
[2021-09-03] MEDS: amLODIPine 10 MG TAB PO SCH (10:00)
[2021-09-03] MEDS: HEPARIN SODIUM,PORCINE/PF 5,000 UNIT/0.5 ML SYRINGE SQ SCH ×2 (10:00→20:08)
[2021-09-03] MEDS: FAMOTIDINE 20 MG TAB PO SCH (10:00)
[2021-09-03] MEDS: allopurinoL 100 MG TAB PO SCH (10:00)
[2021-09-03] MEDS: PHENAZOPYRIDINE 100 MG TAB PO SCH ×3 (10:00→20:07)
[2021-09-03] MEDS: OXYBUTYNIN CHLORIDE 5 MG TAB PO SCH (10:00)
[2021-09-03] MEDS: LORATADINE 10 MG TAB PO SCH (10:02)
--- NOTE | 2021-09-03 10:11 | P.PN ---
Subjective Patient is seen in follow-up for end-stage renal disease. She is maintained on hemodialysis on Sunday schedule. Patient has dementia and is not a reliable historian. Denies pain. Oral intake fair. Vital signs are stable. General: The patient appeared well nourished and normally developed. HEENT: Head exam is unremarkable. LUNGS: Breath sounds decreased. HEART: Rate and Rhythm are regular. ABDOMEN: Soft, obese. EXTREMITITES: Trace edema. Objective - Vital Signs Vital signs: Vital Signs Temp 98.0 F 09/03/21 04:00 Pulse 70 09/03/21 04:00 Resp 18 09/03/21 04:00 BP 144/80 09/03/21 04:00 Pulse Ox 93 L 09/03/21 04:00 Intake & Output 09/02/21 09/03/21 09/03/21 18:59 06:59 18:59 Intake Total 590 180 Output Total 3000 1 Balance -2410 179 Weight 102.9 kg Intake: Intake, IV Titration 50 Amount cefTRIAXone 1 gm In 50 Sodium Chloride 0.9% 50 ml @ 100 mls/hr IVPB Q24HR [facility] Rx#:[id number] Oral 540 180 Output: Urine 500 1 Hemodialysis 2500 Other: Voiding Method Indwelling Catheter Bedside Commode # Voids 1 - Labs CBC & Chem 7: 09/03/21 06:33 09/03/21 06:33 Labs: Abnormal Lab Results - Last 24 Hours (Table) 09/02/21 09/02/21 09/03/21 Range/Units 11:45 20:15 06:33 WBC (3.8-10.6) k/uL RBC (3.80-5.40) m/uL Hgb (11.4-16.0) gm/dL Hct (34.0-46.0) % MCV (80.0-100.0) fL BUN 36 H (7-17) mg/dL Creatinine 4.79 H (0.52-1.04) mg/dL Glucose 119 H (74-99) mg/dL POC Glucose (mg/dL) 116 H 103 H (75-99) mg/dL 09/03/21 09/03/21 Range/Units 06:33 06:47 WBC 14.1 H (3.8-10.6) k/uL RBC 2.98 L (3.80-5.40) m/uL Hgb 10.0 L (11.4-16.0) gm/dL Hct 31.1 L (34.0-46.0) % MCV 104.3 H (80.0-100.0) fL BUN (7-17) mg/dL Creatinine (0.52-1.04) mg/dL Glucose (74-99) mg/dL POC Glucose (mg/dL) 129 H (75-99) mg/dL Microbiology - Last 24 Hours (Table) 09/01/21 13:04 Urine Culture - Final Urine,Catheterized 08/31/21 14:18 Blood Culture - Preliminary Blood No Growth after 48 hours 08/31/21 14:00 Blood Culture - Preliminary Blood No Growth after 48 hours 09/02/21 06:00 Urine Culture - Preliminary Urine,Voided Assessment and Plan Plan: Assessment: 1. End-stage renal disease maintained on hemodialysis on Sunday schedule. 2. Abdominal pain. No acute findings noted on CT of the abdomen and pelvis. 3. Dementia. 4. Chronic kidney disease mineral bone disease maintained on PhosLo. 5. Anemia of chronic kidney disease maintained on Aranesp. 6. Hypertension with chronic kidney disease. Stable. Plan: Hemodialysis Sunday.
[2021-09-03 11:56] LABS: Glucose,Whole Blood 151 mg/dL (75-99)
[2021-09-03] MEDS ORDERED: VANCOMYCIN 1,500 MG in SODIUM CHLORIDE 0.9% 250 ML IVPB ONE (12:00)
[2021-09-03 16:43] LABS: Glucose,Whole Blood 154 mg/dL (75-99)
--- NOTE | 2021-09-03 17:48 | P.PN ---
Subjective Progress Note Date: 09/03/21 HISTORY OF PRESENT ILLNESS 60-year-old female mentally challenged with past medical history of dementia, TIA/CVA, type 2 diabetes, stage V chronic kidney disease, peripheral arterial disease, hypertension and hyperlipidemia who had recurrent urinary tract infection who presented to the emergency department at [facility] on 08/31/2021 because of an episode of severe pain at dialysis her abdominal pain started gradually and become a lot worse at dialysis Center patient pain was impenetrable end up coming to the emergency departmentpatient found to have sepsis from a known source originally try to exclude the possibility of abscess or perforation CAT scan of the abdomen and pelvis was order and done failed to show any abscess or any abnormality. Her urine was very positive white blood cell was high and lactic acid was significantly elevated to indicate patient be in septic. Patient was giving 1 g of Vanco along with Zosyn and admitted to the hospital for the above problem. 09/01: Patient's mental status is improved from yesterday, she is more awake. She also states that she is feeling better from yesterday. A has been afebrile since midnight, heart rate 86, blood pressure 150/74, pulse ox 94% on 3 L nasal cannula. Repeat blood work reveals WBC 31, hemoglobin 9.7, platelet count 268. Sodium 132, potassium 4.7, chloride 92, CO2 27, BUN 43 creatinine 5.33. Blood sugars are running between 130 and 200. Regarding discharge planning, is stating to the rn case management the patient is barely able to walk and looking [facility] [place]. PT and OT in place. 09/02: Patient has been afebrile, heart rate 82, blood pressure 137/64, pulse ox 93% on room air. Urinalysis sent this morning is clear, moderate blood, moderate leukoesterase. Vancomycin level 26.8. Blood sugars running between 96-162. Urine cultures are in progress. Blood culture no growth at 24 hours 2 specimens. Patient has been seen by Dr. Tellez and recommended adding Rocephin 1 g daily, patient is currently on Rocephin and vancomycin. She was also been seen by Dr. Shleby with plan for hemodialysis today, Aranesp added for anemia of chronic kidney disease. Patient has been seen by physical therapy with recommendations for subacute rehab and now has changes mind that he wants her to come home. He is her primary caregiver. geological manager has ordered a wheelchair. Well/18: Patient is complaining of epigastric abdominal pain, could be constipated, no nausea no vomiting, no melena, no hematochezia negative for urinary tract infection, as cultures did not show anything microbes growing, patient is off vancomycin, as discontinued by infectious disease. We'll going to start Carafate, 1 g 3 times a day, status post cholecystectomy in the past. Patient has advanced atherosclerosis, based on abdominal vascular imaging studies REVIEW OF SYSTEMS Constitutional: positive fever and chills along with night sweats no weight c hange positive generalized weakness and fatigue with tiredness and daytime sleepiness. EENT: No headache. No blurred vision or double vision, no loss of vision. No loss of Hearing, no ringing in the ears, no dizziness. No nasal drainage or congestion. No epistaxis. No sore throat. Lungs: No shortness of breath, cough, no sputum production. No wheezing. Cardiovascular: No chest pain, no lower extremity edema. mild palpitation and tachycardia.. No paroxysmal nocturnal dyspnea. No orthopnea. No lightheadedness or dizziness. No syncopal episodes. Abdominal: No abdominal pain. No nausea, vomiting. No diarrhea. No constipation. No bloody or tarry stools. No loss of appetite. Genitourinary: worsening incontinence burning of discomfort patient is on hemodialysis. Musculoskeletal: No myalgias. No muscle weakness, no gait dysfunction, no frequent falls. No back pain. No neck pain. Integumentary: No wounds, no lesions. No rash or pruritus. No unusual bruising. No change in hair or nails. Neurologic: altered mental status with worsening confusion and encephalopathy.. Psychiatric: No depression. No anxiety. No mood swings. Endocrine: Noted mildly abnormal blood sugars. No weight change. No excessive sweating or thirst. No cold intolerance. PHYSICAL EXAMINATION Gen: This is mildly overweight laying on her side apparently her abdominal pain is slightly bit better. HEENT: Head is atraumatic, normocephalic. Pupils equal, round. Sclerae is anicteric. NECK: Supple. No JVD. No lymphadenopathy. No thyromegaly. LUNGS: Clear to auscultation. No wheezes or rhonchi. No intercostal retractions. HEART: Regular rate and rhythm. No murmur. ABDOMEN: soft positive bowel sounds slight discomfort lower abdominal region area with tenderness no rebound or rigidity. EXTREMITIES: No pedal edema. No calf tenderness. NEUROLOGICAL: Patient is awake, alert 3. Cranial nerves 2 through 12 are grossly intact. not able to do gait exam. ASSESSMENT AND PLAN 1. Sepsis metabolic encephalopathy secondary to possible UTI. Patient is on ceftriaxone and vancomycin. Consult with Dr. petersen is appreciated. Urine culture is in progress. 2 severe abdominal pain that resolved. Cannot rule out gastroparesis, Nothing on CAT scan to explain symptoms. Psych Carafate 1 g 3 times a day cannot rule out mesenteric ischemia, check for LDH 3 severe pyrexia secondary to UTI and sepsis continue treat underlying disease watch for any further fever or chills. 4 lactic acidosis secondary to sepsis. 5 end-stage renal disease on hemodialysis 3 times a week, consult nephrology and resume dialysis at this point. 6 hypertension: Remain on amlodipine 10 mg a day continue medication. 7 type 2 diabetes: Has been on Humalog along with Levemir 22 units twice a day Accu-Chek with sliding scales coverage and be done. 8 hypothyroidism: Continue levothyroxine 75 g daily. 9 hyperlipidemia: Continue Crestor at 5 mg a day. 10. Anemia of chronic kidney disease. Patient has been started on Aranesp. 11. GI prophylaxis: Patient be on Pepcid. 12. DVT prophylaxis: Heparin subcutaneous abuse. 13. Generalized debility. PT, OT, subacute rehab. CODE STATUS: Full code. COVID-19 testing was negative patient was admitted to the hospital during pandemic time. DISCHARGE DIAGNOSES Home with Home Care, rn case management has ordered wheelchair for home Objective - Vital Signs Vital signs: Vital Signs Temp 98.9 F 09/03/21 15:54 Pulse 92 09/03/21 15:54 Resp 20 09/03/21 15:54 BP 176/90 09/03/21 15:54 Pulse Ox 96 09/03/21 15:54 Intake & Output 09/02/21 09/03/21 09/03/21 18:59 06:59 18:59 Intake Total 590 180 Output Total 3000 1 Balance -2410 179 Weight 102.9 kg Intake: Intake, IV Titration 50 Amount cefTRIAXone 1 gm In 50 Sodium Chloride 0.9% 50 ml @ 100 mls/hr IVPB Q24HR [facility] Rx#:[id number] Oral 540 180 Output: Urine 500 1 Hemodialysis 2500 Other: Voiding Method Indwelling Catheter Bedside Commode Bedside Commode # Voids 1 1 - Labs CBC & Chem 7: 09/03/21 06:33 09/03/21 06:33 Labs: Abnormal Lab Results - Last 24 Hours (Table) 09/02/21 09/03/21 09/03/21 Range/Units 20:15 06:33 06:33 WBC 14.1 H (3.8-10.6) k/uL RBC 2.98 L (3.80-5.40) m/uL Hgb 10.0 L (11.4-16.0) gm/dL Hct 31.1 L (34.0-46.0) % MCV 104.3 H (80.0-100.0) fL BUN 36 H (7-17) mg/dL Creatinine 4.79 H (0.52-1.04) mg/dL Glucose 119 H (74-99) mg/dL POC Glucose (mg/dL) 103 H (75-99) mg/dL 09/03/21 09/03/21 09/03/21 Range/Units 06:47 11:55 16:41 WBC (3.8-10.6) k/uL RBC (3.80-5.40) m/uL Hgb (11.4-16.0) gm/dL Hct (34.0-46.0) % MCV (80.0-100.0) fL BUN (7-17) mg/dL Creatinine (0.52-1.04) mg/dL Glucose (74-99) mg/dL POC Glucose (mg/dL) 129 H 151 H 154 H (75-99) mg/dL Microbiology - Last 24 Hours (Table) 08/31/21 14:00 Blood Culture - Preliminary Blood No Growth after 72 hours 09/02/21 06:00 Urine Culture - Final Urine,Voided 08/31/21 14:18 Blood Culture - Preliminary Blood No Growth after 72 hours 09/01/21 13:04 Urine Culture - Final Urine,Catheterized
[2021-09-03] MEDS: traMADol 50 MG TAB PO PRN (20:08)
[2021-09-03] MEDS: hydrALAZINE HCL 25 MG TAB PO SCH (20:09)
[2021-09-03 20:22] LABS: Glucose,Whole Blood 179 mg/dL (75-99)
--- NOTE | 2021-09-03 23:23 | PN ---
PROGRESS NOTE DATE OF SERVICE: 09/03/2021 REASON FOR FOLLOWUP: Urinary tract infection. INTERVAL HISTORY: Patient is afebrile. The patient is more awake and alert. The patient is breathing comfortably. Denies any chest pain, shortness of breath or cough. Abdominal pain has improved. No vomiting or diarrhea. PHYSICAL EXAMINATION: Blood pressure 119/73 with a pulse of 83, temperature 98.6. She is 93% on room air. General description is a middle-aged female lying in bed in no distress. Respiratory system: Unlabored breathing, clear to auscultation anteriorly. Heart S1, S2. Regular rate. Abdomen: Soft. No tenderness. LABS: Hemoglobin is 10, white count 14.1, creatinine 4.79. Urine culture so far negative. DIAGNOSTIC IMPRESSION AND PLAN: Patient admitted to the hospital with fever and abdominal pain. CT of abdomen and pelvis was negative. Positive UA concerning for a urinary tract infection responding to the Rocephin that will be continued for now while monitoring clinical course closely. Continue supportive care. MMODL / IJN: [id number] /
[2021-09-04 06:18] LABS: Glucose,Whole Blood 97 mg/dL (75-99)
[2021-09-04] MEDS: SUCRALFATE 1 GM TAB PO SCH ×3 (06:41→16:00)
[2021-09-04] MEDS: LEVOTHYROXINE 75 MCG TAB PO SCH (06:41)
[2021-09-04] MEDS: CALCIUM ACETATE 667 MG TAB PO SCH ×3 (06:41→16:00)
[2021-09-04] MEDS: traMADol 50 MG TAB PO PRN (06:41)
[2021-09-04 08:16] LABS: Basophils # (A) 0.1 k/uL (0-0.2); Basophils % (A) 1 %; Eosinophils # (A) 0.3 k/uL (0-0.7); Eosinophils % (A) 3 %; HCT 33.2 % (34.0-46.0); HGB 10.6 gm/dL (11.4-16.0); Lymphocytes # (A) 1.7 k/uL (1.0-4.8); Lymphocytes % (A) 16 %; MCH 32.8 pg (25.0-35.0); MCV 102.7 fL (80.0-100.0); Macrocytosis Slight; Mean Platelet Volume 8.6; Monocytes # (A) 0.7 k/uL (0-1.0); Monocytes % (A) 7 %; Neutrophils # (A) 7.4 k/uL (1.3-7.7); Neutrophils % (A) 71 %; Platelet Count 366 k/uL (150-450); RBC 3.23 m/uL (3.80-5.40); RDW 13.1 % (11.5-15.5); WBC 10.3 k/uL (3.8-10.6)
[2021-09-04 08:25] LABS: Albumin 3.7 g/dL (3.5-5.0); Calcium 9.5 mg/dL (8.4-10.2); Total Bilirubin 0.5 mg/dL (0.2-1.3); Total Protein 6.7 g/dL (6.3-8.2)
--- NOTE | 2021-09-04 09:10 | P.PN ---
Subjective Patient is seen in follow-up for end-stage renal disease. She is maintained on hemodialysis on Sunday schedule. Patient has dementia and is not a reliable historian. Denies pain. Oral intake fair. No vomiting or diarrhea. Vital signs are stable. General: The patient appeared well nourished and normally developed. HEENT: Head exam is unremarkable. LUNGS: Breath sounds decreased. HEART: Rate and Rhythm are regular. ABDOMEN: Soft, obese. EXTREMITITES: Trace edema. Objective - Vital Signs Vital signs: Vital Signs Temp 98.6 F 09/03/21 20:00 Pulse 92 09/04/21 04:00 Resp 18 09/04/21 04:00 BP 164/79 09/04/21 04:00 Pulse Ox 96 09/04/21 04:00 Intake & Output 09/03/21 09/04/21 09/04/21 18:59 06:59 18:59 Intake Total 360 970 Output Total 1 Balance 359 970 Weight 102 kg Intake: Oral 360 970 Output: Urine 1 Other: Voiding Method Bedside Commode Bedside Commode # Voids 1 2 - Labs CBC & Chem 7: 09/04/21 07:54 09/04/21 07:54 Labs: Abnormal Lab Results - Last 24 Hours (Table) 09/03/21 09/03/21 09/03/21 Range/Units 11:55 16:41 20:07 RBC (3.80-5.40) m/uL Hgb (11.4-16.0) gm/dL Hct (34.0-46.0) % MCV (80.0-100.0) fL Sodium (137-145) mmol/L BUN (7-17) mg/dL Creatinine (0.52-1.04) mg/dL Glucose (74-99) mg/dL POC Glucose (mg/dL) 151 H 154 H 179 H (75-99) mg/dL Lactate Dehydrogenase (313-618) U/L 09/04/21 09/04/21 Range/Units 07:54 07:54 RBC 3.23 L (3.80-5.40) m/uL Hgb 10.6 L (11.4-16.0) gm/dL Hct 33.2 L (34.0-46.0) % MCV 102.7 H (80.0-100.0) fL Sodium 134 L (137-145) mmol/L BUN 43 H (7-17) mg/dL Creatinine 5.71 H (0.52-1.04) mg/dL Glucose 130 H (74-99) mg/dL POC Glucose (mg/dL) (75-99) mg/dL Lactate Dehydrogenase 301 L (313-618) U/L Microbiology - Last 24 Hours (Table) 08/31/21 14:00 Blood Culture - Preliminary Blood No Growth after 72 hours 09/02/21 06:00 Urine Culture - Final Urine,Voided 08/31/21 14:18 Blood Culture - Preliminary Blood No Growth after 72 hours Assessment and Plan Plan: Assessment: 1. End-stage renal disease maintained on hemodialysis on Sunday schedule. 2. Abdominal pain. No acute findings noted on CT of the abdomen and pelvis. 3. Dementia. 4. Chronic kidney disease mineral bone disease maintained on PhosLo. 5. Anemia of chronic kidney disease maintained on Aranesp. 6. Hypertension with chronic kidney disease. Stable. Plan: Hemodialysis Sunday. Add hydralazine 25 mg 3 times daily. To be held for systolic blood pressure less than 125.
[2021-09-04] MEDS: amLODIPine 10 MG TAB PO SCH (10:04)
[2021-09-04] MEDS: ASPIRIN 81 MG PO SCH (10:04)
[2021-09-04] MEDS: HEPARIN SODIUM,PORCINE/PF 5,000 UNIT/0.5 ML SYRINGE SQ SCH ×2 (10:04→21:11)
[2021-09-04] MEDS: allopurinoL 100 MG TAB PO SCH (10:04)
[2021-09-04] MEDS: THIAMINE 100 MG TAB PO SCH (10:04)
[2021-09-04] MEDS: FAMOTIDINE 20 MG TAB PO SCH (10:04)
[2021-09-04] MEDS: MAGNESIUM OXIDE 400 MG TAB PO SCH (10:04)
[2021-09-04] MEDS: LORATADINE 10 MG TAB PO SCH (10:04)
[2021-09-04] MEDS: ATORVASTATIN 10 MG TAB PO SCH (10:04)
[2021-09-04] MEDS: PHENAZOPYRIDINE 100 MG TAB PO SCH ×3 (10:05→21:10)
[2021-09-04] MEDS: SENNOSIDES-DOCUSATE SODIUM 1 EACH TAB PO SCH (10:05)
[2021-09-04] MEDS: OXYBUTYNIN CHLORIDE 5 MG TAB PO SCH (10:05)
[2021-09-04] MEDS ORDERED: methocarbamoL 750 MG TAB PO PRN (10:27)
[2021-09-04] MEDS ORDERED: traMADol 50 MG TAB PO PRN (10:28)
[2021-09-04 11:32] LABS: Glucose,Whole Blood 152 mg/dL (75-99)
[2021-09-04] MEDS: INSULIN DETEMIR (LEVEMIR) 100 UNIT/ML SYR SQ SCH ×2 (13:09→21:11)
--- NOTE | 2021-09-04 15:48 | P.PN ---
Subjective Progress Note Date: 09/04/21 HISTORY OF PRESENT ILLNESS 60-year-old female mentally challenged with past medical history of dementia, TIA/CVA, type 2 diabetes, stage V chronic kidney disease, peripheral arterial disease, hypertension and hyperlipidemia who had recurrent urinary tract infection who presented to the emergency department at [facility] on 08/31/2021 because of an episode of severe pain at dialysis her abdominal pain started gradually and become a lot worse at dialysis Center patient pain was impenetrable end up coming to the emergency departmentpatient found to have sepsis from a known source originally try to exclude the possibility of abscess or perforation CAT scan of the abdomen and pelvis was order and done failed to show any abscess or any abnormality. Her urine was very positive white blood cell was high and lactic acid was significantly elevated to indicate patient be in septic. Patient was giving 1 g of Vanco along with Zosyn and admitted to the hospital for the above problem. 09/01: Patient's mental status is improved from yesterday, she is more awake. She also states that she is feeling better from yesterday. A has been afebrile since midnight, heart rate 86, blood pressure 150/74, pulse ox 94% on 3 L nasal cannula. Repeat blood work reveals WBC 31, hemoglobin 9.7, platelet count 268. Sodium 132, potassium 4.7, chloride 92, CO2 27, BUN 43 creatinine 5.33. Blood sugars are running between 130 and 200. Regarding discharge planning, is stating to the case hardener the patient is barely able to walk and [facility] PT and OT in place. 09/02: Patient has been afebrile, heart rate 82, blood pressure 137/64, pulse ox 93% on room air. Urinalysis sent this morning is clear, moderate blood, moderate leukoesterase. Vancomycin level 26.8. Blood sugars running between 96-162. Urine cultures are in progress. Blood culture no growth at 24 hours 2 specimens. Patient has been seen by Dr. Tellez and recommended adding Rocephin 1 g daily, patient is currently on Rocephin and vancomycin. She was also been seen by Dr. Shelby with plan for hemodialysis today, Aranesp added for anemia of chronic kidney disease. Patient has been seen by physical therapy with recommendations for subacute rehab and now has changes mind that he wants her to come home. He is her primary caregiver. manager research and development has ordered a wheelchair. 09/03: Patient is complaining of epigastric abdominal pain, could be constipated, no nausea no vomiting, no melena, no hematochezia negative for urinary tract infection, as cultures did not show anything microbes growing, patient is off vancomycin, as discontinued by infectious disease. We'll going to start Carafate, 1 g 3 times a day, status post cholecystectomy in the past. Patient has advanced atherosclerosis, based on abdominal vascular imaging studies 09/04: Patient's abdominal pain has improved, with Carafate, patient's also doing much better, moderate muscle spasms, using Robaxin. Patient has significant short-term memory loss, cannot remember what she did yesterday, including abdominal pain and chest. Therapy has seen her, with recommendations for subacute rehab, case hardener consulted, for discharge planning, no fever today, still no bowel movement, bowel protocol in place and is on Rocephin, for presumed UTI, urine culture no growth so far, [address] Tellez following, REVIEW OF SYSTEMS Constitutional: positive fever and chills along with night sweats no weight change positive generalized weakness and fatigue with tiredness and daytime sleepiness. EENT: No headache. No blurred vision or double vision, no loss of vision. No loss of Hearing, no ringing in the ears, no dizziness. No nasal drainage or congestion. No epistaxis. No sore throat. Lungs: No shortness of breath, cough, no sputum production. No wheezing. Cardiovascular: No chest pain, no lower extremity edema. mild palpitation and tachycardia.. No paroxysmal nocturnal dyspnea. No orthopnea. No lightheadedness or dizziness. No syncopal episodes. Abdominal: No abdominal pain. No nausea, vomiting. No diarrhea. No constipation. No bloody or tarry stools. No loss of appetite. Genitourinary: worsening incontinence burning of discomfort patient is on hemodialysis. Musculoskeletal: No myalgias. No muscle weakness, no gait dysfunction, no frequent falls. No back pain. No neck pain. Integumentary: No wounds, no lesions. No rash or pruritus. No unusual bruising. No change in hair or nails. Neurologic: altered mental status with worsening confusion and encephalopathy.. Psychiatric: No depression. No anxiety. No mood swings. Endocrine: Noted mildly abnormal blood sugars. No weight change. No excessive sweating or thirst. No cold intolerance. PHYSICAL EXAMINATION Gen: This is mildly overweight laying on her side apparently her abdominal pain is slightly bit better. HEENT: Head is atraumatic, normocephalic. Pupils equal, round. Sclerae is anicteric. NECK: Supple. No JVD. No lymphadenopathy. No thyromegaly. LUNGS: Clear to auscultation. No wheezes or rhonchi. No intercostal retractions. HEART: Regular rate and rhythm. No murmur. ABDOMEN: soft positive bowel sounds slight discomfort lower abdominal region area with tenderness no rebound or rigidity. EXTREMITIES: No pedal edema. No calf tenderness. NEUROLOGICAL: Patient is awake, alert 3. Cranial nerves 2 through 12 are grossly intact. not able to do gait exam. ASSESSMENT AND PLAN 1. Sepsis metabolic encephalopathy secondary to possible UTI. Patient is on ceftriaxone and vancomycin. Consult with Dr. petersen is appreciated. Urine culture is in progress. 2 severe abdominal pain that resolved. Cannot rule out gastroparesis, Nothing on CAT scan to explain symptoms. Psych Carafate 1 g 3 times a day cannot rule out mesenteric ischemia, check for LDH 3 severe pyrexia secondary to UTI and sepsis continue treat underlying disease watch for any further fever or chills. 4 lactic acidosis secondary to sepsis. 5 end-stage renal disease on hemodialysis 3 times a week, consult nephrology and resume dialysis at this point. 6 hypertension: Remain on amlodipine 10 mg a day continue medication. 7 type 2 diabetes: Has been on Humalog along with Levemir 22 units twice a day Accu-Chek with sliding scales coverage and be done. 8 hypothyroidism: Continue levothyroxine 75 g daily. 9 hyperlipidemia: Continue Crestor at 5 mg a day. 10. Anemia of chronic kidney disease. Patient has been started on Aranesp. 11. GI prophylaxis: Patient be on Pepcid. 12. DVT prophylaxis: Heparin subcutaneous abuse. 13. Generalized debility. PT, OT, subacute rehab. CODE STATUS: Full code. COVID-19 testing was negative patient was admitted to the hospital during pandemic time. DISCHARGE DIAGNOSES Home with Home Care, case hardener has ordered wheelchair for home Current Medications Allopurinol (Allopurinol 100 Mg Tab) 100 mg PO DAILY ANJALI Last Admin: 09/04/21 10:04 Dose: 100 mg Documented by: Amlodipine Besylate (Amlodipine 5 Mg Tab) 10 mg PO DAILY [facility] Aspirin (Aspirin 81 Mg) 81 mg PO DAILY [facility] Last Admin: 09/04/21 10:04 Dose: 81 mg Documented by: Atorvastatin Calcium (Atorvastatin 10 Mg Tab) 10 mg PO DAILY [facility] Last Admin: 09/04/21 10:04 Dose: 10 mg Documented by: Calcium Acetate (Calcium Acetate 667 Mg Tab) 667 mg PO TID-W/MEALS [facility] Last Admin: 09/04/21 13:10 Dose: 667 mg Documented by: Darbepoetin Poli (Darbepoetin Poli 40 Mcg/0.4 Ml Syringe) 40 mcg SQ Q7D [facility] Last Admin: 09/01/21 17:24 Dose: 40 mcg Documented by: Ergocalciferol (Ergocalciferol 1,250 Mcg (50,000 Iu) Capsule) 1,250 mcg PO MO [facility] Famotidine (Famotidine 20 Mg Tab) 20 mg PO DAILY [facility] Last Admin: 09/04/21 10:04 Dose: 20 mg Documented by: Heparin Sodium (Porcine) (Heparin Sodium,Porcine/Pf 5,000 Unit/0.5 Ml Syringe) 5,000 unit SQ Q12HR [facility] Last Admin: 09/04/21 10:04 Dose: 5,000 unit Documented by: Hydralazine HCl (Hydralazine Hcl 25 Mg Tab) 25 mg PO TID [facility] Ceftriaxone Sodium 1 gm/ (Sodium Chloride) 50 mls @ 100 mls/hr IVPB Q24HR [facility] Last Admin: 09/04/21 10:05 Dose: 100 mls/hr Documented by: Insulin Detemir (Insulin Detemir (Levemir) 100 Unit/Ml Syr) 22 unit SQ BID@0700,2100 [facility] Last Admin: 09/04/21 13:09 Dose: 22 unit Documented by: Levothyroxine Sodium (Levothyroxine 75 Mcg Tab) 75 mcg PO DAILY@0630 [facility] Last Admin: 09/04/21 06:41 Dose: 75 mcg Documented by: Loratadine (Loratadine 10 Mg Tab) 10 mg PO DAILY [facility] Last Admin: 09/04/21 10:04 Dose: 10 mg Documented by: Magnesium Oxide (Magnesium Oxide 400 Mg Tab) 400 mg PO DAILY [facility] Last Admin: 09/04/21 10:04 Dose: 400 mg Documented by: Methocarbamol (Methocarbamol 750 Mg Tab) 750 mg PO TID PRN PRN Reason: Muscle Spasm Last Admin: 09/04/21 13:10 Dose: 750 mg Documented by: Naloxone HCl (Naloxone 0.4 Mg/Ml 1 Ml Vial) 0.2 mg IV Q2M PRN PRN Reason: Opioid Reversal Oxybutynin Chloride (Oxybutynin Chloride 5 Mg Tab) 5 mg PO DAILY [facility] Last Admin: 09/04/21 10:05 Dose: 5 mg Documented by: Phenazopyridine HCl (Phenazopyridine 100 Mg Tab) 100 mg PO TID [facility] Last Admin: 09/04/21 10:05 Dose: 100 mg Documented by: Senna/Docusate Sodium (Sennosides-Docusate Sodium 1 Each Tab) 1 each PO DAILY [facility] Last Admin: 09/04/21 10:05 Dose: 1 each Documented by: Sucralfate (Sucralfate 1 Gm Tab) 1 gm PO AC-TID [facility] Last Admin: 09/04/21 13:10 Dose: 1 gm Documented by: Thiamine HCl (Thiamine 100 Mg Tab) 100 mg PO DAILY [facility] Last Admin: 09/04/21 10:04 Dose: 100 mg Documented by: Tramadol HCl (Tramadol 50 Mg Tab) 50 mg PO QID PRN PRN Reason: Pain Vital Signs Temp 98 F 09/04/21 13:05 Pulse 75 09/04/21 13:05 Resp 16 09/04/21 13:05 BP 93/56 09/04/21 13:05 Pulse Ox 94 L 09/04/21 14:00 Intake & Output 09/03/21 09/04/21 09/04/21 18:59 06:59 18:59 Intake Total 360 970 240 Output Total 1 Balance 359 970 240 Weight 102 kg Intake: Oral 360 970 240 Output: Urine 1 Other: Voiding Method Bedside Commode Bedside Commode Bedside Commode # Voids 1 2 1 Laboratory Results - Last 24 Hours 09/03/21 09/03/21 09/04/21 16:41 20:07 06:17 WBC RBC Hgb Hct MCV MCH MCHC RDW Plt Count MPV Neutrophils % Lymphocytes % Monocytes % Eosinophils % Basophils % Neutrophils # Lymphocytes # Monocytes # Eosinophils # Basophils # Macrocytosis Sodium Potassium Chloride Carbon Dioxide Anion Gap BUN Creatinine Est GFR (CKD-EPI)AfAm Est GFR (CKD-EPI)NonAf Glucose POC Glucose (mg/dL) 154 H 179 H 97 POC Glu Rotor Assembler ID Salena Lin, Ema Hendricks Calcium Total Bilirubin AST ALT Alkaline Phosphatase Lactate Dehydrogenase Total Protein Albumin 09/04/21 09/04/21 09/04/21 07:54 07:54 11:30 WBC 10.3 RBC 3.23 L Hgb 10.6 L Hct 33.2 L MCV 102.7 H MCH 32.8 MCHC 32.0 RDW 13.1 Plt Count 366 MPV 8.6 Neutrophils % 71 Lymphocytes % 16 Monocytes % 7 Eosinophils % 3 Basophils % 1 Neutrophils # 7.4 Lymphocytes # 1.7 Monocytes # 0.7 Eosinophils # 0.3 Basophils # 0.1 Macrocytosis Slight Sodium 134 L Potassium 4.0 Chloride 98 Carbon Dioxide 22 Anion Gap 14 BUN 43 H Creatinine 5.71 H Est GFR (CKD-EPI)AfAm 9 Est GFR (CKD-EPI)NonAf 7 Glucose 130 H POC Glucose (mg/dL) 152 H POC Glu Rotor Assembler ID Caroline Hopkins Calcium 9.5 Total Bilirubin 0.5 AST 15 ALT 12 Alkaline Phosphatase 71 Lactate Dehydrogenase 301 L Total Protein 6.7 Albumin 3.7 Objective - Vital Signs Vital signs: Vital Signs Temp 98 F 09/04/21 13:05 Pulse 75 09/04/21 13:05 Resp 16 09/04/21 13:05 BP 93/56 09/04/21 13:05 Pulse Ox 94 L 09/04/21 14:00 Intake & Output 09/03/21 09/04/21 09/04/21 18:59 06:59 18:59 Intake Total 360 970 240 Output Total 1 Balance 359 970 240 Weight 102 kg Intake: Oral 360 970 240 Output: Urine 1 Other: Voiding Method Bedside Commode Bedside Commode Bedside Commode # Voids 1 2 1 - Labs CBC & Chem 7: 09/04/21 07:54 09/04/21 07:54 Labs: Abnormal Lab Results - Last 24 Hours (Table) 09/03/21 09/03/21 09/04/21 Range/Units 16:41 20:07 07:54 RBC 3.23 L (3.80-5.40) m/uL Hgb 10.6 L (11.4-16.0) gm/dL Hct 33.2 L (34.0-46.0) % MCV 102.7 H (80.0-100.0) fL Sodium (137-145) mmol/L BUN (7-17) mg/dL Creatinine (0.52-1.04) mg/dL Glucose (74-99) mg/dL POC Glucose (mg/dL) 154 H 179 H (75-99) mg/dL Lactate Dehydrogenase (313-618) U/L 09/04/21 09/04/21 Range/Units 07:54 11:30 RBC (3.80-5.40) m/uL Hgb (11.4-16.0) gm/dL Hct (34.0-46.0) % MCV (80.0-100.0) fL Sodium 134 L (137-145) mmol/L BUN 43 H (7-17) mg/dL Creatinine 5.71 H (0.52-1.04) mg/dL Glucose 130 H (74-99) mg/dL POC Glucose (mg/dL) 152 H (75-99) mg/dL Lactate Dehydrogenase 301 L (313-618) U/L Microbiology - Last 24 Hours (Table) 08/31/21 14:00 Blood Culture - Preliminary Blood No Growth after 72 hours 09/02/21 06:00 Urine Culture - Final Urine,Voided 08/31/21 14:18 Blood Culture - Preliminary Blood No Growth after 72 hours
[2021-09-04] MEDS: hydrALAZINE HCL 25 MG TAB PO SCH ×2 (16:00→21:10)
[2021-09-04 16:39] LABS: Glucose,Whole Blood 198 mg/dL (75-99)
--- NOTE | 2021-09-04 17:39 | PN ---
PROGRESS NOTE DATE OF SERVICE: 09/04/2021 REASON FOR FOLLOWUP: Fever, likely urinary intact infection. INTERVAL HISTORY: The patient is afebrile. The patient is breathing comfortably. The denies having any chest pain, shortness of breath or cough. No nausea or vomiting. Abdominal pain has improved and no diarrhea. PHYSICAL EXAMINATION: Blood pressure 93/56, pulse of 75, temperature 98. She is 94% on room air. General description is a middle-aged female up in the chair in no distress. Respiratory system: Unlabored breathing, decreased intensity of breath sounds. No wheeze. Heart S1, S2. Regular rate and rhythm. Abdomen soft, no tenderness. LABS: Hemoglobin is 10.3, white count 10.3, creatinine 5.71. Blood culture negative. Urine came back negative. DIAGNOSTIC IMPRESSION AND PLAN: Patient admitted to hospital with sepsis and a fever, elevated white count, source likely urinary. Patient's urine cultures came back negative the urine cultures repeat were done and the patient was on antibiotics, clinically responding to the Rocephin, which will be continued. Discontinue vancomycin and transition to oral antibiotic on discharge. MMODL / IJN: [id number] /
[2021-09-04 20:05] LABS: Glucose,Whole Blood 121 mg/dL (75-99)
[2021-09-05 05:57] LABS: Glucose,Whole Blood 86 mg/dL (75-99)
[2021-09-05] MEDS: LEVOTHYROXINE 75 MCG TAB PO SCH (06:56)
[2021-09-05] MEDS: SUCRALFATE 1 GM TAB PO SCH ×2 (06:56→11:23)
[2021-09-05] MEDS: CALCIUM ACETATE 667 MG TAB PO SCH ×2 (06:56→11:57)
[2021-09-05] MEDS: hydrALAZINE HCL 25 MG TAB PO SCH ×2 (07:36→11:23)
[2021-09-05] MEDS: INSULIN DETEMIR (LEVEMIR) 100 UNIT/ML SYR SQ SCH (07:40)
[2021-09-05] MEDS ORDERED: amLODIPine 10 MG TAB PO SCH ×2 (09:00)
[2021-09-05] MEDS ORDERED: ERGOCALCIFEROL 1,250 MCG (50,000 IU) CAPSULE PO SCH (09:00)
[2021-09-05] MEDS ORDERED: amLODIPine 5 MG TAB PO SCH (09:00)
--- NOTE | 2021-09-05 09:04 | P.PN ---
Subjective Patient is seen in follow-up for end-stage renal disease. She is maintained on hemodialysis on Sunday schedule. Patient has dementia and is not a reliable historian. Denies pain. Oral intake fair. No vomiting or diarrhea. Tolerating dialysis well. Vital signs are stable. General: The patient appeared well nourished and normally developed. HEENT: Head exam is unremarkable. LUNGS: Breath sounds decreased. HEART: Rate and Rhythm are regular. ABDOMEN: Soft, obese. EXTREMITITES: Trace edema. Objective - Vital Signs Vital signs: Vital Signs Temp 97.7 F 09/05/21 04:00 Pulse 87 09/05/21 04:00 Resp 18 09/05/21 04:00 BP 164/72 09/05/21 04:00 Pulse Ox 94 L 09/05/21 04:00 Intake & Output 09/04/21 09/05/21 09/05/21 18:59 06:59 18:59 Intake Total 580 Output Total 250 Balance 330 Weight 103.3 kg Intake: Intake, IV Titration 100 Amount cefTRIAXone 1 gm In 100 Sodium Chloride 0.9% 50 ml @ 100 mls/hr IVPB Q24HR [facility] Rx#:[id number] Oral 480 Output: Urine 250 Other: Voiding Method Bedside Commode Bedside Commode # Voids 1 1 - Labs CBC & Chem 7: 09/04/21 07:54 09/04/21 07:54 Labs: Abnormal Lab Results - Last 24 Hours (Table) 09/04/21 09/04/21 09/04/21 Range/Units 11:30 16:37 20:00 POC Glucose (mg/dL) 152 H 198 H 121 H (75-99) mg/dL Microbiology - Last 24 Hours (Table) 08/31/21 14:18 Blood Culture - Preliminary Blood No Growth after 96 hours 08/31/21 14:00 Blood Culture - Preliminary Blood No Growth after 96 hours Assessment and Plan Plan: Assessment: 1. End-stage renal disease maintained on hemodialysis on Sunday schedule. 2. Abdominal pain. No acute findings noted on CT of the abdomen and pelvis. ?UTI. On antibiotics per infectious disease. 3. Dementia. 4. Chronic kidney disease mineral bone disease maintained on PhosLo. 5. Anemia of chronic kidney disease maintained on Aranesp. 6. Hypertension with chronic kidney disease. Plan: Currently seen while undergoing hemodialysis. Next treatment on Sunday.
--- NOTE | 2021-09-05 10:40 | P.DS ---
Providers Date of admission: 08/31/21 17:57 Expected date of discharge: 09/05/21 Attending physician: Alek Brown Consults: 08/31/21 17:56 Consult Physician Urgent Consulting Provider: Sapna Shelby Consult Reason/Comments: esrd on hd Do you want consulting provider notified?: Yes 09/01/21 12:24 Consult Physician Routine Consulting Provider: Prabhakar Tellez Consult Reason/Comments: sepsis, unclear source Do you want consulting provider notified?: Yes Primary care physician: Miguel Valencia MD Hospital Course: HISTORY OF PRESENT ILLNESS 60-year-old female mentally challenged with past medical history of dementia, TIA/CVA, type 2 diabetes, stage V chronic kidney disease, peripheral arterial disease, hypertension and hyperlipidemia who had recurrent urinary tract infection who presented to the emergency department at [facility] on 08/31/2021 because of an episode of severe pain at dialysis her abdominal pain started gradually and become a lot worse at dialysis Center patient pain was impenetrable end up coming to the emergency departmentpatient found to have sepsis from a known source originally try to exclude the possibility of abscess or perforation CAT scan of the abdomen and pelvis was order and done failed to show any abscess or any abnormality. Her urine was very positive white blood cell was high and lactic acid was significantly elevated to indicate patient be in septic. Patient was giving 1 g of Vanco along with Zosyn and admitted to the hospital for the above problem. 09/01: Patient's mental status is improved from yesterday, she is more awake. She also states that she is feeling better from yesterday. A has been afebrile since midnight, heart rate 86, blood pressure 150/74, pulse ox 94% on 3 L nasal cannula. Repeat blood work reveals WBC 31, hemoglobin 9.7, platelet count 268. Sodium 132, potassium 4.7, chloride 92, CO2 27, BUN 43 creatinine 5.33. Blood sugars are running between 130 and 200. Regarding discharge planning, is stating to the protective services case worker the patient is barely able to walk and looking at [facility]. PT and OT in place. 09/02: Patient has been afebrile, heart rate 82, blood pressure 137/64, pulse ox 93% on room air. Urinalysis sent this morning is clear, moderate blood, moderate leukoesterase. Vancomycin level 26.8. Blood sugars running between 96-162. Urine cultures are in progress. Blood culture no growth at 24 hours 2 specimens. Patient has been seen by Dr. Tellez and recommended adding Rocephin 1 g daily, patient is currently on Rocephin and vancomycin. She was also been seen by Dr. Shelby with plan for hemodialysis today, Aranesp added for anemia of chronic kidney disease. Patient has been seen by physical therapy with recommendations for subacute rehab and now has changes mind that he wants her to come home. He is her primary caregiver. business management manager has ordered a wheelchair. 09/03: Patient is complaining of epigastric abdominal pain, could be constipated, no nausea no vomiting, no melena, no hematochezia negative for urinary tract infection, as cultures did not show anything microbes growing, patient is off vancomycin, as discontinued by infectious disease. We'll going to start Carafate, 1 g 3 times a day, status post cholecystectomy in the past. Patient has advanced atherosclerosis, based on abdominal vascular imaging studies 09/04: Patient's abdominal pain has improved, with Carafate, patient's also doing much better, moderate muscle spasms, using Robaxin. Patient has significant short-term memory loss, cannot remember what she did yesterday, including abdominal pain and chest. Therapy has seen her, with recommendations for subacute rehab, protective services case worker consulted, for discharge planning, no fever to day, still no bowel movement, bowel protocol in place and is on Rocephin, for presumed UTI, urine culture no growth so far, [address] Tellez following, 09/05: Patient's is undergoing hemodialysis at this time. Contacted patient's and he is agreeable that she will have support at home, home care to be arranged and also a wheelchair by protective services case worker. We are recommending follow-up with Dr. IRA Urbano for outpatient sleep study and also follow-up with neurology. Patient is noted to have some short-term memory deficits which can be worked up as a outpatient. Patient is afebrile, heart rate 64, blood pressure 164/80, pulse ox 99% on room air. TSH is 2.570. Dr. Tellez has recommended discontinuing vancomycin and plan to transition to oral antibiotics at discharge. Patient will be discharged today in stable condition. DISCHARGE DIAGNOSES 1. Sepsis metabolic encephalopathy secondary to possible UTI. 2 severe abdominal pain that resolved. Cannot rule out gastroparesis, cannot rule out mesenteric ischemia. 3 severe pyrexia secondary to UTI and sepsis 4 lactic acidosis secondary to sepsis. 5 end-stage renal disease on hemodialysis 3 times a week 6 hypertension 7 type 2 diabetes 8 hypothyroidism 9 hyperlipidemia 10. Anemia of chronic kidney disease. 11. Rule out obstructive sleep apnea, recommend outpatient sleep study. 12. COVID-19 testing was negative patient was admitted to the hospital during pandemic time. DISCHARGE DIAGNOSES Home with Home Care, protective services case worker has ordered wheelchair for home Greater than 35 minutes was utilized and coordinating patient's discharge. Impression and plan of care have been directed as dictated by the signing physician. Maricarmen Cherry nurse practitioner acting as scribe for signing physician. Patient Condition at Discharge: Stable Plan - Discharge Summary Discharge Rx Participant: No New Discharge Prescriptions: New methocarbamoL [Robaxin] 750 mg PO TID PRN #90 tab PRN Reason: Muscle Spasm Cefuroxime [Ceftin] 250 mg PO BID 3 Days #6 tab hydrALAZINE HCL [Apresoline] 25 mg PO TID #90 tab Sucralfate [Carafate] 1 gm PO AC-TID #90 tab Famotidine [Pepcid] 20 mg PO DAILY #30 tab Phenazopyridine [Pyridium] 100 mg PO TID #6 tab Sennosides-Docusate Sodium [Senokot-S] 1 each PO DAILY tab Continue Oxybutynin Chloride 5 mg PO DAILY Levothyroxine Sodium [Synthroid] 75 mcg PO DAILY allopurinoL [Zyloprim] 100 mg PO DAILY Ergocalciferol [Vitamin D2 (DRISDOL)] 50,000 unit PO MO Magnesium Oxide 400 mg PO DAILY Insulin Glargine,Hum.rec.anlog [Basaglar Kwikpen U-100] 22 unit SQ BID amLODIPine [Norvasc] 10 mg PO DAILY Thiamine [Vitamin B-1] 100 mg PO DAILY traMADol HCL 50 mg PO BID PRN PRN Reason: Pain Nystatin 100,000 Unit/gm Powd [Mycostatin Powder] 1 applic TOPICAL BID PRN PRN Reason: Rash Loratadine 10 mg PO DAILY Diclofenac Sodium Gel [Voltaren Gel] 1 applicate TOPICAL QID PRN PRN Reason: pain in hands Calcium Acetate [PhosLo] 667 mg PO TID-W/MEALS Aspirin EC [Ecotrin Low Dose] 81 mg PO DAILY Rosuvastatin Calcium [Crestor] 5 mg PO DAILY Acetaminophen [Tylenol Arthritis] 1,300 mg PO TID PRN PRN Reason: Pain Discharge Medication List Levothyroxine Sodium [Synthroid] 75 mcg PO DAILY 10/28/17 [History] Oxybutynin Chloride 5 mg PO DAILY 10/28/17 [History] Ergocalciferol [Vitamin D2 (DRISDOL)] 50,000 unit PO MO 01/19/20 [History] Insulin Glargine,Hum.rec.anlog [Basaglar Kwikpen U-100] 22 unit SQ BID 01/19/20 [History] Magnesium Oxide 400 mg PO DAILY 01/19/20 [History] allopurinoL [Zyloprim] 100 mg PO DAILY 01/19/20 [History] Acetaminophen [Tylenol Arthritis] 1,300 mg PO TID PRN 08/31/21 [History] Aspirin EC [Ecotrin Low Dose] 81 mg PO DAILY 08/31/21 [History] Calcium Acetate [PhosLo] 667 mg PO TID-W/MEALS 08/31/21 [History] Diclofenac Sodium Gel [Voltaren Gel] 1 applicate TOPICAL QID PRN 08/31/21 [History] Loratadine 10 mg PO DAILY 08/31/21 [History] Nystatin 100,000 Unit/gm Powd [Mycostatin Powder] 1 applic TOPICAL BID PRN 08/31/21 [History] Rosuvastatin Calcium [Crestor] 5 mg PO DAILY 08/31/21 [History] Thiamine [Vitamin B-1] 100 mg PO DAILY 08/31/21 [History] amLODIPine [Norvasc] 10 mg PO DAILY 08/31/21 [History] traMADol HCL 50 mg PO BID PRN 08/31/21 [History] Cefuroxime [Ceftin] 250 mg PO BID 3 Days #6 tab 09/05/21 [Rx] Famotidine [Pepcid] 20 mg PO DAILY #30 tab 09/05/21 [Rx] Phenazopyridine [Pyridium] 100 mg PO TID #6 tab 09/05/21 [Rx] Sennosides-Docusate Sodium [Senokot-S] 1 each PO DAILY tab 09/05/21 [Rx] Sucralfate [Carafate] 1 gm PO AC-TID #90 tab 09/05/21 [Rx] hydrALAZINE HCL [Apresoline] 25 mg PO TID #90 tab 09/05/21 [Rx] methocarbamoL [Robaxin] 750 mg PO TID PRN #90 tab 09/05/21 [Rx] Follow up Appointment(s)/Referral(s): [facility], [NON-STAFF] - None,Stated [REFERRING] - 1-2 days Fabienne Marlow MD [REFERRING] - 2 Weeks Telly Urbano MD [STAFF PHYSICIAN] - 2 Weeks Activity/Diet/Wound Care/Special Instructions: Patient requires a transport chair at discharge to assist with ADLs which is unable to be done with a cane or walker because of unsteady gait/dementia. Patient is not able to self propel but has someone at home that will be able to help Discharge Disposition: HOME WITH HOME HEALTH SERVICES
[2021-09-05] MEDS: HEPARIN SODIUM,PORCINE/PF 5,000 UNIT/0.5 ML SYRINGE SQ SCH (11:22)
[2021-09-05] MEDS: FAMOTIDINE 20 MG TAB PO SCH (11:23)
[2021-09-05] MEDS: ATORVASTATIN 10 MG TAB PO SCH (11:23)
[2021-09-05] MEDS: allopurinoL 100 MG TAB PO SCH (11:23)
[2021-09-05] MEDS: ASPIRIN 81 MG PO SCH (11:23)
[2021-09-05] MEDS: OXYBUTYNIN CHLORIDE 5 MG TAB PO SCH (11:23)
[2021-09-05] MEDS: MAGNESIUM OXIDE 400 MG TAB PO SCH (11:24)
[2021-09-05] MEDS: SENNOSIDES-DOCUSATE SODIUM 1 EACH TAB PO SCH (11:24)
[2021-09-05] MEDS: LORATADINE 10 MG TAB PO SCH (11:24)
[2021-09-05] MEDS: PHENAZOPYRIDINE 100 MG TAB PO SCH (11:24)
[2021-09-05] MEDS: THIAMINE 100 MG TAB PO SCH (11:24)
[2021-09-05 12:02] VITALS: BP 178/84; PULSE 75; RESP 21; TEMP 97.9
[2021-09-05 12:09] LABS: Glucose,Whole Blood 151 mg/dL (75-99)
== END 2021-09-05 14:46 | disposition home health service (06) | DRG 871 ==
LOC: EC 13:29 → 3SCARD 17:57
PROVIDERS: ADMIT Internal Medicine Geriatric Medicine; ATTEND Internal Medicine Geriatric Medicine
DX: A41.9 Sepsis, unspecified organism (principal); G93.41 Metabolic encephalopathy; N18.6 End stage renal disease; I12.0 Hypertensive chronic kidney disease with stage 5 chronic kidney disease or end stage renal disease; E87.2 Acidosis; N39.0 Urinary tract infection, site not specified; Z68.41 Body mass index [BMI] 40.0-44.9, adult; E83.9 Disorder of mineral metabolism, unspecified; D63.1 Anemia in chronic kidney disease; E11.22 Type 2 diabetes mellitus with diabetic chronic kidney disease; F03.90 Unspecified dementia, unspecified severity, without behavioral disturbance, psychotic disturbance, mood disturbance, and anxiety; E11.51 Type 2 diabetes mellitus with diabetic peripheral angiopathy without gangrene; Z79.4 Long term (current) use of insulin; Z99.2 Dependence on renal dialysis; R65.20 Severe sepsis without septic shock; Z20.822 Contact with and (suspected) exposure to COVID-19; G47.33 Obstructive sleep apnea (adult) (pediatric); E66.9 Obesity, unspecified; E03.9 Hypothyroidism, unspecified; E78.5 Hyperlipidemia, unspecified; M54.9 Dorsalgia, unspecified; Z79.82 Long term (current) use of aspirin; Z79.890 Hormone replacement therapy; Z79.899 Other long term (current) drug therapy; Z86.73 Personal history of transient ischemic attack (TIA), and cerebral infarction without residual deficits; Z90.49 Acquired absence of other specified parts of digestive tract; Z87.19 Personal history of other diseases of the digestive system; Z86.19 Personal history of other infectious and parasitic diseases; Z87.440 Personal history of urinary (tract) infections; Z98.891 History of uterine scar from previous surgery; Z98.890 Other specified postprocedural states; Z88.5 Allergy status to narcotic agent; Z82.49 Family history of ischemic heart disease and other diseases of the circulatory system; Z83.3 Family history of diabetes mellitus; Z81.8 Family history of other mental and behavioral disorders
CPT/HCPCS: 36415; 71045; 74176; 80048; 80053; 80202; 81001; 82607; 83605; 83615; 83735; 84443; 85025; 85027; 85610; 85730; 87040; 87086; 87635; 90935; 93005; 96365; 96367; 96375; 99285

== ENCOUNTER 2021-10-08 14:15 | Emergency (ER) | payer OTHER ==
[2021-10-08 14:47] VITALS: TEMP 98
--- NOTE | 2021-10-08 15:16 | ED ---
General Adult HPI - General Chief complaint: Abdominal Pain Stated complaint: Abd Pain Time Seen by Provider: 10/08/21 15:14 Source: patient, EMS Mode of arrival: EMS Limitations: no limitations - History of Present Illness Initial comments: Patient presents to the ED by ambulance for evaluation. Patient states that she has had central abdominal pain, nausea and vomiting since this morning. Patient states that she is unsure of her last bowel movement. Patient is a dialysis patient, and she states that she was last dialyzed yesterday. Patient states that she does still make urine, but she states that she feels that she has been having trouble voiding urine recently. Patient denies trauma or injury, fever or chills, headache, focal numbness/weakness/neuro deficit, chest pain or pressure, dyspnea, cough or cold symptoms, palpitations, dizziness, back or flank pain, diarrhea, bloody or melanotic stool, hematemesis, dysuria, hematuria, or any other symptoms or complaints. - Related Data Home Medications Medication Instructions Recorded Confirmed Levothyroxine Sodium [Synthroid] 75 mcg PO DAILY 10/28/17 10/08/21 Oxybutynin Chloride 5 mg PO DAILY 10/28/17 10/08/21 Ergocalciferol [Vitamin D2 50,000 unit PO MO 01/19/20 10/08/21 (DRISDOL)] Insulin Glargine,Hum.rec.anlog 22 unit SQ BID 01/19/20 10/08/21 [Basaglar Kwikpen U-100] Magnesium Oxide 400 mg PO DAILY 01/19/20 10/08/21 allopurinoL [Zyloprim] 100 mg PO DAILY 01/19/20 10/08/21 Acetaminophen [Tylenol Arthritis] 1,300 mg PO TID PRN 08/31/21 10/08/21 Aspirin EC [Ecotrin Low Dose] 81 mg PO DAILY 08/31/21 10/08/21 Calcium Acetate [PhosLo] 667 mg PO TID-W/MEALS 08/31/21 10/08/21 Diclofenac Sodium Gel [Voltaren 1 applicate TOPICAL QID PRN 08/31/21 10/08/21 Gel] Loratadine 10 mg PO DAILY 08/31/21 10/08/21 Nystatin 100,000 Unit/gm Powd 1 applic TOPICAL BID PRN 08/31/21 10/08/21 [Mycostatin Powder] Rosuvastatin Calcium [Crestor] 5 mg PO DAILY 08/31/21 10/08/21 Thiamine [Vitamin B-1] 100 mg PO DAILY 08/31/21 10/08/21 amLODIPine [Norvasc] 10 mg PO DAILY 08/31/21 10/08/21 traMADol HCL 50 mg PO BID PRN 08/31/21 10/08/21 Cephalexin [Keflex] 500 mg PO Q6HR 10/08/21 10/08/21 Docusate Sodium [Dok] 100 mg PO BID PRN 10/08/21 10/08/21 Ondansetron Odt [Zofran Odt] 4 mg PO Q12HR PRN 10/08/21 10/08/21 Previous Rx's Medication Instructions Recorded Famotidine [Pepcid] 20 mg PO DAILY #30 tab 09/05/21 Sucralfate [Carafate] 1 gm PO AC-TID #90 tab 09/05/21 hydrALAZINE HCL [Apresoline] 25 mg PO TID #90 tab 09/05/21 methocarbamoL [Robaxin] 750 mg PO TID PRN #90 tab 09/05/21 Ciprofloxacin HCl [Cipro] 250 mg PO Q12HR 5 Days #10 tab 10/08/21 Allergies Allergy/AdvReac Type Severity Reaction Status Date / Time codeine AdvReac Nausea Verified 10/08/21 14:47 Review of Systems ROS Statement: Those systems with pertinent positive or pertinent negative responses have been documented in the HPI. ROS Other: All systems not noted in ROS Statement are negative. Past Medical History Past Medical History: CVA/TIA, Dementia, Diabetes Mellitus, Dialysis, Hypertension, Renal Disease Additional Past Medical History / Comment(s): CVA x2 w/ memory loss, uses walker at home, hepatitis B, back pain, ESRD on hemodialysis History of Any Multi-Drug Resistant Organisms: None Reported Past Surgical History: Section, Cholecystectomy Additional Past Surgical History / Comment(s): left upper arm fistula Past Anesthesia/Blood Transfusion Reactions: No Reported Reaction Past Psychological History: No Psychological Hx Reported Smoking Status: Never smoker Past Alcohol Use History: Rare Past Drug Use History: Marijuana - Past Family History Mother Family Medical History: No Reported History General Exam Limitations: no limitations, altered mental status General appearance: alert, in no apparent distress Head exam: Present: atraumatic, normocephalic Eye exam: Present: normal appearance, EOMI ENT exam: Present: mucous membranes moist Neck exam: Present: other (Trachea is in midline) Respiratory exam: Present: normal lung sounds bilaterally. Absent: respiratory distress, wheezes, rales, rhonchi, stridor Cardiovascular Exam: Present: regular rate, normal rhythm, normal heart sounds, other (Normal radial pulses bilaterally) GI/Abdominal exam: Present: soft, normal bowel sounds, other (Mild generalized abdominal tenderness; obese abdomen). Absent: guarding, rebound Extremities exam: Absent: tenderness, pedal edema, calf tenderness Back exam: Absent: CVA tenderness (R), CVA tenderness (L) Neurological exam: Present: alert, oriented X3. Absent: motor sensory deficit Psychiatric exam: Present: normal affect, normal mood Skin exam: Present: warm, dry, intact, normal color Course Vital Signs 10/08/21 10/08/21 10/08/21 14:43 16:20 19:30 Temperature 98 F Pulse Rate 84 68 86 Respiratory 20 18 18 Rate Blood Pressure 191/74 179/73 153/84 O2 Sat by Pulse 95 94 L 95 Oximetry - Reevaluation(s) Reevaluation #1: 10/08/21 20:46 Patient states that her pain and nausea have improved with ED treatment. Patient denies development of any new symptoms while in the ED. Patient has not had any vomiting while in the ED. Patient and are aware the patient's test results, and they both feel comfortable with the patient being discharged home at this time. Patient was instructed to follow up closely with her primary care provider. Patient was also instructed to have a low threshold for return to the emergency department should her symptoms worsen. Patient was counseled about abdominal pain, nausea/vomiting and UTIs. Patient was clearly explained return and follow-up instructions, and she feels comfortable with this plan. Patient's states that the patient is currently being treated for a UTI with a course of Keflex, but she only has a couple of pills left. I have explained to the patient's that I will be prescribing her a new course of a different antibiotic (ciprofloxacin). EKG Findings - EKG Comments: EKG Findings:: Normal sinus rhythm, ventricular rate of 78 bpm, no ectopy, normal ME and QRS intervals, normal QT interval, normal axis, nonspecific T-wave abnormality Medical Decision Making - Medical Decision Making Patient has a nonsurgical abdominal exam. Patient is afebrile and without leukocytosis. Patient's CT abdomen/pelvis shows no acute abnormality. Patient does appear to have a UTI based on her UA findings. Given this, will treat the patient with a course of ciprofloxacin (patient was given her first dose in the ED). Patient's states that the patient is on the tail end of a course of Keflex for treatment of a UTI currently, and I have told him that I will be p rescribing her a new antibiotic course at this time. Will discharge patient home with her at this time. Patient feels comfortable with this plan. - Lab Data Result diagrams: 10/08/21 15:58 10/08/21 15:58 Lab Results 10/08/21 10/08/21 10/08/21 Range/Units 15:58 15:58 15:58 WBC 7.7 (3.8-10.6) k/uL RBC 3.55 L (3.80-5.40) m/uL Hgb 11.6 (11.4-16.0) gm/dL Hct 37.3 (34.0-46.0) % MCV 105.1 H (80.0-100.0) fL MCH 32.7 (25.0-35.0) pg MCHC 31.1 (31.0-37.0) g/dL RDW 13.2 (11.5-15.5) % Plt Count 316 (150-450) k/uL MPV 7.9 Neutrophils % 78 % Lymphocytes % 12 % Monocytes % 8 % Eosinophils % 0 % Basophils % 1 % Neutrophils # 6.0 (1.3-7.7) k/uL Lymphocytes # 0.9 L (1.0-4.8) k/uL Monocytes # 0.6 (0-1.0) k/uL Eosinophils # 0.0 (0-0.7) k/uL Basophils # 0.1 (0-0.2) k/uL Hypochromasia Slight Macrocytosis Slight PT (9.0-12.0) sec INR (<1.2) APTT (22.0-30.0) sec Sodium 136 L (137-145) mmol/L Potassium 4.0 (3.5-5.1) mmol/L Chloride 95 L (98-107) mmol/L Carbon Dioxide 29 (22-30) mmol/L Anion Gap 12 mmol/L BUN 34 H (7-17) mg/dL Creatinine 5.24 H (0.52-1.04) mg/dL Est GFR (CKD-EPI)AfAm 9 (>60 ml/min/1.73 sqM) Est GFR (CKD-EPI)NonAf 8 (>60 ml/min/1.73 sqM) Glucose 183 H (74-99) mg/dL Plasma Lactic Acid Artur 1.3 (0.7-2.0) mmol/L Calcium 9.2 (8.4-10.2) mg/dL Total Bilirubin 0.9 (0.2-1.3) mg/dL AST 25 (14-36) U/L ALT 20 (4-34) U/L Alkaline Phosphatase 62 (38-126) U/L Troponin I (0.000-0.034) ng/mL Total Protein 6.5 (6.3-8.2) g/dL Albumin 3.7 (3.5-5.0) g/dL Lipase 83 (23-300) U/L Urine Color Urine Appearance (Clear) Urine pH (5.0-8.0) Ur Specific [place] (1.001-1.035) Urine Protein (Negative) Urine Glucose (UA) (Negative) Urine Ketones (Negative) Urine Blood (Negative) Urine Nitrite (Negative) Urine Bilirubin (Negative) Urine Urobilinogen (<2.0) mg/dL Ur Leukocyte Esterase (Negative) Urine RBC (0-5) /hpf Urine WBC (0-5) /hpf Ur Squamous Epith Cells (0-4) /hpf Urine Bacteria (None) /hpf Hyaline Casts (0-2) /lpf Acetone, Qual Negative (Negative) 10/08/21 10/08/21 10/08/21 Range/Units 15:58 15:58 19:50 WBC (3.8-10.6) k/uL RBC (3.80-5.40) m/uL Hgb (11.4-16.0) gm/dL Hct (34.0-46.0) % MCV (80.0-100.0) fL MCH (25.0-35.0) pg MCHC (31.0-37.0) g/dL RDW (11.5-15.5) % Plt Count (150-450) k/uL MPV Neutrophils % % Lymphocytes % % Monocytes % % Eosinophils % % Basophils % % Neutrophils # (1.3-7.7) k/uL Lymphocytes # (1.0-4.8) k/uL Monocytes # (0-1.0) k/uL Eosinophils # (0-0.7) k/uL Basophils # (0-0.2) k/uL Hypochromasia Macrocytosis PT 10.0 (9.0-12.0) sec INR 0.9 (<1.2) APTT 24.1 (22.0-30.0) sec Sodium (137-145) mmol/L Potassium (3.5-5.1) mmol/L Chloride (98-107) mmol/L Carbon Dioxide (22-30) mmol/L Anion Gap mmol/L BUN (7-17) mg/dL Creatinine (0.52-1.04) mg/dL Est GFR (CKD-EPI)AfAm (>60 ml/min/1.73 sqM) Est GFR (CKD-EPI)NonAf (>60 ml/min/1.73 sqM) Glucose (74-99) mg/dL Plasma Lactic Acid Artur (0.7-2.0) mmol/L Calcium (8.4-10.2) mg/dL Total Bilirubin (0.2-1.3) mg/dL AST (14-36) U/L ALT (4-34) U/L Alkaline Phosphatase (38-126) U/L Troponin I 0.032 (0.000-0.034) ng/mL Total Protein (6.3-8.2) g/dL Albumin (3.5-5.0) g/dL Lipase (23-300) U/L Urine Color Dark Yellow Urine Appearance Cloudy H (Clear) Urine pH 8.5 H (5.0-8.0) Ur Specific [place] 1.016 (1.001-1.035) Urine Protein 2+ H (Negative) Urine Glucose (UA) 1+ H (Negative) Urine Ketones Negative (Negative) Urine Blood Negative (Negative) Urine Nitrite Positive H (Negative) Urine Bilirubin Negative (Negative) Urine Urobilinogen 2.0 (<2.0) mg/dL Ur Leukocyte Esterase Moderate H (Negative) Urine RBC 2 (0-5) /hpf Urine WBC 25 H (0-5) /hpf Ur Squamous Epith Cells 67 H (0-4) /hpf Urine Bacteria Occasional H (None) /hpf Hyaline Casts 5 H (0-2) /lpf Acetone, Qual (Negative) - Radiology Data Noncontrast CT abdomen/pelvis: Extensive atherosclerotic vascular disease. No acute abnormality of the abdomen and pelvis. There is improved aeration of the lung bases compared to old exam. Disposition Clinical Impression: Abdominal pain, Nausea and vomiting, Chronic renal insufficiency, UTI (urinary tract infection) Disposition: HOME SELF-CARE Condition: Stable Instructions (If sedation given, give patient instructions): Abdominal Pain (ED), Acute Nausea and Vomiting (ED), Urinary Tract Infection in Women (ED), Chronic Kidney Disease (ED) Additional Instructions: Return to the ER immediately should you develop new or worsening pain, persistent vomiting, a fever, feeling dizzy or faint, or new or worsening symptoms. Follow up closely with your primary care provider. Prescriptions: Ciprofloxacin HCl [Cipro] 250 mg PO Q12HR 5 Days #10 tab Is patient prescribed a controlled substance at d/c from ED?: No Referrals: Silvino Sears DO [Primary Care Provider] - 1-2 days Time of Disposition: 20:53
[2021-10-08] MEDS ORDERED: ONDANSETRON 4 MG/2 ML VIAL IVP STA (15:29)
[2021-10-08] MEDS ORDERED: HYDROmorphone 0.5 MG/0.5 ML SYRINGE IVP STA (15:29)
[2021-10-08 16:41] LABS: Basophils # (A) 0.1 k/uL (0-0.2); Basophils % (A) 1 %; Eosinophils % (A) 0 %; HCT 37.3 % (34.0-46.0); HGB 11.6 gm/dL (11.4-16.0); Hypochromasia Slight; Lymphocytes # (A) 0.9 k/uL (1.0-4.8); Lymphocytes % (A) 12 %; MCH 32.7 pg (25.0-35.0); MCHC 31.1 g/dL (31.0-37.0); MCV 105.1 fL (80.0-100.0); Macrocytosis Slight; Mean Platelet Volume 7.9; Monocytes # (A) 0.6 k/uL (0-1.0); Monocytes % (A) 8 %; Neutrophils % (A) 78 %; Platelet Count 316 k/uL (150-450); RBC 3.55 m/uL (3.80-5.40); RDW 13.2 % (11.5-15.5); WBC 7.7 k/uL (3.8-10.6)
[2021-10-08 16:49] LABS: INR 0.9 (<1.2); Partial Thromboplastin Time 24.1 sec (22.0-30.0)
[2021-10-08 16:52] LABS: ALT 20 U/L (4-34); AST 25 U/L (14-36); African American GFR (CKD) 9 (>60 ml/min/1.73 sqM); Albumin 3.7 g/dL (3.5-5.0); Alkaline Phosphatase 62 U/L (38-126); Anion Gap 12 mmol/L; Blood Urea Nitrogen 34 mg/dL (7-17); Calcium 9.2 mg/dL (8.4-10.2); Carbon Dioxide 29 mmol/L (22-30); Chloride 95 mmol/L (98-107); Glucose 183 mg/dL (74-99); Lipase 83 U/L (23-300); Non-African American GFR(CKD) 8 (>60 ml/min/1.73 sqM); Sodium 136 mmol/L (137-145); Total Bilirubin 0.9 mg/dL (0.2-1.3); Total Protein 6.5 g/dL (6.3-8.2)
--- NOTE | 2021-10-08 16:54 | CT ---
EXAMINATION TYPE: CT abdomen pelvis wo con DATE OF EXAM: 10/08/2021 COMPARISON: 08/31/2021 HISTORY: generalized pain, vomiting CT DLP: 1179.4 mGycm Automated exposure control for dose reduction was used. Lung bases are clear. There is no pleural effusion. Heart size is normal. Liver and spleen are intact. Stomach is intact. There is extensive vascular calcification. There are clips from cholecystectomy. There is no pancreatic mass. There is no adrenal mass. Kidneys have normal size. There is no hydronephrosis. Ureters are not dilat ed. There is no retroperitoneal adenopathy. There is 3 x 2 cm umbilical hernia contains fat. Bladder distends smoothly. There is no inguinal hernia. Uterus is anteverted. There is no free fluid in the p farzad. Appendix not seen. No sign thickened appendix. There is no mesenteric edema. There is no ascites or free air. There is no sign of a bowel obstructio n. The lumbar vertebrae have normal alignment. Posterior elements are intact. There is no compression fr acture. Bony pelvis is intact. Hip joints are intact. IMPRESSION: Extensive atherosclerotic vascular disease. No acute abnormality of the abdomen and pelvis. There is improved aeration of the lung bases compared to old exam.
[2021-10-08 17:21] VITALS: RESP 18
[2021-10-08 20:28] LABS: Appearance,Urine Cloudy (Clear); Bacteria,Urine Occasional /hpf; Bilirubin,Urine Negative (Negative); Blood,Urine Negative (Negative); Color,Urine Dark Yellow; Glucose,Urine (UA) 1+ (Negative); Hyaline Casts,Urine 5 /lpf (0-2); Ketones,Urine Negative (Negative); Leukocyte Esterase,Urine Moderate (Negative); Nitrite,Urine Positive (Negative); PH, Urine 8.5 (5.0-8.0); Protein,Urine 2+ (Negative); RBC,Urine 2 /hpf (0-5); Specific Gravity,Urine 1.016 (1.001-1.035); Squamous Epithelial Cell,Urine 67 /hpf (0-4); WBC,Urine 25 /hpf (0-5)
[2021-10-08] MEDS ORDERED: CIPROFLOXACIN HCL 250 MG TAB PO STA (20:38)
[2021-10-08] MEDS ORDERED: ONDANSETRON 4 MG ODT STARTER PACK 2 TAB BTL PO STA (20:53)
[2021-10-08 21:15] VITALS: BP 160/74; PULSE 88
== END 2021-10-08 21:15 | disposition home or self-care (01) ==
LOC: EC 14:15
DX: N39.0 Urinary tract infection, site not specified (principal); I12.0 Hypertensive chronic kidney disease with stage 5 chronic kidney disease or end stage renal disease; E11.22 Type 2 diabetes mellitus with diabetic chronic kidney disease; N18.6 End stage renal disease; Z86.73 Personal history of transient ischemic attack (TIA), and cerebral infarction without residual deficits; Z99.2 Dependence on renal dialysis; Z79.899 Other long term (current) drug therapy; Z79.82 Long term (current) use of aspirin; Z79.4 Long term (current) use of insulin
CPT/HCPCS: 51798; 36415; 93005; 80053; 82009; 83605; 83690; 84484; 85025; 85610; 85730; 81001; 87086; 74176; 99284; 96374; 96375; J2405; S0119; J1170

== ENCOUNTER 2022-01-05 13:13 | Emergency (ER) | payer OTHER ==
[2022-01-05 13:25] VITALS: RESP 18; TEMP 98.9
--- NOTE | 2022-01-05 14:36 | XR ---
EXAMINATION TYPE: XR chest 2V DATE OF EXAM: 01/05/2022 COMPARISON: NONE TECHNIQUE: PA and lateral views submitted. HISTORY: Shortness of breath FINDINGS: The lungs are clear and there is no pneumothorax, pleural effusion, or focal pneumonia. Heart size mildly prominent. No overt failure. Hypertrophic and degenerative change of the spine. Surgical clips in the abdomen. IMPRESSION: 1. Mild cardiomegaly.
[2022-01-05 15:21] LABS: Basophils % (A) 0 %; Eosinophils # (A) 0.2 k/uL (0-0.7); Eosinophils % (A) 2 %; HCT 31.9 % (34.0-46.0); Lymphocytes # (A) 1.3 k/uL (1.0-4.8); Lymphocytes % (A) 17 %; MCH 32.5 pg (25.0-35.0); MCHC 31.3 g/dL (31.0-37.0); MCV 103.8 fL (80.0-100.0); Macrocytosis Slight; Mean Platelet Volume 8.5; Monocytes # (A) 0.7 k/uL (0-1.0); Monocytes % (A) 9 %; Neutrophils # (A) 5.5 k/uL (1.3-7.7); Neutrophils % (A) 70 %; Platelet Count 266 k/uL (150-450); RBC 3.08 m/uL (3.80-5.40); RDW 12.8 % (11.5-15.5); WBC 7.8 k/uL (3.8-10.6)
[2022-01-05 15:24] LABS: INR 0.9 (<1.2); Partial Thromboplastin Time 22.9 sec (22.0-30.0); Prothrombin Time 10.1 sec (9.0-12.0)
[2022-01-05] MEDS ORDERED: ACETAMINOPHEN TAB 500 MG TAB PO STA (15:52)
--- NOTE | 2022-01-05 15:58 | ED ---
SOB HPI - General Chief Complaint: Shortness of Breath Stated Complaint: SOB Time Seen by Provider: 01/05/22 14:45 Source: patient, family Mode of arrival: wheelchair Limitations: physical limitation - History of Present Illness Initial Comments: 61-year-old female with past medical history of CVA, dementia, end-stage renal disease on hemodialysis Sunday, Sunday and Sunday. She presents to the emergency department with shortness of breath. She was at [facility] on December 25 for CHF exacerbation. She had a stroke while hospitalized and was transferred down to [facility]. She was discharged on December 31. She has been at home and is cared for by her . She reports that she is short of breath and is having difficulty laying flat. She was not discharged home on any diuretics. She has not missed any dialysis sessions. states that she went yesterday. No fevers, chills or cough. Denies history of DVT or PE. No other alleviating, precipitating or modifying factors - Related Data Home Medications Medication Instructions Recorded Confirmed Levothyroxine Sodium [Synthroid] 75 mcg PO DAILY 10/28/17 01/05/22 Oxybutynin Chloride 10 mg PO BID 10/28/17 01/05/22 Ergocalciferol [Vitamin D2 50,000 unit PO RITCHIE 01/19/20 01/05/22 (DRISDOL)] Insulin Glargine,Hum.rec.anlog 22 unit SQ BID 01/19/20 01/05/22 [Basaglar Kwikpen U-100] allopurinoL [Zyloprim] 100 mg PO DAILY 01/19/20 01/05/22 Acetaminophen [Tylenol Arthritis] 1,300 mg PO Q6H PRN 08/31/21 01/05/22 Aspirin EC [Ecotrin Low Dose] 81 mg PO DAILY 08/31/21 01/05/22 Calcium Acetate [PhosLo] 2,001 mg PO TID-W/MEALS 08/31/21 01/05/22 Diclofenac Sodium Gel [Voltaren 2 gm TOPICAL BID PRN 08/31/21 01/05/22 Gel] Loratadine 10 mg PO DAILY PRN 08/31/21 01/05/22 amLODIPine [Norvasc] 10 mg PO DAILY 08/31/21 01/05/22 traMADol HCL 50 mg PO BID PRN 08/31/21 01/05/22 Docusate Sodium [Dok] 100 mg PO BID PRN 10/08/21 01/05/22 Calcium Acetate [Phoslo] 667 mg PO DAILY PRN 01/05/22 01/05/22 Clopidogrel [Plavix] 75 mg PO DAILY 01/05/22 01/05/22 Fluticasone Nasal [place] [Flonase 1 spray EA NOSTRIL DAILY PRN 01/05/22 01/05/22 Nasal [place]] Metoprolol Tartrate [Lopressor] 100 mg PO BID 01/05/22 01/05/22 Sennosides/Docusate Sodium [Senna 1 cap PO DAILY 01/05/22 01/05/22 Plus 8.6-50 mg Softgel] Previous Rx's Medication Instructions Recorded hydrALAZINE HCL [Apresoline] 25 mg PO TID #90 tab 09/05/21 Allergies Allergy/AdvReac Type Severity Reaction Status Date / Time codeine AdvReac Nausea Verified 01/05/22 15:50 Review of Systems ROS Statement: Those systems with pertinent positive or pertinent negative responses have been documented in the HPI. ROS Other: All systems not noted in ROS Statement are negative. Past Medical History Past Medical History: CVA/TIA, Dementia, Diabetes Mellitus, Dialysis, Hypertension, Renal Disease Additional Past Medical History / Comment(s): CVA x2 w/ memory loss, uses walker at home, hepatitis B, back pain, ESRD on hemodialysis History of Any Multi-Drug Resistant Organisms: None Reported Past Surgical History: Section, Cholecystectomy Additional Past Surgical History / Comment(s): left upper arm fistula Past Anesthesia/Blood Transfusion Reactions: No Reported Reaction Past Psychological History: No Psychological Hx Reported Smoking Status: Never smoker Past Alcohol Use History: Rare Past Drug Use History: Marijuana - Past Family History Mother Family Medical History: No Reported History General Exam Limitations: physical limitation Course Vital Signs 01/05/22 01/05/22 01/05/22 13:20 15:50 19:34 Temperature 98.9 F Pulse Rate 66 61 76 Respiratory 18 18 18 Rate Blood Pressure 106/54 139/49 127/89 O2 Sat by Pulse 99 98 99 Oximetry Medical Decision Making - Medical Decision Making Upon arrival patient is placed into room 9. A thorough history and physical exam was performed. IV access is established and laboratory studies are conducted and reviewed. BNP is 4250. This is followed by chest x-ray which demonstrates no fluid. Mild cardiomegaly. Patient has saturations of 99% on room air. I did follow this with a CT of the patient's chest to rule out blood clot because of her recent hospitalization. A CTA of the chest fails to demonstrate a pulmonary embolism at this time. There is an incidental right 9 mm pulmonary nodule. Coronary calcifications noted. Patient was complaining of a headache prior to CT and therefore I did perform a CT of the head as she had recent CVA. It demonstrates remote right basal ganglia infarct with no acute process. I did discuss these results with the patient. I also called and spoke with Dr. Shelby. She feels that the patient is stable for discharge home and must receive her dialysis tomorrow as she was giving contrast. states that she will be going to dialysis. Informed them that they should return for any new or worsening symptoms but need to see the primary care doctor within 2-4 days. Patient and family agreed and the patient was discharged home in stable condition - Lab Data Result diagrams: 01/05/22 15:00 01/05/22 15:00 Lab Results 01/05/22 01/05/22 01/05/22 Range/Units 15:00 15:00 15:00 WBC 7.8 (3.8-10.6) k/uL RBC 3.08 L (3.80-5.40) m/uL Hgb 10.0 L (11.4-16.0) gm/dL Hct 31.9 L (34.0-46.0) % MCV 103.8 H (80.0-100.0) fL MCH 32.5 (25.0-35.0) pg MCHC 31.3 (31.0-37.0) g/dL RDW 12.8 (11.5-15.5) % Plt Count 266 (150-450) k/uL MPV 8.5 Neutrophils % 70 % Lymphocytes % 17 % Monocytes % 9 % Eosinophils % 2 % Basophils % 0 % Neutrophils # 5.5 (1.3-7.7) k/uL Lymphocytes # 1.3 (1.0-4.8) k/uL Monocytes # 0.7 (0-1.0) k/uL Eosinophils # 0.2 (0-0.7) k/uL Basophils # 0.0 (0-0.2) k/uL Macrocytosis Slight PT 10.1 (9.0-12.0) sec INR 0.9 (<1.2) APTT 22.9 (22.0-30.0) sec Sodium 136 L (137-145) mmol/L Potassium 4.0 (3.5-5.1) mmol/L Chloride 99 (98-107) mmol/L Carbon Dioxide 31 H (22-30) mmol/L Anion Gap 6 mmol/L BUN 23 H (7-17) mg/dL Creatinine 3.99 H (0.52-1.04) mg/dL Est GFR (CKD-EPI)AfAm 13 (>60 ml/min/1.73 sqM) Est GFR (CKD-EPI)NonAf 11 (>60 ml/min/1.73 sqM) Glucose 110 H (74-99) mg/dL Plasma Lactic Acid Artur (0.7-2.0) mmol/L Calcium 8.6 (8.4-10.2) mg/dL Phosphorus 3.5 (2.5-4.5) mg/dL Magnesium 1.8 (1.6-2.3) mg/dL Total Bilirubin 0.5 (0.2-1.3) mg/dL AST 15 (14-36) U/L ALT 10 (4-34) U/L Alkaline Phosphatase 51 (38-126) U/L Troponin I (0.000-0.034) ng/mL NT-Pro-B Natriuret Pep pg/mL Total Protein 5.6 L (6.3-8.2) g/dL Albumin 3.2 L (3.5-5.0) g/dL 01/05/22 01/05/22 01/05/22 Range/Units 15:00 15:00 15:00 WBC (3.8-10.6) k/uL RBC (3.80-5.40) m/uL Hgb (11.4-16.0) gm/dL Hct (34.0-46.0) % MCV (80.0-100.0) fL MCH (25.0-35.0) pg MCHC (31.0-37.0) g/dL RDW (11.5-15.5) % Plt Count (150-450) k/uL MPV Neutrophils % % Lymphocytes % % Monocytes % % Eosinophils % % Basophils % % Neutrophils # (1.3-7.7) k/uL Lymphocytes # (1.0-4.8) k/uL Monocytes # (0-1.0) k/uL Eosinophils # (0-0.7) k/uL Basophils # (0-0.2) k/uL Macrocytosis PT (9.0-12.0) sec INR (<1.2) APTT (22.0-30.0) sec Sodium (137-145) mmol/L Potassium (3.5-5.1) mmol/L Chloride (98-107) mmol/L Carbon Dioxide (22-30) mmol/L Anion Gap mmol/L BUN (7-17) mg/dL Creatinine (0.52-1.04) mg/dL Est GFR (CKD-EPI)AfAm (>60 ml/min/1.73 sqM) Est GFR (CKD-EPI)NonAf (>60 ml/min/1.73 sqM) Glucose (74-99) mg/dL Plasma Lactic Acid Artur 1.1 (0.7-2.0) mmol/L Calcium (8.4-10.2) mg/dL Phosphorus (2.5-4.5) mg/dL Magnesium (1.6-2.3) mg/dL Total Bilirubin (0.2-1.3) mg/dL AST (14-36) U/L ALT (4-34) U/L Alkaline Phosphatase (38-126) U/L Troponin I 0.021 (0.000-0.034) ng/mL NT-Pro-B Natriuret Pep 4250 pg/mL Total Protein (6.3-8.2) g/dL Albumin (3.5-5.0) g/dL - EKG Data EKG Comments: EKG demonstrates a sinus bradycardia with a rate of 57. [place] interval 159. QRS 109. QTC of 447. No acute ST segment elevations or depressions Disposition Clinical Impression: Acute respiratory insufficiency, ESRD (end stage renal disease) on dialysis Disposition: HOME SELF-CARE Condition: Stable Instructions (If sedation given, give patient instructions): Dyspnea (ED) Additional Instructions: Please follow-up for your dialysis tomorrow. Return for any new or worsening symptoms Is patient prescribed a controlled substance at d/c from ED?: No Referrals: Miguel Valencia MD [Primary Care Provider] - 1-2 days Time of Disposition: 19:39
[2022-01-05 16:02] LABS: Albumin 3.2 g/dL (3.5-5.0); Calcium 8.6 mg/dL (8.4-10.2); Magnesium 1.8 mg/dL (1.6-2.3); Phosphorus 3.5 mg/dL (2.5-4.5); Total Bilirubin 0.5 mg/dL (0.2-1.3); Total Protein 5.6 g/dL (6.3-8.2)
--- NOTE | 2022-01-05 18:11 | CT ---
EXAMINATION TYPE: CT brain wo con DATE OF EXAM: 01/05/2022 HISTORY:61 F recent CVA, headache CT DLP: 1202.4 mGycm. Automated Exposure Control for Dose Reduction was Utilized. TECHNIQUE: CT scan of the head is performed without contrast. COMPARISON: 10/28/2017 FINDINGS: There is no acute intracranial hemorrhage or midline shift identified. There is diffuse v entricular and sulcal prominence consistent with diffuse age-related cerebral atrophy. The previously seen right basal ganglia small encephalomalacia pattern is redemonstrated, unchanged, consistent wit h old infarction. There is low-attenuation in the periventricular white matter consistent with chroni c small vessel ischemic change. There is no definite new attenuation defect. The globes are intact an d the visualized sinuses are clear. IMPRESSION: No acute intracranial hemorrhage or midline shift. Remote right basal ganglia infarction demonstrated.
--- NOTE | 2022-01-05 18:21 | CT ---
EXAMINATION TYPE: CT chest angio for PE with contrast and with 3-D reconstruction renderings DATE OF EXAM: 01/05/2022 COMPARISON: NONE HISTORY: SOB, recent hospitalization. Pt labs GFR-11, Creat-3.99 BUN-23. Dr. Valero signed off on orde r, stating patient would be dialyzed after CT. CT DLP: 584.8 mGycm. Automated Exposure Control for Dose Reduction was Utilized. CONTRAST: CTA scan of the thorax is performed with IV Contrast, patient injected with 80 mL of Isovue 370. MIP Images are created on CT scanner and reviewed. 3D reconstructed images are created on an independent workstation and reviewed. FINDINGS: There is at least mild patient/breathing motion artifact. AIRWAYS/LUNGS AND PLEURAL SPACES: The airways are unremarkable. The lungs are negative for acute find ings. However 8 9 mm soft tissue pulmonary nodule is located in the right midlung zone on axial image 43 of 126. MEDIASTINUM: There is [id number] enhancement of the pulmonary artery and its branches, without CT evidence for pulmonary embolism. There are no acute aortic findings. Mild left and right coronary calcifications are noted. No cardiomegaly or pericardial effusion. Mitral valve plane calcifications noted. There are no greater than 1 cm hilar or mediastinal lymph nodes. OTHER: No additional significant abnormality is seen. IMPRESSION: 1. No evidence of pulmonary embolism. 2. Mild left and right coronary calcifications noted. 3. Incidental: 9 mm right pulmonary nodule for which six-month follow-up CT is recommended. Also, his tory of prior outside CT chest is available for comparison, an addendum can be made to this report.
[2022-01-05 19:35] VITALS: BP 127/89; PULSE 76
== END 2022-01-05 19:52 | disposition home or self-care (01) ==
LOC: EC 13:13
DX: R06.89 Other abnormalities of breathing (principal); E11.22 Type 2 diabetes mellitus with diabetic chronic kidney disease; I12.0 Hypertensive chronic kidney disease with stage 5 chronic kidney disease or end stage renal disease; N18.6 End stage renal disease; F03.90 Unspecified dementia, unspecified severity, without behavioral disturbance, psychotic disturbance, mood disturbance, and anxiety; F12.90 Cannabis use, unspecified, uncomplicated; Z99.2 Dependence on renal dialysis; Z79.82 Long term (current) use of aspirin; Z79.02 Long term (current) use of antithrombotics/antiplatelets; Z79.4 Long term (current) use of insulin; Z79.890 Hormone replacement therapy; Z79.899 Other long term (current) drug therapy; Z86.73 Personal history of transient ischemic attack (TIA), and cerebral infarction without residual deficits
CPT/HCPCS: 36415; 93005; 83880; 80053; 83605; 83735; 84100; 84484; 85025; 85610; 85730; 71046; 70450; 71275; 99285; Q9967

== ENCOUNTER 2022-12-01 11:15 | Emergency (ER) | payer OTHER ==
[2022-12-01 11:56] VITALS: RESP 20; TEMP 98.9
--- NOTE | 2022-12-01 12:34 | ED ---
General Adult HPI - General Chief complaint: Shortness of Breath Stated complaint: Cough,Difficulty Swallowing Time Seen by Provider: 12/01/22 12:00 Source: patient, family, RN notes reviewed, old records reviewed Mode of arrival: wheelchair Limitations: no limitations - History of Present Illness Initial comments: 62-year-old female history of end-stage renal disease on hemodialysis presents for evaluation of productive cough and difficulty swallowing. Apparently patient's symptoms have been present for the past several weeks. She's had some associated dyspnea. The history is obtained almost entirely from the patient's who is at bedside. He he states that he's also had cough which is productive over the past several weeks. No reported fever. The patient just hemodialysis today which is her scheduled today. No central chest pain. No abdominal pain. Mild dyspnea. History is limited. Patient has history of dementia and previous CVA. - Related Data Home Medications Medication Instructions Recorded Confirmed Levothyroxine Sodium [Synthroid] 75 mcg PO DAILY 10/28/17 12/01/22 Oxybutynin Chloride 5 mg PO BID 10/28/17 12/01/22 Ergocalciferol [Vitamin D2 50,000 unit PO Q7D 01/19/20 12/01/22 (DRISDOL)] allopurinoL [Zyloprim] 100 mg PO DAILY 01/19/20 12/01/22 Acetaminophen [Tylenol Arthritis] 1,300 mg PO Q8H 08/31/21 12/01/22 Aspirin EC [Ecotrin Low Dose] 81 mg PO DAILY 08/31/21 12/01/22 Loratadine 10 mg PO DAILY 08/31/21 12/01/22 amLODIPine [Norvasc] 10 mg PO DAILY 08/31/21 12/01/22 traMADol HCL 50 mg PO BID PRN 08/31/21 12/01/22 Amitriptyline HCl [Elavil] 10 mg PO HS 12/01/22 12/01/22 Atorvastatin [Lipitor] 40 mg PO DAILY 12/01/22 12/01/22 Clotrimazole/Betameth Cream 1 applic TOPICAL DAILY 12/01/22 12/01/22 [Lotrisone] Insulin Glargine,Hum.rec.anlog 30 units SQ DAILY 12/01/22 12/01/22 [Lantus Solostar Pen] Lidocaine-Prilocaine Cream [Emla 1 applic TOPICAL DAILY PRN 12/01/22 12/01/22 Cream 2.5%/2.5%] Phoslyra 667mg 2,001 mg PO AC-TID 12/01/22 12/01/22 Allergies Allergy/AdvReac Type Severity Reaction Status Date / Time codeine AdvReac Nausea Verified 12/01/22 13:55 Review of Systems ROS Statement: Those systems with pertinent positive or pertinent negative responses have been documented in the HPI. ROS Other: All systems not noted in ROS Statement are negative. Past Medical History Past Medical History: CVA/TIA, Dementia, Diabetes Mellitus, Dialysis, Hypertension, Renal Disease Additional Past Medical History / Comment(s): CVA x2 w/ memory loss, uses walker at home, hepatitis B, back pain, ESRD on hemodialysis History of Any Multi-Drug Resistant Organisms: None Reported Past Surgical History: Section, Cholecystectomy Additional Past Surgical History / Comment(s): left upper arm fistula Past Anesthesia/Blood Transfusion Reactions: No Reported Reaction Past Psychological History: No Psychological Hx Reported Smoking Status: Never smoker Past Alcohol Use History: Rare Past Drug Use History: Marijuana - Past Family History Mother Family Medical History: No Reported History General Exam Limitations: no limitations General appearance: alert, in no apparent distress Head exam: Present: atraumatic, normocephalic Eye exam: Present: normal appearance, PERRL ENT exam: Present: normal exam, normal oropharynx Neck exam: Present: normal inspection. Absent: tenderness, meningismus Respiratory exam: Present: normal lung sounds bilaterally. Absent: respiratory distress, wheezes, stridor Cardiovascular Exam: Present: regular rate, normal rhythm GI/Abdominal exam: Present: soft. Absent: distended, tenderness Extremities exam: Present: normal inspection, normal capillary refill. Absent: pedal edema Neurological exam: Present: alert. Absent: motor sensory deficit Skin exam: Present: warm, dry, intact. Absent: cyanosis, diaphoretic Course Vital Signs 12/01/22 12/01/22 11:52 12:48 Temperature 98.9 F Pulse Rate 51 L 87 Respiratory 20 20 Rate Blood Pressure 186/81 166/94 O2 Sat by Pulse 99 98 Oximetry EKG Findings - EKG Comments: EKG Findings:: Sinus rhythm with PVC LVH, rate of 91, [place] interval 142, QRS duration 112, QTC 418, no ST segment elevation - EKG Results: EKG: interpreted by FAYE Medical Decision Making - Medical Decision Making Was pt. sent in by a medical professional or institution (ABHISHEK Serrano, SERVICE DESK TECHNICIAN, urgent care, hospital, or assisted...) When possible be specific @ -No Did you speak to anyone other than the patient for history (EMS, parent, family, police, friend...)? What history was obtained from this source @ -Further history is obtained from the patient's who is at bedside Did you review nursing and triage notes (agree or disagree)? Why? @ -I reviewed and agree with nursing and triage notes Were old charts reviewed (outside hosp., previous admission, EMS record, old EKG, old radiological studies, urgent care reports/EKG's, assisted records)? Report findings @ -No old charts were reviewed Differential Diagnosis (chest pain, altered mental status, abdominal pain women, abdominal pain men, vaginal bleeding, weakness, fever, dyspnea, syncope, headache, dizziness, GI bleed, back pain, seizure, CVA, palpatations, mental health, musculoskeletal)? @ -Differential Dyspnea: Coronary syndrome, arrhythmia, tamponade, asthma, COPD, pulmonary embolism, pneumonia, pneumothorax, pulmonary effusion, anaphylaxis, diabetic ketoacidosis, flailed chest, pulmonary contusion, diaphragmatic rupture, anemia, neuromuscular, this is not meant to be an all-inclusive list. EKG interpreted by me (3pts min.). @ -As above X-rays interpreted by me (1pt min.). @ -Chest x-ray negative for acute process, reviewed by myself, agree with the radiologist rotation CT interpreted by me (1pt min.). @ -CT findings reviewed U/S interpreted by me (1pt. min.). @ -None done What testing was considered but not performed or refused? (CT, X-rays, U/S, lab s)? Why? @ -None What meds were considered but not given or refused? Why? @ -None Did you discuss the management of the patient with other professionals (professionals i.e. ABHISHEK Serrano, SERVICE DESK TECHNICIAN, lab, RT, psych nurse, social services director, quality process engineer, teacher, code enforcement officer, rn field case manager)? Give summary @ -No Was smoking cessation discussed for >3mins.? @ -No Was critical care preformed (if so, how long)? @ -No Were there social determinants of health that impacted care today? How? (Homelessness, low income, unemployed, alcoholism, drug addiction, transportation, low edu. Level, literacy, decrease access to med. care, fci, rehab)? @ -No Was there de-escalation of care discussed even if they declined (Discuss DNR or withdrawal of care, Hospice)? DNR status @ -No What co-morbidities impacted this encounter? (DM, HTN, Smoking, COPD, CAD, Cancer, CVA, ARF, Chemo, Hep., AIDS, mental health diagnosis, sleep apnea, morbid obesity)? @ -None Was patient admitted / discharged? Hospital course, mention meds given and route, prescriptions, significant lab abnormalities, going to OR and other pertinent info. @ -62-year-old female with end-stage renal disease with presented with dyspnea, and cough. Symptoms have been present for several weeks. Patient is a poor historian but history is obtained from the patient's . I did workup including CBC, CMP. There is a mild leukocytosis of 14 with uncertain etiology. She has chronic kidney disease and is on hemodialysis creatinine elevated consistent with his disease. Chest x-ray is clear. I did perform a CT soft tissue neck because she complained of swallowing which is been present for several weeks. There may be a fullness noted which will require direct visualization by ENT. I did discuss this with the patient. Ultimately she feeling better at the time of reevaluation without specific treatment. She is able to speak and eat is no stridor. There is no tachypnea. No hypoxia. Vital signs are stable. She will arrange for hemodialysis tomorrow she will return to the emergency department with any worsening or changing symptoms. Undiagnosed new problem with uncertain prognosis? @ -No Drug Therapy requiring intensive monitoring for toxicity (Heparin, Nitro, I nsulin, Cardizem)? @ -No Were any procedures done? @ -No Diagnosis/symptom? @ -Dyspnea, cough Acute, or Chronic, or Acute on Chronic? @ -Acute Uncomplicated (without systemic symptoms) or Complicated (systemic symptoms)? @ -Uncomplicated Side effects of treatment? @ -No Exacerbation, Progression, or Severe Exacerbation? @ -No Poses a threat to life or bodily function? How? (Chest pain, [place], NH, pneumonia, PE, COPD, DKA, ARF, appy, cholecystitis, CVA, Diverticulitis, Homicidal, Suicidal, threat to staff... and all critical care pts) @ -No - Lab Data Result diagrams: 12/01/22 12:50 12/01/22 12:50 Lab Results 12/01/22 12/01/22 12/01/22 Range/Units 12:50 12:50 12:50 WBC 14.4 H (3.8-10.6) k/uL RBC 4.18 (3.80-5.40) m/uL Hgb 13.4 (11.4-16.0) gm/dL Hct 41.6 (34.0-46.0) % MCV 99.5 (80.0-100.0) fL MCH 32.2 (25.0-35.0) pg MCHC 32.3 (31.0-37.0) g/dL RDW 14.3 (11.5-15.5) % Plt Count 338 (150-450) k/uL MPV 9.0 Neutrophils % 83 % Lymphocytes % 10 % Monocytes % 5 % Eosinophils % 1 % Basophils % 1 % Neutrophils # 12.0 H (1.3-7.7) k/uL Lymphocytes # 1.4 (1.0-4.8) k/uL Monocytes # 0.8 (0-1.0) k/uL Eosinophils # 0.1 (0-0.7) k/uL Basophils # 0.1 (0-0.2) k/uL Macrocytosis Slight PT 9.9 (9.0-12.0) sec INR 0.9 (<1.2) APTT 22.7 (22.0-30.0) sec Sodium 137 (137-145) mmol/L Potassium 4.3 (3.5-5.1) mmol/L Chloride 94 L (98-107) mmol/L Carbon Dioxide 27 (22-30) mmol/L Anion Gap 16 mmol/L BUN 50 H (7-17) mg/dL Creatinine 5.53 H (0.52-1.04) mg/dL Est GFR (CKD-EPI)AfAm 9 (>60 ml/min/1.73 sqM) Est GFR (CKD-EPI)NonAf 8 (>60 ml/min/1.73 sqM) Glucose 175 H (74-99) mg/dL Plasma Lactic Acid Artur (0.7-2.0) mmol/L Calcium 9.4 (8.4-10.2) mg/dL Magnesium 2.2 (1.6-2.3) mg/dL Total Bilirubin 0.4 (0.2-1.3) mg/dL AST 24 (14-36) U/L ALT 27 (4-34) U/L Alkaline Phosphatase 71 (38-126) U/L NT-Pro-B Natriuret Pep pg/mL Total Protein 6.9 (6.3-8.2) g/dL Albumin 4.2 (3.5-5.0) g/dL 12/01/22 12/01/22 Range/Units 12:50 12:50 WBC (3.8-10.6) k/uL RBC (3.80-5.40) m/uL Hgb (11.4-16.0) gm/dL Hct (34.0-46.0) % MCV (80.0-100.0) fL MCH (25.0-35.0) pg MCHC (31.0-37.0) g/dL RDW (11.5-15.5) % Plt Count (150-450) k/uL MPV Neutrophils % % Lymphocytes % % Monocytes % % Eosinophils % % Basophils % % Neutrophils # (1.3-7.7) k/uL Lymphocytes # (1.0-4.8) k/uL Monocytes # (0-1.0) k/uL Eosinophils # (0-0.7) k/uL Basophils # (0-0.2) k/uL Macrocytosis PT (9.0-12.0) sec INR (<1.2) APTT (22.0-30.0) sec Sodium (137-145) mmol/L Potassium (3.5-5.1) mmol/L Chloride (98-107) mmol/L Carbon Dioxide (22-30) mmol/L Anion Gap mmol/L BUN (7-17) mg/dL Creatinine (0.52-1.04) mg/dL Est GFR (CKD-EPI)AfAm (>60 ml/min/1.73 sqM) Est GFR (CKD-EPI)NonAf (>60 ml/min/1.73 sqM) Glucose (74-99) mg/dL Plasma Lactic Acid Artur 1.4 (0.7-2.0) mmol/L Calcium (8.4-10.2) mg/dL Magnesium (1.6-2.3) mg/dL Total Bilirubin (0.2-1.3) mg/dL AST (14-36) U/L ALT (4-34) U/L Alkaline Phosphatase (38-126) U/L NT-Pro-B Natriuret Pep 4160 pg/mL Total Protein (6.3-8.2) g/dL Albumin (3.5-5.0) g/dL Disposition Clinical Impression: ESRD (end stage renal disease) on dialysis, Dyspnea Disposition: HOME SELF-CARE Condition: Fair Instructions (If sedation given, give patient instructions): Dyspnea (ED) Is patient prescribed a controlled substance at d/c from ED?: No Referrals: Miguel Valencia MD [Primary Care Provider] - 1-2 days Durga Chris MD [STAFF PHYSICIAN] - 1-2 days Carolina Chandra MD [STAFF PHYSICIAN] - 1-2 days Dorothy Mcmillan III, MD [STAFF PHYSICIAN] - 1-2 days Time of Disposition: 16:19
[2022-12-01 12:50] VITALS: BP 166/94; PULSE 87
--- NOTE | 2022-12-01 13:14 | XR ---
EXAMINATION TYPE: XR chest 2V DATE OF EXAM: 12/01/2022 1:11 PM COMPARISON: Chest radiographs from chest radiograph 01/05/2022, CTA chest 01/05/2022 TECHNIQUE: XR chest 2V Frontal and lateral views of the chest. CLINICAL INDICATION:Female, 62 years old with history of difficulty breathing; FINDINGS: Lungs/Pleura: There is no evidence of pleural effusion, focal consolidation, or pneumothorax. Pulmonary vascularity: Unremarkable. Heart/mediastinum: Cardiomediastinal silhouette is prominent in size. Musculoskeletal: No acute osseous pathology. IMPRESSION: No acute cardiopulmonary disease/process. No significant change from prior examination.
[2022-12-01 13:24] LABS: Basophils # (A) 0.1 k/uL (0-0.2); Basophils % (A) 1 %; Eosinophils # (A) 0.1 k/uL (0-0.7); Eosinophils % (A) 1 %; HCT 41.6 % (34.0-46.0); HGB 13.4 gm/dL (11.4-16.0); Lymphocytes # (A) 1.4 k/uL (1.0-4.8); Lymphocytes % (A) 10 %; MCH 32.2 pg (25.0-35.0); MCHC 32.3 g/dL (31.0-37.0); MCV 99.5 fL (80.0-100.0); Macrocytosis Slight; Monocytes # (A) 0.8 k/uL (0-1.0); Monocytes % (A) 5 %; Neutrophils % (A) 83 %; Platelet Count 338 k/uL (150-450); RBC 4.18 m/uL (3.80-5.40); RDW 14.3 % (11.5-15.5); WBC 14.4 k/uL (3.8-10.6)
[2022-12-01 13:33] LABS: INR 0.9 (<1.2)
[2022-12-01 13:34] LABS: Partial Thromboplastin Time 22.7 sec (22.0-30.0); Prothrombin Time 9.9 sec (9.0-12.0)
[2022-12-01 13:41] LABS: Albumin 4.2 g/dL (3.5-5.0); Calcium 9.4 mg/dL (8.4-10.2); Magnesium 2.2 mg/dL (1.6-2.3); Potassium 4.3 mmol/L (3.5-5.1); Total Bilirubin 0.4 mg/dL (0.2-1.3); Total Protein 6.9 g/dL (6.3-8.2)
--- NOTE | 2022-12-01 15:33 | CT ---
EXAMINATION TYPE: CT soft tissue neck wo con DATE OF EXAM: 12/01/2022 COMPARISON: None HISTORY: 62-year-old female cough, congestion, dysphagia TECHNIQUE: Contiguous axial scanning of the soft tissues of the neck without IV contrast. Coronal and sagittal reconstructions performed. CT DLP: 571.3 mGycm Automated exposure control for dose reduction was used. FINDINGS: Atherosclerotic calcifications within the carotid siphons. Otherwise, visualized intracranial structu res show no gross abnormal. There is a 2.0 cm polyp or mucosal retention cyst along the floor of the right maxillary sinus. Orbit s and globes are intact. Mastoid air cells well pneumatized. The nasopharynx is clear. Oropharynx is clear. Limitation due to lack of IV contrast especially of the cervical mucosal space. Possible asymmetric thickening of the left aryepiglottic fold, axial image 70. Unclear if this is pos itional related. Refer to axial image 70. Glottic and subglottic structures as well as the tracheal column and visualized upper lungs appear cl ear. Nodular and enlarged right lobe of the thyroid gland. Dedicated thyroid ultrasound can assess for any potential underlying nodules and to determine any for FNA. The submandibular and parotid glands are satisfactory. No cervical lymphadenopathy by CT size criteria. Central disc osteophyte complex at T1-T2 may cause mild narrowing of the spinal canal. IMPRESSION: 1. ASYMMETRIC THICKENING OF THE LEFT ARYEPIGLOTTIC FOLD. UNCLEAR IF THIS IS RELATED TO PATIENT'S POSI TION OR AN UNDERLYING MUCOSAL LESION. CONSIDER REFERRING THE PATIENT FOR DIRECT VISUALIZATION. 2. A 2.0 CM POLYP OR MUCOSAL RETENTION CYST ALONG THE FLOOR OF THE RIGHT MAXILLARY SINUS. 3. NODULAR, ENLARGED RIGHT LOBE OF THE THYROID GLAND. DEDICATED THYROID ULTRASOUND CAN ASSESS FOR ANY UNDERLYING NODULES AND DETERMINE THE NEED FOR FNA.
== END 2022-12-01 16:58 | disposition home or self-care (01) ==
LOC: EC 11:15
DX: E11.22 Type 2 diabetes mellitus with diabetic chronic kidney disease (principal); I12.0 Hypertensive chronic kidney disease with stage 5 chronic kidney disease or end stage renal disease; N18.6 End stage renal disease; R06.00 Dyspnea, unspecified; F12.90 Cannabis use, unspecified, uncomplicated; Z99.2 Dependence on renal dialysis; Z88.5 Allergy status to narcotic agent; Z79.4 Long term (current) use of insulin; Z79.82 Long term (current) use of aspirin; Z90.49 Acquired absence of other specified parts of digestive tract
CPT/HCPCS: 36415; 70490; 71046; 80053; 83605; 83735; 83880; 85025; 85610; 85730; 93005; 99285

== ENCOUNTER 2023-10-08 13:25 | Inpatient (IN) | payer MEDICARE, OTHER ==
[2023-10-08] MEDS ORDERED: SODIUM CHLORIDE 0.9% 500 ML 500 ML IV ONE (13:36)
[2023-10-08 13:57] LABS: Glucose,Whole Blood 112 mg/dL (70-110)
[2023-10-08 14:01] LABS: Basophils % (A) 0 %; Eosinophils # (A) 0.1 k/uL (0-0.7); Eosinophils % (A) 1 %; HGB 12.9 gm/dL (11.4-16.0); Lymphocytes # (A) 1.5 k/uL (1.0-4.8); Lymphocytes % (A) 17 %; MCH 33.4 pg (25.0-35.0); MCHC 33.2 g/dL (31.0-37.0); MCV 100.8 fL (80.0-100.0); Macrocytosis Slight; Mean Platelet Volume 9.8; Monocytes % (A) 11 %; Neutrophils # (A) 6.3 k/uL (1.3-7.7); Neutrophils % (A) 70 %; Platelet Count 278 k/uL (150-450); RBC 3.87 m/uL (3.80-5.40); RDW 14.8 % (11.5-15.5); WBC 9.1 k/uL (3.8-10.6)
[2023-10-08 14:09] LABS: INR 0.9 (<1.2); Prothrombin Time 10.5 sec (10.0-12.5)
[2023-10-08 14:10] LABS: Partial Thromboplastin Time 22.5 sec (22.0-30.0)
[2023-10-08 14:20] LABS: ALT 51 U/L (4-34); AST 35 U/L (14-36); African American GFR (CKD) 6 (>60 ml/min/1.73 sqM); Albumin 4.1 g/dL (3.5-5.0); Alkaline Phosphatase 117 U/L (38-126); Anion Gap 12 mmol/L; Blood Urea Nitrogen 44 mg/dL (7-17); Calcium 8.1 mg/dL (8.4-10.2); Carbon Dioxide 29 mmol/L (22-30); Chloride 95 mmol/L (98-107); Glucose 120 mg/dL (74-99); Non-African American GFR(CKD) 5 (>60 ml/min/1.73 sqM); Potassium 3.8 mmol/L (3.5-5.1); Sodium 136 mmol/L (137-145); Total Bilirubin 0.8 mg/dL (0.2-1.3)
--- NOTE | 2023-10-08 15:10 | XR ---
EXAMINATION TYPE: XR chest 2V DATE OF EXAM: 10/08/2023 2:58 PM CLINICAL INDICATION:Female, 63 years old with history of altered mental status; COMPARISON: Chest radiographs from 01/05/2022. TECHNIQUE: XR chest 2V Frontal and lateral views of the chest. FINDINGS: Lungs/Pleura: Increased perihilar prominence on the left. There is no evidence of pleural effusion, f ocal consolidation, or pneumothorax. Pulmonary vascularity: Unremarkable. Heart/mediastinum: Cardiomediastinal silhouette is unremarkable. Musculoskeletal: No acute osseous pathology. Other findings: None IMPRESSION: Low lung volumes. Increased left perihilar fullness thought to correlate with CT pulmonary vessels ar en't.
--- NOTE | 2023-10-08 15:16 | CT ---
EXAMINATION TYPE: CT brain wo con DATE OF EXAM: 10/08/2023 COMPARISON: 01/05/2022 INDICATION: AMS DLP: 1110.4 mGycm, Automated exposure control for dose reduction was used. CONTRAST: None CT of the brain is performed utilizing 3 mm thick sections through the posterior fossa and 3 mm thick sections through the remaining calvarium. Study is performed within 24 hours of arrival to the hosp ital. No abnormal hyperdensity is present to suggest an acute intracranial hemorrhage. No mass lesion is evident. Ossifications along the anterior falx. No significant mass effect on the a djacent brain is evident. No acute infarcts are evident. Periventricular white matter hypodensity is present more so on the rig ht compatible with microvascular ischemic change. Some prior lacunar infarct in the right basal gangl ion is not excluded. Ventricles and sulci are appropriate for the patient age. Paranasal sinuses and mastoid air cells within the [id number] are clear. IMPRESSION: 1. No acute intracranial process. Follow-up MRI can be performed as clinically indicated. 2. Chronic appearing periventricular white matter ischemic type changes. Old lacunar infarct, present previously, may be in the right periventricular basal ganglion
--- NOTE | 2023-10-08 15:44 | ED ---
General Adult HPI - General Chief complaint: Altered Mental Status Stated complaint: AMS Time Seen by Provider: 10/08/23 13:35 Source: patient, EMS, RN notes reviewed, old records reviewed Mode of arrival: EMS Limitations: altered mental status - History of Present Illness Initial comments: This is a 63-year-old female with a past medical history significant for renal dialysis. According to EMS they were called because of altered mental status with this patient. Patient was able to speak but very quietly and they can barely hear her talk. Patient is not answering any questions but is able to follow all commands from me as far as opening her mouth taking deep breaths shaking her head up and down. Patient denies any pain and she indicates is by nodding. No other history is available this time no one is with the patient. Patient was diagnosed with COVID last week - Related Data Home Medications Medication Instructions Recorded Confirmed Levothyroxine Sodium [Synthroid] 75 mcg PO DAILY 10/28/17 10/08/23 Oxybutynin Chloride 5 mg PO BID 10/28/17 10/08/23 allopurinoL [Zyloprim] 100 mg PO DAILY 01/19/20 10/08/23 Aspirin EC [Ecotrin Low Dose] 81 mg PO DAILY 08/31/21 10/08/23 Insulin Glargine,Hum.rec.anlog 25 units SQ BID 12/01/22 10/08/23 [Lantus Solostar Pen] Lidocaine-Prilocaine Cream [Emla 1 applic TOPICAL DAILY PRN 12/01/22 10/08/23 Cream 2.5%/2.5%] Clotrimazole [Clotrimazole AF] 1 applic TOPICAL BID 10/08/23 10/08/23 Diclofenac Sodium [Diclofenac 1 applic TOPICAL DAILY PRN 10/08/23 10/08/23 Sodium 1%] Omeprazole 20 mg PO DAILY 10/08/23 10/08/23 Ondansetron Odt [Zofran Odt] 4 - 8 mg PO BID PRN 10/08/23 10/08/23 amLODIPine [Norvasc] 5 mg PO BID 10/08/23 10/08/23 carvediloL [Coreg] 6.25 mg PO BID 10/08/23 10/08/23 hydrALAZINE HCL [Apresoline] 50 mg PO BID 10/08/23 10/08/23 Allergies Allergy/AdvReac Type Severity Reaction Status Date / Time codeine AdvReac Nausea Verified 10/08/23 15:30 Review of Systems ROS Statement: Those systems with pertinent positive or pertinent negative responses have been documented in the HPI. ROS Other: All systems not noted in ROS Statement are negative. Past Medical History Past Medical History: CVA/TIA, Dementia, Diabetes Mellitus, Dialysis, Hypertension, Renal Disease Additional Past Medical History / Comment(s): CVA x2 w/ memory loss, uses walker at home, hepatitis B, back pain, ESRD on hemodialysis History of Any Multi-Drug Resistant Organisms: None Reported Past Surgical History: Section, Cholecystectomy Additional Past Surgical History / Comment(s): left upper arm fistula Past Anesthesia/Blood Transfusion Reactions: No Reported Reaction Past Psychological History: No Psychological Hx Reported Smoking Status: Never smoker Past Alcohol Use History: Rare Past Drug Use History: Marijuana - Past Family History Mother Family Medical History: No Reported History General Exam - General Exam Comments Initial Comments: GENERAL: Patient is well-developed and well-nourished. Patient is nontoxic and well- hydrated and is in no acute distress. ENT: Neck is soft and supple. No significant lymphadenopathy is noted. Oropharynx is clear. Moist mucous membranes. Neck has full range of motion without milagro citing any pain. EYES: The sclera were anicteric and conjunctiva were pink and moist. Extraocular movements were intact and pupils were equal round and reactive to light. Eyelids were unremarkable. PULMONARY: Unlabored respirations. Good breath sounds bilaterally. No audible rales rhonchi or wheezing was noted. CARDIOVASCULAR: There is a regular rate and rhythm without any murmurs gallops or rubs. ABDOMEN: Soft and nontender with normal bowel sounds. SKIN: Skin is clear with no lesions or rashes and otherwise unremarkable. NEUROLOGIC: Patient is alert and oriented cannot assess orientation secondary to the fact the patient will not speak to me. Cranial nerves II through XII are grossly intact. Motor and sensory are also intact. Symmetrical smile. Cerebellar exam grossly intact. MUSCULOSKELETAL: Normal extremities with adequate strength and full range of motion. No lower extremity swelling or edema. No calf tenderness. LYMPHATICS: No significant lymphadenopathy is noted PSYCHIATRIC: Unable to assess Limitations: altered mental status Course Vital Signs 10/08/23 10/08/23 13:31 14:42 Temperature 98.6 F Pulse Rate 64 63 Respiratory 20 16 Rate Blood Pressure 237/91 192/91 O2 Sat by Pulse 97 Oximetry Medical Decision Making - Medical Decision Making EKG is interpreted by myself. EKG shows sinus rhythm at 65 bpm CO interval 163 QRS 124 QT interval 449 QTC is 461. Patient does have Q waves in leads V2 Was pt. sent in by a medical professional or institution (, [facility], FRONT OFFICE DEVELOPER, urgent care, hospital, or jail...) When possible be specific @ -No Did you speak to anyone other than the patient for history (EMS, parent, family, police, friend...)? What history was obtained from this source @ -I spoke with the about the case because the patient is too quiet to hear her answers Did you review nursing and triage notes (agree or disagree)? Why? @ -I reviewed and agree with nursing and triage notes Were old charts reviewed (outside hosp., previous admission, EMS record, old EKG, old radiological studies, urgent care reports/EKG's, jail records)? Report findings @ -I reviewed old charts in all lab work on this patient Differential Diagnosis (chest pain, altered mental status, abdominal pain women, abdominal pain men, vaginal bleeding, weakness, fever, dyspnea, syncope, headache, dizziness, GI bleed, back pain, seizure, CVA, palpatations, mental health, musculoskeletal)? @ -Differential Altered Mental Status: Hypoglycemia, DKA, hypercapnia, ETOH, overdose, CO poisoning, trauma, myxedema coma, HTN encephalopathy, infection, encephalitis, psychosis, intercranial hemorrhage, hepatic encephalopathy, meningitis, CVA, this is not meant to be an all-inclusive list EKG interpreted by me (3pts min.). @ -As above X-rays interpreted by me (1pt min.). @ -None done CT interpreted by me (1pt min.). @ -None done U/S interpreted by me (1pt. min.). @ -None done What testing was considered but not performed or refused? (CT, X-rays, U/S, labs)? Why? @ -None What meds were considered but not given or refused? Why? @ -None Did you discuss the management of the patient with other professionals (professionals i.e. , [employer], FRONT OFFICE DEVELOPER, lab, RT, psych nurse, social work lecturer, admiralty lawyer, teacher, giving officer, dependency case manager)? Give summary @ -I spoke with Dr. Ford he agreed to admit the patient admitted the patient wrote admitting orders Was smoking cessation discussed for >3mins.? @ -No Was critical care preformed (if so, how long)? @ -No Were there social determinants of health that impacted care today? How? (Homelessness, low income, unemployed, alcoholism, drug addiction, transportation, low edu. Level, literacy, decrease access to med. care, fpc, rehab)? @ -No Was there de-escalation of care discussed even if they declined (Discuss DNR or withdrawal of care, Hospice)? DNR status @ -No What co-morbidities impacted this encounter? (DM, HTN, Smoking, COPD, CAD, Cancer, CVA, ARF, Chemo, Hep., AIDS, mental health diagnosis, sleep apnea, morbid obesity)? @ -None Was patient admitted / discharged? Hospital course, mention meds given and route, prescriptions, significant lab abnormalities, going to OR and other pertinent info. @ -Patient still remains extremely quiet when talking she has not vomited since she's been in the emergency department the states she has vomited multiple times at home. Patient's lab work was reasonably normal except of creatinine being elevated. I spoke with Dr. Ford he wanted the patient that he wanted a consult to nephrology and neuro Undiagnosed new problem with uncertain prognosis? @ -No Drug Therapy requiring intensive monitoring for toxicity (Heparin, Nitro, Insulin, Cardizem)? @ -No Were any procedures done? @ -No Diagnosis/symptom? @ -Altered mental status Acute, or Chronic, or Acute on Chronic? @ -Acute Uncomplicated (without systemic symptoms) or Complicated (systemic symptoms)? @ -Complicated Side effects of treatment? @ -No Exacerbation, Progression, or Severe Exacerbation? @ -No Poses a threat to life or bodily function? How? (Chest pain, USA, VT, pneumonia, PE, COPD, DKA, ARF, appy, cholecystitis, CVA, Diverticulitis, Homicidal, Suicidal, threat to staff... and all critical care pts) @ -No Diagnosis/symptom? @ -Missed dialysis Acute, or Chronic, or Acute on Chronic? @ -Acute Uncomplicated (without systemic symptoms) or Complicated (systemic symptoms)? @ -Complicated Side effects of treatment? @ -none Exacerbation, Progression, or Severe Exacerbation] @ -No Poses a threat to life or bodily function? @ -This could lead to fluid overload or N abnormalities which resulted in organ dysfunction or possible - Lab Data Result diagrams: 10/08/23 13:53 10/08/23 13:53 Lab Results 10/08/23 10/08/23 10/08/23 Range/Units 13:53 13:53 13:53 WBC 9.1 (3.8-10.6) k/uL RBC 3.87 (3.80-5.40) m/uL Hgb 12.9 (11.4-16.0) gm/dL Hct 39.0 (34.0-46.0) % MCV 100.8 H (80.0-100.0) fL MCH 33.4 (25.0-35.0) pg MCHC 33.2 (31.0-37.0) g/dL RDW 14.8 (11.5-15.5) % Plt Count 278 (150-450) k/uL MPV 9.8 Neutrophils % 70 % Lymphocytes % 17 % Monocytes % 11 % Eosinophils % 1 % Basophils % 0 % Neutrophils # 6.3 (1.3-7.7) k/uL Lymphocytes # 1.5 (1.0-4.8) k/uL Monocytes # 1.0 (0-1.0) k/uL Eosinophils # 0.1 (0-0.7) k/uL Basophils # 0.0 (0-0.2) k/uL Macrocytosis Slight PT 10.5 (10.0-12.5) sec INR 0.9 (<1.2) APTT 22.5 (22.0-30.0) sec Sodium 136 L (137-145) mmol/L Potassium 3.8 (3.5-5.1) mmol/L Chloride 95 L (98-107) mmol/L Carbon Dioxide 29 (22-30) mmol/L Anion Gap 12 mmol/L BUN 44 H (7-17) mg/dL Creatinine 7.61 H* (0.52-1.04) mg/dL Est GFR (CKD-EPI)AfAm 6 (>60 ml/min/1.73 sqM) Est GFR (CKD-EPI)NonAf 5 (>60 ml/min/1.73 sqM) Glucose 120 H (74-99) mg/dL POC Glucose (mg/dL) (70-110) mg/dL POC Glu Crown Pouncer ID Calcium 8.1 L (8.4-10.2) mg/dL Total Bilirubin 0.8 (0.2-1.3) mg/dL AST 35 (14-36) U/L ALT 51 H (4-34) U/L Alkaline Phosphatase 117 (38-126) U/L Troponin I (0.000-0.034) ng/mL Total Protein 7.0 (6.3-8.2) g/dL Albumin 4.1 (3.5-5.0) g/dL 10/08/23 10/08/23 Range/Units 13:53 13:55 WBC (3.8-10.6) k/uL RBC (3.80-5.40) m/uL Hgb (11.4-16.0) gm/dL Hct (34.0-46.0) % MCV (80.0-100.0) fL MCH (25.0-35.0) pg MCHC (31.0-37.0) g/dL RDW (11.5-15.5) % Plt Count (150-450) k/uL MPV Neutrophils % % Lymphocytes % % Monocytes % % Eosinophils % % Basophils % % Neutrophils # (1.3-7.7) k/uL Lymphocytes # (1.0-4.8) k/uL Monocytes # (0-1.0) k/uL Eosinophils # (0-0.7) k/uL Basophils # (0-0.2) k/uL Macrocytosis PT (10.0-12.5) sec INR (<1.2) APTT (22.0-30.0) sec Sodium (137-145) mmol/L Potassium (3.5-5.1) mmol/L Chloride (98-107) mmol/L Carbon Dioxide (22-30) mmol/L Anion Gap mmol/L BUN (7-17) mg/dL Creatinine (0.52-1.04) mg/dL Est GFR (CKD-EPI)AfAm (>60 ml/min/1.73 sqM) Est GFR (CKD-EPI)NonAf (>60 ml/min/1.73 sqM) Glucose (74-99) mg/dL POC Glucose (mg/dL) 112 H (70-110) mg/dL POC Glu Crown Pouncer ID Hugo Mata Calcium (8.4-10.2) mg/dL Total Bilirubin (0.2-1.3) mg/dL AST (14-36) U/L ALT (4-34) U/L Alkaline Phosphatase (38-126) U/L Troponin I 0.030 (0.000-0.034) ng/mL Total Protein (6.3-8.2) g/dL Albumin (3.5-5.0) g/dL Disposition Clinical Impression: Altered mental status, Missed dialysis Disposition: ADMITTED IP TO THIS HOSP Referrals: Des Vazquez DO [Primary Care Provider] - 1-2 days Time of Disposition: 15:54
[2023-10-08] MEDS: amLODIPine 5 MG TAB PO SCH ×2 (17:05→20:34)
[2023-10-08] MEDS: carvediloL 6.25 MG TAB PO SCH (17:05)
[2023-10-08] MEDS: hydrALAZINE HCL 50 MG TAB PO SCH ×2 (17:07→20:35)
[2023-10-08 19:29] LABS: Appearance,Urine Clear (Clear); Bilirubin,Urine Negative (Negative); Blood,Urine Negative (Negative); Color,Urine Colorless; Glucose,Urine (UA) 2+ (Negative); Hyaline Casts,Urine 1 /lpf (0-2); Ketones,Urine Negative (Negative); Leukocyte Esterase,Urine Negative (Negative); Mucus,Urine Rare /hpf; Nitrite,Urine Negative (Negative); Protein,Urine 2+ (Negative); RBC,Urine <1 /hpf (0-5); Specific Gravity,Urine 1.009 (1.001-1.035); Squamous Epithelial Cell,Urine <1 /hpf (0-4); Urobilinogen,Urine <2.0 mg/dL (<2.0); WBC,Urine 1 /hpf (0-5)
[2023-10-08 19:38] LABS: Amphetamine Screen,Urine Not Detected (NotDetected); Barbiturate Screen,Urine Not Detected (NotDetected); Benzodiazepines Screen,Urine Not Detected (NotDetected); Cocaine Screen,Urine Not Detected (NotDetected); Methadone Screen, Urine Not Detected (NotDetected); Opiate Screen,Urine Not Detected (NotDetected); Oxycodone Screen, Urine Not Detected (NotDetected); Phencyclidine Screen,Urine Not Detected (NotDetected); Tricyclic Antidepressant,Urine Not Detected (NotDetected); Urn Cannabinoid Scrn Not Detected (NotDetected)
[2023-10-08] MEDS: oxyBUTYnin chloride 5 MG TAB PO SCH (20:34)
--- NOTE | 2023-10-08 20:54 | P.HPIM ---
History of Present Illness H&P Date: 10/08/23 Chief Complaint: Not feeling well This is a 63-year-old patient, with chronic stable medical conditions include end-stage kidney disease on hemodialysis, prior to stroke with some memory loss, hypertension, diabetes,. Patient is accompanied by her at the bedside. Patient has been feeling lethargic for a few weeks. About 2 weeks ago patient was in influenza A for which she was at [facility]. Patient been having vomiting on and off. Decreased appetite. Yesterday patient developed some loose stools. Missed hemodialysis today. Has a left arm AV fistula. Appetite has been poor. Decided to be brought in. In the ER patient actually had a sandwich. Normally uses a walker or a wheelchair. Unsteady gait because of arthritis. Review of systems: GEN.: Tired sleepy EYES: None HEENT: None NECK: None RESPIRATORY: None CARDIOVASCULAR: None GASTROINTESTINAL: Had diarrhea yesterday no abdominal pain]. Has been having nausea vomiting GENITOURINARY:[Non] MUSCULOSKELETAL:[Some joint pains ] LYMPHATICS:[Non] HEMATOLOGICAL:[Non] PSYCHIATRY:[Forgetful from prior stroke] NEUROLOGICAL:[Non] Social history: Does not smoke. Alcohol rarely. Some marijuana. . Physical examination: VITAL SIGNS: 98.6, 72, 16, 145 x 49, 97% room air GENERAL: BMI 30.7, reclining and awake tired eating sandwich. EYES:[Pupils equal. Conjunctiva norm]l. HEENT:[External appearance of nose and ears normal, oral cavity grossly jessica]. NECK:[JVD unable to assess; masses not palpabl]. HEART:[First and second heart sounds are normal; no nahid]. LUNGS[ Respiratory rate normal; clear to auscultatio]. ABDOMEN:[Soft, nontender, liver spleen not palpable, no masses palpabl]. PSYCH:[Patient able to answer simple questions ]l. MUSCULOSKELETAL:No Clubbing/cyanosis;muscles-grossly intact NEUROLOGICAL:[Cranial nerves grossly intact; no facial asymmetry, power and sensation grossly intac]. LYMPHATICS:[No lymph nodes palpable in the axilla and nec] INVESTIGATIONS, reviewed in the clinical context: EKG tracing personally reviewed by me-normal sinus rhythm. Some LVH. Nonspecific ST/T wave changes. White count 9.1 hemoglobin 12.9 platelets 278 sodium 136 potassium 3.8 BUN 44 creatinine 7.61 Urine drug screen: Unremarkable Chest x-ray film personally reviewed by me-, poor inspiratory film. Vessels are crowded Assessment plan: -Probable uremic/metabolic encephalopathy from incomplete dialysis. Patient missed her dialysis today. Nephrology consulted. --Nausea vomiting likely from uremia End-stage kidney disease on hemodialysis Left forearm AV fistula. -Obesity BMI 30.7 -Hyperuricemia Allopurinol -Diabetes mellitus type 2, chronically insulin Lantus. Accu-Cheks with sliding scale -Hypothyroid Synthroid -GERD PPI -Essential hypertension Coreg, hydralazine, amlodipine -Chronic urinary incontinence Oxybutynin -Cognitive impairment from prior stroke Care was discussed with the patient . Questions answered. Nephrology consulted. Past Medical History Past Medical History: CVA/TIA, Dementia, Diabetes Mellitus, Dialysis, Hypertension, Renal Disease Additional Past Medical History / Comment(s): CVA x2 w/ memory loss, uses walker at home, hepatitis B, back pain, ESRD on hemodialysis History of Any Multi-Drug Resistant Organisms: None Reported Past Surgical History: Section, Cholecystectomy Additional Past Surgical History / Comment(s): left upper arm fistula Past Anesthesia/Blood Transfusion Reactions: No Reported Reaction Past Psychological History: No Psychological Hx Reported Smoking Status: Never smoker Past Alcohol Use History: Rare Past Drug Use History: Marijuana - Past Family History Mother Family Medical History: No Reported History Medications and Allergies Home Medications Medication Instructions Recorded Confirmed Type Levothyroxine Sodium [Synthroid] 75 mcg PO DAILY 10/28/17 10/08/23 History Oxybutynin Chloride 5 mg PO BID 10/28/17 10/08/23 History allopurinoL [Zyloprim] 100 mg PO DAILY 01/19/20 10/08/23 History Aspirin EC [Ecotrin Low Dose] 81 mg PO DAILY 08/31/21 10/08/23 History Insulin Glargine,Hum.rec.anlog 25 units SQ BID 12/01/22 10/08/23 History [Lantus Solostar Pen] Lidocaine-Prilocaine Cream [Emla 1 applic TOPICAL DAILY PRN 12/01/22 10/08/23 History Cream 2.5%/2.5%] Clotrimazole [Clotrimazole AF] 1 applic TOPICAL BID 10/08/23 10/08/23 History Diclofenac Sodium [Diclofenac 1 applic TOPICAL DAILY PRN 10/08/23 10/08/23 History Sodium 1%] Omeprazole 20 mg PO DAILY 10/08/23 10/08/23 History Ondansetron Odt [Zofran Odt] 4 - 8 mg PO BID PRN 10/08/23 10/08/23 History amLODIPine [Norvasc] 5 mg PO BID 10/08/23 10/08/23 History carvediloL [Coreg] 6.25 mg PO BID 10/08/23 10/08/23 History hydrALAZINE HCL [Apresoline] 50 mg PO BID 10/08/23 10/08/23 History Allergies Allergy/AdvReac Type Severity Reaction Status Date / Time codeine AdvReac Nausea Verified 10/08/23 15:30 Physical Exam Vitals: Vital Signs Temp Pulse Resp BP Pulse Ox 10/08/23 20:33 72 16 145/49 97 10/08/23 18:03 76 18 168/64 96 10/08/23 16:43 69 18 175/105 96 10/08/23 14:42 63 16 192/91 10/08/23 13:31 98.6 F 64 20 237/91 97 Intake and Output 10/08/23 10/08/23 10/08/23 06:59 14:59 22:59 Other: Weight 86.183 kg Results CBC & Chem 7: 10/08/23 13:53 10/08/23 13:53 Labs: Abnormal Lab Results - Last 24 Hours (Table) 10/08/23 10/08/23 10/08/23 Range/Units 13:53 13:53 13:55 MCV 100.8 H (80.0-100.0) fL Sodium 136 L (137-145) mmol/L Chloride 95 L (98-107) mmol/L BUN 44 H (7-17) mg/dL Creatinine 7.61 H* (0.52-1.04) mg/dL Glucose 120 H (74-99) mg/dL POC Glucose (mg/dL) 112 H (70-110) mg/dL Calcium 8.1 L (8.4-10.2) mg/dL ALT 51 H (4-34) U/L Urine Protein (Negative) Urine Glucose (UA) (Negative) Urine Mucus (None) /hpf 10/08/23 Range/Units 18:43 MCV (80.0-100.0) fL Sodium (137-145) mmol/L Chloride (98-107) mmol/L BUN (7-17) mg/dL Creatinine (0.52-1.04) mg/dL Glucose (74-99) mg/dL POC Glucose (mg/dL) (70-110) mg/dL Calcium (8.4-10.2) mg/dL ALT (4-34) U/L Urine Protein 2+ H (Negative) Urine Glucose (UA) 2+ H (Negative) Urine Mucus Rare H (None) /hpf
[2023-10-09] MEDS: PANTOPRAZOLE 40 MG TABLET PO SCH (06:15)
[2023-10-09] MEDS: carvediloL 6.25 MG TAB PO SCH ×2 (06:15→17:09)
[2023-10-09] MEDS: LEVOTHYROXINE 75 MCG TAB PO SCH (06:15)
[2023-10-09 06:17] LABS: Glucose,Whole Blood 97 mg/dL (70-110)
[2023-10-09] MEDS: hydrALAZINE HCL 50 MG TAB PO SCH ×2 (09:27→17:09)
[2023-10-09] MEDS: allopurinoL 100 MG TAB PO SCH (09:27)
[2023-10-09] MEDS: oxyBUTYnin chloride 5 MG TAB PO SCH ×2 (09:27→22:53)
[2023-10-09] MEDS: amLODIPine 5 MG TAB PO SCH ×2 (09:27→22:53)
[2023-10-09] MEDS: ASPIRIN 81 MG PO SCH (09:27)
--- NOTE | 2023-10-09 11:10 | P.NPCON ---
History of Present Illness - Reason for Consult end stage renal disease - History of Present Illness Patient is a 63-year-old female with end-stage renal disease maintained on hemodialysis on a Sunday schedule. Patient was admitted to the hospital with complaints of increased weakness. She did not have her dialysis yesterday. Status post admission for influenza A at the [facility] about 2 weeks ago. Patient admits to decreased oral intake. History of diarrhea prior to admission. Overall patient is a poor historian. No complaints of chest pains or shortness of breath. Potassium is 3.8 and no evidence of CHF noted on chest x-ray. No fever noted. Review of Systems As per HPI. Past Medical History Past Medical History: CVA/TIA, Dementia, Diabetes Mellitus, Dialysis, Hypertension, Renal Disease Additional Past Medical History / Comment(s): CVA x2 w/ memory loss, uses walker at home, hepatitis B, back pain, ESRD on hemodialysis History of Any Multi-Drug Resistant Organisms: None Reported Past Surgical History: Section, Cholecystectomy Additional Past Surgical History / Comment(s): left upper arm fistula Past Anesthesia/Blood Transfusion Reactions: No Reported Reaction Past Psychological History: No Psychological Hx Reported Smoking Status: Never smoker Past Alcohol Use History: Rare Past Drug Use History: Marijuana Additional Drug Use History / Comment(s): occasional use - Past Family History Mother Family Medical History: No Reported History Medications and Allergies Home Medications Medication Instructions Recorded Confirmed Type Levothyroxine Sodium [Synthroid] 75 mcg PO DAILY 10/28/17 10/08/23 History Oxybutynin Chloride 5 mg PO BID 10/28/17 10/08/23 History allopurinoL [Zyloprim] 100 mg PO DAILY 01/19/20 10/08/23 History Aspirin EC [Ecotrin Low Dose] 81 mg PO DAILY 08/31/21 10/08/23 History Insulin Glargine,Hum.rec.anlog 25 units SQ BID 12/01/22 10/08/23 History [Lantus Solostar Pen] Lidocaine-Prilocaine Cream [Emla 1 applic TOPICAL DAILY PRN 12/01/22 10/08/23 History Cream 2.5%/2.5%] Clotrimazole [Clotrimazole AF] 1 applic TOPICAL BID 10/08/23 10/08/23 History Diclofenac Sodium [Diclofenac 1 applic TOPICAL DAILY PRN 10/08/23 10/08/23 History Sodium 1%] Omeprazole 20 mg PO DAILY 10/08/23 10/08/23 History Ondansetron Odt [Zofran Odt] 4 - 8 mg PO BID PRN 10/08/23 10/08/23 History amLODIPine [Norvasc] 5 mg PO BID 10/08/23 10/08/23 History carvediloL [Coreg] 6.25 mg PO BID 10/08/23 10/08/23 History hydrALAZINE HCL [Apresoline] 50 mg PO BID 10/08/23 10/08/23 History Allergies Allergy/AdvReac Type Severity Reaction Status Date / Time codeine AdvReac Nausea Verified 10/08/23 15:30 Physical Exam Vitals: Vital Signs Temp Pulse Pulse Resp BP BP Pulse Ox 10/09/23 07:17 97.4 F L 68 17 138/53 97 10/09/23 02:00 98.5 F 71 154/72 94 L 10/08/23 23:47 98.5 F 91 168/81 95 10/08/23 20:33 72 16 145/49 97 10/08/23 18:03 76 18 168/64 96 10/08/23 16:43 69 18 175/105 96 10/08/23 14:42 63 16 192/91 10/08/23 13:31 98.6 F 64 20 237/91 97 Intake and Output 10/08/23 10/09/23 10/09/23 22:59 06:59 14:59 Output Total 250 Balance -250 Output: Urine 250 Other: Voiding Method Indwelling Catheter Weight 86.183 kg Patient is comfortable. No acute distress Examination of the heart S1 and S2 Examination of the lungs bilateral breath sounds are heard Abdomen is soft nontender. Examination of lower extremities shows no significant edema Left arm AV fistula noted. Results - Lab Results Most recent lab results Calcium 8.1 mg/dL (8.4-10.2) L 10/08/23 13:53 10/08/23 13:53 10/08/23 13:53 Assessment and Plan Assessment: 1. End-stage renal disease on hemodialysis on a Sunday schedule via left arm AV fistula 2. Increased weakness and lethargy 3. History of influenza A about 2 weeks ago 4. CKD mineral bone disorder 5. Hypertension with CKD stage V Plan: Hemodialysis in the a.m. Encourage increase oral intake Check phosphorus with labs in a.m. Continue current antihypertensive medications. Thank you for the consultation. Will continue to follow the patient with you during her hospitalization.
[2023-10-09 11:21] LABS: Glucose,Whole Blood 149 mg/dL (70-110)
[2023-10-09] MEDS: PSYLLIUM HUSK 100% 6 GM PACKET PO SCH ×2 (12:10→22:53)
--- NOTE | 2023-10-09 13:46 | EEG ---
ELECTROENCEPHALOGRAM REPORT PREAMBLE: This is a 63-year-old female who was brought to the hospital for being lethargic and altered. This study is performed to rule out any epileptiform activity. EEG FINDINGS: This is a 21-channel digital EEG recorded with video component, utilizing 10/20 international system with referential and bipolar montages. Background consists of well-developed, moderately well-regulated, predominantly 7.5 hertz theta activity seen in mid to posterior head region. Background seems to be reactive to eye opening and closing. The background infrequently reaches to alpha rhythm as well. Photic driving response was not seen. Drowsiness was seen in later part of the study, with more persistent lower theta frequency rhythm. Deeper stages of sleep were not seen. No focal or generalized epileptiform activity was seen. EKG channel showed no obvious arrhythmia. IMPRESSION: This is a borderline abnormal EEG due to minimal background slowing, suggestive of mild encephalopathy. No epileptiform activity was seen. MMYAMILKAL / IJN: [id number] /
[2023-10-09 16:23] LABS: Glucose,Whole Blood 174 mg/dL (70-110)
--- NOTE | 2023-10-09 16:42 | P.PN ---
Progress Note - Text Progress Note Date: 10/09/23 Chief Complaint: Not feeling well This is a 63-year-old patient, with chronic stable medical conditions include end-stage kidney disease on hemodialysis, prior to stroke with some memory loss, hypertension, diabetes,. Patient is accompanied by her at the bedside. Patient has been feeling lethargic for a few weeks. About 2 weeks ago patient was in influenza A for which she was at [facility]. Patient been having vomiting on and off. Decreased appetite. Yesterday patient developed some loose stools. Missed hemodialysis today. Has a left arm AV fistula. Appetite has been poor. Decided to be brought in. In the ER patient actually had a sandwich. Normally uses a walker or a wheelchair. Unsteady gait because of arthritis. October 09, 2023: Patient refused to breakfast. But had about 100% of her lunch. Had 1 loose stool earlier. C. difficile ordered. EEG negative for epileptiform activity. Hemodialysis per nephrology Active Medications Allopurinol (Allopurinol 100 Mg Tab) 100 mg PO DAILY [facility] Last Admin: 10/09/23 09:27 Dose: 100 mg Amlodipine Besylate (Amlodipine 5 Mg Tab) 5 mg PO BID [facility] Last Admin: 10/09/23 09:27 Dose: 5 mg Aspirin (Aspirin 81 Mg) 81 mg PO DAILY [facility] Last Admin: 10/09/23 09:27 Dose: 81 mg Carvedilol (Carvedilol 6.25 Mg Tab) 6.25 mg PO BID-W/MEALS [facility] Last Admin: 10/09/23 06:15 Dose: 6.25 mg Hydralazine HCl (Hydralazine Hcl 50 Mg Tab) 50 mg PO BID [facility] Last Admin: 10/09/23 09:27 Dose: 50 mg Levothyroxine Sodium (Levothyroxine 75 Mcg Tab) 75 mcg PO DAILY@0630 [facility] Last Admin: 10/09/23 06:15 Dose: 75 mcg Ondansetron HCl (Ondansetron 4 Mg/2 Ml Vial) 4 mg IVP Q8HR PRN PRN Reason: Nausea And Vomiting Oxybutynin Chloride (Oxybutynin Chloride 5 Mg Tab) 5 mg PO BID [facility] Last Admin: 10/09/23 09:27 Dose: 5 mg Pantoprazole Sodium (Pantoprazole 40 Mg Tablet) 40 mg PO AC-BRKFST [facility] Last Admin: 10/09/23 06:15 Dose: 40 mg Psyllium Hydrophilic Mucilloid (Psyllium Husk 100% 6 Gm Packet) 6 gm PO BID [facility] Last Admin: 10/09/23 12:10 Dose: 6 gm Social history: Does not smoke. Alcohol rarely. Some marijuana. . Physical examination: VITAL SIGNS: 97.4, 68, 17, 138 x 53, 97% room air GENERAL: Laying in bed, tired h. EYES:[Pupils equal. Conjunctiva norm]l. HEENT:[External appearance of nose and ears normal, oral cavity grossly jessica]. NECK:[JVD unable to assess; masses not palpabl]. HEART:[First and second heart sounds are normal; no nahid]. LUNGS[ Respiratory rate normal; clear to auscultatio]. ABDOMEN:[Soft, nontender, liver spleen not palpable, no masses palpabl]. PSYCH:[Patient able to answer simple questions ]l. MUSCULOSKELETAL:No Clubbing/cyanosis;muscles-grossly intact INVESTIGATIONS, reviewed in the clinical context: EKG tracing personally reviewed by me-normal sinus rhythm. Some LVH. Nonspec ific ST/T wave changes. White count 9.1 hemoglobin 12.9 platelets 278 sodium 136 potassium 3.8 BUN 44 creatinine 7.61 Urine drug screen: Unremarkable Chest x-ray film personally reviewed by me-, poor inspiratory film. Vessels are crowded Assessment plan: -Probable uremic/metabolic encephalopathy from incomplete dialysis.: Slow to respond Patient missed her dialysis on day of presentation. Nephrology consulted. --Nausea vomiting likely from uremia End-stage kidney disease on hemodialysis Left forearm AV fistula. -Obesity BMI 30.7 -Hyperuricemia Allopurinol -Diabetes mellitus type 2, chronically insulin Levemir 12 units at night.. Accu-Cheks with sliding scale -Hypothyroid Synthroid -GERD PPI -Essential hypertension Coreg, hydralazine, amlodipine -Chronic urinary incontinence Oxybutynin -Cognitive impairment from prior stroke Continue current treatment plan. Increase hydralazine to 50 mg 3 times daily. Start Levemir 12 units at night. Past Medical History Past Medical History: CVA/TIA, Dementia, Diabetes Mellitus, Dialysis, Hypertension, Renal Disease Additional Past Medical History / Comment(s): CVA x2 w/ memory loss, uses walker at home, hepatitis B, back pain, ESRD on hemodialysis History of Any Multi-Drug Resistant Organisms: None Reported Past Surgical History: Section, Cholecystectomy Additional Past Surgical History / Comment(s): left upper arm fistula Past Anesthesia/Blood Transfusion Reactions: No Reported Reaction Past Psychological History: No Psychological Hx Reported Smoking Status: Never smoker Past Alcohol Use History: Rare Past Drug Use History: Marijuana
[2023-10-09] MEDS: ONDANSETRON 4 MG/2 ML VIAL IVP PRN (20:36)
[2023-10-09] MEDS: ACETAMINOPHEN TAB 500 MG TAB PO PRN (20:37)
[2023-10-09] MEDS ORDERED: INSULIN DETEMIR (LEVEMIR) 100 UNIT/ML SYR SQ SCH (21:00)
[2023-10-09 21:23] LABS: Glucose,Whole Blood 150 mg/dL (70-110)
[2023-10-10] MEDS: hydrALAZINE HCL 50 MG TAB PO SCH ×4 (00:22→21:48)
[2023-10-10 05:54] LABS: Glucose,Whole Blood 101 mg/dL (70-110)
[2023-10-10] MEDS: PANTOPRAZOLE 40 MG TABLET PO SCH (06:17)
[2023-10-10] MEDS: LEVOTHYROXINE 75 MCG TAB PO SCH (06:17)
[2023-10-10] MEDS: carvediloL 6.25 MG TAB PO SCH ×2 (06:18→17:04)
[2023-10-10] MEDS: amLODIPine 5 MG TAB PO SCH ×2 (08:25→21:48)
[2023-10-10] MEDS: oxyBUTYnin chloride 5 MG TAB PO SCH ×2 (08:25→21:48)
[2023-10-10] MEDS: allopurinoL 100 MG TAB PO SCH (08:25)
[2023-10-10] MEDS: ASPIRIN 81 MG PO SCH (08:25)
[2023-10-10] MEDS: PSYLLIUM HUSK 100% 6 GM PACKET PO SCH ×2 (08:25→21:48)
--- NOTE | 2023-10-10 09:48 | P.CNNES ---
History of Present Illness Consult date: 10/09/23 Requesting physician: Enrique Peterson Reason for Consult: Altered mental status History of Present Illness: Patient is a 63-year-old female with history of ESRD, on hemodialysis, came to the hospital by ambulance yesterday at 1:25 PM for altered mental status. Patient does not remember details why she came to the hospital, states "I do not know". As per EMS flowsheet, when they arrived, patient was laying on the c ouch. Patient was responsive to painful stimuli. It was reported that patient had become altered about an hour prior. Patient has tested positive for flu last week. She had nausea and vomiting since then and has been fatigued. Patient was on dialysis and her last treatment was on 10/05/2023. Patient was scheduled for it today (yesterday on day of arrival), but has not had gone yet. Pupils are equal and reactive to light. Once patient was in the ambulance, she was able to be relieved disperse some answers. She was alert and oriented x 1. Negative on the stroke scale. Her blood glucose was 167. Blood pressure 140/77, pulse rate 65, respiration 16 saturation 95%. Patient at present states that she lives with her , Mr. Means. She does not know for how long she has been having hemodialysis. She admits to missing some dialysis. Patient states that she has been using walker for "long time". CT head showed no acute intracranial process. Chronic appearing periventricular white matter ischemic type changes. Old lacunar infarct present previously may be in the right periventricular basal ganglion. I reviewed CT head, and agree with the findings. EKG shows sinus rhythm. Blood test shows normal CBC, PT PTT, sodium is 136 potassium 3.8, BUN 44, creatinine 0.61. AST normal, ALT mildly elevated 51, troponin negative, UA negative. Urine drug screen negative. Review of Systems Constitutional: Denies chills, Denies fever Eyes: denies blurred vision, denies diplopia, denies pain Ears: deny: decreased hearing, ear discharge Ears, nose, mouth and throat: Denies headache, Denies sore throat, Denies vertigo Cardiovascular: Reports shortness of breath, Denies chest pain Respiratory: Denies cough, Denies excessive sputum Gastrointestinal: Denies abdominal pain, Denies diarrhea, Denies nausea, Denies vomiting Genitourinary: Denies dysuria, Denies hematuria Musculoskeletal: Denies low back pain, Denies neck pain Integumentary: Denies pruritus, Denies rash Neurological: Reports as per HPI, Denies aphasia, Denies convulsions, Denies numbness, Denies paralysis, Denies transient paralysis Psychiatric: Denies anxiety, Denies depression Endocrine: Reports fatigue, Denies weight change Hematologic/Lymphatic: Reports easy bruising, Denies easy bleeding Past Medical History Past Medical History: CVA/TIA, Dementia, Diabetes Mellitus, Dialysis, Hypertension, Renal Disease Additional Past Medical History / Comment(s): CVA x2 w/ memory loss, uses walker at home, hepatitis B, back pain, ESRD on hemodialysis History of Any Multi-Drug Resistant Organisms: None Reported Past Surgical History: Section, Cholecystectomy Additional Past Surgical History / Comment(s): left upper arm fistula Past Anesthesia/Blood Transfusion Reactions: No Reported Reaction Past Psychological History: No Psychological Hx Reported Smoking Status: Never smoker Past Alcohol Use History: Rare Past Drug Use History: Marijuana Additional Drug Use History / Comment(s): occasional use - Past Family History Mother Family Medical History: No Reported History Medications and Allergies Home Medications Medication Instructions Recorded Confirmed Type Levothyroxine Sodium [Synthroid] 75 mcg PO DAILY 10/28/17 10/08/23 History Oxybutynin Chloride 5 mg PO BID 10/28/17 10/08/23 History allopurinoL [Zyloprim] 100 mg PO DAILY 01/19/20 10/08/23 History Aspirin EC [Ecotrin Low Dose] 81 mg PO DAILY 08/31/21 10/08/23 History Insulin Glargine,Hum.rec.anlog 25 units SQ BID 12/01/22 10/08/23 History [Lantus Solostar Pen] Lidocaine-Prilocaine Cream [Emla 1 applic TOPICAL DAILY PRN 12/01/22 10/08/23 History Cream 2.5%/2.5%] Clotrimazole [Clotrimazole AF] 1 applic TOPICAL BID 10/08/23 10/08/23 History Diclofenac Sodium [Diclofenac 1 applic TOPICAL DAILY PRN 10/08/23 10/08/23 History Sodium 1%] Omeprazole 20 mg PO DAILY 10/08/23 10/08/23 History Ondansetron Odt [Zofran Odt] 4 - 8 mg PO BID PRN 10/08/23 10/08/23 History amLODIPine [Norvasc] 5 mg PO BID 10/08/23 10/08/23 History carvediloL [Coreg] 6.25 mg PO BID 10/08/23 10/08/23 History hydrALAZINE HCL [Apresoline] 50 mg PO BID 10/08/23 10/08/23 History Allergies Allergy/AdvReac Type Severity Reaction Status Date / Time codeine AdvReac Nausea Verified 10/08/23 15:30 Physical Examination - Vital Signs Vital Signs: Vital Signs Temp Pulse Pulse Resp BP BP Pulse Ox 10/09/23 14:00 98.7 F 72 19 155/54 96 10/09/23 07:17 97.4 F L 68 17 138/53 97 10/09/23 02:00 98.5 F 71 154/72 94 L 10/08/23 23:47 98.5 F 91 168/81 95 10/08/23 20:33 72 16 145/49 97 10/08/23 18:03 76 18 168/64 96 10/08/23 16:43 69 18 175/105 96 Intake and Output 10/09/23 10/09/23 10/09/23 06:59 14:59 22:59 Output Total 250 Balance -250 Output: Urine 250 Other: Voiding Method Indwelling Catheter Weight 86.183 kg Patient is an elderly female, who is in no acute distress. Patient is alert awake. Patient believes it is February and the year is 2023. She knows that she is in the hospital but does not know the name, and knows that she is in [place] in [place] and name of the current president Mr. Montiel. Speech and language functions are normal. Patient can name and repeat very well. No aphasia or dysarthria. Attention, concentration is mild to moderately impaired and fund of knowledge also somewhat limited. Detailed cognitive function testing deferred. On cranial nerve examination, pupils are equal, round and reacting to light, visual saleem are full on confrontation, with no neglect on double simultaneous stimulation. Extraocular muscles are intact with no nystagmus. Face is sym metric, tongue protrudes to the midline. Palatal elevation and sensation normal, hearing and shoulder shrug normal, facial sensation normal. On muscle strength testing, there is no pronator drift and the strength is normal in arms and legs distally and proximally. Deep tendon reflexes are symmetric but overall very hypoactive and plantars are downgoing. Sensory to touch is equal with no neglect on double simultaneous stimulation. Cerebellar function showed no ataxia for [id number] testing. No dysdiadochokinesia. No ataxia for [id number] testing on either side. Tone and bulk of muscles normal. Patient has very mild myoclonic jerks of outstretched hands, left more than right Gait deferred.. On general examination, there is no carotid bruit or murmur, S1-S2 audible. Chest is clear on consultation. Abdomen is soft nontender. No organomegaly, bowel sounds present. Peripheral pulses are present. No peripheral edema. Results - Laboratory Findings CBC and BMP: 10/08/23 13:53 10/08/23 13:53 Abnormal Lab Findings: Abnormal Labs 10/08/23 10/08/23 10/08/23 13:53 13:53 13:55 MCV 100.8 H Sodium 136 L Chloride 95 L BUN 44 H Creatinine 7.61 H* Glucose 120 H POC Glucose (mg/dL) 112 H Calcium 8.1 L ALT 51 H Urine Protein Urine Glucose (UA) Urine Mucus 10/08/23 10/09/23 18:43 11:20 MCV Sodium Chloride BUN Creatinine Glucose POC Glucose (mg/dL) 149 H Calcium ALT Urine Protein 2+ H Urine Glucose (UA) 2+ H Urine Mucus Rare H Assessment and Plan Assessment: * Altered mental status, likely due to metabolic encephalopathy. Likely due to missing hemodialysis. * End-stage renal disease, on hemodialysis * Obesity * Diabetes, poorly controlled * Hypothyroidism * Hypertension * History of left thalamic lacunar stroke 10/30/2017. * Evidence of old CVA right frontal basal ganglia on CT head. * Possible underlying some cognitive impairment. Plan: * Patient's metabolic encephalopathy likely due to missing hemodialysis. Patient has been resumed on hemodialysis. Her mentation is improved. * Patient's examination is nonfocal. * Check B12, folate, TSH, A1c, lipid panel. * Continue aspirin 81 mg daily. * Medical management as per IM and other specialties. * Neurology will follow clinically. * We will obtain collateral history from patient's as well. * Thank you for the consult.
--- NOTE | 2023-10-10 11:06 | P.PN ---
Subjective Patient is seen for follow-up for end-stage renal disease. Seen on hemodialysis. Patient is tolerating her treatment well. Daughter is present at bedside and states that patient has not been eating much for about 2 to 3 weeks now. She has had diarrhea on and off as well as nausea and vomiting. Objective - Vital Signs Vital signs: Vital Signs Temp 98.2 F 10/10/23 07:35 Pulse 66 10/10/23 07:35 Resp 19 10/10/23 07:35 BP 165/69 10/10/23 07:35 Pulse Ox 94 L 10/10/23 07:35 FiO2 Intake & Output 10/09/23 10/10/23 10/10/23 18:59 06:59 18:59 Other: Voiding Method Bedside Commode # Voids 1 # Bowel Movements 3 - Exam Patient is comfortable. No acute distress Examination of the heart S1 and S2 Examination of the lungs bilateral breath sounds are heard Abdomen is soft nontender. Examination of lower extremities shows no significant edema Left arm AV fistula noted. - Labs CBC & Chem 7: 10/08/23 13:53 10/08/23 13:53 Labs: Abnormal Lab Results - Last 24 Hours (Table) 10/09/23 10/09/23 10/09/23 Range/Units 11:20 16:22 21:21 POC Glucose (mg/dL) 149 H 174 H 150 H (70-110) mg/dL Assessment and Plan Assessment: 1. End-stage renal disease on hemodialysis on a Sunday schedule via left arm AV fistula 2. Increased weakness and lethargy 3. History of influenza A about 2 weeks ago 4. CKD mineral bone disorder 5. Hypertension with CKD stage V 6. Nausea vomiting and diarrhea Plan: Hemodialysis today Encourage increase oral intake Continue current antihypertensive medications. Consider EGD and colonoscopy if not improved
[2023-10-10 11:37] LABS: Hepatitis B Surface AB- Quant 3.5 mIU/mL
[2023-10-10 12:03] LABS: Glucose,Whole Blood 98 mg/dL (70-110)
[2023-10-10 12:06] LABS: Hepatitis B Surface Antigen Nonreactive
[2023-10-10] MEDS: ACETAMINOPHEN TAB 500 MG TAB PO PRN (14:22)
--- NOTE | 2023-10-10 16:05 | P.PN ---
Progress Note - Text Progress Note Date: 10/10/23 Chief Complaint: Not feeling well This is a 63-year-old patient, with chronic stable medical conditions include end-stage kidney disease on hemodialysis, prior to stroke with some memory loss, hypertension, diabetes,. Patient is accompanied by her at the bedside. Patient has been feeling lethargic for a few weeks. About 2 weeks ago patient was in influenza A for which she was at [facility]. Patient been having vomiting on and off. Decreased appetite. Yesterday patient developed some loose stools. Missed hemodialysis today. Has a left arm AV fistula. Appetite has been poor. Decided to be brought in. In the ER patient actually had a sandwich. Normally uses a walker or a wheelchair. Unsteady gait because of arthritis. October 09, 2023: Patient refused to breakfast. But had about 100% of her lunch. Had 1 loose stool earlier. C. difficile ordered. EEG negative for epileptiform activity. Hemodialysis per nephrology October 10, 2023: Tired. Getting hemodialysis today. Decreased oral intake. C. difficile negative. Active Medications Acetaminophen (Acetaminophen Tab 500 Mg Tab) 500 mg PO Q6HR PRN PRN Reason: Fever and/ or Pain Last Admin: 10/10/23 14:22 Dose: 500 mg Allopurinol (Allopurinol 100 Mg Tab) 100 mg PO DAILY [facility] Last Admin: 10/10/23 08:25 Dose: 100 mg Amlodipine Besylate (Amlodipine 5 Mg Tab) 5 mg PO BID [facility] Last Admin: 10/10/23 08:25 Dose: 5 mg Aspirin (Aspirin 81 Mg) 81 mg PO DAILY [facility] Last Admin: 10/10/23 08:25 Dose: 81 mg Carvedilol (Carvedilol 6.25 Mg Tab) 6.25 mg PO BID-W/MEALS [facility] Last Admin: 10/10/23 06:18 Dose: 6.25 mg Hydralazine HCl (Hydralazine Hcl 50 Mg Tab) 50 mg PO TID [facility] Last Admin: 10/10/23 08:25 Dose: 50 mg Insulin Detemir (Insulin Detemir (Levemir) 100 Unit/Ml Syr) 12 unit SQ HS [facility] Last Admin: 10/09/23 22:54 Dose: 12 unit Levothyroxine Sodium (Levothyroxine 75 Mcg Tab) 75 mcg PO DAILY@0630 [facility] Last Admin: 10/10/23 06:17 Dose: 75 mcg Ondansetron HCl (Ondansetron 4 Mg/2 Ml Vial) 4 mg IVP Q8HR PRN PRN Reason: Nausea And Vomiting Last Admin: 10/09/23 20:36 Dose: 4 mg Oxybutynin Chloride (Oxybutynin Chloride 5 Mg Tab) 5 mg PO BID [facility] Last Admin: 10/10/23 08:25 Dose: 5 mg Pantoprazole Sodium (Pantoprazole 40 Mg Tablet) 40 mg PO AC-BRKFST [facility] Last Admin: 10/10/23 06:17 Dose: 40 mg Psyllium Hydrophilic Mucilloid (Psyllium Husk 100% 6 Gm Packet) 6 gm PO BID [facility] Last Admin: 10/10/23 08:25 Dose: 6 gm Social history: Does not smoke. Alcohol rarely. Some marijuana. . Physical examination: VITAL SIGNS: 98.3, 64, 20, 149 x 65, 93% room air GENERAL: Laying in bed, getting dialysis EYES:[Pupils equal. Conjunctiva norm]l. HEENT:[External appearance of nose and ears normal, oral cavity grossly jessica]. NECK:[JVD unable to assess; masses not palpabl]. HEART:[First and second heart sounds are normal; no nahid]. LUNGS[ Respiratory rate normal; clear to auscultatio]. ABDOMEN:[Soft, nontender, liver spleen not palpable, no masses palpabl]. PSYCH:[Patient able to answer simple questions ]l. MUSCULOSKELETAL:No Clubbing/cyanosis;muscles-grossly intact INVESTIGATIONS, reviewed in the clinical context: C. difficile: Negative EKG tracing personally reviewed by me-normal sinus rhythm. Some LVH. Nonspecific ST/T wave changes. White count 9.1 hemoglobin 12.9 platelets 278 sodium 136 potassium 3.8 BUN 44 creatinine 7.61 Urine drug screen: Unremarkable Chest x-ray film personally reviewed by me-, poor inspiratory film. Vessels are crowded Assessment plan: -Probable uremic/metabolic encephalopathy from incomplete dialysis.: Slow to respond Patient missed her dialysis on day of presentation. Placed on dialysis --Nausea vomiting likely from uremia End-stage kidney disease on hemodialysis Left forearm AV fistula. -Obesity BMI 30.7 -Hyperuricemia Allopurinol -Diabetes mellitus type 2, chronically insulin Levemir 8 units at night.. Accu-Cheks with sliding scale -Hypothyroid Synthroid -GERD PPI -Essential hypertension Coreg, hydralazine, amlodipine -Chronic urinary incontinence Oxybutynin -Cognitive impairment from prior stroke Continue current treatment plan. Past Medical History Past Medical History: CVA/TIA, Dementia, Diabetes Mellitus, Dialysis, Hypertension, Renal Disease Additional Past Medical History / Comment(s): CVA x2 w/ memory loss, uses walker at home, hepatitis B, back pain, ESRD on hemodialysis History of Any Multi-Drug Resistant Organisms: None Reported Past Surgical History: Section, Cholecystectomy Additional Past Surgical History / Comment(s): left upper arm fistula Past Anesthesia/Blood Transfusion Reactions: No Reported Reaction Past Psychological History: No Psychological Hx Reported Smoking Status: Never smoker Past Alcohol Use History: Rare Past Drug Use History: Marijuana
[2023-10-10 16:16] LABS: Glucose,Whole Blood 158 mg/dL (70-110)
[2023-10-10 16:24] LABS: Chol/HDL Ratio 7.86 Ratio; LDL Cholesterol,Calculated 133.4 mg/dL (0.0-131.0)
[2023-10-10 19:53] LABS: Glucose,Whole Blood 224 mg/dL (70-110)
[2023-10-10] MEDS: ONDANSETRON 4 MG/2 ML VIAL IVP PRN (20:01)
[2023-10-10] MEDS ORDERED: INSULIN DETEMIR (LEVEMIR) 100 UNIT/ML SYR SQ SCH (21:00)
[2023-10-11] MEDS ORDERED: ZINC OXIDE PASTE (Z-GUARD) 1 APPLIC TOPICAL PRN (05:03)
[2023-10-11] MEDS: LEVOTHYROXINE 75 MCG TAB PO SCH (05:15)
[2023-10-11 06:14] LABS: Glucose,Whole Blood 122 mg/dL (70-110)
[2023-10-11] MEDS: amLODIPine 5 MG TAB PO SCH (09:05)
[2023-10-11] MEDS: PANTOPRAZOLE 40 MG TABLET PO SCH (09:05)
[2023-10-11] MEDS: oxyBUTYnin chloride 5 MG TAB PO SCH (09:05)
[2023-10-11] MEDS: ASPIRIN 81 MG PO SCH (09:05)
[2023-10-11] MEDS: allopurinoL 100 MG TAB PO SCH (09:05)
[2023-10-11] MEDS: hydrALAZINE HCL 50 MG TAB PO SCH (09:05)
[2023-10-11] MEDS: carvediloL 6.25 MG TAB PO SCH (09:05)
[2023-10-11] MEDS: PSYLLIUM HUSK 100% 6 GM PACKET PO SCH (09:06)
[2023-10-11 09:12] VITALS: BP 154/60; PULSE 79; RESP 11; TEMP 97.9
--- NOTE | 2023-10-11 09:49 | P.PN ---
Subjective Progress Note Date: 10/10/23 Patient was seen for a follow-up. Patient's was also present today. He mentions that she was brought to the hospital because she was unresponsive. She was not staying awake. She was supposed to have hemodialysis, but she could not stay awake was very lethargic, weak therefore he called the ambulance. Patient usually gets hemodialysis every Sunday and Sunday. He mentions that she was diagnosed with influenza on 09/25/2023, when she fell out of bed, was throwing up. Since she arrived to the hospital, he believes that she is about 80% back to normal. She is still talking with the whisper. She has fluid on the lungs. Patient states she has a very mild headache. Denies any previous history of strokes or seizures. Objective - Vital Signs Vital signs: Vital Signs Temp 98.3 F 10/10/23 14:00 Pulse 64 10/10/23 14:00 Resp 20 10/10/23 14:00 BP 173/85 10/10/23 16:59 Pulse Ox 93 L 10/10/23 14:00 FiO2 Intake & Output 10/09/23 10/10/23 10/10/23 18:59 06:59 18:59 Intake Total 400 Output Total 2550 Balance -2150 Intake: Hemodialysis 400 Output: Urine 550 Post Void Residual 0 Hemodialysis 2000 Other: Voiding Method Bedside Commode # Voids 1 # Bowel Movements 3 1 - Exam Patient is much more alert and awake. Still appears mildly encephalopathic, with slow mentation. She talks with a whisper. Speech and language functions are normal. Cranial nerves are normal, visual saleem are full, face is symmetric. Tongue protrudes to the midline. On muscle strength testing, there is no pronator drift and the strength is normal in arms and legs. Sensory to touch is equal with no neglect. No ataxia for [id number] testing. - Labs CBC & Chem 7: 10/08/23 13:53 10/08/23 13:53 Labs: Abnormal Lab Results - Last 24 Hours (Table) 10/09/23 10/10/23 10/10/23 Range/Units 21:21 10:14 16:15 POC Glucose (mg/dL) 150 H 158 H (70-110) mg/dL Triglycerides 184.00 H (0.00-149.00) mg/dL LDL Cholesterol, Calc 133.4 H (0.0-131.0) mg/dL HDL Cholesterol 24.80 L (40.00-60.00) mg/dL Vitamin B12 1512.0 H (200.0-944.0) pg/mL Assessment and Plan Assessment: * Altered mental status, likely due to metabolic encephalopathy. Likely due to missing hemodialysis. * End-stage renal disease, on hemodialysis * Recent history of influenza A diagnosed 2 weeks ago * Obesity * Diabetes, (poorly controlled previously on 10/28/2017 her A1c was 12.8), but now normal 5.8 as of today. * Hypothyroidism * Hypertension * Hyperlipidemia * History of left thalamic lacunar stroke 10/30/2017. * Evidence of old CVA right frontal basal ganglia on CT head. * Possible underlying some cognitive impairment. Plan: * Patient's metabolic encephalopathy likely due to missing hemodialysis. Patient has been resumed on hemodialysis. Her mentation is further improved, per 80% back to baseline. * Patient's examination is nonfocal. * B12 1512, folate 4.6, TSH 0.714, A1c 5.8, start folic acid 1 mg daily. Diabetes is now very well-controlled. * Lipid panel with cholesterol 195, LDL 133, HDL 24, triglycerides 184. Patient has history of at least 2 different strokes in the past. We will start Lipitor 20 mg at bedtime. * Continue aspirin 81 mg daily. * Medical management as per IM and other specialties. * PT and OT. * Neurologically, no other workup indicated.
[2023-10-11] MEDS ORDERED: FOLIC ACID 1 MG TAB PO SCH (10:00)
[2023-10-11 11:34] LABS: Glucose,Whole Blood 180 mg/dL (70-110)
--- NOTE | 2023-10-11 11:53 | P.PN ---
Subjective Patient is seen for follow-up for end-stage renal disease. Tolerated hemodialysis well yesterday. Mentation seems to have improved. No complaints of nausea or vomiting. No diarrhea documented. Objective - Vital Signs Vital signs: Vital Signs Temp 97.9 F 10/11/23 08:00 Pulse 79 10/11/23 08:00 Resp 11 L 10/11/23 08:00 BP 154/60 10/11/23 08:00 Pulse Ox 95 10/11/23 08:00 FiO2 Intake & Output 10/10/23 10/11/23 10/11/23 18:59 06:59 18:59 Intake Total 400 120 Output Total 2550 50 Balance -2150 -50 120 Intake: Oral 120 Hemodialysis 400 Output: Urine 550 50 Straight 50 Post Void Residual 0 0 Hemodialysis 2000 Other: Voiding Method Bedside Commode Bedside Commode Bedside Commode Self-Catheterization # Bowel Movements 1 - Exam Patient is comfortable. No acute distress Examination of the heart S1 and S2 Examination of the lungs bilateral breath sounds are heard Abdomen is soft nontender. Examination of lower extremities shows no significant edema Left arm AV fistula noted. - Labs CBC & Chem 7: 10/08/23 13:53 10/08/23 13:53 Labs: Abnormal Lab Results - Last 24 Hours (Table) 10/10/23 10/10/23 10/10/23 Range/Units 10:14 16:15 19:51 POC Glucose (mg/dL) 158 H 224 H (70-110) mg/dL Triglycerides 184.00 H (0.00-149.00) mg/dL LDL Cholesterol, Calc 133.4 H (0.0-131.0) mg/dL HDL Cholesterol 24.80 L (40.00-60.00) mg/dL Vitamin B12 1512.0 H (200.0-944.0) pg/mL 10/11/23 10/11/23 Range/Units 06:12 11:31 POC Glucose (mg/dL) 122 H 180 H (70-110) mg/dL Triglycerides (0.00-149.00) mg/dL LDL Cholesterol, Calc (0.0-131.0) mg/dL HDL Cholesterol (40.00-60.00) mg/dL Vitamin B12 (200.0-944.0) pg/mL Assessment and Plan Assessment: 1. End-stage renal disease on hemodialysis on a Sunday schedule via left arm AV fistula 2. Increased weakness and lethargy 3. History of influenza A about 2 weeks ago 4. CKD mineral bone disorder 5. Hypertension with CKD stage V 6. Nausea vomiting and diarrhea, improved 7. Mental status changes, improving. Patient is being followed by neurology. Plan: Hemodialysis in a.m. Encourage increase oral intake Continue current antihypertensive medications.
[2023-10-11] MEDS ORDERED: ATORVASTATIN 20 MG TAB PO SCH (21:00)
--- NOTE | 2023-10-12 10:06 | P.DS ---
Providers Date of admission: 10/11/23 12:50 Expected date of discharge: 10/11/23 Attending physician: Sukhdev Ford Consults: 10/08/23 15:54 Consult Physician Urgent Consulting Provider: Oz Aldana Consult Reason/Comments: Altered mental status Do you want consulting provider notified?: Yes Consult Physician Urgent Consulting Provider: Sapna Shelby Consult Reason/Comments: Missed dialysis Do you want consulting provider notified?: Yes Primary care physician: [facility] Course: Chief Complaint: Not feeling well This is a 63-year-old patient, with chronic stable medical conditions include end-stage kidney disease on hemodialysis, prior to stroke with some memory loss, hypertension, diabetes,. Patient is accompanied by her at the bedside. Patient has been feeling lethargic for a few weeks. About 2 weeks ago patient was in influenza A for which she was at [facility]. Patient been having vomiting on and off. Decreased appetite. Yesterday patient developed some loose stools. Missed hemodialysis today. Has a left arm AV fistula. Appetite has been poor. Decided to be brought in. In the ER patient actually had a sandwich. Normally uses a walker or a wheelchair. Unsteady gait because of arthritis. October 09, 2023: Patient refused to breakfast. But had about 100% of her lunch. Had 1 loose stool earlier. C. difficile ordered. EEG negative for epileptiform activity. Hemodialysis per nephrology October 10, 2023: Tired. Getting hemodialysis today. Decreased oral intake. C. difficile negative. October 11: Patient had all of breakfast. Doing much better. Cleared by nephrology for discharge. Medications reviewed. Discussed with the casework manager. Discussion and discharge planning more than 35 minutes Social history: Does not smoke. Alcohol rarely. Some marijuana. . Physical examination: VITAL SIGNS: 97.9, 79, 16, 154/60, 95% room air GENERAL: Laying in bed, comfortable EYES:[Pupils equal. Conjunctiva norm]l. HEENT:[External appearance of nose and ears normal, oral cavity grossly jessica]. NECK:[JVD unable to assess; masses not palpabl]. HEART:[First and second heart sounds are normal; no nahid]. LUNGS[ Respiratory rate normal; clear to auscultatio]. ABDOMEN:[Soft, nontender, liver spleen not palpable, no masses palpabl]. PSYCH:[Patient able to answer simple questions ]l. MUSCULOSKELETAL:No Clubbing/cyanosis;muscles-grossly intact INVESTIGATIONS, reviewed in the clinical context: C. difficile: Negative EKG tracing personally reviewed by me-normal sinus rhythm. Some LVH. Nonspecific ST/T wave changes. White count 9.1 hemoglobin 12.9 platelets 278 sodium 136 potassium 3.8 BUN 44 creatinine 7.61 Urine drug screen: Unremarkable Chest x-ray film personally reviewed by me-, poor inspiratory film. Vessels are crowded Assessment plan: -Probable uremic/metabolic encephalopathy from incomplete dialysis.: Much better Patient missed her dialysis on day of presentation. Was dialyzed --Nausea vomiting likely from uremia: Much better Improved with dialysis End-stage kidney disease on hemodialysis Left forearm AV fistula. -Obesity BMI 30.7 -Hyperuricemia Allopurinol -Diabetes mellitus type 2, chronically insulin Levemir 12 units at night.. Accu-Cheks with sliding scale -Hypothyroid Synthroid -GERD PPI -Essential hypertension Coreg, hydralazine increased to 50 mg 3 times daily, amlodipine -Chronic urinary incontinence Oxybutynin -Cognitive impairment from prior stroke Disposition: Home Past Medical History Past Medical History: CVA/TIA, Dementia, Diabetes Mellitus, Dialysis, Hypertension, Renal Disease Additional Past Medical History / Comment(s): CVA x2 w/ memory loss, uses walker at home, hepatitis B, back pain, ESRD on hemodialysis History of Any Multi-Drug Resistant Organisms: None Reported Past Surgical History: Section, Cholecystectomy Additional Past Surgical History / Comment(s): left upper arm fistula Past Anesthesia/Blood Transfusion Reactions: No Reported Reaction Past Psychological History: No Psychological Hx Reported Smoking Status: Never smoker Past Alcohol Use History: Rare Past Drug Use History: Marijuana Plan - Discharge Summary Discharge Rx Participant: No New Discharge Prescriptions: New Folic Acid 1 mg PO DAILY #30 tab Atorvastatin [Lipitor] 20 mg PO HS #60 tab Psyllium Husk 100% [Metamucil Packet] 6 gm PO BID packet Continue Oxybutynin Chloride 5 mg PO BID Levothyroxine Sodium [Synthroid] 75 mcg PO DAILY allopurinoL [Zyloprim] 100 mg PO DAILY amLODIPine [Norvasc] 5 mg PO BID Aspirin EC [Ecotrin Low Dose] 81 mg PO DAILY Lidocaine-Prilocaine Cream [Emla Cream 2.5%/2.5%] 1 applic TOPICAL DAILY PRN PRN Reason: dialysis Clotrimazole [Clotrimazole AF] 1 applic TOPICAL BID carvediloL [Coreg] 6.25 mg PO BID Omeprazole 20 mg PO DAILY Ondansetron Odt [Zofran ODT] 4 - 8 mg PO BID PRN PRN Reason: Nausea Diclofenac Sodium [Diclofenac Sodium 1%] 1 applic TOPICAL DAILY PRN PRN Reason: Pain Changed hydrALAZINE HCL [Apresoline] 50 mg PO TID #90 tab Insulin Glargine,Hum.rec.anlog [Lantus Solostar Pen] 12 units SQ HS #0 Discharge Medication List Levothyroxine Sodium [Synthroid] 75 mcg PO DAILY 10/28/17 [History] Oxybutynin Chloride 5 mg PO BID 10/28/17 [History] allopurinoL [Zyloprim] 100 mg PO DAILY 01/19/20 [History] Aspirin EC [Ecotrin Low Dose] 81 mg PO DAILY 08/31/21 [History] Lidocaine-Prilocaine Cream [Emla Cream 2.5%/2.5%] 1 applic TOPICAL DAILY PRN 12/01/22 [History] Clotrimazole [Clotrimazole AF] 1 applic TOPICAL BID 10/08/23 [History] Diclofenac Sodium [Diclofenac Sodium 1%] 1 applic TOPICAL DAILY PRN 10/08/23 [History] Omeprazole 20 mg PO DAILY 10/08/23 [History] Ondansetron Odt [Zofran ODT] 4 - 8 mg PO BID PRN 10/08/23 [History] amLODIPine [Norvasc] 5 mg PO BID 10/08/23 [History] carvediloL [Coreg] 6.25 mg PO BID 10/08/23 [History] Atorvastatin [Lipitor] 20 mg PO HS #60 tab 10/11/23 [Rx] Folic Acid 1 mg PO DAILY #30 tab 10/11/23 [Rx] Insulin Glargine,Hum.rec.anlog [Lantus Solostar Pen] 12 units SQ HS #0 10/11/23 [Rx] Psyllium Husk 100% [Metamucil Packet] 6 gm PO BID packet 10/11/23 [Rx] hydrALAZINE HCL [Apresoline] 50 mg PO TID #90 tab 10/11/23 [Rx] Follow up Appointment(s)/Referral(s): Sapna Shelby MD [STAFF PHYSICIAN] - 1 Week Des Vazquez DO [Primary Care Provider] - 1-2 days (With your PCP. [facility] is not your primary) [facility] [NON-STAFF] - 1 Week ([facility] will call you to arrange a visit) Discharge/Stand Alone Forms: Community Resources, Help In The Home Discharge Disposition: HOME SELF-CARE
--- NOTE | 2023-10-12 12:40 | CDI ---
Documentation Clarification Form Date: 10/12/23 From: Brittny De Leon Admit Date: 10/11/2023 12:50:00 PM Patient Name: Renetta Quinonez Visit Number: [id number] Discharge Date: 10/11/2023 04:43:00 PM ATTENTION: The Clinical Documentation Specialists (CDI) and [facility] Coding Staff appreciate your assistance in clarifying documentation. Please respond to the clarification below the line at the bottom and electronically sign. The CDI & [facility] Coding staff will review the response and follow-up if needed. Please note: Queries are made part of the Legal Health Record. If you have any questions, please contact the author of this message via ITS. Dr. Sukhdev Ford, COVID-19 is documented in the medical record as found in: ED NOTE- Patient was diagnosed with COVID last week. Please provide additional documentation in the patients medical record in the next progress note and/or discharge summary supportive of your documented diagnosis of COVID-19. No repeat COVID testing this encounter. Can you please clarify COVID status? [ ] COVID-19 was evident/ruled in because: [ ] COVID-19 was ruled out and amended documentation provided in the medical record [ ] Other explanation of clinical findings (please specify): [ ] Clinically unable to provide additional clarity regarding the diagnosis of COVID-19 [ + ] Other, please specify __: No additional documentation required [ ] Unable to determine MTDD
== END 2023-10-11 16:43 | disposition home health service (06) | DRG 70 ==
LOC: EC 13:25 → 4SSUR 15:55 → OBSVTOIN 10-11 12:50
PROVIDERS: ADMIT Hospitalist; ATTEND Hospitalist
DX: G93.41 Metabolic encephalopathy (principal); N18.6 End stage renal disease; U07.1 COVID-19; I12.0 Hypertensive chronic kidney disease with stage 5 chronic kidney disease or end stage renal disease; E11.22 Type 2 diabetes mellitus with diabetic chronic kidney disease; E83.9 Disorder of mineral metabolism, unspecified; F03.90 Unspecified dementia, unspecified severity, without behavioral disturbance, psychotic disturbance, mood disturbance, and anxiety; I69.318 Other symptoms and signs involving cognitive functions following cerebral infarction; Z99.2 Dependence on renal dialysis; E66.9 Obesity, unspecified; Z68.30 Body mass index [BMI] 30.0-30.9, adult; Z91.158 Patient's noncompliance with renal dialysis for other reason; Z79.4 Long term (current) use of insulin; E79.0 Hyperuricemia without signs of inflammatory arthritis and tophaceous disease; K21.9 Gastro-esophageal reflux disease without esophagitis; R32 Unspecified urinary incontinence; E78.5 Hyperlipidemia, unspecified; M19.90 Unspecified osteoarthritis, unspecified site; R26.81 Unsteadiness on feet; M54.9 Dorsalgia, unspecified; Z79.82 Long term (current) use of aspirin; Z79.890 Hormone replacement therapy; Z79.899 Other long term (current) drug therapy; Z86.19 Personal history of other infectious and parasitic diseases; W06.XXXA Fall from bed, initial encounter
CPT/HCPCS: 36415; 70450; 71046; 80053; 80061; 80306; 81001; 82607; 82746; 83036; 84443; 84484; 85025; 85610; 85730; 86706; 87324; 87340; 90935; 93005; 95816; 96374; 99285

== ENCOUNTER → 2023-10-30 | Outpatient (CLI) | payer MEDICARE, OTHER ==
--- NOTE | 2023-10-30 12:58 | FL ---
Exam Date: 10/30/2023 12:01 PM. Modified barium swallow for dysphagia. Consistencies administered: Various consistency of barium. Fluoro time: 1 minute 18 seconds No images were sent to PACS. Please see speech pathology report. DAP: Not reported mGym2 Gycm2
== END | disposition home or self-care (01) ==
LOC: RADFLMAIN 11:32
PROVIDERS: ATTEND Family Medicine
DX: R13.10 Dysphagia, unspecified (principal)
CPT/HCPCS: 74230

== ENCOUNTER 2023-11-01 16:31 | Inpatient (IN) | payer MEDICARE ==
[2023-11-01] MEDS: SODIUM CHLORIDE 0.9% 1,000 ML IV STA (18:04)
[2023-11-01] MEDS: SODIUM CHLORIDE 0.9% 500 ML 500 ML IV STA (18:04)
[2023-11-01] MEDS: ONDANSETRON 4 MG/2 ML VIAL IVP STA (18:05)
[2023-11-01 18:16] LABS: Basophils # (A) 0.1 k/uL (0-0.2); Basophils % (A) 1 %; Eosinophils # (A) 0.1 k/uL (0-0.7); Eosinophils % (A) 1 %; HCT 35.1 % (34.0-46.0); HGB 11.2 gm/dL (11.4-16.0); Hypochromasia Slight; Lymphocytes # (A) 1.5 k/uL (1.0-4.8); Lymphocytes % (A) 11 %; MCH 33.1 pg (25.0-35.0); MCHC 31.8 g/dL (31.0-37.0); MCV 103.9 fL (80.0-100.0); Macrocytosis Moderate; Mean Platelet Volume 9.2; Monocytes # (A) 0.9 k/uL (0-1.0); Monocytes % (A) 7 %; Neutrophils # (A) 10.1 k/uL (1.3-7.7); Neutrophils % (A) 78 %; Platelet Count 296 k/uL (150-450); RBC 3.38 m/uL (3.80-5.40); RDW 14.6 % (11.5-15.5)
--- NOTE | 2023-11-01 18:17 | ED ---
Weakness HPI - General Chief complaint: Weakness Stated complaint: vomiting Time Seen by Provider: 11/01/23 17:24 Source: patient Mode of arrival: EMS - History of Present Illness Initial comments: This 63-year-old female presents with family with a complaint of having nausea and weakness. She will normally vomit every other day. She's had a decrease in appetite as well. He also relate that she is very weak at times and is having problems with ambulation. There has been no fevers or chills. She denies any abdominal pain. There is no chest pain. relates that she seemed short of breath sometimes with ambulation. She apparently was here 2 weeks ago and had essentially negative workup at that time but symptoms have persisted since then. She does have dialysis every Sunday and Sunday just had it yesterday. He also relates that she has had some redness to her right large toe and her doctor is worried about a possible infection and vascular compromise. This is been going on for the past several weeks. Patient is diabetic as well. No other complaints or modifying factors. History is primarily obtained from the as patient does have significant dementia. also thinks that she may have some problems with swallowing but patient apparently had a swallow study yesterday with unknown results. No other identifiable complaints or modifying factors. - Related Data Home Medications Medication Instructions Recorded Confirmed Levothyroxine Sodium [Synthroid] 75 mcg PO DAILY 10/28/17 10/08/23 Oxybutynin Chloride 5 mg PO BID 10/28/17 10/08/23 allopurinoL [Zyloprim] 100 mg PO DAILY 01/19/20 10/08/23 Aspirin EC [Ecotrin Low Dose] 81 mg PO DAILY 08/31/21 10/08/23 Lidocaine-Prilocaine Cream [Emla 1 applic TOPICAL DAILY PRN 12/01/22 10/08/23 Cream 2.5%/2.5%] Clotrimazole [Clotrimazole AF] 1 applic TOPICAL BID 10/08/23 10/08/23 Diclofenac Sodium [Diclofenac 1 applic TOPICAL DAILY PRN 10/08/23 10/08/23 Sodium 1%] Omeprazole 20 mg PO DAILY 10/08/23 10/08/23 Ondansetron Odt [Zofran ODT] 4 - 8 mg PO BID PRN 10/08/23 10/08/23 amLODIPine [Norvasc] 5 mg PO BID 10/08/23 10/08/23 carvediloL [Coreg] 6.25 mg PO BID 10/08/23 10/08/23 Previous Rx's Medication Instructions Recorded Atorvastatin [Lipitor] 20 mg PO HS #60 tab 10/11/23 Folic Acid 1 mg PO DAILY #30 tab 10/11/23 Insulin Glargine,Hum.rec.anlog 12 units SQ HS #0 10/11/23 [Lantus Solostar Pen] Psyllium Husk 100% [Metamucil 6 gm PO BID packet 10/11/23 Packet] hydrALAZINE HCL [Apresoline] 50 mg PO TID #90 tab 10/11/23 Allergies Allergy/AdvReac Type Severity Reaction Status Date / Time codeine AdvReac Nausea Verified 11/01/23 20:19 Review of Systems ROS Statement: Those systems with pertinent positive or pertinent negative responses have been documented in the HPI. ROS Other: All systems not noted in ROS Statement are negative. Past Medical History Past Medical History: CVA/TIA, Dementia, Diabetes Mellitus, Dialysis, Hypertension, Renal Disease Additional Past Medical History / Comment(s): CVA x2 w/ memory loss, uses walker at home, hepatitis B, back pain, ESRD on hemodialysis History of Any Multi-Drug Resistant Organisms: None Reported Past Surgical History: Section, Cholecystectomy Additional Past Surgical History / Comment(s): left upper arm fistula Past Anesthesia/Blood Transfusion Reactions: No Reported Reaction Past Psychological History: No Psychological Hx Reported Smoking Status: Never smoker Past Alcohol Use History: Rare Past Drug Use History: Marijuana - Past Family History Mother Family Medical History: No Reported History General Exam - General Exam Comments Initial Comments: GENERAL: The patient is well nourished and well hydrated. VITAL SIGNS: Heart rate, blood pressure, respiratory rate reviewed as recorded in nurse's notes. EYES: Pupils are round and reactive. Extraocular movements are intact. No conjunctival / lid redness or swelling. ENT: No external evidence of injury, swelling, or ecchymosis. Airway is patent. Throat is clear. NECK: Nontender. No swelling or evidence of injury. No subcutaneous emphysema. Trachea is midline. No thyroid mass. HEART: Regular rate and rhythm. Good peripheral pulses. LUNGS/CHEST: Breath sounds clear and equal bilaterally. No rales, rhonchi, or wheezes. No ecchymosis, subcutaneous emphysema, or tenderness. ABDOMEN: Abdomen soft without tenderness. No palpable masses or organomegaly. No peritoneal signs. No abdominal wall swelling or ecchymosis. EXTREMITIES: Tenderness, erythema and slight skin sore noted to the distal aspect of the right large toe. Pedal pulses are present. Good capillary refill. Normal muscle tone and function. No thoracolumbar tenderness. NEUROLOGIC: Sensation is grossly intact. Cranial nerve exam reveals face is symmetrical, tongue is midline, speech is clear. SKIN: No abrasions or ecchymosis is noted. No induration or masses noted. PSYCHIATRIC: Alert and pleasant, no apparent distress, demented. Course Vital Signs 11/01/23 11/01/23 11/01/23 16:34 17:58 19:33 Temperature 97.5 F L Pulse Rate 65 68 75 Respiratory 18 16 18 Rate Blood Pressure 127/77 158/72 178/84 O2 Sat by Pulse 98 96 98 Oximetry Medical Decision Making - Medical Decision Making The patient was seen and examined. All diagnostics were reviewed. IV is established and she is mildly hydrated. Patient does receive some Zofran for nausea. Antibiotics are initiated intravenously for right large toe infection. X-rays done of the right foot and there does not appear to be any destructive osseous lesion per my interpretation and radiology interpretation. Chest x-ray does not show any acute findings per my interpretation and radiology interpretation. The patient had laboratory done which shows elevation of her renal function studies consistent with her end-stage renal failure. She also has a chronic anemia. There is some minor electrolyte abnormalities. White blood cell count is slightly elevated. C-reactive protein is elevated. She does receive Unasyn and vancomycin for possible osteomyelitis of right large toe. She apparently is very weak to the point where she is having extreme difficulties with ambulation at home. Exact cause is not definitively determined. The cause of her nausea and vomiting is not definitively determined. It is felt as though she would benefit from admission for continued treatment. Case is discussed with internal medicine who is agreeable as well. Was pt. sent in by a medical professional or institution (, PA, PIGS FEET FINISHER, urgent care, hospital, or care home...) When possible be specific @ -No Did you speak to anyone other than the patient for history (EMS, parent, family, police, friend...)? What history was obtained from this source @ -Most of history is obtained per is present. Did you review nursing and triage notes (agree or disagree)? Why? @ -I reviewed and agree with nursing and triage notes Were old charts reviewed (outside hosp., previous admission, EMS record, old EKG, old radiological studies, urgent care reports/EKG's, care home records)? Report findings @ -Old charts were reviewed and it does appear as though patient was admitted to the hospital in the last several weeks with somewhat similar symptoms of nausea, vomiting, and weakness. Differential Diagnosis (chest pain, altered mental status, abdominal pain women, abdominal pain men, vaginal bleeding, weakness, fever, dyspnea, syncope, headache, dizziness, GI bleed, back pain, seizure, CVA, palpatations, mental health, musculoskeletal)? @ -Osteomyelitis of right large toe, weakness, nausea and vomiting, dementia, electrolyte abnormalities, end-stage renal failure. X-rays interpreted by me (1pt min.). @ -As above CT interpreted by me (1pt min.). @ -None done U/S interpreted by me (1pt. min.). @ -None done What testing was considered but not performed or refused? (CT, X-rays, U/S, labs)? Why? @ -None What meds were considered but not given or refused? Why? @ -None Did you discuss the management of the patient with other professionals (professionals i.e. , PA, PIGS FEET FINISHER, lab, RT, psych nurse, licensed clinical social worker, loft worker, teacher, data officer, case mgr)? Give summary @ -Case is discussed with internal medicine and they're agreeable to admission. Was smoking cessation discussed for >3mins.? @ -No Was critical care preformed (if so, how long)? @ -No Were there social determinants of health that impacted care today? How? (Homelessness, low income, unemployed, alcoholism, drug addiction, transportation, low edu. Level, literacy, decrease access to med. care, alf, rehab)? @ -Social determinants that infected healthcare do include her history of dementia. Was there de-escalation of care discussed even if they declined (Discuss DNR or withdrawal of care, Hospice)? DNR status @ -No What co-morbidities impacted this encounter? (DM, HTN, Smoking, COPD, CAD, Cancer, CVA, ARF, Chemo, Hep., AIDS, mental health diagnosis, sleep apnea, morbid obesity)? @ -Diabetes mellitus, dementia, end-stage renal failure. Was patient admitted / discharged? Hospital course, mention meds given and route, prescriptions, significant lab abnormalities, going to OR and other pertinent info. @ -The patient was admitted to the hospital. Please see above. Undiagnosed new problem with uncertain prognosis? @ -No Drug Therapy requiring intensive monitoring for toxicity (Heparin, Nitro, Insulin, Cardizem)? @ -No Were any procedures done? @ -No Diagnosis/symptom? @ -Right large toe infection, possible osteomyelitis, end-stage renal failure, weakness, nausea and vomiting, decreased appetite, anemia, electrolyte abnormalities. Acute, or Chronic, or Acute on Chronic? @ -Acute Uncomplicated (without systemic symptoms) or Complicated (systemic symptoms)? @ -Uncomplicated Side effects of treatment? @ -No Exacerbation, Progression, or Severe Exacerbation? @ -No Poses a threat to life or bodily function? How? (Chest pain, USA, SD, pneumonia, PE, COPD, DKA, ARF, appy, cholecystitis, CVA, Diverticulitis, Homicidal, S uicidal, threat to staff... and all critical care pts) @ -No - Lab Data Result diagrams: 11/01/23 17:56 11/01/23 17:56 Lab Results 11/01/23 11/01/23 11/01/23 Range/Units 17:56 17:56 17:56 WBC 13.0 H (3.8-10.6) k/uL RBC 3.38 L (3.80-5.40) m/uL Hgb 11.2 L (11.4-16.0) gm/dL Hct 35.1 (34.0-46.0) % MCV 103.9 H (80.0-100.0) fL MCH 33.1 (25.0-35.0) pg MCHC 31.8 (31.0-37.0) g/dL RDW 14.6 (11.5-15.5) % Plt Count 296 (150-450) k/uL MPV 9.2 Neutrophils % 78 % Lymphocytes % 11 % Monocytes % 7 % Eosinophils % 1 % Basophils % 1 % Neutrophils # 10.1 H (1.3-7.7) k/uL Lymphocytes # 1.5 (1.0-4.8) k/uL Monocytes # 0.9 (0-1.0) k/uL Eosinophils # 0.1 (0-0.7) k/uL Basophils # 0.1 (0-0.2) k/uL Hypochromasia Slight Macrocytosis Moderate PT 10.1 (10.0-12.5) sec INR 0.9 (<1.2) APTT 24.4 (22.0-30.0) sec Sodium 133 L (137-145) mmol/L Potassium 4.8 (3.5-5.1) mmol/L Chloride 93 L (98-107) mmol/L Carbon Dioxide 31 H (22-30) mmol/L Anion Gap 9 mmol/L BUN 28 H (7-17) mg/dL Creatinine 4.85 H (0.52-1.04) mg/dL Est GFR (CKD-EPI)AfAm 10 (>60 ml/min/1.73 sqM) Est GFR (CKD-EPI)NonAf 9 (>60 ml/min/1.73 sqM) Glucose 127 H (74-99) mg/dL Plasma Lactic Acid Artur (0.7-2.0) mmol/L Calcium 7.8 L (8.4-10.2) mg/dL Phosphorus 4.5 (2.5-4.5) mg/dL Magnesium 2.1 (1.6-2.3) mg/dL Total Bilirubin 0.9 (0.2-1.3) mg/dL AST 24 (14-36) U/L ALT 14 (4-34) U/L Alkaline Phosphatase 107 (38-126) U/L Troponin I (0.000-0.034) ng/mL C-Reactive Protein 3.3 H (<1.0) mg/dL Total Protein 6.5 (6.3-8.2) g/dL Albumin 3.6 (3.5-5.0) g/dL TSH 1.390 (0.465-4.680) mIU/L 11/01/23 11/01/23 Range/Units 17:56 17:56 WBC (3.8-10.6) k/uL RBC (3.80-5.40) m/uL Hgb (11.4-16.0) gm/dL Hct (34.0-46.0) % MCV (80.0-100.0) fL MCH (25.0-35.0) pg MCHC (31.0-37.0) g/dL RDW (11.5-15.5) % Plt Count (150-450) k/uL MPV Neutrophils % % Lymphocytes % % Monocytes % % Eosinophils % % Basophils % % Neutrophils # (1.3-7.7) k/uL Lymphocytes # (1.0-4.8) k/uL Monocytes # (0-1.0) k/uL Eosinophils # (0-0.7) k/uL Basophils # (0-0.2) k/uL Hypochromasia Macrocytosis PT (10.0-12.5) sec INR (<1.2) APTT (22.0-30.0) sec Sodium (137-145) mmol/L Potassium (3.5-5.1) mmol/L Chloride (98-107) mmol/L Carbon Dioxide (22-30) mmol/L Anion Gap mmol/L BUN (7-17) mg/dL Creatinine (0.52-1.04) mg/dL Est GFR (CKD-EPI)AfAm (>60 ml/min/1.73 sqM) Est GFR (CKD-EPI)NonAf (>60 ml/min/1.73 sqM) Glucose (74-99) mg/dL Plasma Lactic Acid Artur 1.3 (0.7-2.0) mmol/L Calcium (8.4-10.2) mg/dL Phosphorus (2.5-4.5) mg/dL Magnesium (1.6-2.3) mg/dL Total Bilirubin (0.2-1.3) mg/dL AST (14-36) U/L ALT (4-34) U/L Alkaline Phosphatase (38-126) U/L Troponin I 0.013 (0.000-0.034) ng/mL C-Reactive Protein (<1.0) mg/dL Total Protein (6.3-8.2) g/dL Albumin (3.5-5.0) g/dL TSH (0.465-4.680) mIU/L Disposition Clinical Impression: Nausea and vomiting, Toe infection, Diabetes, Weakness, Hypertension, Dementia, Morbid obesity, ESRF (end stage renal failure), Anemia, Hypochloremia, Hypocalcemia, Hyponatremia Disposition: ADMITTED IP TO THIS [facility] Condition: Fair Referrals: Des Vazquez DO [Primary Care Provider] - 1-2 days Time of Disposition: 20:25 Decision Date: 11/01/23 Decision Time: 20:26
[2023-11-01] MEDS ORDERED: VANCOMYCIN IV PER PHARMACY 1 EACH MISC MISCELLANE PRN (18:18)
[2023-11-01 18:32] LABS: INR 0.9 (<1.2); Partial Thromboplastin Time 24.4 sec (22.0-30.0); Prothrombin Time 10.1 sec (10.0-12.5)
[2023-11-01 18:42] LABS: ALT 14 U/L (4-34); AST 24 U/L (14-36); African American GFR (CKD) 10 (>60 ml/min/1.73 sqM); Albumin 3.6 g/dL (3.5-5.0); Alkaline Phosphatase 107 U/L (38-126); Anion Gap 9 mmol/L; Blood Urea Nitrogen 28 mg/dL (7-17); C Reactive Protein 3.3 mg/dL (<1.0); Calcium 7.8 mg/dL (8.4-10.2); Carbon Dioxide 31 mmol/L (22-30); Chloride 93 mmol/L (98-107); Glucose 127 mg/dL (74-99); Magnesium 2.1 mg/dL (1.6-2.3); Non-African American GFR(CKD) 9 (>60 ml/min/1.73 sqM); Phosphorus 4.5 mg/dL (2.5-4.5); Potassium 4.8 mmol/L (3.5-5.1); Sodium 133 mmol/L (137-145); Total Bilirubin 0.9 mg/dL (0.2-1.3); Total Protein 6.5 g/dL (6.3-8.2)
[2023-11-01] MEDS: MORPHINE SULFATE 2 MG/ML SYRINGE IVP STA (18:51)
[2023-11-01] MEDS: AMPICILLIN-SULBACTAM 3 GM in SODIUM CHLORIDE 0.9% 100 ML IVPB STA (18:52)
--- NOTE | 2023-11-01 18:52 | XR ---
EXAMINATION TYPE: XR chest 2V DATE OF EXAM: 11/01/2023 COMPARISON: 10/08/2023 HISTORY: 63-year-old female dizziness and lethargic, possible infiltrate TECHNIQUE: AP and lateral views FINDINGS: Heart borderline in size. Mild interstitial prominence as a chronic appearance. No jerry consolidatio n or pleural effusion is seen. IMPRESSION: Chronic appearing changes. Borderline heart size. No definite acute process.
--- NOTE | 2023-11-01 18:54 | XR ---
EXAMINATION TYPE: XR foot complete RT DATE OF EXAM: 11/01/2023 COMPARISON: NONE HISTORY: 63-year-old female osteomyelitis, pain TECHNIQUE: 3 views FINDINGS: Bunion formation. Prominent vascular calcifications throughout. Small plantar heel spur. No discrete lytic destruction is identified. No acute fracture, subluxation, dislocation. Possible shal low soft tissue ulcer posterior heel. IMPRESSION: No discrete lytic destruction is identified to clearly indicate osteomyelitis at this time. If there is persistent concern, short interval follow-up is recommended.
[2023-11-01] MEDS ORDERED: DICLOFENAC SODIUM GEL 100 GM TUBE TOPICAL PRN (20:38)
[2023-11-01] MEDS ORDERED: LIDOCAINE-PRILOCAINE 2.5-2.5% CREAM 5 GM TUBE TOPICAL PRN (20:38)
[2023-11-01] MEDS: VANCOMYCIN 1,500 MG in SODIUM CHLORIDE 0.9% 500 ML 500 ML IVPB ONE (21:49)
[2023-11-01] MEDS: INSULIN DETEMIR (LEVEMIR) 100 UNIT/ML SYR SQ SCH (22:57)
[2023-11-01] MEDS: oxyBUTYnin chloride 5 MG TAB PO SCH (22:57)
[2023-11-01] MEDS: traMADol 50 MG TAB PO PRN (22:57)
[2023-11-01] MEDS: ATORVASTATIN 20 MG TAB PO SCH (22:57)
[2023-11-01] MEDS: amLODIPine 5 MG TAB PO SCH (22:57)
[2023-11-01] MEDS: hydrALAZINE HCL 50 MG TAB PO SCH (22:57)
[2023-11-01] MEDS: CLOTRIMAZOLE 1% CREAM 30 GM TUBE TOPICAL SCH (22:58)
[2023-11-02 03:45] LABS: Erythrocyte Sedimentation Rate 29 mm/Hr (0-30)
[2023-11-02] MEDS: LEVOTHYROXINE 75 MCG TAB PO SCH (06:08)
[2023-11-02] MEDS: carvediloL 6.25 MG TAB PO SCH (06:43)
[2023-11-02] MEDS: ACETAMINOPHEN TAB 325 MG TAB PO PRN (06:43)
[2023-11-02] MEDS: PANTOPRAZOLE 40 MG TABLET PO SCH (06:43)
[2023-11-02] MEDS: ASPIRIN 81 MG PO SCH (09:58)
[2023-11-02] MEDS: ENOXAPARIN 30 MG/0.3 ML SYRINGE SQ SCH (09:58)
[2023-11-02] MEDS: allopurinoL 100 MG TAB PO SCH (09:58)
[2023-11-02] MEDS: FOLIC ACID 1 MG TAB PO SCH (09:58)
[2023-11-02] MEDS: ONDANSETRON 4 MG/2 ML VIAL IVP PRN (10:36)
[2023-11-02 11:27] LABS: Glucose,Whole Blood 138 mg/dL (70-110)
--- NOTE | 2023-11-02 12:31 | P.NPCON ---
History of Present Illness - Reason for Consult end stage renal disease - History of Present Illness Reason for consultation: End-stage renal disease History of present illness: Patient is a 63-year-old female seen in renal consultation for end-stage renal disease. She is maintained on hemodialysis on Sunday schedule. Patient is a poor historian. She has history of stroke and dementia. Patient came to the hospital due to generalized weakness and nausea. Her appetite has been less than usual. No fever or chills. No chest pain or shortness of breath. It is noted that the was concerned that she may have difficulty with swallowing. Hemodynamically stable. Blood pressure on the lower side. She is tolerating dialysis well. Patient also has pain on her right foot. X- ray showed no discrete lytic lesion. Infectious disease has been consulted. Vital signs are stable. General: No acute distress. HEENT: Head exam is unremarkable. LUNGS: No audible rhonchi or wheezes. HEART: Rate and Rhythm are regular. ABDOMEN: Obese, nontender. EXTREMITITES: No edema. Past Medical History Past Medical History: CVA/TIA, Dementia, Diabetes Mellitus, Dialysis, Hypertension, Renal Disease Additional Past Medical History / Comment(s): CVA x2 w/ memory loss, uses walker at home, hepatitis B, back pain, ESRD on hemodialysis History of Any Multi-Drug Resistant Organisms: None Reported Past Surgical History: Section, Cholecystectomy Additional Past Surgical History / Comment(s): left upper arm fistula Past Anesthesia/Blood Transfusion Reactions: No Reported Reaction Past Psychological History: No Psychological Hx Reported Smoking Status: Never smoker Past Alcohol Use History: Rare Past Drug Use History: Marijuana Additional Drug Use History / Comment(s): occasional use - Past Family History Mother Family Medical History: No Reported History Medications and Allergies Home Medications Medication Instructions Recorded Confirmed Type RX: Levothyroxine Sodium 75 mcg PO DAILY 10/28/17 11/01/23 History [Synthroid] RX: Oxybutynin Chloride 5 mg PO BID 10/28/17 11/01/23 History RX: allopurinoL [Zyloprim] 100 mg PO DAILY 01/19/20 11/01/23 History RX: Aspirin EC [Ecotrin Low Dose] 81 mg PO DAILY 08/31/21 11/01/23 History RX: Lidocaine-Prilocaine Cream 1 applic TOPICAL DAILY PRN 12/01/22 11/01/23 History [Emla Cream 2.5%/2.5%] RX: Clotrimazole [Clotrimazole AF] 1 applic TOPICAL BID 10/08/23 11/01/23 History RX: Diclofenac Sodium [Diclofenac 1 applic TOPICAL DAILY PRN 10/08/23 11/01/23 History Sodium 1%] RX: Omeprazole 20 mg PO DAILY 10/08/23 11/01/23 History RX: Ondansetron Odt [Zofran ODT] 4 - 8 mg PO BID PRN 10/08/23 11/01/23 History RX: amLODIPine [Norvasc] 5 mg PO BID 10/08/23 11/01/23 History RX: carvediloL [Coreg] 6.25 mg PO BID 10/08/23 11/01/23 History RX: Atorvastatin [Lipitor] 20 mg PO HS #60 tab 10/11/23 11/01/23 Rx RX: Folic Acid 1 mg PO DAILY #30 tab 10/11/23 11/01/23 Rx RX: Insulin Glargine,Hum.rec.anlog 12 units SQ HS #0 10/11/23 11/01/23 Rx [Lantus Solostar Pen] RX: hydrALAZINE HCL [Apresoline] 50 mg PO TID #90 tab 10/11/23 11/01/23 Rx RX: traMADol HCL 50 - 100 mg PO Q6H PRN 11/01/23 11/01/23 History Allergies Allergy/AdvReac Type Severity Reaction Status Date / Time codeine AdvReac Nausea Verified 11/01/23 20:19 Physical Exam Vitals: Vital Signs Temp Pulse Pulse Resp BP BP Pulse Ox 11/02/23 07:46 97.6 F 82 16 142/62 93 L 11/02/23 01:50 97.6 F 69 18 160/54 98 11/02/23 00:35 98.1 F 75 18 122/84 97 11/02/23 00:33 98.1 F 76 18 122/64 96 11/01/23 21:00 66 16 123/61 98 11/01/23 19:33 75 18 178/84 98 11/01/23 17:58 68 16 158/72 96 11/01/23 16:34 97.5 F L 65 18 127/77 98 Intake and Output 11/01/23 11/02/23 11/02/23 22:59 06:59 14:59 Output Total 0 Balance 0 Output: Post Void Residual 0 Other: # Voids 1 Weight 94.347 kg 94.347 kg Results - Lab Results Most recent lab results Calcium 7.8 mg/dL (8.4-10.2) L 11/01/23 17:56 Phosphorus 4.5 mg/dL (2.5-4.5) 11/01/23 17:56 Magnesium 2.1 mg/dL (1.6-2.3) 11/01/23 17:56 11/01/23 17:56 11/01/23 17:56 Assessment and Plan Plan: Assessment: 1. End-stage renal disease maintained on hemodialysis on Sunday schedule. 2. Generalized weakness and debility. 3. Right foot pain. No evidence of osteomyelitis noted on x-ray. 4. Hypertension with chronic kidney disease. 5. Chronic kidney disease mineral bone disease. Phosphorus level 4.5 dated November 01, 2023. 6. History of dementia. 7. History of stroke. Plan: Currently seen while undergoing hemodialysis. Next remain on Sunday. Follow-up cultures. Monitor vancomycin levels. Dose to be adjusted for renal function. Thank you for the consultation. I will continue to follow the patient with you during her hospital stay.
--- NOTE | 2023-11-02 13:48 | P.GSCN ---
History of Present Illness Consult date: 11/02/23 Reason for Consult: Right toe dry necrosis Requesting physician: Sukhdev Ford History of present illness: This is a 63-year-old female who presented to the emergency department yesterday for complaints of nausea and vomiting and generalized weakness. Patient has a history of 2 prior strokes and is a very poor historian. Most of HPI is obtained from chart and nurse. Nurse states the patient has been very confused and will not be able to give any information. Apparently patient has had nausea and vomiting every other day. Decreased appetite. Past medical and history includes CVA, dementia, diabetes mellitus, and end-stage renal disease on hemodialysis. Apparently patient has a wound on the tip of her right great toe that the nurse states the that has been there for some time. Patient denies any significant pain to her foot toe or lower extremities. She is currently undergoing hemodialysis. She denies any pain to her foot, no shortness of breath, chest pain, abdominal pain, nausea or vomiting today. Review of Systems A 14 point review systems was completed all pertinent positives and negatives as stated in the HPI. Past Medical History Past Medical History: CVA/TIA, Dementia, Diabetes Mellitus, Dialysis, Hypertension, Renal Disease Additional Past Medical History / Comment(s): CVA x2 w/ memory loss, uses walker at home, hepatitis B, back pain, ESRD on hemodialysis History of Any Multi-Drug Resistant Organisms: None Reported Past Surgical History: Section, Cholecystectomy Additional Past Surgical History / Comment(s): left upper arm fistula Past Anesthesia/Blood Transfusion Reactions: No Reported Reaction Past Psychological History: No Psychological Hx Reported Smoking Status: Never smoker Past Alcohol Use History: Rare Past Drug Use History: Marijuana Additional Drug Use History / Comment(s): occasional use - Past Family History Mother Family Medical History: No Reported History Medications and Allergies Home Medications Medication Instructions Recorded Confirmed Type Levothyroxine Sodium [Synthroid] 75 mcg PO DAILY 10/28/17 11/01/23 History Oxybutynin Chloride 5 mg PO BID 10/28/17 11/01/23 History allopurinoL [Zyloprim] 100 mg PO DAILY 01/19/20 11/01/23 History Aspirin EC [Ecotrin Low Dose] 81 mg PO DAILY 08/31/21 11/01/23 History Lidocaine-Prilocaine Cream [Emla 1 applic TOPICAL DAILY PRN 12/01/22 11/01/23 History Cream 2.5%/2.5%] Clotrimazole [Clotrimazole AF] 1 applic TOPICAL BID 10/08/23 11/01/23 History Diclofenac Sodium [Diclofenac 1 applic TOPICAL DAILY PRN 10/08/23 11/01/23 History Sodium 1%] Omeprazole 20 mg PO DAILY 10/08/23 11/01/23 History Ondansetron Odt [Zofran ODT] 4 - 8 mg PO BID PRN 10/08/23 11/01/23 History amLODIPine [Norvasc] 5 mg PO BID 10/08/23 11/01/23 History carvediloL [Coreg] 6.25 mg PO BID 10/08/23 11/01/23 History Atorvastatin [Lipitor] 20 mg PO HS #60 tab 10/11/23 11/01/23 Rx Folic Acid 1 mg PO DAILY #30 tab 10/11/23 11/01/23 Rx Insulin Glargine,Hum.rec.anlog 12 units SQ HS #0 10/11/23 11/01/23 Rx [Lantus Solostar Pen] hydrALAZINE HCL [Apresoline] 50 mg PO TID #90 tab 10/11/23 11/01/23 Rx traMADol HCL 50 - 100 mg PO Q6H PRN 11/01/23 11/01/23 History Allergies Allergy/AdvReac Type Severity Reaction Status Date / Time codeine AdvReac Nausea Verified 11/01/23 20:19 Surgical - Exam Vital Signs Temp Pulse Resp BP Pulse Ox 97.5 F L 65 18 127/77 98 11/01/23 16:34 11/01/23 16:34 11/01/23 16:34 11/01/23 16:34 11/01/23 16:34 General appearance: The patient is alert, oriented to self, appears in no acute distress. HET: Head is normocephalic and atraumatic. Pupils are equal and reactive. Neck: Supple. Heart: Regular. Lungs: Equal expansion, normal respiratory effort. Abdomen: Soft, nontender, nondistended. Extremities: Bilateral lower extremities without edema, warm to the touch with good capillary refill. Palpable bilateral femoral and dorsalis pedis pulses. Right great toe distal tip with dry necrotic ulcer. No surrounding redness, no drainage. Neurological: Patient is alert and oriented x 1. Poor historian. Results - Labs 11/01/23 17:56 11/01/23 17:56 Abnormal Lab Results - Last 24 Hours (Table) 11/01/23 11/01/23 11/02/23 Range/Units 17:56 17:56 11:26 WBC 13.0 H (3.8-10.6) k/uL RBC 3.38 L (3.80-5.40) m/uL Hgb 11.2 L (11.4-16.0) gm/dL MCV 103.9 H (80.0-100.0) fL Neutrophils # 10.1 H (1.3-7.7) k/uL Sodium 133 L (137-145) mmol/L Chloride 93 L (98-107) mmol/L Carbon Dioxide 31 H (22-30) mmol/L BUN 28 H (7-17) mg/dL Creatinine 4.85 H (0.52-1.04) mg/dL Glucose 127 H (74-99) mg/dL POC Glucose (mg/dL) 138 H (70-110) mg/dL Calcium 7.8 L (8.4-10.2) mg/dL C-Reactive Protein 3.3 H (<1.0) mg/dL Diabetes panel 11/01/23 Range/Units 17:56 Sodium 133 L (137-145) mmol/L Potassium 4.8 (3.5-5.1) mmol/L Chloride 93 L (98-107) mmol/L Carbon Dioxide 31 H (22-30) mmol/L BUN 28 H (7-17) mg/dL Creatinine 4.85 H (0.52-1.04) mg/dL Glucose 127 H (74-99) mg/dL Calcium 7.8 L (8.4-10.2) mg/dL AST 24 (14-36) U/L ALT 14 (4-34) U/L Alkaline Phosphatase 107 (38-126) U/L Total Protein 6.5 (6.3-8.2) g/dL Albumin 3.6 (3.5-5.0) g/dL Thyroid panel 11/01/23 Range/Units 17:56 TSH 1.390 (0.465-4.680) mIU/L Calcium panel 11/01/23 Range/Units 17:56 Calcium 7.8 L (8.4-10.2) mg/dL Phosphorus 4.5 (2.5-4.5) mg/dL Albumin 3.6 (3.5-5.0) g/dL Pituitary panel 11/01/23 Range/Units 17:56 Sodium 133 L (137-145) mmol/L Potassium 4.8 (3.5-5.1) mmol/L Chloride 93 L (98-107) mmol/L Carbon Dioxide 31 H (22-30) mmol/L BUN 28 H (7-17) mg/dL Creatinine 4.85 H (0.52-1.04) mg/dL Glucose 127 H (74-99) mg/dL Calcium 7.8 L (8.4-10.2) mg/dL TSH 1.390 (0.465-4.680) mIU/L Adrenal panel 11/01/23 Range/Units 17:56 Sodium 133 L (137-145) mmol/L Potassium 4.8 (3.5-5.1) mmol/L Chloride 93 L (98-107) mmol/L Carbon Dioxide 31 H (22-30) mmol/L BUN 28 H (7-17) mg/dL Creatinine 4.85 H (0.52-1.04) mg/dL Glucose 127 H (74-99) mg/dL Calcium 7.8 L (8.4-10.2) mg/dL Total Bilirubin 0.9 (0.2-1.3) mg/dL AST 24 (14-36) U/L ALT 14 (4-34) U/L Alkaline Phosphatase 107 (38-126) U/L Total Protein 6.5 (6.3-8.2) g/dL Albumin 3.6 (3.5-5.0) g/dL Assessment and Plan Assessment: 1. 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 Weakness 3. Diabetes mellitus 4. End-stage renal disease on hemodialysis 5. History of CVA/TIA 6. Dementia Plan: 1. Arterial ultrasound of lower extremities, ABIs ordered 2. There is no indication for any urgent vascular surgical intervention. Further recommendations forthcoming from vascular surgeon. Thank you for this consultation, we will continue to follow. The impression and plan of care has been dictated as directed. I performed a history and examination of this patient, discussed the same with the dictator. I agree with the dictator's note ,documented as a scribe. Any additional findings or plans will be noted.
[2023-11-02] MEDS ORDERED: DEXTROSE 50% SYRINGE 50 ML IVP PRN ×2 (15:11)
--- NOTE | 2023-11-02 15:14 | P.HPIM ---
History of Present Illness H&P Date: 11/02/23 Chief Complaint: Nausea, weakness This is a 63-year-old patient, with chronic stable medical conditions include end-stage kidney disease on hemodialysis, prior to stroke with some memory loss, hypertension, diabetes,. Left arm AV fistula. Normally uses a walker/wheelchair. Because of arthritis Patient was here about 3 weeks ago with nausea vomiting. [place] to be from uremic symptoms. Did well with hemodialysis. has brought the patient back in. But again patient been vomiting for day and a half. No abdominal pain. No fever no chills. For long time patient has a habit of biting on tooth breaks. Which she has all the time. Including 1 right now. He not sure if he is she swallows the same. Patient is due for hemodialysis today. Also right big toe is being followed by a numerical control tool programmer for discoloration of the distal part of the toe. Has not seen a vascular surgeon. Appetite is not being good. Does drink quite a bit of water. Review of systems: GEN.: Tired EYES: None HEENT: None NECK: None RESPIRATORY: None CARDIOVASCULAR: None GASTROINTESTINAL: As above e GENITOURINARY: None MUSCULOSKELETAL: None LYMPHATICS: None HEMATOLOGICAL: None PSYCHIATRY: Forgetful NEUROLOGICAL: None Social history: Does not smoke. Alcohol rarely. Some marijuana. . Physical examination: VITAL SIGNS: 97.6, 82, 16, 142/62, 93% room air GENERAL: [BMI 38, reclining bed getting hemodialysis. Also chewing on a tooth break.]. EYES: [Pupils equal. Conjunctiva jessica]l. HEENT: [External appearance of nose and ears normal, oral cavity grossly normal]. NECK: [JVD not raised; masses not palpable]. HEART: [First and second heart sounds are normal; no edema]. LUNGS:[ Respiratory rate normal; clear to auscultation]. ABDOMEN: [Soft, nontender, liver spleen not palpable, no masses palpable]. PSYCH: [Able to answer some questions]l. MUSCULOSKELETAL:No Clubbing/cyanosis;muscles-grossly intact NEUROLOGICAL: [Cranial nerves grossly intact; no facial asymmetry, power and sensation grossly intact]. LYMPHATICS: [No lymph nodes palpable in the axilla and neck] EXTREMITY: Right foot big toe, some necrosis distally. Some redness. Tenderness. INVESTIGATIONS, reviewed in the clinical context: CRP 3.3 White count 13 hemoglobin 11.2 platelets 296 sodium 133 potassium 4.8 BUN 28 creatinine 4.85 TSH 1.3 Chest x-ray film personally reviewed by me-cardiomegaly. Assessment plan: -Patient's diet nausea vomiting. Has been having it previously. Interestingly patient does seem to be chewing at toothpicks all the time for quite some time as her describes. He is not sure if she actually swallows the same. It may be santana to do EGD to rule out any pica from the same. Consult surgery Full liquid diet -Right big toe cellulitis with some distal small dry gangrene Consult vascular. ID. IV Unasyn. IV vancomycin End-stage kidney disease on hemodialysis Left forearm AV fistula. Sunday -Obesity BMI 30.7 -Hyperuricemia Allopurinol -Diabetes mellitus type 2, chronically insulin Levemir 12 units at night.. Accu-Cheks with sliding scale -Hypothyroid Synthroid -GERD PPI -Essential hypertension Coreg, hydralazine -Chronic urinary incontinence Oxybutynin -Significant cognitive impairment from prior stroke -Full code Care was discussed with the patient and at the bedside. Past Medical History Past Medical History: CVA/TIA, Dementia, Diabetes Mellitus, Dialysis, Hypertension, Renal Disease Additional Past Medical History / Comment(s): CVA x2 w/ memory loss, uses walker at home, hepatitis B, back pain, ESRD on hemodialysis History of Any Multi-Drug Resistant Organisms: None Reported Past Surgical History: Section, Cholecystectomy Additional Past Surgical History / Comment(s): left upper arm fistula Past Anesthesia/Blood Transfusion Reactions: No Reported Reaction Past Psychological History: No Psychological Hx Reported Smoking Status: Never smoker Past Alcohol Use History: Rare Past Drug Use History: Marijuana Additional Drug Use History / Comment(s): occasional use - Past Family History Mother Family Medical History: No Reported History Medications and Allergies Home Medications Medication Instructions Recorded Confirmed Type Levothyroxine Sodium [Synthroid] 75 mcg PO DAILY 10/28/17 11/01/23 History Oxybutynin Chloride 5 mg PO BID 10/28/17 11/01/23 History allopurinoL [Zyloprim] 100 mg PO DAILY 01/19/20 11/01/23 History Aspirin EC [Ecotrin Low Dose] 81 mg PO DAILY 08/31/21 11/01/23 History Lidocaine-Prilocaine Cream [Emla 1 applic TOPICAL DAILY PRN 12/01/22 11/01/23 History Cream 2.5%/2.5%] Clotrimazole [Clotrimazole AF] 1 applic TOPICAL BID 10/08/23 11/01/23 History Diclofenac Sodium [Diclofenac 1 applic TOPICAL DAILY PRN 10/08/23 11/01/23 Hi story Sodium 1%] Omeprazole 20 mg PO DAILY 10/08/23 11/01/23 History Ondansetron Odt [Zofran ODT] 4 - 8 mg PO BID PRN 10/08/23 11/01/23 History amLODIPine [Norvasc] 5 mg PO BID 10/08/23 11/01/23 History carvediloL [Coreg] 6.25 mg PO BID 10/08/23 11/01/23 History Atorvastatin [Lipitor] 20 mg PO HS #60 tab 10/11/23 11/01/23 Rx Folic Acid 1 mg PO DAILY #30 tab 10/11/23 11/01/23 Rx Insulin Glargine,Hum.rec.anlog 12 units SQ HS #0 10/11/23 11/01/23 Rx [Lantus Solostar Pen] hydrALAZINE HCL [Apresoline] 50 mg PO TID #90 tab 10/11/23 11/01/23 Rx traMADol HCL 50 - 100 mg PO Q6H PRN 11/01/23 11/01/23 History Allergies Allergy/AdvReac Type Severity Reaction Status Date / Time codeine AdvReac Nausea Verified 11/01/23 20:19 Physical Exam Vitals: Vital Signs Temp Pulse Pulse Resp BP BP Pulse Ox 11/02/23 07:46 97.6 F 82 16 142/62 93 L 11/02/23 01:50 97.6 F 69 18 160/54 98 11/02/23 00:35 98.1 F 75 18 122/84 97 11/02/23 00:33 98.1 F 76 18 122/64 96 11/01/23 21:00 66 16 123/61 98 11/01/23 19:33 75 18 178/84 98 11/01/23 17:58 68 16 158/72 96 11/01/23 16:34 97.5 F L 65 18 127/77 98 Intake and Output 11/01/23 11/02/23 11/02/23 22:59 06:59 14:59 Output Total 0 Balance 0 Output: Post Void Residual 0 Other: # Voids 1 Weight 94.347 kg 94.347 kg Results CBC & Chem 7: 11/01/23 17:56 11/01/23 17:56 Labs: Abnormal Lab Results - Last 24 Hours (Table) 11/01/23 11/01/23 Range/Units 17:56 17:56 WBC 13.0 H (3.8-10.6) k/uL RBC 3.38 L (3.80-5.40) m/uL Hgb 11.2 L (11.4-16.0) gm/dL MCV 103.9 H (80.0-100.0) fL Neutrophils # 10.1 H (1.3-7.7) k/uL Sodium 133 L (137-145) mmol/L Chloride 93 L (98-107) mmol/L Carbon Dioxide 31 H (22-30) mmol/L BUN 28 H (7-17) mg/dL Creatinine 4.85 H (0.52-1.04) mg/dL Glucose 127 H (74-99) mg/dL Calcium 7.8 L (8.4-10.2) mg/dL C-Reactive Protein 3.3 H (<1.0) mg/dL Thrombosis Risk Factor Assmnt - Choose All That Apply Each Factor Represents 1 point: Obesity (BMI >25) Other Risk Factors: No Other congenital or acquired thrombophilia - If yes, enter type in comment: No Thrombosis Risk Factor Assessment Total Risk Factor Score: 1 Thrombosis Risk Factor Assessment Level: Low Risk
--- NOTE | 2023-11-02 16:20 | US ---
EXAMINATION TYPE: US arterial LE single level DATE OF EXAM: 11/02/2023 3:34 PM CLINICAL INDICATION: Female, 63 years old with history of right foot great toe necrotic wound; History of: Smoker: Yes Hypertension: ? Diabetic: Yes Hyperlipidemia: ? TIA/CVA: ? Previous Vascular Surgery: ? CAD: ? IL: ? Vascular Ulcers: Right big toe Claudication: ? Gangrene: ? Doppler Waveforms: Right: Monophasic Left: Monophasic Pulse Volume Recording: NA Pressure Gradients: NA Right Brachial Pressure: 137 Left Brachial Pressure: Used right brachial pressure unable to take pressures on left arm Ankle-Brachial Indices: Right: CNO Left: CNO Toe Brachial Indices: Right: 0.07 Left: 0.28 IMPRESSION: Toe brachial indices suggest severe disease. The ankle-brachial indices were not able to be calculated.
[2023-11-02 17:15] LABS: Glucose,Whole Blood 162 mg/dL (70-110)
[2023-11-02] MEDS: INSULIN ASPART (NovoLOG) 100 UNIT/ML VIAL SQ SCH (17:19)
[2023-11-02 19:09] LABS: Bacteria,Urine Many /hpf; RBC,Urine >182 /hpf (0-5); WBC,Urine >182 /hpf (0-5)
[2023-11-02 19:14] LABS: Appearance,Urine Turbid (Clear)
--- NOTE | 2023-11-02 21:13 | P.CONS ---
History of Present Illness - Reason for Consult Consult date: 11/02/23 - History of Present Illness Patient is a 63-year-old female with a past medical history significant for diabetes mellitus hypertension dementia CVA TIA did have a history of end-stage renal disease on dialysis patient has been brought into the hospital for evaluation of nausea and weakness along with decreased appetite and feeling very weak with difficulty ambulation also noted to have some shortness of breath with the symptoms the patient has been brought to the hospital for further evaluation patient on arrival to the ER was afebrile and no fever Recorded subsequently patient was not tachycardic or hypotensive no hypoxemia she did have a white count of 13,000 BUN/creatinine was elevated liver enzymes are normal urine has been positive she hardly makes any urine patient did have a chest x-ray chronic appearing changes borderline heart size no definite acute process patient did have a x-ray of the foot no discrete lytic destruction is identified to clearly indicate osteomyelitis at this time as the patient was noticed to have wound to the tip of her right big toe that has prompted this infectious disease consultation patient is not very clear how this wound to the right big toe to be started patient denies any history of any trauma has been complaining of some pain to the area but unable to quantify it any further did mention painful to touch did not have an open wound or any drainage patient was started on vancomycin infectious was consulted for further management of antibiotic therapy Past Medical History Past Medical History: CVA/TIA, Dementia, Diabetes Mellitus, Dialysis, Hypertension, Renal Disease Additional Past Medical History / Comment(s): CVA x2 w/ memory loss, uses walker at home, hepatitis B, back pain, ESRD on hemodialysis History of Any Multi-Drug Resistant Organisms: None Reported Past Surgical History: Section, Cholecystectomy Additional Past Surgical History / Comment(s): left upper arm fistula Past Anesthesia/Blood Transfusion Reactions: No Reported Reaction Past Psychological History: No Psychological Hx Reported Smoking Status: Never smoker Past Alcohol Use History: Rare Past Drug Use History: Marijuana Additional Drug Use History / Comment(s): occasional use - Past Family History Mother Family Medical History: No Reported History Medications and Allergies Home Medications Medication Instructions Recorded Confirmed Type Levothyroxine Sodium [Synthroid] 75 mcg PO DAILY 10/28/17 11/01/23 History Oxybutynin Chloride 5 mg PO BID 10/28/17 11/01/23 History allopurinoL [Zyloprim] 100 mg PO DAILY 05/04/20 02/15/24 History Aspirin EC [Ecotrin Low Dose] 81 mg PO DAILY 08/31/21 11/01/23 History Lidocaine-Prilocaine Cream [Emla 1 applic TOPICAL DAILY PRN 12/01/22 11/01/23 History Cream 2.5%/2.5%] Clotrimazole [Clotrimazole AF] 1 applic TOPICAL BID 10/08/23 11/01/23 History Diclofenac Sodium [Diclofenac 1 applic TOPICAL DAILY PRN 10/08/23 11/01/23 History Sodium 1%] Omeprazole 20 mg PO DAILY 10/08/23 11/01/23 History Ondansetron Odt [Zofran ODT] 4 - 8 mg PO BID PRN 10/08/23 11/01/23 History amLODIPine [Norvasc] 5 mg PO BID 10/08/23 11/01/23 History carvediloL [Coreg] 6.25 mg PO BID 10/08/23 11/01/23 History Atorvastatin [Lipitor] 20 mg PO HS #60 tab 10/11/23 11/01/23 Rx Folic Acid 1 mg PO DAILY #30 tab 10/11/23 11/01/23 Rx Insulin Glargine,Hum.rec.anlog 12 units SQ HS #0 10/11/23 11/01/23 Rx [Lantus Solostar Pen] hydrALAZINE HCL [Apresoline] 50 mg PO TID #90 tab 10/11/23 11/01/23 Rx traMADol HCL 50 - 100 mg PO Q6H PRN 11/01/23 11/01/23 History Allergies Allergy/AdvReac Type Severity Reaction Status Date / Time codeine AdvReac Nausea Verified 11/01/23 20:19 Physical Exam Vitals: Vital Signs Temp Pulse Pulse Resp BP BP Pulse Ox 11/02/23 07:46 97.6 F 82 16 142/62 93 L 11/02/23 01:50 97.6 F 69 18 160/54 98 11/02/23 00:35 98.1 F 75 18 122/84 97 11/02/23 00:33 98.1 F 76 18 122/64 96 11/01/23 21:00 66 16 123/61 98 11/01/23 19:33 75 18 178/84 98 11/01/23 17:58 68 16 158/72 96 11/01/23 16:34 97.5 F L 65 18 127/77 98 Intake and Output 11/01/23 11/02/23 11/02/23 22:59 06:59 14:59 Output Total 0 Balance 0 Output: Post Void Residual 0 Other: # Voids 1 Weight 94.347 kg 94.347 kg Results CBC & Chem 7: 11/01/23 17:56 11/01/23 17:56 Labs: Abnormal Lab Results - Last 24 Hours (Table) 11/01/23 11/01/23 Range/Units 17:56 17:56 WBC 13.0 H (3.8-10.6) k/uL RBC 3.38 L (3.80-5.40) m/uL Hgb 11.2 L (11.4-16.0) gm/dL MCV 103.9 H (80.0-100.0) fL Neutrophils # 10.1 H (1.3-7.7) k/uL Sodium 133 L (137-145) mmol/L Chloride 93 L (98-107) mmol/L Carbon Dioxide 31 H (22-30) mmol/L BUN 28 H (7-17) mg/dL Creatinine 4.85 H (0.52-1.04) mg/dL Glucose 127 H (74-99) mg/dL Calcium 7.8 L (8.4-10.2) mg/dL C-Reactive Protein 3.3 H (<1.0) mg/dL Assessment and Plan Plan: 1patient with a wound on the tip of the right second toe with necrotic area more likely representing a dry gangrene currently with no evidence of any cellulitis no fluctuation induration to be suspicious for an abscess or a wet gangrene, patient not running any fever did have mild elevated white count 2-we will check inflammatory markers 3-for now continue vancomycin while waiting for the culture to finalize We will follow on clinical condition and cultures to further adjust medication if needed Thank you for this consultation we will follow the patient along with you Dictation was produced using [employer] dictation software. please excuse any grammatical, word or spelling errors. Time with Patient: Greater than 30
[2023-11-02] MEDS: VANCOMYCIN 1,500 MG in SODIUM CHLORIDE 0.9% 500 ML 500 ML IVPB ONE (21:51)
[2023-11-02 22:35] LABS: Glucose,Whole Blood 150 mg/dL (70-110)
[2023-11-03] MEDS: cloNIDine HCL 0.1 MG TAB PO STA (01:54)
[2023-11-03 06:17] LABS: Glucose,Whole Blood 88 mg/dL (70-110)
--- NOTE | 2023-11-03 11:10 | P.PN ---
Subjective Progress Note Date: 11/03/23 Patient seen and examined. Voices no concerns. No issues per nursing in regards to lower extremity. Objective - Vital Signs Vital signs: Vital Signs Temp 97.4 F L 11/03/23 07:38 Pulse 65 11/03/23 07:38 Resp 19 11/03/23 07:38 BP 198/72 11/03/23 07:38 Pulse Ox 98 11/03/23 07:38 FiO2 Intake & Output 11/02/23 11/03/23 11/03/23 18:59 06:59 18:59 Intake Total 400 Output Total 2049 400 Balance -1650 -400 Intake: Hemodialysis 400 Output: Urine 150 400 Straight 75 Hemodialysis 1900 Other: Voiding Method Bedside Commode # Voids 1 - Exam Resting comfortably. Following commands however not very responsive to questions due to sleeping. No respiratory distress. Abdomen is soft. Extremities with palpable femoral pulses bilaterally. Bilateral lower extremities are warm and dry. Right great toe distal tip with area of dry eschar. No erythema. No drainage - Labs CBC & Chem 7: 11/01/23 17:56 11/01/23 17:56 Labs: Abnormal Lab Results - Last 24 Hours (Table) 11/02/23 11/02/23 11/02/23 Range/Units 11:26 17:14 18:00 POC Glucose (mg/dL) 138 H 162 H (70-110) mg/dL Urine Appearance Turbid H (Clear) Urine RBC >182 H (0-5) /hpf Urine WBC >182 H (0-5) /hpf Urine WBC Clumps Many H (None) /hpf Urine Bacteria Many H (None) /hpf 11/02/23 Range/Units 22:34 POC Glucose (mg/dL) 150 H (70-110) mg/dL Urine Appearance (Clear) Urine RBC (0-5) /hpf Urine WBC (0-5) /hpf Urine WBC Clumps (None) /hpf Urine Bacteria (None) /hpf Microbiology - Last 24 Hours (Table) 11/01/23 18:10 Blood Culture - Preliminary Blood 11/01/23 17:55 Blood Culture - Preliminary Blood Assessment and Plan Assessment: 1. 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 Weakness 3. Diabetes mellitus 4. End-stage renal disease on hemodialysis 5. History of CVA/TIA 6. Dementia Plan: Imaging was reviewed. Arterial ultrasound shows evidence of noncompressibility. Does have mono to biphasic appearance. Continue with local wound care at this point. Outpatient may discuss going forward with angiogram should there be worsening of the wound, but at this point no urgent/emergent need for aggressive intervention
[2023-11-03 11:37] LABS: Glucose,Whole Blood 92 mg/dL (70-110)
--- NOTE | 2023-11-03 12:12 | P.PN ---
Subjective Progress Note Date: 11/03/23 Principal diagnosis: Reason for follow-up is right big toe tip gangrene with questions of cellulitis Patient is a 63-year-old female with a past medical history signific ant for diabetes mellitus hypertension dementia CVA TIA did have a history of end-stage renal disease on dialysis patient has been brought into the hospital for evaluation of nausea and weakness along with decreased appetite, patient was noticed to have a dry gangrene to the right big toe tip with some surrounding redness concerning for cellulitis patient did have elevated white count. On today's evaluation that is 11/03/2023 patient is afebrile the patient is breathing comfortably on room air patient is lethargic and did not answer any question no vomiting diarrhea or any other changes reported by the nursing staff. No new labs has been obtained today blood culture pending Objective - Vital Signs Vital signs: Vital Signs Temp 97.4 F L 11/03/23 07:38 Pulse 65 11/03/23 07:38 Resp 19 11/03/23 07:38 BP 198/72 11/03/23 07:38 Pulse Ox 98 11/03/23 07:38 FiO2 Intake & Output 11/02/23 11/03/23 11/03/23 18:59 06:59 18:59 Intake Total 400 Output Total 2049 400 Balance -1650 -400 Intake: Hemodialysis 400 Output: Urine 150 400 Straight 75 Hemodialysis 1900 Other: Voiding Method Bedside Commode # Voids 1 - Exam GENERAL DESCRIPTION: Middle-age female lying in bed in no distress RESPIRATORY SYSTEM: Unlabored breathing , decreased breath sounds at bases HEART: S1 S2 regular rate and rhythm , ABDOMEN: Soft , no tenderness EXTREMITIES: Right big toe tip with gangrenous changes minimal surrounding redness - Labs CBC & Chem 7: 11/01/23 17:56 11/01/23 17:56 Labs: Abnormal Lab Results - Last 24 Hours (Table) 11/02/23 11/02/23 11/02/23 Range/Units 17:14 18:00 22:34 POC Glucose (mg/dL) 162 H 150 H (70-110) mg/dL Urine Appearance Turbid H (Clear) Urine RBC >182 H (0-5) /hpf Urine WBC >182 H (0-5) /hpf Urine WBC Clumps Many H (None) /hpf Urine Bacteria Many H (None) /hpf Microbiology - Last 24 Hours (Table) 11/01/23 18:10 Blood Culture - Preliminary Blood 11/01/23 17:55 Blood Culture - Preliminary Blood Assessment and Plan (1) Gangrene of toe of right foot Current Visit: Yes Status: Acute Code(s): I96 - GANGRENE, NOT ELSEWHERE CLASSIFIED SNOMED Code(s): 34430430941840627 (2) Cellulitis Current Visit: Yes Status: Acute Code(s): L03.90 - CELLULITIS, UNSPECIFIED SNOMED Code(s): 806760683 (3) Leukocytosis Current Visit: Yes Status: Acute Code(s): D72.829 - ELEVATED WHITE BLOOD CELL COUNT, UNSPECIFIED SNOMED Code(s): 572065554 Plan: 1patient with a wound on the tip of the right second toe with necrotic area more likely representing a dry gangrene currently with no evidence of any cellulitis no fluctuation induration to be suspicious for an abscess or a wet gangrene, patient not running any fever did have mild elevated white count 2-currently waiting for inflammatory markers 3-patient to continue vancomycin while waiting for the culture to finalize Dictation was produced using [employer] dictation software. please excuse any grammatical, word or spelling errors. Time with Patient: Less than 30
--- NOTE | 2023-11-03 15:33 | P.PN ---
Subjective Progress Note Date: 11/03/23 Follows for end-stage renal disease management. Per family at bedside patient still has poor appetite and weakness. Vital signs are stable. General: No acute distress. HEENT: Head exam is unremarkable. LUNGS: No audible rhonchi or wheezes. HEART: Rate and Rhythm are regular. ABDOMEN: Obese, nontender. EXTREMITITES: No edema. Objective - Vital Signs Vital signs: Vital Signs Temp 97.4 F L 11/03/23 07:38 Pulse 65 11/03/23 07:38 Resp 19 11/03/23 07:38 BP 198/72 11/03/23 07:38 Pulse Ox 98 11/03/23 07:38 FiO2 Intake & Output 11/02/23 11/03/23 11/03/23 18:59 06:59 18:59 Intake Total 400 Output Total 205 400 Balance -1650 -400 Intake: Hemodialysis 400 Output: Urine 150 400 Straight 75 Hemodialysis 1900 Other: Voiding Method Bedside Commode # Voids 1 - Labs CBC & Chem 7: 11/01/23 17:56 11/01/23 17:56 Labs: Abnormal Lab Results - Last 24 Hours (Table) 11/02/23 11/02/23 11/02/23 Range/Units 17:14 18:00 22:34 POC Glucose (mg/dL) 162 H 150 H (70-110) mg/dL Urine Appearance Turbid H (Clear) Urine RBC >182 H (0-5) /hpf Urine WBC >182 H (0-5) /hpf Urine WBC Clumps Many H (None) /hpf Urine Bacteria Many H (None) /hpf Microbiology - Last 24 Hours (Table) 11/01/23 18:10 Blood Culture - Preliminary Blood 11/01/23 17:55 Blood Culture - Preliminary Blood Assessment and Plan Plan: Assessment: 1. End-stage renal disease maintained on hemodialysis on Sunday schedule. 2. Generalized weakness and debility. 3. Right foot pain. No evidence of osteomyelitis noted on x-ray. 4. Hypertension with chronic kidney disease. 5. Chronic kidney disease mineral bone disease. Phosphorus level 4.5 dated November 01, 2023. 6. History of dementia. 7. History of stroke. Plan: Next treatment on Sunday. Follow-up cultures. Monitor vancomycin levels. Dose to be adjusted for renal function.
[2023-11-03 16:42] LABS: Glucose,Whole Blood 159 mg/dL (70-110)
[2023-11-03 20:12] LABS: Glucose,Whole Blood 110 mg/dL (70-110)
--- NOTE | 2023-11-03 20:30 | P.PN ---
Subjective Progress Note Date: 11/03/23 63-year-old patient, with chronic stable medical conditions include end-stage kidney disease on hemodialysis, prior to stroke with some memory loss, hypertension, diabetes,. Left arm AV fistula. Normally uses a walker/wheelchair. Because of arthritis Patient was here about 3 weeks ago with nausea vomiting. [place] to be from uremic symptoms. Did well with hemodialysis. has brought the patient back in. But again patient been vomiting for day and a half. No abdominal pain. No fever no chills. For long time patient has a habit of biting on tooth breaks. Which she has all the time. Including 1 right now. He not sure if he is she swallows the same. Patient is due for hemodialysis today. Also right big toe is being followed by a industrial gas service helper for discoloration of the distal part of the toe. Has not seen a vascular surgeon. Appetite is not being good. Does drink quite a bit of water. Objective - Vital Signs Vital signs: Vital Signs Temp 97.4 F L 11/03/23 07:38 Pulse 65 11/03/23 07:38 Resp 19 11/03/23 07:38 BP 198/72 11/03/23 07:38 Pulse Ox 98 11/03/23 07:38 FiO2 Intake & Output 11/02/23 11/03/23 11/03/23 18:59 06:59 18:59 Intake Total 400 Output Total 2049 400 Balance -1650 -400 Intake: Hemodialysis 400 Output: Urine 150 400 Straight 75 Hemodialysis 1900 Other: Voiding Method Bedside Commode # Voids 1 - Exam GENERAL: [BMI 38, reclining bed getting hemodialysis. Also chewing on a tooth break.]. EYES: [Pupils equal. Conjunctiva jessica]l. HEENT: [External appearance of nose and ears normal, oral cavity grossly normal]. NECK: [JVD not raised; masses not palpable]. HEART: [First and second heart sounds are normal; no edema]. LUNGS:[ Respiratory rate normal; clear to auscultation]. ABDOMEN: [Soft, nontender, liver spleen not palpable, no masses palpable]. PSYCH: [Able to answer some questions]l. MUSCULOSKELETAL:No Clubbing/cyanosis;muscles-grossly intact NEUROLOGICAL: [Cranial nerves grossly intact; no facial asymmetry, power and sensation grossly intact]. LYMPHATICS: [No lymph nodes palpable in the axilla and neck] EXTREMITY: Right foot big toe, some necrosis distally. Some redness. Tenderness. - Labs CBC & Chem 7: 11/01/23 17:56 11/01/23 17:56 Labs: Abnormal Lab Results - Last 24 Hours (Table) 11/02/23 11/02/23 11/02/23 Range/Units 11:26 17:14 18:00 POC Glucose (mg/dL) 138 H 162 H (70-110) mg/dL Urine Appearance Turbid H (Clear) Urine RBC >182 H (0-5) /hpf Urine WBC >182 H (0-5) /hpf Urine WBC Clumps Many H (None) /hpf Urine Bacteria Many H (None) /hpf 11/02/23 Range/Units 22:34 POC Glucose (mg/dL) 150 H (70-110) mg/dL Urine Appearance (Clear) Urine RBC (0-5) /hpf Urine WBC (0-5) /hpf Urine WBC Clumps (None) /hpf Urine Bacteria (None) /hpf Microbiology - Last 24 Hours (Table) 11/01/23 18:10 Blood Culture - Preliminary Blood 11/01/23 17:55 Blood Culture - Preliminary Blood Assessment and Plan Assessment: -Patient's diet nausea vomiting. Has been having it previously. Interestingly patient does seem to be chewing at toothpicks all the time for quite some time as her describes. He is not sure if she actually swallows the same. It may be santana to do EGD to rule out any pica from the same. Consult surgery Full liquid diet -Right big toe cellulitis with some distal small dry gangrene Consult vascular. ID. IV Unasyn. IV vancomycin End-stage kidney disease on hemodialysis Left forearm AV fistula. Sunday -Obesity BMI 30.7 -Hyperuricemia Allopurinol -Diabetes mellitus type 2, chronically insulin Levemir 12 units at night.. Accu-Cheks with sliding scale -Hypothyroid Synthroid -GERD PPI -Essential hypertension Coreg, hydralazine -Chronic urinary incontinence Oxybutynin -Significant cognitive impairment from prior stroke -Full code
[2023-11-04 05:53] LABS: Glucose,Whole Blood 75 mg/dL (70-110)
[2023-11-04 07:00] LABS: African American GFR (CKD) 10 (>60 ml/min/1.73 sqM); Anion Gap 8 mmol/L; Blood Urea Nitrogen 28 mg/dL (7-17); Calcium 7.9 mg/dL (8.4-10.2); Carbon Dioxide 24 mmol/L (22-30); Chloride 95 mmol/L (98-107); Glucose 65 mg/dL (74-99); Non-African American GFR(CKD) 8 (>60 ml/min/1.73 sqM); Potassium 4.9 mmol/L (3.5-5.1); Sodium 127 mmol/L (137-145)
--- NOTE | 2023-11-04 09:20 | P.PN ---
Subjective Progress Note Date: 11/04/23 Patient main stable. His abdomen soft. Will plan for EGD in the a.m. Objective - Vital Signs Vital signs: Vital Signs Temp 98.6 F 11/04/23 01:05 Pulse 69 11/04/23 01:05 Resp 18 11/04/23 01:05 BP 177/48 11/04/23 01:05 Pulse Ox 92 L 11/04/23 01:05 FiO2 Intake & Output 11/03/23 11/04/23 11/04/23 18:59 06:59 18:59 Output Total 440 Balance -440 Output: Post Void Residual 440 Other: Voiding Method Bedside Commode Bedside Commode # Voids 0 10 - Labs CBC & Chem 7: 11/01/23 17:56 11/04/23 06:13 Labs: Abnormal Lab Results - Last 24 Hours (Table) 11/03/23 11/04/23 Range/Units 16:41 06:13 Sodium 127 L (137-145) mmol/L Chloride 95 L (98-107) mmol/L BUN 28 H (7-17) mg/dL Creatinine 5.04 H (0.52-1.04) mg/dL Glucose 65 L (74-99) mg/dL POC Glucose (mg/dL) 159 H (70-110) mg/dL Calcium 7.9 L (8.4-10.2) mg/dL Microbiology - Last 24 Hours (Table) 11/01/23 18:10 Blood Culture - Preliminary Blood 11/01/23 17:55 Blood Culture - Preliminary Blood
[2023-11-04 09:55] LABS: Basophils % (A) 0.6 %; Eosinophils # (A) 0.34 X 10*3/uL (0.04-0.35); Eosinophils % (A) 2.1 %; HCT 31.5 % (37.2-46.3); HGB 10.2 g/dL (12.0-15.0); Lymphocytes # (A) 1.78 X 10*3/uL (0.90-5.00); Lymphocytes % (A) 11.1 %; MCH 31.9 pg (27.0-32.0); MCHC 32.4 g/dL (32.0-37.0); MCV 98.4 FL (80.0-97.0); Mean Platelet Volume 11.1 FL (9.5-12.2); Monocytes # (A) 1.38 X 10*3/uL (0.20-1.00); Monocytes % (A) 8.6 %; NRBC Per 100 WBC 0 X 10*3/uL (0.00-0.01); Neutrophils # (A) 12.21 X 10*3/uL (1.80-7.70); Neutrophils % (A) 76.5 %; Platelet Count 296 X 10*3/uL (140-440); WBC 15.99 X 10*3/uL (4.50-10.00)
[2023-11-04 11:56] LABS: Glucose,Whole Blood 166 mg/dL (70-110)
--- NOTE | 2023-11-04 12:38 | P.PN ---
Subjective Progress Note Date: 11/04/23 Follows for end-stage renal disease management. Had urinary retention overnight and patient refused straight cath. Vital signs are stable. General: No acute distress. HEENT: Head exam is unremarkable. LUNGS: No audible rhonchi or wheezes. HEART: Rate and Rhythm are regular. ABDOMEN: Obese, nontender. EXTREMITITES: No edema. Objective - Vital Signs Vital signs: Vital Signs Temp 98.5 F 11/04/23 08:14 Pulse 67 11/04/23 08:14 Resp 20 11/04/23 08:14 BP 171/68 11/04/23 08:14 Pulse Ox 97 11/04/23 08:14 FiO2 Intake & Output 11/03/23 11/04/23 11/04/23 18:59 06:59 18:59 Output Total 440 Balance -440 Output: Post Void Residual 440 Other: Voiding Method Bedside Commode Bedside Commode # Voids 0 10 - Labs CBC & Chem 7: 11/04/23 06:13 11/04/23 06:13 Labs: Abnormal Lab Results - Last 24 Hours (Table) 11/03/23 11/04/23 11/04/23 Range/Units 16:41 06:13 06:13 WBC 15.99 H (4.50-10.00) X 10*3/uL RBC 3.20 L (4.10-5.20) X 10*6/uL Hgb 10.2 L (12.0-15.0) g/dL Hct 31.5 L (37.2-46.3) % MCV 98.4 H (80.0-97.0) FL Immature Gran # 0.18 H (0.00-0.04) X 10*3/uL Neutrophils # 12.21 H (1.80-7.70) X 10*3/uL Monocytes # 1.38 H (0.20-1.00) X 10*3/uL Sodium 127 L (137-145) mmol/L Chloride 95 L (98-107) mmol/L BUN 28 H (7-17) mg/dL Creatinine 5.04 H (0.52-1.04) mg/dL Glucose 65 L (74-99) mg/dL POC Glucose (mg/dL) 159 H (70-110) mg/dL Calcium 7.9 L (8.4-10.2) mg/dL 11/04/23 Range/Units 11:54 WBC (4.50-10.00) X 10*3/uL RBC (4.10-5.20) X 10*6/uL Hgb (12.0-15.0) g/dL Hct (37.2-46.3) % MCV (80.0-97.0) FL Immature Gran # (0.00-0.04) X 10*3/uL Neutrophils # (1.80-7.70) X 10*3/uL Monocytes # (0.20-1.00) X 10*3/uL Sodium (137-145) mmol/L Chloride (98-107) mmol/L BUN (7-17) mg/dL Creatinine (0.52-1.04) mg/dL Glucose (74-99) mg/dL POC Glucose (mg/dL) 166 H (70-110) mg/dL Calcium (8.4-10.2) mg/dL Microbiology - Last 24 Hours (Table) 11/02/23 18:00 Urine Culture - Preliminary Urine,Voided Gram Neg Bacilli 11/01/23 18:10 Blood Culture - Preliminary Blood 11/01/23 17:55 Blood Culture - Preliminary Blood Assessment and Plan Plan: Assessment: 1. End-stage renal disease maintained on hemodialysis on Sunday schedule. 2. Generalized weakness and debility. 3. Right foot pain. No evidence of osteomyelitis noted on x-ray. 4. Hypertension with chronic kidney disease. 5. Chronic kidney disease mineral bone disease. Phosphorus level 4.5 dated November 01, 2023. 6. History of dementia. 7. History of stroke. Plan: Next treatment on Sunday. Follow-up cultures. Monitor vancomycin levels. Dose to be adjusted for renal function. Discontinue bladder scans, although PVR mildly elevated she is on hemodialysis and recommending avoiding Potter placement.
[2023-11-04 16:54] LABS: Glucose,Whole Blood 115 mg/dL (70-110)
[2023-11-04 20:33] LABS: Glucose,Whole Blood 186 mg/dL (70-110)
--- NOTE | 2023-11-04 22:42 | P.PN ---
Subjective Progress Note Date: 11/04/23 Principal diagnosis: Reason for follow-up is right big toe tip gangrene with questions of cellulitis Patient is a 63-year-old female with a past medical history signific ant for diabetes mellitus hypertension dementia CVA TIA did have a history of end-stage renal disease on dialysis patient has been brought into the hospital for evaluation of nausea and weakness along with decreased appetite, patient was noticed to have a dry gangrene to the right big toe tip with some surrounding redness concerning for cellulitis patient did have elevated white count. On today's evaluation that is 11/04/2023,the patient denies any fever or any chills, patient is breathing comfortably on room air, the patient denies chest pain shortness of breath and no significant cough, patient denies abdominal pain, no nausea vomiting or pain to the right big toe patient has been complai navya of wanting to urinate and apparently the patient was noticed to have a purulent urine on straight cath yesterday per the nursing staff. Patient also noticed to have worsening of the white count which is up to 15.9 creatinine 5.04 Vanco trough was 24 urine is growing gram-negative bacilli blood cultures so far negative Objective - Vital Signs Vital signs: Vital Signs Temp 98.5 F 11/04/23 08:14 Pulse 67 11/04/23 08:14 Resp 20 11/04/23 08:14 BP 171/68 11/04/23 08:14 Pulse Ox 97 11/04/23 08:14 FiO2 Intake & Output 11/03/23 11/04/23 11/04/23 18:59 06:59 18:59 Output Total 440 Balance -440 Output: Post Void Residual 440 Other: Voiding Method Bedside Commode Bedside Commode # Voids 0 10 - Exam GENERAL DESCRIPTION: Middle-age female lying in bed in no distress RESPIRATORY SYSTEM: Unlabored breathing , decreased breath sounds at bases HEART: S1 S2 regular rate and rhythm , ABDOMEN: Soft , no tenderness EXTREMITIES: Right big toe tip with gangrenous changes minimal surrounding redness - Labs CBC & Chem 7: 11/04/23 06:13 11/04/23 06:13 Labs: Abnormal Lab Results - Last 24 Hours (Table) 11/03/23 11/04/23 11/04/23 Range/Units 16:41 06:13 06:13 WBC 15.99 H (4.50-10.00) X 10*3/uL RBC 3.20 L (4.10-5.20) X 10*6/uL Hgb 10.2 L (12.0-15.0) g/dL Hct 31.5 L (37.2-46.3) % MCV 98.4 H (80.0-97.0) FL Immature Gran # 0.18 H (0.00-0.04) X 10*3/uL Neutrophils # 12.21 H (1.80-7.70) X 10*3/uL Monocytes # 1.38 H (0.20-1.00) X 10*3/uL Sodium 127 L (137-145) mmol/L Chloride 95 L (98-107) mmol/L BUN 28 H (7-17) mg/dL Creatinine 5.04 H (0.52-1.04) mg/dL Glucose 65 L (74-99) mg/dL POC Glucose (mg/dL) 159 H (70-110) mg/dL Calcium 7.9 L (8.4-10.2) mg/dL Microbiology - Last 24 Hours (Table) 11/02/23 18:00 Urine Culture - Preliminary Urine,Voided Gram Neg Bacilli 11/01/23 18:10 Blood Culture - Preliminary Blood 11/01/23 17:55 Blood Culture - Preliminary Blood Assessment and Plan (1) Gangrene of toe of right foot Current Visit: Yes Status: Acute Code(s): I96 - GANGRENE, NOT ELSEWHERE CLASSIFIED SNOMED Code(s): 72573994727367765 (2) Cellulitis Current Visit: Yes Status: Acute Code(s): L03.90 - CELLULITIS, UNSPECIFIED SNOMED Code(s): 129309311 (3) Leukocytosis Current Visit: Yes Status: Acute Code(s): D72.829 - ELEVATED WHITE BLOOD CELL COUNT, UNSPECIFIED SNOMED Code(s): 056695393 Plan: 1patient with a wound on the tip of the right second toe with necrotic area more likely representing a dry gangrene currently with no evidence of any cellulitis no fluctuation induration to be suspicious for an abscess or a wet gangrene, patient not running any fever did have mild elevated white count 2-patient noticed to have worsening of her white count also noticed to have a p urulent urine on straight cath yesterday and urination gram-negative we will add Rocephin continue with the vancomycin and will watch clinical course and culture closely Dictation was produced using [email or web address] dictation software. please excuse any grammatical, word or spelling errors. Time with Patient: Less than 30
[2023-11-05 05:59] LABS: Glucose,Whole Blood 77 mg/dL (70-110)
[2023-11-05 08:38] LABS: HCT 32.5 % (34.0-46.0); HGB 10.6 gm/dL (11.4-16.0); MCH 33.1 pg (25.0-35.0); MCHC 32.7 g/dL (31.0-37.0); MCV 101.2 fL (80.0-100.0); Macrocytosis Slight; Platelet Count 301 k/uL (150-450); RBC 3.21 m/uL (3.80-5.40); RDW 14.4 % (11.5-15.5); WBC 12.4 k/uL (3.8-10.6)
[2023-11-05 08:47] LABS: African American GFR (CKD) 8 (>60 ml/min/1.73 sqM); Anion Gap 11 mmol/L; Blood Urea Nitrogen 35 mg/dL (7-17); Calcium 8.2 mg/dL (8.4-10.2); Carbon Dioxide 21 mmol/L (22-30); Chloride 94 mmol/L (98-107); Glucose 78 mg/dL (74-99); Non-African American GFR(CKD) 7 (>60 ml/min/1.73 sqM); Potassium 5.1 mmol/L (3.5-5.1); Sodium 126 mmol/L (137-145)
[2023-11-05 12:03] LABS: Glucose,Whole Blood 128 mg/dL (70-110)
--- NOTE | 2023-11-05 12:40 | P.PN ---
Subjective Progress Note Date: 11/05/23 Principal diagnosis: Reason for follow-up is right big toe tip gangrene with questions of cellulitis Patient is a 63-year-old female with a past medical history signific ant for diabetes mellitus hypertension dementia CVA TIA did have a history of end-stage renal disease on dialysis patient has been brought into the hospital for evaluation of nausea and weakness along with decreased appetite, patient was noticed to have a dry gangrene to the right big toe tip with some surrounding redness concerning for cellulitis patient did have elevated white count. On today's evaluation that is 11/05/2023,the patient remains to be afebrile, patient is on room air not requiring supplemental oxygen, patient is more awake alert today and denies any shortness of breath no chest pain or cough.Patient denies having any nausea or vomiting, no abdominal pain and no diarrhea has been reported. Patient white count is down to 12.4, creatinine 6.25 urine cultures pending Objective - Vital Signs Vital signs: Vital Signs Temp 97.8 F 11/05/23 08:00 Pulse 74 11/05/23 08:00 Resp 18 11/05/23 08:00 BP 179/70 11/05/23 08:00 Pulse Ox 96 11/05/23 08:00 FiO2 Intake & Output 11/04/23 11/05/23 11/05/23 18:59 06:59 18:59 Other: Voiding Method Bedside Commode Toilet Toilet Bedside Commode Bedside Commode # Voids 0 1 1 - Exam GENERAL DESCRIPTION: Middle-age female lying in bed in no distress RESPIRATORY SYSTEM: Unlabored breathing , decreased breath sounds at bases HEART: S1 S2 regular rate and rhythm , ABDOMEN: Soft , no tenderness EXTREMITIES: Right big toe tip with gangrenous changes minimal surrounding redness - Labs CBC & Chem 7: 11/05/23 08:05 11/05/23 08:05 Labs: Abnormal Lab Results - Last 24 Hours (Table) 11/04/23 11/04/23 11/05/23 Range/Units 16:53 20:31 08:05 WBC 12.4 H (3.8-10.6) k/uL RBC 3.21 L (3.80-5.40) m/uL Hgb 10.6 L (11.4-16.0) gm/dL Hct 32.5 L (34.0-46.0) % MCV 101.2 H (80.0-100.0) fL Sodium (137-145) mmol/L Chloride (98-107) mmol/L Carbon Dioxide (22-30) mmol/L BUN (7-17) mg/dL Creatinine (0.52-1.04) mg/dL POC Glucose (mg/dL) 115 H 186 H (70-110) mg/dL Calcium (8.4-10.2) mg/dL 11/05/23 11/05/23 Range/Units 08:05 11:59 WBC (3.8-10.6) k/uL RBC (3.80-5.40) m/uL Hgb (11.4-16.0) gm/dL Hct (34.0-46.0) % MCV (80.0-100.0) fL Sodium 126 L (137-145) mmol/L Chloride 94 L (98-107) mmol/L Carbon Dioxide 21 L (22-30) mmol/L BUN 35 H (7-17) mg/dL Creatinine 6.25 H (0.52-1.04) mg/dL POC Glucose (mg/dL) 128 H (70-110) mg/dL Calcium 8.2 L (8.4-10.2) mg/dL Microbiology - Last 24 Hours (Table) 11/01/23 18:10 Blood Culture - Preliminary Blood 11/01/23 17:55 Blood Culture - Preliminary Blood 11/02/23 18:00 Urine Culture - Preliminary Urine,Voided Gram Neg Bacilli Assessment and Plan (1) Gangrene of toe of right foot Current Visit: Yes Status: Acute Code(s): I96 - GANGRENE, NOT ELSEWHERE CLASSIFIED SNOMED Code(s): 42730087119915060 (2) Cellulitis Current Visit: Yes Status: Acute Code(s): L03.90 - CELLULITIS, UNSPECIFIED SNOMED Code(s): 795439351 (3) Leukocytosis Current Visit: Yes Status: Acute Code(s): D72.829 - ELEVATED WHITE BLOOD CELL COUNT, UNSPECIFIED SNOMED Code(s): 576258616 Plan: 1patient with a wound on the tip of the right second toe with necrotic area more likely representing a dry gangrene currently with no evidence of any cellulitis no fluctuation induration to be suspicious for an abscess or a wet gangrene, patient not running any fever did have mild elevated white count 2-patient did have some improvement in mentation as well as white count is trending down urine culture growing gram-negative waiting for ID sensitivities continue with Rocephin and vancomycin Dictation was produced using [employer] dictation software. please excuse any grammatical, word or spelling errors. Time with Patient: Less than 30
--- NOTE | 2023-11-05 13:30 | P.PN ---
Subjective Patient is seen for follow-up for end-stage renal disease. Scheduled for hemodialysis in a.m. Maintained on antibiotics for UTI. No significant complaints today. Objective - Vital Signs Vital signs: Vital Signs Temp 97.8 F 11/05/23 08:00 Pulse 74 11/05/23 08:00 Resp 18 11/05/23 08:00 BP 179/70 11/05/23 08:00 Pulse Ox 96 11/05/23 08:00 FiO2 Intake & Output 11/04/23 11/05/23 11/05/23 18:59 06:59 18:59 Other: Voiding Method Bedside Commode Toilet Toilet Bedside Commode Bedside Commode # Voids 0 1 1 - Exam Patient is awake, comfortable, in no acute distress Examination of the heart S1 and S2 Examination of the lungs bilateral breath sounds are heard Abdomen is soft nontender Examination of lower extremities shows no significant edema - Labs CBC & Chem 7: 11/05/23 08:05 11/05/23 08:05 Labs: Abnormal Lab Results - Last 24 Hours (Table) 11/04/23 11/04/23 11/05/23 Range/Units 16:53 20:31 08:05 WBC 12.4 H (3.8-10.6) k/uL RBC 3.21 L (3.80-5.40) m/uL Hgb 10.6 L (11.4-16.0) gm/dL Hct 32.5 L (34.0-46.0) % MCV 101.2 H (80.0-100.0) fL Sodium (137-145) mmol/L Chloride (98-107) mmol/L Carbon Dioxide (22-30) mmol/L BUN (7-17) mg/dL Creatinine (0.52-1.04) mg/dL POC Glucose (mg/dL) 115 H 186 H (70-110) mg/dL Calcium (8.4-10.2) mg/dL 11/05/23 11/05/23 Range/Units 08:05 11:59 WBC (3.8-10.6) k/uL RBC (3.80-5.40) m/uL Hgb (11.4-16.0) gm/dL Hct (34.0-46.0) % MCV (80.0-100.0) fL Sodium 126 L (137-145) mmol/L Chloride 94 L (98-107) mmol/L Carbon Dioxide 21 L (22-30) mmol/L BUN 35 H (7-17) mg/dL Creatinine 6.25 H (0.52-1.04) mg/dL POC Glucose (mg/dL) 128 H (70-110) mg/dL Calcium 8.2 L (8.4-10.2) mg/dL Microbiology - Last 24 Hours (Table) 11/01/23 18:10 Blood Culture - Preliminary Blood 11/01/23 17:55 Blood Culture - Preliminary Blood 11/02/23 18:00 Urine Culture - Preliminary Urine,Voided Gram Neg Bacilli Assessment and Plan Assessment: 1. End-stage renal disease maintained on hemodialysis on Sunday schedule. 2. Generalized weakness and debility. 3. Right foot pain. No evidence of osteomyelitis noted on x-ray. 4. Hypertension with chronic kidney disease. 5. Chronic kidney disease mineral bone disease. Phosphorus level 4.5 dated November 01, 2023. 6. History of dementia. 7. History of stroke. Plan: Hemodialysis today Continue antibiotics
--- NOTE | 2023-11-05 14:45 | P.PN ---
Subjective Progress Note Date: 11/05/23 CHIEF COMPLAINT: weakness HISTORY OF PRESENT ILLNESS: Medicine service requesting EGD to be completed on patient. She apparently has habit of biting on toothpicks and possibly has been swallowing them. hgb 10.6 Na 126 PHYSICAL EXAM: VITAL SIGNS: Reviewed. GENERAL: Well-developed in no acute distress. ABDOMEN: Soft. Nondistended. Nontender. ASSESSMENT: 1. Biting on toothpicks and possibly swallowing them 2. Anemia PLAN: -Patient scheduled for EGD on Sunday -Hyponatremia management per nephrology Physician Singe Machine Operator note has been reviewed by physician. Signing provider agrees with the documented findings, assessment, and plan of care. Objective - Vital Signs Vital signs: Vital Signs Temp 97.8 F 11/05/23 08:00 Pulse 74 11/05/23 08:00 Resp 18 11/05/23 08:00 BP 179/70 11/05/23 08:00 Pulse Ox 96 11/05/23 08:00 FiO2 Intake & Output 11/04/23 11/05/23 11/05/23 18:59 06:59 18:59 Other: Voiding Method Bedside Commode Toilet Toilet Bedside Commode Bedside Commode # Voids 0 1 1 - Labs CBC & Chem 7: 11/05/23 08:05 11/05/23 08:05 Labs: Abnormal Lab Results - Last 24 Hours (Table) 11/04/23 11/04/23 11/05/23 Range/Units 16:53 20:31 08:05 WBC 12.4 H (3.8-10.6) k/uL RBC 3.21 L (3.80-5.40) m/uL Hgb 10.6 L (11.4-16.0) gm/dL Hct 32.5 L (34.0-46.0) % MCV 101.2 H (80.0-100.0) fL Sodium (137-145) mmol/L Chloride (98-107) mmol/L Carbon Dioxide (22-30) mmol/L BUN (7-17) mg/dL Creatinine (0.52-1.04) mg/dL POC Glucose (mg/dL) 115 H 186 H (70-110) mg/dL Calcium (8.4-10.2) mg/dL 11/05/23 11/05/23 Range/Units 08:05 11:59 WBC (3.8-10.6) k/uL RBC (3.80-5.40) m/uL Hgb (11.4-16.0) gm/dL Hct (34.0-46.0) % MCV (80.0-100.0) fL Sodium 126 L (137-145) mmol/L Chloride 94 L (98-107) mmol/L Carbon Dioxide 21 L (22-30) mmol/L BUN 35 H (7-17) mg/dL Creatinine 6.25 H (0.52-1.04) mg/dL POC Glucose (mg/dL) 128 H (70-110) mg/dL Calcium 8.2 L (8.4-10.2) mg/dL Microbiology - Last 24 Hours (Table) 11/01/23 18:10 Blood Culture - Preliminary Blood 11/01/23 17:55 Blood Culture - Preliminary Blood 11/02/23 18:00 Urine Culture - Preliminary Urine,Voided Gram Neg Bacilli
--- NOTE | 2023-11-05 15:59 | P.PN ---
Subjective Progress Note Date: 11/05/23 63-year-old patient, with chronic stable medical conditions include end-stage kidney disease on hemodialysis, prior to stroke with some memory loss, hypertension, diabetes,. Left arm AV fistula. Normally uses a walker/wheelchair. Because of arthritis Patient was here about 3 weeks ago with nausea vomiting. [place] to be from uremic symptoms. Did well with hemodialysis. has brought the patient back in. But again patient been vomiting for day and a half. No abdominal pain. No fever no chills. For long time patient has a habit of biting on tooth breaks. Which she has all the time. Including 1 right now. He not sure if he is she swallows the same. Patient is due for hemodialysis today. Also right big toe is being followed by a maintenance data analyst for discoloration of the distal part of the toe. Has not seen a vascular surgeon. Appetite is not being good. Does drink quite a bit of water. 11/05/2023 Patient is seen and evaluated in follow-up with multiple medical consultations following with concerns of urinary tract infection on admission. Patient is maintained on hemodialysis with nephrology following with plans of hemodialysis today. Patient was evaluated by vascular surgery on the right great toe with concerns of dry gangrene and there are no plans for surgical intervention at this time recommending outpatient follow-up. Preliminary urine culture showing gram-negative bacilli and awaiting finalized cultures with infectious disease following. Blood cultures remaining negative thus far. Patient is afebrile with no reports of chest pain or shortness of breath. Patient awaiting to be evaluated by physical therapy. Patient [facility] also following with plans of EGD for further evaluation as patient reportedly chews on toothpicks and is unsure if she has been eating them and swallowing them. Await surgery evaluation. Review of systems: Constitutional: No reports of fatigue, fever, or chills Cardiovascular: No reports of chest pain or palpitations Respiratory: No reports of shortness of breath or cough GI: No reports of nausea, vomiting, or diarrhea : No reports of dysuria or retention Neurovascular: No reports of weakness or numbness All medications have been reviewed Physical exam: Gen: This is a 63-year-old female who is awake, alert and oriented x 2, well- developed, elderly appearing HEENT: Head is atraumatic, normocephalic. Pupils equal, round. Sclerae is anicteric. NECK: Supple. No JVD. No lymphadenopathy. No thyromegaly. LUNGS: Clear to auscultation. No wheezes or rhonchi. No intercostal retractions. HEART: Regular rate and rhythm. No murmur. ABDOMEN: Soft. Bowel sounds are present. No masses. No tenderness. EXTREMITIES: No pedal edema. No calf tenderness. Right foot large toe currently dressed NEUROLOGICAL: Patient is awake, alert and oriented x2. Cranial nerves 2 through 12 are grossly intact. Diffusely weak Assessment: Right big toe pain and redness with concerns of cellulitis with some distal dry gangrene, present on admission, cellulitis ruled out End-stage renal disease maintained on hemodialysis Sunday/Sunday/Sunday with a left forearm fistula Obesity with a BMI of 38.0 Possible acute urinary tract infection, present on admission Hyperuricemia Diabetes mellitus, type II, insulin-dependent, uncontrolled with hyperglycemia History of hypothyroidism GERD History of dementia Hypertension Chronic urinary incontinence Significant cognitive impairment with history of stroke GI prophylaxis DVT prophylaxis Full code Plan: Patient is continued on dialysis Sunday/Sunday/Sunday with nephrology following Continue to monitor Accu-Cheks before meals and at bedtime and continue with current regimen, adjust insulins accordingly Vascular surgery evaluated the patient for the right great toe with no plans of surgical intervention at this time Patient is continued on antibiotics with infectious disease following with concerns of urinary tract infection on admission, cultures pending and maintained on Rocephin and vancomycin Will await finalized cultures and discuss further with infectious disease on discharge planning PT/OT to evaluate the patient and recommending 09/04 home care and supervision Will discuss further with case management and family on discharge planning Possible discharge in the next 24 to 48 hours The impression and plan of care has been dictated by Araceli Celaya, Nurse Practitioner as directed. Dr. Bird MD I have performed a history and examination and MDM of this patient, discussed the same with the dictator, and agree with the dictator's assessment and plan as written ,documented as a scribe. Based on total visit time, I have performed more than 50% of the visit. Objective - Vital Signs Vital signs: Vital Signs Temp 97.8 F 11/05/23 08:00 Pulse 74 11/05/23 08:00 Resp 18 11/05/23 08:00 BP 179/70 11/05/23 08:00 Pulse Ox 96 11/05/23 08:00 FiO2 Intake & Output 11/04/23 11/05/23 11/05/23 18:59 06:59 18:59 Other: Voiding Method Bedside Commode Toilet Toilet Bedside Commode Bedside Commode # Voids 0 1 1 - Labs CBC & Chem 7: 11/05/23 08:05 11/05/23 08:05 Labs: Abnormal Lab Results - Last 24 Hours (Table) 11/04/23 11/04/23 11/04/23 Range/Units 11:54 16:53 20:31 WBC (3.8-10.6) k/uL RBC (3.80-5.40) m/uL Hgb (11.4-16.0) gm/dL Hct (34.0-46.0) % MCV (80.0-100.0) fL Sodium (137-145) mmol/L Chloride (98-107) mmol/L Carbon Dioxide (22-30) mmol/L BUN (7-17) mg/dL Creatinine (0.52-1.04) mg/dL POC Glucose (mg/dL) 166 H 115 H 186 H (70-110) mg/dL Calcium (8.4-10.2) mg/dL 11/05/23 11/05/23 Range/Units 08:05 08:05 WBC 12.4 H (3.8-10.6) k/uL RBC 3.21 L (3.80-5.40) m/uL Hgb 10.6 L (11.4-16.0) gm/dL Hct 32.5 L (34.0-46.0) % MCV 101.2 H (80.0-100.0) fL Sodium 126 L (137-145) mmol/L Chloride 94 L (98-107) mmol/L Carbon Dioxide 21 L (22-30) mmol/L BUN 35 H (7-17) mg/dL Creatinine 6.25 H (0.52-1.04) mg/dL POC Glucose (mg/dL) (70-110) mg/dL Calcium 8.2 L (8.4-10.2) mg/dL Microbiology - Last 24 Hours (Table) 11/01/23 18:10 Blood Culture - Preliminary Blood 11/01/23 17:55 Blood Culture - Preliminary Blood 11/02/23 18:00 Urine Culture - Preliminary Urine,Voided Gram Neg Bacilli
[2023-11-05 17:07] LABS: Glucose,Whole Blood 125 mg/dL (70-110)
[2023-11-05 21:41] LABS: Glucose,Whole Blood 177 mg/dL (70-110)
[2023-11-05] MEDS: VANCOMYCIN 1,250 MG in SODIUM CHLORIDE 0.9% 250 ML IVPB ONE (21:54)
[2023-11-06 06:02] LABS: Glucose,Whole Blood 60 mg/dL (70-110)
[2023-11-06 06:29] LABS: Glucose,Whole Blood 75 mg/dL (70-110)
[2023-11-06 07:53] LABS: Glucose,Whole Blood 86 mg/dL (70-110)
[2023-11-06 11:37] LABS: Glucose,Whole Blood 87 mg/dL (70-110)
[2023-11-06 12:55] LABS: Basophils # (A) 0.09 X 10*3/uL (0.00-0.10); Basophils % (A) 0.8 %; Eosinophils % (A) 1.7 %; HCT 29.7 % (37.2-46.3); HGB 9.7 g/dL (12.0-15.0); Lymphocytes # (A) 1.33 X 10*3/uL (0.90-5.00); Lymphocytes % (A) 11.4 %; MCH 32.2 pg (27.0-32.0); MCHC 32.7 g/dL (32.0-37.0); MCV 98.7 FL (80.0-97.0); Mean Platelet Volume 11.4 FL (9.5-12.2); Monocytes # (A) 1.22 X 10*3/uL (0.20-1.00); Monocytes % (A) 10.4 %; NRBC Per 100 WBC 0 X 10*3/uL (0.00-0.01); Neutrophils # (A) 8.73 X 10*3/uL (1.80-7.70); Neutrophils % (A) 74.6 %; Platelet Count 262 X 10*3/uL (140-440); RBC 3.01 X 10*6/uL (4.10-5.20); RDW 14.4 % (11.5-14.5)
[2023-11-06 13:13] LABS: BUN/Creat Ratio 3.52 Ratio (12.00-20.00); Blood Urea Nitrogen 14.8 mg/dL (9.0-27.0); Carbon Dioxide 24.2 mmol/L (21.6-31.8); Chloride 95 mmol/L (96-109); Glucose 81 mg/dL (70-110); Potassium 4.6 mmol/L (3.5-5.5); Sodium 132 mmol/L (135-145)
--- NOTE | 2023-11-06 13:31 | P.PN ---
Subjective Progress Note Date: 11/06/23 Principal diagnosis: Reason for follow-up is right big toe tip gangrene/cellulitis and UTI Patient is a 63-year-old female with a past medical history significant for diabetes mellitus hypertension dementia CVA TIA did have a history of end-stage renal disease on dialysis patient has been brought into the hospital for evaluation of nausea and weakness along with decreased appetite, patient was noticed to have a dry gangrene to the right big toe tip with some surrounding redness concerning for cellulitis patient did have elevated white count. On today's evaluation that is 11/06/2023, the patient continues to be afebrile, the patient is on room air and breathing comfortably, The patient denies having any chest pain or cough, the patient denies having any abdominal pain no vomiting or any diarrhea, denies any worsening pain to the right toe. Patient white count is down to 11.70, creatinine is 4.2 urine finalized with Klebsiella blood culture negative Objective - Vital Signs Vital signs: Vital Signs Temp 98.5 F 11/06/23 07:37 Pulse 63 11/06/23 07:37 Resp 17 11/06/23 07:37 BP 154/65 11/06/23 07:37 Pulse Ox 99 11/06/23 07:37 FiO2 Intake & Output 11/05/23 11/06/23 11/06/23 18:59 06:59 18:59 Intake Total 400 Output Total 2500 Balance -2100 Intake: Hemodialysis 400 Output: Hemodialysis 2500 Other: Voiding Method Toilet Toilet Toilet Bedside Commode Bedside Commode Bedside Commode # Voids 2 2 - Exam GENERAL DESCRIPTION: Middle-age female lying in bed in no distress RESPIRATORY SYSTEM: Unlabored breathing , decreased breath sounds at bases HEART: S1 S2 regular rate and rhythm , ABDOMEN: Soft , no tenderness EXTREMITIES: Right big toe tip with gangrenous changes minimal surrounding redness - Labs CBC & Chem 7: 11/06/23 07:09 11/06/23 07:09 Labs: Abnormal Lab Results - Last 24 Hours (Table) 11/05/23 11/05/23 11/06/23 Range/Units 17:05 21:39 06:00 POC Glucose (mg/dL) 125 H 177 H 60 L (70-110) mg/dL Microbiology - Last 24 Hours (Table) 02/16/24 18:00 Urine Culture - Final Urine,Voided Klebsiella pneumoniae Assessment and Plan (1) Gangrene of toe of right foot Current Visit: Yes Status: Acute Code(s): I96 - GANGRENE, NOT ELSEWHERE CLASSIFIED SNOMED Code(s): 20525193255109612 (2) Cellulitis Current Visit: Yes Status: Acute Code(s): L03.90 - CELLULITIS, UNSPECIFIED SNOMED Code(s): 656994741 (3) Leukocytosis Current Visit: Yes Status: Acute Code(s): D72.829 - ELEVATED WHITE BLOOD CELL COUNT, UNSPECIFIED SNOMED Code(s): 225507492 Plan: 1patient with a wound on the tip of the right second toe with necrotic area more likely representing a dry gangrene currently with no evidence of any cellulitis no fluctuation induration to be suspicious for an abscess or a wet gangrene, patient not running any fever did have mild elevated white count 2-patient did have some improvement in mentation as well as white count is trending down urine culture has been finalized with Klebsiella we will keep the patient on Rocephin and vancomycin however the patient be able to finish therapy with oral Augmentin 500 daily for 10 days on discharge Dictation was produced using [employer] dictation software. please excuse any gramma tical, word or spelling errors. Time with Patient: Less than 30
--- NOTE | 2023-11-06 15:12 | P.PN ---
Subjective Progress Note Date: 11/06/23 CHIEF COMPLAINT: weakness HISTORY OF PRESENT ILLNESS: Patient apparently has habit of biting on toothpicks and possibly has been swallowing them. hgb 9.7 Na 132 PHYSICAL EXAM: VITAL SIGNS: Reviewed. GENERAL: Well-developed in no acute distress. ABDOMEN: Soft. Nondistended. Nontender. ASSESSMENT: 1. Biting on toothpicks and possibly swallowing them 2. Anemia PLAN: -Patient scheduled for EGD tomorrow with Dr. Abraham -N.p.o. after midnight -Hyponatremia management per nephrology Physician Wheat Inspector note has been reviewed by physician. Signing provider agrees with the documented findings, assessment, and plan of care. Objective - Vital Signs Vital signs: Vital Signs Temp 98.5 F 11/06/23 07:37 Pulse 63 11/06/23 07:37 Resp 17 11/06/23 07:37 BP 154/65 11/06/23 07:37 Pulse Ox 99 11/06/23 07:37 FiO2 Intake & Output 11/05/23 11/06/23 11/06/23 18:59 06:59 18:59 Intake Total 400 Output Total 2500 Balance -2100 Intake: Hemodialysis 400 Output: Hemodialysis 2500 Other: Voiding Method Toilet Toilet Toilet Bedside Commode Bedside Commode Bedside Commode # Voids 2 2 - Labs CBC & Chem 7: 11/06/23 07:09 11/06/23 07:09 Labs: Abnormal Lab Results - Last 24 Hours (Table) 11/05/23 11/05/23 11/06/23 Range/Units 17:05 21:39 06:00 WBC (4.50-10.00) X 10*3/uL RBC (4.10-5.20) X 10*6/uL Hgb (12.0-15.0) g/dL Hct (37.2-46.3) % MCV (80.0-97.0) FL MCH (27.0-32.0) pg Immature Gran # (0.00-0.04) X 10*3/uL Neutrophils # (1.80-7.70) X 10*3/uL Monocytes # (0.20-1.00) X 10*3/uL Sodium (135-145) mmol/L Chloride (96-109) mmol/L Anion Gap (4.00-12.00) mmol/L Creatinine (0.6-1.5) mg/dL Est GFR (CKD-EPI) (>=60) BUN/Creatinine Ratio (12.00-20.00) Ratio POC Glucose (mg/dL) 125 H 177 H 60 L (70-110) mg/dL Calcium (8.7-10.3) mg/dL 11/06/23 11/06/23 Range/Units 07:09 07:09 WBC 11.70 H (4.50-10.00) X 10*3/uL RBC 3.01 L (4.10-5.20) X 10*6/uL Hgb 9.7 L (12.0-15.0) g/dL Hct 29.7 L (37.2-46.3) % MCV 98.7 H (80.0-97.0) FL MCH 32.2 H (27.0-32.0) pg Immature Gran # 0.13 H (0.00-0.04) X 10*3/uL Neutrophils # 8.73 H (1.80-7.70) X 10*3/uL Monocytes # 1.22 H (0.20-1.00) X 10*3/uL Sodium 132 L (135-145) mmol/L Chloride 95 L (96-109) mmol/L Anion Gap 12.80 H (4.00-12.00) mmol/L Creatinine 4.2 H (0.6-1.5) mg/dL Est GFR (CKD-EPI) 11 L (>=60) BUN/Creatinine Ratio 3.52 L (12.00-20.00) Ratio POC Glucose (mg/dL) (70-110) mg/dL Calcium 8.0 L (8.7-10.3) mg/dL Microbiology - Last 24 Hours (Table) 11/02/23 18:00 Urine Culture - Final Urine,Voided Klebsiella pneumoniae
[2023-11-06 16:52] LABS: Glucose,Whole Blood 128 mg/dL (70-110)
--- NOTE | 2023-11-06 17:36 | P.PN ---
Subjective Patient is seen for follow-up for end-stage renal disease. Tolerated hemodialysis well yesterday. Scheduled for hemodialysis in a.m. Maintained on antibiotics for UTI. No significant complaints today. Objective - Vital Signs Vital signs: Vital Signs Temp 98.8 F 11/06/23 14:45 Pulse 72 11/06/23 14:45 Resp 20 11/06/23 14:45 BP 141/60 11/06/23 14:45 Pulse Ox 98 11/06/23 14:45 FiO2 Intake & Output 11/05/23 11/06/23 11/06/23 18:59 06:59 18:59 Intake Total 400 Output Total 2500 Balance -2100 Intake: Hemodialysis 400 Output: Hemodialysis 2500 Other: Voiding Method Toilet Toilet Toilet Bedside Commode Bedside Commode Bedside Commode # Voids 2 2 - Exam Patient is sleeping but arousable, comfortable, in no acute distress Examination of the heart S1 and S2 Examination of the lungs bilateral breath sounds are heard Abdomen is soft nontender Examination of lower extremities shows no significant edema - Labs CBC & Chem 7: 11/06/23 07:09 11/06/23 07:09 Labs: Abnormal Lab Results - Last 24 Hours (Table) 11/05/23 11/06/23 11/06/23 Range/Units 21:39 06:00 07:09 WBC 11.70 H (4.50-10.00) X 10*3/uL RBC 3.01 L (4.10-5.20) X 10*6/uL Hgb 9.7 L (12.0-15.0) g/dL Hct 29.7 L (37.2-46.3) % MCV 98.7 H (80.0-97.0) FL MCH 32.2 H (27.0-32.0) pg Immature Gran # 0.13 H (0.00-0.04) X 10*3/uL Neutrophils # 8.73 H (1.80-7.70) X 10*3/uL Monocytes # 1.22 H (0.20-1.00) X 10*3/uL Sodium (135-145) mmol/L Chloride (96-109) mmol/L Anion Gap (4.00-12.00) mmol/L Creatinine (0.6-1.5) mg/dL Est GFR (CKD-EPI) (>=60) BUN/Creatinine Ratio (12.00-20.00) Ratio POC Glucose (mg/dL) 177 H 60 L (70-110) mg/dL Calcium (8.7-10.3) mg/dL 11/06/23 11/06/23 Range/Units 07:09 16:51 WBC (4.50-10.00) X 10*3/uL RBC (4.10-5.20) X 10*6/uL Hgb (12.0-15.0) g/dL Hct (37.2-46.3) % MCV (80.0-97.0) FL MCH (27.0-32.0) pg Immature Gran # (0.00-0.04) X 10*3/uL Neutrophils # (1.80-7.70) X 10*3/uL Monocytes # (0.20-1.00) X 10*3/uL Sodium 132 L (135-145) mmol/L Chloride 95 L (96-109) mmol/L Anion Gap 12.80 H (4.00-12.00) mmol/L Creatinine 4.2 H (0.6-1.5) mg/dL Est GFR (CKD-EPI) 11 L (>=60) BUN/Creatinine Ratio 3.52 L (12.00-20.00) Ratio POC Glucose (mg/dL) 128 H (70-110) mg/dL Calcium 8.0 L (8.7-10.3) mg/dL Microbiology - Last 24 Hours (Table) 11/02/23 18:00 Urine Culture - Final Urine,Voided Klebsiella pneumoniae Assessment and Plan Assessment: 1. End-stage renal disease maintained on hemodialysis on Sunday schedule. 2. Generalized weakness and debility. 3. Right foot pain. No evidence of osteomyelitis noted on x-ray. 4. Hypertension with chronic kidney disease. 5. Chronic kidney disease mineral bone disease. Phosphorus level 4.5 dated November 01, 2023. 6. History of dementia. 7. History of stroke. Plan: Hemodialysis in a.m. Continue antibiotics
[2023-11-06 20:27] LABS: Glucose,Whole Blood 136 mg/dL (70-110)
[2023-11-07] MEDS: hydrALAZINE HCL 20 MG/ML 1 ML VIAL IVP STA (03:21)
[2023-11-07 05:59] LABS: Glucose,Whole Blood 65 mg/dL (70-110)
[2023-11-07 06:14] LABS: Glucose,Whole Blood 66 mg/dL (70-110)
--- NOTE | 2023-11-07 06:17 | P.PN ---
Subjective Progress Note Date: 11/06/23 63-year-old patient, with chronic stable medical conditions include end-stage kidney disease on hemodialysis, prior to stroke with some memory loss, hypertension, diabetes,. Left arm AV fistula. Normally uses a walker/wheelchair. Because of arthritis Patient was here about 3 weeks ago with nausea vomiting. [place] to be from uremic symptoms. Did well with hemodialysis. has brought the patient back in. But again patient been vomiting for day and a half. No abdominal pain. No fever no chills. For long time patient has a habit of biting on tooth breaks. Which she has all the time. Including 1 right now. He not sure if he is she swallows the same. Patient is due for hemodialysis today. Also right big toe is being followed by a produce department manager for discoloration of the distal part of the toe. Has not seen a vascular surgeon. Appetite is not being good. Does drink quite a bit of water. 11/05/2023 Patient is seen and evaluated in follow-up with multiple medical consultations following with concerns of urinary tract infection on admission. Patient is maintained on hemodialysis with nephrology following with plans of hemodialysis today. Patient was evaluated by vascular surgery on the right great toe with concerns of dry gangrene and there are no plans for surgical intervention at this time recommending outpatient follow-up. Preliminary urine culture showing gram-negative bacilli and awaiting finalized cultures with infectious disease following. Blood cultures remaining negative thus far. Patient is afebrile with no reports of chest pain or shortness of breath. Patient awaiting to be evaluated by physical therapy. [facility] General surgery also following with plans of EGD for further evaluation as patient reportedly chews on toothpicks and is unsure if she has been eating them and swallowing them. Await surgery evaluation. 11/06/2023 Patient is seen in follow-up this morning maintained on IV antibiotics with infectious disease following. Urine cultures finalized with Klebsiella and will continue with oral antibiotics on discharge. Patient continues on hemodialysis with nephrology following plan is for dialysis in the a.m. Will follow-up on repeat labs and there are plans for EGD in the a.m. with general surgery for evaluation. Patient is currently afebrile with no reported chest pain or shortn ess of breath. Patient was evaluated by vascular surgery recommending outpatient follow-up regarding the dry gangrene. Plan is for ECF on discharge. Will discuss with other consultations post EGD on discharge planning. Review of systems: Constitutional: No reports of fatigue, fever, or chills Cardiovascular: No reports of chest pain or palpitations Respiratory: No reports of shortness of breath or cough GI: No reports of nausea, vomiting, or diarrhea : No reports of dysuria or retention Neurovascular: No reports of weakness or numbness All medications have been reviewed Physical exam: Gen: This is a 63-year-old female who is awake, alert and oriented x 2, well- developed, elderly appearing HEENT: Head is atraumatic, normocephalic. Pupils equal, round. Sclerae is anicteric. NECK: Supple. No JVD. No lymphadenopathy. No thyromegaly. LUNGS: Clear to auscultation. No wheezes or rhonchi. No intercostal retractions. HEART: Regular rate and rhythm. No murmur. ABDOMEN: Soft. Bowel sounds are present. No masses. No tenderness. EXTREMITIES: No pedal edema. No calf tenderness. Right foot large toe currently dressed NEUROLOGICAL: Patient is awake, alert and oriented x2. Cranial nerves 2 through 12 are grossly intact. Diffusely weak Assessment: Right big toe pain and redness with concerns of cellulitis with some distal dry gangrene, present on admission, cellulitis ruled out End-stage renal disease maintained on hemodialysis Sunday/Sunday/Sunday with a left forearm fistula Obesity with a BMI of 38.0 Acute urinary tract infection, present on admission with Klebsiella in the cultures Hyperuricemia Diabetes mellitus, type II, insulin-dependent, uncontrolled with hyperglycemia and hypoglycemia History of hypothyroidism GERD History of dementia Hypertension Chronic urinary incontinence Significant cognitive impairment with history of stroke GI prophylaxis DVT prophylaxis Full code Plan: Patient is continued on dialysis Sunday/Sunday/Sunday with nephrology fo randi and plans for dialysis tomorrow Continue to monitor Accu-Cheks before meals and at bedtime and continue with current regimen, adjust insulins accordingly Vascular surgery evaluated the patient for the right great toe with no plans of surgical intervention at this time Patient is continued on antibiotics with infectious disease following with concerns of urinary tract infection on admission, cultures showing Klebsiella and maintained on Rocephin and vancomycin. Will continue on oral Augmentin on discharge Plan is for patient to go to ECF on discharge with case management following Will discuss further with case management and family on discharge planning in the next 24 hours Patient is scheduled for EGD with general surgery which is pending for 11/07/2023. Will await report. Possible discharge in the next 24 to 48 hours The impression and plan of care has been dictated by Araceli Celaya, Nurse Practitioner as directed. Dr. Bird MD I have performed a history and examination and MDM of this patient, discussed the same with the dictator, and agree with the dictator's assessment and plan as written ,documented as a scribe. Based on total visit time, I have performed more than 50% of the visit. Objective - Vital Signs Vital signs: Vital Signs Temp 98.8 F 11/07/23 02:00 Pulse 101 H 11/07/23 02:00 Resp 16 11/07/23 02:00 BP 184/65 11/07/23 04:25 Pulse Ox 94 L 11/07/23 02:00 FiO2 Intake & Output 11/06/23 11/06/23 11/07/23 06:59 18:59 06:59 Other: Voiding Method Toilet Toilet Toilet Bedside Commode Bedside Commode Bedside Commode # Voids 2 4 1 # Bowel Movements 1 - Labs CBC & Chem 7: 11/06/23 07:09 11/06/23 07:09 Labs: Abnormal Lab Results - Last 24 Hours (Table) 11/06/23 11/06/23 11/06/23 Range/Units 07:09 07:09 16:51 WBC 11.70 H (4.50-10.00) X 10*3/uL RBC 3.01 L (4.10-5.20) X 10*6/uL Hgb 9.7 L (12.0-15.0) g/dL Hct 29.7 L (37.2-46.3) % MCV 98.7 H (80.0-97.0) FL MCH 32.2 H (27.0-32.0) pg Immature Gran # 0.13 H (0.00-0.04) X 10*3/uL Neutrophils # 8.73 H (1.80-7.70) X 10*3/uL Monocytes # 1.22 H (0.20-1.00) X 10*3/uL Sodium 132 L (135-145) mmol/L Chloride 95 L (96-109) mmol/L Anion Gap 12.80 H (4.00-12.00) mmol/L Creatinine 4.2 H (0.6-1.5) mg/dL Est GFR (CKD-EPI) 11 L (>=60) BUN/Creatinine Ratio 3.52 L (12.00-20.00) Ratio POC Glucose (mg/dL) 128 H (70-110) mg/dL Calcium 8.0 L (8.7-10.3) mg/dL 11/06/23 11/07/23 Range/Units 20:26 05:57 WBC (4.50-10.00) X 10*3/uL RBC (4.10-5.20) X 10*6/uL Hgb (12.0-15.0) g/dL Hct (37.2-46.3) % MCV (80.0-97.0) FL MCH (27.0-32.0) pg Immature Gran # (0.00-0.04) X 10*3/uL Neutrophils # (1.80-7.70) X 10*3/uL Monocytes # (0.20-1.00) X 10*3/uL Sodium (135-145) mmol/L Chloride (96-109) mmol/L Anion Gap (4.00-12.00) mmol/L Creatinine (0.6-1.5) mg/dL Est GFR (CKD-EPI) (>=60) BUN/Creatinine Ratio (12.00-20.00) Ratio POC Glucose (mg/dL) 136 H 65 L (70-110) mg/dL Calcium (8.7-10.3) mg/dL Microbiology - Last 24 Hours (Table) 11/01/23 18:10 Blood Culture - Final Blood 11/01/23 17:55 Blood Culture - Final Blood
[2023-11-07 06:31] LABS: Glucose,Whole Blood 73 mg/dL (70-110)
[2023-11-07 07:28] LABS: Basophils # (A) 0.1 k/uL (0-0.2); Basophils % (A) 1 %; Eosinophils # (A) 0.1 k/uL (0-0.7); Eosinophils % (A) 1 %; HCT 29.1 % (34.0-46.0); HGB 9.6 gm/dL (11.4-16.0); Lymphocytes # (A) 1.4 k/uL (1.0-4.8); Lymphocytes % (A) 12 %; MCH 33.1 pg (25.0-35.0); MCHC 32.8 g/dL (31.0-37.0); Macrocytosis Slight; Mean Platelet Volume 9.3; Monocytes # (A) 0.9 k/uL (0-1.0); Monocytes % (A) 8 %; Neutrophils % (A) 78 %; Platelet Count 254 k/uL (150-450); RBC 2.88 m/uL (3.80-5.40); RDW 14.6 % (11.5-15.5); WBC 11.6 k/uL (3.8-10.6)
[2023-11-07 07:32] LABS: African American GFR (CKD) 9 (>60 ml/min/1.73 sqM); Anion Gap 7 mmol/L; Blood Urea Nitrogen 21 mg/dL (7-17); Carbon Dioxide 23 mmol/L (22-30); Chloride 99 mmol/L (98-107); Glucose 58 mg/dL (74-99); Non-African American GFR(CKD) 8 (>60 ml/min/1.73 sqM); Potassium 4.7 mmol/L (3.5-5.1); Sodium 129 mmol/L (137-145)
[2023-11-07 07:38] LABS: Vancomycin,Random 24.9 ug/mL
[2023-11-07 11:40] LABS: Glucose,Whole Blood 93 mg/dL (70-110)
--- NOTE | 2023-11-07 12:14 | P.PN ---
Subjective Progress Note Date: 11/07/23 Principal diagnosis: Reason for follow-up is right big toe tip gangrene/cellulitis and UTI Patient is a 63-year-old female with a past medical history significant for diabetes mellitus hypertension dementia CVA TIA did have a history of end-stage renal disease on dialysis patient has been brought into the hospital for evaluation of nausea and weakness along with decreased appetite, patient was noticed to have a dry gangrene to the right big toe tip with some surrounding redness concerning for cellulitis patient did have elevated white count. On today's evaluation that is 11/07/2023, Patient is afebrile patient is currently on room air and denies having any shortness of breath, the patient denies any chest pain or cough, the patient denies any nausea vomiting did not have any abdominal pain and no diarrhea, patient feeling better wants to go home. Patient white count is 11.6 creatinine is 5.21 Objective - Vital Signs Vital signs: Vital Signs Temp 98.2 F 11/07/23 07:17 Pulse 97 11/07/23 10:17 Resp 17 11/07/23 10:17 BP 152/70 11/07/23 07:17 Pulse Ox 96 11/07/23 07:17 FiO2 Intake & Output 11/06/23 11/07/23 11/07/23 18:59 06:59 18:59 Other: Voiding Method Toilet Toilet Bedside Commode Bedside Commode # Voids 4 1 # Bowel Movements 1 - Exam GENERAL DESCRIPTION: Middle-age female lying in bed in no distress RESPIRATORY SYSTEM: Unlabored breathing , decreased breath sounds at bases HEART: S1 S2 regular rate and rhythm , ABDOMEN: Soft , no tenderness EXTREMITIES: Right big toe tip with gangrenous changes minimal surrounding redness - Labs CBC & Chem 7: 11/07/23 06:16 11/07/23 06:16 Labs: Abnormal Lab Results - Last 24 Hours (Table) 11/06/23 11/06/23 11/06/23 Range/Units 07:09 07:09 16:51 WBC 11.70 H (4.50-10.00) X 10*3/uL RBC 3.01 L (4.10-5.20) X 10*6/uL Hgb 9.7 L (12.0-15.0) g/dL Hct 29.7 L (37.2-46.3) % MCV 98.7 H (80.0-97.0) FL MCH 32.2 H (27.0-32.0) pg Immature Gran # 0.13 H (0.00-0.04) X 10*3/uL Neutrophils # 8.73 H (1.80-7.70) X 10*3/uL Monocytes # 1.22 H (0.20-1.00) X 10*3/uL Sodium 132 L (135-145) mmol/L Chloride 95 L (96-109) mmol/L Anion Gap 12.80 H (4.00-12.00) mmol/L BUN (7-17) mg/dL Creatinine 4.2 H (0.6-1.5) mg/dL Est GFR (CKD-EPI) 11 L (>=60) BUN/Creatinine Ratio 3.52 L (12.00-20.00) Ratio Glucose (74-99) mg/dL POC Glucose (mg/dL) 128 H (70-110) mg/dL Calcium 8.0 L (8.7-10.3) mg/dL 11/06/23 11/07/23 11/07/23 Range/Units 20:26 05:57 06:12 WBC (4.50-10.00) X 10*3/uL RBC (4.10-5.20) X 10*6/uL Hgb (12.0-15.0) g/dL Hct (37.2-46.3) % MCV (80.0-97.0) FL MCH (27.0-32.0) pg Immature Gran # (0.00-0.04) X 10*3/uL Neutrophils # (1.80-7.70) X 10*3/uL Monocytes # (0.20-1.00) X 10*3/uL Sodium (135-145) mmol/L Chloride (96-109) mmol/L Anion Gap (4.00-12.00) mmol/L BUN (7-17) mg/dL Creatinine (0.6-1.5) mg/dL Est GFR (CKD-EPI) (>=60) BUN/Creatinine Ratio (12.00-20.00) Ratio Glucose (74-99) mg/dL POC Glucose (mg/dL) 136 H 65 L 66 L (70-110) mg/dL Calcium (8.7-10.3) mg/dL 11/07/23 11/07/23 Range/Units 06:16 06:16 WBC 11.6 H (4.50-10.00) X 10*3/uL RBC 2.88 L (4.10-5.20) X 10*6/uL Hgb 9.6 L (12.0-15.0) g/dL Hct 29.1 L (37.2-46.3) % MCV 101.0 H (80.0-97.0) FL MCH (27.0-32.0) pg Immature Gran # (0.00-0.04) X 10*3/uL Neutrophils # 9.0 H (1.80-7.70) X 10*3/uL Monocytes # (0.20-1.00) X 10*3/uL Sodium 129 L (135-145) mmol/L Chloride (96-109) mmol/L Anion Gap (4.00-12.00) mmol/L BUN 21 H (7-17) mg/dL Creatinine 5.21 H (0.6-1.5) mg/dL Est GFR (CKD-EPI) (>=60) BUN/Creatinine Ratio (12.00-20.00) Ratio Glucose 58 L (74-99) mg/dL POC Glucose (mg/dL) (70-110) mg/dL Calcium 8.0 L (8.7-10.3) mg/dL Microbiology - Last 24 Hours (Table) 11/01/23 18:10 Blood Culture - Final Blood 11/01/23 17:55 Blood Culture - Final Blood Assessment and Plan (1) Gangrene of toe of right foot Current Visit: Yes Status: Acute Code(s): I96 - GANGRENE, NOT ELSEWHERE CLASSIFIED SNOMED Code(s): 30406934706875017 (2) Cellulitis Current Visit: Yes Status: Acute Code(s): L03.90 - CELLULITIS, UNSPECIFIED SNOMED Code(s): 382451190 (3) Leukocytosis Current Visit: Yes Status: Acute Code(s): D72.829 - ELEVATED WHITE BLOOD CELL COUNT, UNSPECIFIED SNOMED Code(s): 308148272 Plan: 1patient with a wound on the tip of the right second toe with necrotic area more likely representing a dry gangrene currently with no evidence of any cellulitis no fluctuation induration to be suspicious for an abscess or a wet gangrene, patient not running any fever did have mild elevated white count 2-patient did have some improvement in mentation as well as white count is trending down urine culture has been finalized with Klebsiella, patient is covered with Rocephin and vancomycin however plan is for therapy with oral Augmentin 500 milligram daily for 10 days on discharge Dictation was produced using [employer] dictation software. please excuse any grammatical, word or spelling errors. Time with Patient: Less than 30
--- NOTE | 2023-11-07 14:11 | P.PN ---
Subjective Progress Note Date: 11/07/23 CHIEF COMPLAINT: weakness HISTORY OF PRESENT ILLNESS: Patient apparently has habit of biting on toothpicks and possibly has been swallowing them. hgb 9.6 na 129. Patient getting hemodialysis this morning. PHYSICAL EXAM: VITAL SIGNS: Reviewed. GENERAL: Well-developed in no acute distress. ABDOMEN: Soft. Nondistended. Nontender. ASSESSMENT: 1. Biting on toothpicks and possibly swallowing them 2. Anemia PLAN: -Patient scheduled for EGD today with Dr. Abraham -Hyponatremia management per nephrology Physician Pet Care Technician note has been reviewed by physician. Signing provider agrees with the documented findings, assessment, and plan of care. Objective - Vital Signs Vital signs: Vital Signs Temp 98.1 F 11/07/23 12:45 Pulse 72 11/07/23 12:45 Resp 16 11/07/23 12:45 BP 113/54 11/07/23 12:45 Pulse Ox 96 11/07/23 07:17 FiO2 Intake & Output 11/06/23 11/07/23 11/07/23 18:59 06:59 18:59 Intake Total 400 Output Total 2900 Balance -2500 Intake: Hemodialysis 400 Output: Hemodialysis 2900 Other: Voiding Method Toilet Toilet Bedside Commode Bedside Commode # Voids 4 1 # Bowel Movements 1 - Labs CBC & Chem 7: 11/07/23 06:16 11/07/23 06:16 Labs: Abnormal Lab Results - Last 24 Hours (Table) 11/06/23 11/06/23 11/06/23 Range/Units 07:09 16:51 20:26 WBC (3.8-10.6) k/uL RBC (3.80-5.40) m/uL Hgb (11.4-16.0) gm/dL Hct (34.0-46.0) % MCV (80.0-100.0) fL Neutrophils # (1.3-7.7) k/uL Sodium 132 L (135-145) mmol/L Chloride 95 L (96-109) mmol/L Anion Gap 12.80 H (4.00-12.00) mmol/L BUN (7-17) mg/dL Creatinine 4.2 H (0.6-1.5) mg/dL Est GFR (CKD-EPI) 11 L (>=60) BUN/Creatinine Ratio 3.52 L (12.00-20.00) Ratio Glucose (74-99) mg/dL POC Glucose (mg/dL) 128 H 136 H (70-110) mg/dL Calcium 8.0 L (8.7-10.3) mg/dL 11/07/23 11/07/23 11/07/23 Range/Units 05:57 06:12 06:16 WBC (3.8-10.6) k/uL RBC (3.80-5.40) m/uL Hgb (11.4-16.0) gm/dL Hct (34.0-46.0) % MCV (80.0-100.0) fL Neutrophils # (1.3-7.7) k/uL Sodium 129 L (135-145) mmol/L Chloride (96-109) mmol/L Anion Gap (4.00-12.00) mmol/L BUN 21 H (7-17) mg/dL Creatinine 5.21 H (0.6-1.5) mg/dL Est GFR (CKD-EPI) (>=60) BUN/Creatinine Ratio (12.00-20.00) Ratio Glucose 58 L (74-99) mg/dL POC Glucose (mg/dL) 65 L 66 L (70-110) mg/dL Calcium 8.0 L (8.7-10.3) mg/dL 11/07/23 Range/Units 06:16 WBC 11.6 H (3.8-10.6) k/uL RBC 2.88 L (3.80-5.40) m/uL Hgb 9.6 L (11.4-16.0) gm/dL Hct 29.1 L (34.0-46.0) % MCV 101.0 H (80.0-100.0) fL Neutrophils # 9.0 H (1.3-7.7) k/uL Sodium (135-145) mmol/L Chloride (96-109) mmol/L Anion Gap (4.00-12.00) mmol/L BUN (7-17) mg/dL Creatinine (0.6-1.5) mg/dL Est GFR (CKD-EPI) (>=60) BUN/Creatinine Ratio (12.00-20.00) Ratio Glucose (74-99) mg/dL POC Glucose (mg/dL) (70-110) mg/dL Calcium (8.7-10.3) mg/dL Microbiology - Last 24 Hours (Table) 11/01/23 18:10 Blood Culture - Final Blood 11/01/23 17:55 Blood Culture - Final Blood
[2023-11-07] MEDS ORDERED: PROPOFOL 10 MG/ML 20 ML VIAL IV ONE (15:00)
[2023-11-07] MEDS: SODIUM CHLORIDE 0.9% 500 ML 500 ML IV ONE (15:01)
--- NOTE | 2023-11-07 15:10 | P.PN ---
Subjective Progress Note Date: 11/04/23 63-year-old patient, with chronic stable medical conditions include end-stage kidney disease on hemodialysis, prior to stroke with some memory loss, hypertension, diabetes,. Left arm AV fistula. Normally uses a walker/wheelchair. Because of arthritis Patient was here about 3 weeks ago with nausea vomiting. [place] to be from uremic symptoms. Did well with hemodialysis. has brought the patient back in. But again patient been vomiting for day and a half. No abdominal pain. No fever no chills. For long time patient has a habit of biting on tooth breaks. Which she has all the time. Including 1 right now. He not sure if he is she swallows the same. Patient is due for hemodialysis today. Also right big toe is being followed by a distribution technician for discoloration of the distal part of the toe. Has not seen a vascular surgeon. Appetite is not being good. Does drink quite a bit of water. 11/04/2023 the is seen and evaluated in room at bedside; patient denies any fever or any chills, patient is breathing comfortably on room air, the patient denies chest pain shortness of breath and no significant cough, patient denies abdominal pain, no nausea vomiting or pain to the right big toe patient has been complaining of wanting to urinate and apparently the patient was noticed to have a purulent urine on straight cath yesterday per the nursing staff. Patient also noticed to have worsening of the white count which is up to 15.9 creatinine 5.04 Vanco trough was 24 urine is growing gram-negative bacilli blood cultures so far negative -patient noticed to have worsening of her white count also noticed to have a purulent urine on straight cath yesterday and urination gram-negative we will add Rocephin continue with the vancomycin and will watch clinical course and culture closely Objective - Vital Signs Vital signs: Vital Signs Temp 98.5 F 11/04/23 08:14 Pulse 67 11/04/23 08:14 Resp 20 11/04/23 08:14 BP 171/68 11/04/23 08:14 Pulse Ox 97 11/04/23 08:14 FiO2 Intake & Output 11/03/23 11/04/23 11/04/23 18:59 06:59 18:59 Output Total 440 Balance -440 Output: Post Void Residual 440 Other: Voiding Method Bedside Commode Bedside Commode # Voids 0 10 - Exam GENERAL: [BMI 38, reclining bed getting hemodialysis. Also chewing on a tooth break.]. EYES: [Pupils equal. Conjunctiva jessica]l. HEENT: [External appearance of nose and ears normal, oral cavity grossly normal]. NECK: [JVD not raised; masses not palpable]. HEART: [First and second heart sounds are normal; no edema]. LUNGS:[ Respiratory rate normal; clear to auscultation]. ABDOMEN: [Soft, nontender, liver spleen not palpable, no masses palpable]. PSYCH: [Able to answer some questions]l. MUSCULOSKELETAL:No Clubbing/cyanosis;muscles-grossly intact NEUROLOGICAL: [Cranial nerves grossly intact; no facial asymmetry, power and sensation grossly intact]. LYMPHATICS: [No lymph nodes palpable in the axilla and neck] EXTREMITY: Right foot big toe, some necrosis distally. Some redness. Tenderness. - Labs CBC & Chem 7: 11/07/23 06:16 11/07/23 06:16 Labs: Abnormal Lab Results - Last 24 Hours (Table) 11/03/23 11/04/23 11/04/23 Range/Units 16:41 06:13 06:13 WBC 15.99 H (4.50-10.00) X 10*3/uL RBC 3.20 L (4.10-5.20) X 10*6/uL Hgb 10.2 L (12.0-15.0) g/dL Hct 31.5 L (37.2-46.3) % MCV 98.4 H (80.0-97.0) FL Immature Gran # 0.18 H (0.00-0.04) X 10*3/uL Neutrophils # 12.21 H (1.80-7.70) X 10*3/uL Monocytes # 1.38 H (0.20-1.00) X 10*3/uL Sodium 127 L (137-145) mmol/L Chloride 95 L (98-107) mmol/L BUN 28 H (7-17) mg/dL Creatinine 5.04 H (0.52-1.04) mg/dL Glucose 65 L (74-99) mg/dL POC Glucose (mg/dL) 159 H (70-110) mg/dL Calcium 7.9 L (8.4-10.2) mg/dL Microbiology - Last 24 Hours (Table) 11/02/23 18:00 Urine Culture - Preliminary Urine,Voided Gram Neg Bacilli 11/01/23 18:10 Blood Culture - Preliminary Blood 11/01/23 17:55 Blood Culture - Preliminary Blood Assessment and Plan Assessment: -Patient's diet nausea vomiting. Has been having it previously. Interestingly patient does seem to be chewing at toothpicks all the time for quite some time as her describes. He is not sure if she actually swallows the same. It may be [place] to do EGD to rule out any pica from the same. Consult surgery Full liquid diet -Right big toe cellulitis with some distal small dry gangrene Consult vascular. ID. IV Unasyn. IV vancomycin End-stage kidney disease on hemodialysis Left forearm AV fistula. Sunday -Obesity BMI 30.7 -Hyperuricemia Allopurinol -Diabetes mellitus type 2, chronically insulin Levemir 12 units at night.. Accu-Cheks with sliding scale -Hypothyroid Synthroid -GERD PPI -Essential hypertension Coreg, hydralazine -Chronic urinary incontinence Oxybutynin -Significant cognitive impairment from prior stroke -Full code
--- NOTE | 2023-11-07 15:29 | P.OP ---
Date of Procedure: 11/07/23 Preoperative Diagnosis: Nausea and vomiting Postoperative Diagnosis: Antral gastritis Procedure(s) Performed: EGD Anesthesia: MAC Surgeon: Bogdan Abraham Pathology: other (Antrum) Condition: stable Disposition: PACU Description of Procedure: The patient was placed on the endoscopy table in the lateral position. H she received IV sedation. The gas was placed oropharynx passed in the esophagus and the stomach. Scope was then placed through the pylorus. The first and second portion of the duodenum appeared normal. Scope was able back to the antrum this was mildly Flaim. A biopsy was performed. The scope was then retroflexed and remainder of the stomach appeared normal. The GE junction was at 40 cm. The distal esophagus performed. Proximal esophagus appeared normal. Scope withdrawn the patient.
[2023-11-07 15:43] VITALS: BP 146/67; PULSE 75; RESP 19; TEMP 98
--- NOTE | 2023-11-07 17:31 | P.PN ---
Subjective Patient is seen for follow-up for end-stage renal disease. Seen on hemodialysis. Tolerating treatment well. Maintained on antibiotics for UTI. No significant complaints today. Objective - Vital Signs Vital signs: Vital Signs Temp 98.0 F 11/07/23 13:35 Pulse 75 11/07/23 13:35 Resp 19 11/07/23 13:35 BP 146/67 11/07/23 13:35 Pulse Ox 99 11/07/23 13:35 FiO2 Intake & Output 11/06/23 11/07/23 11/07/23 18:59 06:59 18:59 Intake Total 500 Output Total 2900 Balance -2400 Intake: IV 100 Hemodialysis 400 Output: Hemodialysis 2900 Other: Voiding Method Toilet Toilet Toilet Bedside Commode Bedside Commode Bedside Commode # Voids 4 1 # Bowel Movements 1 - Exam Patient is sleeping but arousable, comfortable, in no acute distress Examination of the heart S1 and S2 Examination of the lungs bilateral breath sounds are heard Abdomen is soft nontender Examination of lower extremities shows no significant edema - Labs CBC & Chem 7: 11/07/23 06:16 11/07/23 06:16 Labs: Abnormal Lab Results - Last 24 Hours (Table) 11/06/23 11/07/23 11/07/23 Range/Units 20:26 05:57 06:12 WBC (3.8-10.6) k/uL RBC (3.80-5.40) m/uL Hgb (11.4-16.0) gm/dL Hct (34.0-46.0) % MCV (80.0-100.0) fL Neutrophils # (1.3-7.7) k/uL Sodium (137-145) mmol/L BUN (7-17) mg/dL Creatinine (0.52-1.04) mg/dL Glucose (74-99) mg/dL POC Glucose (mg/dL) 136 H 65 L 66 L (70-110) mg/dL Calcium (8.4-10.2) mg/dL 11/07/23 11/07/23 Range/Units 06:16 06:16 WBC 11.6 H (3.8-10.6) k/uL RBC 2.88 L (3.80-5.40) m/uL Hgb 9.6 L (11.4-16.0) gm/dL Hct 29.1 L (34.0-46.0) % MCV 101.0 H (80.0-100.0) fL Neutrophils # 9.0 H (1.3-7.7) k/uL Sodium 129 L (137-145) mmol/L BUN 21 H (7-17) mg/dL Creatinine 5.21 H (0.52-1.04) mg/dL Glucose 58 L (74-99) mg/dL POC Glucose (mg/dL) (70-110) mg/dL Calcium 8.0 L (8.4-10.2) mg/dL Microbiology - Last 24 Hours (Table) 11/01/23 18:10 Blood Culture - Final Blood 11/01/23 17:55 Blood Culture - Final Blood Assessment and Plan Assessment: 1. End-stage renal disease maintained on hemodialysis on Sunday schedule. 2. Generalized weakness and debility. 3. Right foot pain. No evidence of osteomyelitis noted on x-ray. 4. Hypertension with chronic kidney disease. 5. Chronic kidney disease mineral bone disease. Phosphorus level 4.5 dated November 01, 2023. 6. History of dementia. 7. History of stroke. Plan: Maintain hemodialysis on Sunday schedule. Continue antibiotics
[2023-11-07 18:58] LABS: Hepatitis B Surface AB- Quant 3.5 mIU/mL; Hepatitis B Surface Antigen Nonreactive
== END 2023-11-07 17:15 | disposition home health service (06) | DRG 299 ==
LOC: EC 16:31 → 4SSUR 20:40
PROVIDERS: ADMIT Hospitalist; ATTEND Hospitalist
PROC: 0DB78ZX Excision of Stomach, Pylorus, Via Natural or Artificial Opening Endoscopic, Diagnostic (ICD-10-PCS; principal; 2023-11-07 14:30)
PROC: 5A1D70Z Performance of Urinary Filtration, Intermittent, Less than 6 Hours Per Day (ICD-10-PCS; 2023-11-07 15:15)
DX: E11.52 Type 2 diabetes mellitus with diabetic peripheral angiopathy with gangrene (principal); N18.6 End stage renal disease; I12.0 Hypertensive chronic kidney disease with stage 5 chronic kidney disease or end stage renal disease; E87.1 Hypo-osmolality and hyponatremia; N39.0 Urinary tract infection, site not specified; E11.22 Type 2 diabetes mellitus with diabetic chronic kidney disease; E11.628 Type 2 diabetes mellitus with other skin complications; E83.51 Hypocalcemia; K21.9 Gastro-esophageal reflux disease without esophagitis; R32 Unspecified urinary incontinence; K29.70 Gastritis, unspecified, without bleeding; B96.1 Klebsiella pneumoniae [K. pneumoniae] as the cause of diseases classified elsewhere; E03.9 Hypothyroidism, unspecified; D63.1 Anemia in chronic kidney disease; Z99.2 Dependence on renal dialysis; Z68.38 Body mass index [BMI] 38.0-38.9, adult; F03.90 Unspecified dementia, unspecified severity, without behavioral disturbance, psychotic disturbance, mood disturbance, and anxiety; E11.65 Type 2 diabetes mellitus with hyperglycemia; E87.8 Other disorders of electrolyte and fluid balance, not elsewhere classified; E83.9 Disorder of mineral metabolism, unspecified; E66.01 Morbid (severe) obesity due to excess calories; L03.031 Cellulitis of right toe; E79.0 Hyperuricemia without signs of inflammatory arthritis and tophaceous disease; R53.81 Other malaise; Z79.4 Long term (current) use of insulin; Z79.890 Hormone replacement therapy; Z79.82 Long term (current) use of aspirin; Z79.899 Other long term (current) drug therapy; Z86.73 Personal history of transient ischemic attack (TIA), and cerebral infarction without residual deficits; Z88.5 Allergy status to narcotic agent; Z86.19 Personal history of other infectious and parasitic diseases
CPT/HCPCS: 36410; 36415; 43239; 71046; 76937; 80048; 80053; 80202; 81001; 83036; 83605; 83735; 84100; 84443; 84484; 85025; 85027; 85610; 85652; 85730; 86140; 86706; 87040; 87077; 87086; 87186; 87340; 90935; 93005; 93922; 96365; 96366; 96368; 96375; 99285

== ENCOUNTER → 2023-11-13 | Outpatient (CLI) | payer MEDICARE, OTHER | END | disposition home or self-care (01) | LOC: RADUSWWP 14:27 | PROVIDERS: ATTEND Podiatrist Foot & Ankle Surgery | DX: Z53.9 Procedure and treatment not carried out, unspecified reason (principal) ==

== ENCOUNTER → 2023-12-04 | Outpatient (CLI) | payer MEDICARE, OTHER ==
--- NOTE | 2023-12-04 17:01 | US ---
EXAMINATION TYPE: US carotid duplex BILAT DATE OF EXAM: 12/04/2023 COMPARISON: US 10/28/2017 CLINICAL INDICATION: Female, 63 years old with history of R01.1 CARDIAC MURMUR, R42 DIZZINESS; Dizzin ess TECHNIQUE: Carotid duplex ultrasound examination. Indirect Doppler criteria was utilized. FINDINGS: EXAM MEASUREMENTS: RIGHT: Peak Systolic Velocity (PSV) cm/sec ----- Right CCA: 81.4 ----- Right ICA: 98.6 ----- Right ECA: 86.7 ICA/CCA ratio: 1.23 RIGHT: End Diastole cm/sec ----- Right CCA: 13.1 ----- Right ICA: 35.0 ----- Right ECA: 0.0 LEFT: Peak Systolic Velocity (PSV) cm/sec ----- Left CCA: 68.9 ----- Left ICA: 88.1 ----- Left ECA: 89.2 ICA/CCA ratio: 1.28 LEFT: End Diastole cm/sec ----- Left CCA: 13.7 ----- Left ICA: 25.7 ----- Left ECA: 0.5 VERTEBRALS (direction of flow): Right Vertebral: Antegrade Left Vertebral: Antegrade Rhythm: Normal GEAR GRINDER NOTES: No elevated velocities at this time. Plaque seen within bilateral bulbs. Hyperechoic, calcified area with posterior shadowing seen within the right thyroid lobe: 0.8 x 0.7 x 0.5 cm. IMPRESSION: Less than 50% stenosis of the carotid bifurcations. Criteria for Assigning % of Stenosis / Diameter reduction (Estimation based on the indirect measurements of the internal carotid artery velocities (ICA PSV). 1. Normal (no stenosis)=ICA PSV < 125 cm/s: ratio < 2.0: ICA EDV<40 cm/s. 2. Less than 50% stenosis=ICA PSV < 125 cm/s: ratio < 2.0: ICA EDV<40 cm/s. 3. 50 to 69% stenosis=ICA PSV of 125 to 230 cm/s: ration 2.0 ? 4.0: ICA EDV 40-100 cm/s. 4. Greater than 70% stenosis to near occlusion= ICA PSV > 230 cm/s: ratio > 4.0: ICA EDV > 100 cm/s. 5. Near occlusion= ICA PSV velocities may be low or undetectable: variable ratio and ICA EDV. 6. Total occlusion=unable to detect flow.
--- NOTE | 2023-12-04 17:52 | CA ---
Transthoracic Echo Report Name: Renetta Quinonez Age: 63 Gender: F : 1960 Exam Date: 12/04/2023 16:18 Exam Location: [facility] Ht (in): 52 Wt (lb): 200 Ordering Physician: Des Vazquez DO Attending/Referring Phys: Donna Corea PAC [facility] Senior Specialist Chelsea Salazar RCS Procedure CPT: Indications: R01.1 CARDIAC MURMUR, R42 DIZZINESS Cardiac Hx: Technical Quality: Fair Contrast 1: Total Dose (mL): Contrast 2: Total Dose (mL): MEASUREMENTS (Male / Female) Normal Values 2D ECHO LVOT Diameter 2.2 cm LV Diastolic Volume MOD BP 65.0 cm??? 67 - 155 / 56 - 104 cm??? LV Systolic Volume MOD BP 26.5 cm??? 22 - 58 / 19 - 49 cm??? LV Ejection Fraction MOD BP 59.3 % >= 55 % LV Cardiac Index MOD BP 0.0 cm???/min???m??? LV Diastolic Volume MOD 4C 72.1 cm??? LV Systolic Volume MOD 4C 28.5 cm??? LV Ejection Fraction MOD 4C 60.5 % LV Cardiac Index MOD 4C 0.0 cm???/min???m??? LV Diastolic Length 4C 7.1 cm LV Systolic Length 4C 5.5 cm LV Diastolic Volume MOD 2C 57.3 cm??? LV Systolic Volume MOD 2C 23.4 cm??? LV Ejection Fraction MOD 2C 59.2 % LV Cardiac Index MOD 2C 0.0 cm???/min???m??? LV Diastolic Length 2C 7.4 cm LV Systolic Length 2C 5.8 cm LA Volume 67.4 cm??? 18 - 58 / 22 - 52 cm??? LA Volume Index 35.5 cm???/m??? 16 - 28 cm???/m??? Ascending Aorta Diameter 3.1 cm DOPPLER AV Peak Velocity 147.1 cm/s AV Peak Gradient 8.7 mmHg AV Mean Velocity 101.0 cm/s AV Mean Gradient 4.7 mmHg AV Velocity Time Integral 29.1 cm LVOT Peak Velocity 108.3 cm/s LVOT Peak Gradient 4.7 mmHg LVOT Velocity Time Integral 20.5 cm LVOT Stroke Volume 75.6 cm??? LVOT Stroke Volume Index 44.9 ml/m??? LVOT Cardiac Index 0.0 cm???/min???m??? AV Area Cont Eq vti 2.6 cm??? AV Area Cont Eq pk 2.7 cm??? MV Peak Velocity 150.4 cm/s MV Peak Gradient 9.1 mmHg MV Mean Velocity 87.0 cm/s MV Mean Gradient 3.4 mmHg MV Velocity Time Integral 27.7 cm MV Area PHT 1.5 cm??? Mitral E Point Velocity 75.6 cm/s Mitral A Point Velocity 123.0 cm/s Mitral E to A Ratio 0.6 MV Deceleration Time 220.2 ms MV E' Velocity 2.2 cm/s Mitral E to MV E' Ratio 34.0 PV Peak Velocity 104.2 cm/s PV Peak Gradient 4.3 mmHg FINDINGS Left Ventricle Left ventricular ejection fraction is estimated at 55-60 %. Left ventricular cavity size normal. No obvious regional wall motion abnormalities. Right Ventricle Normal right ventricular size and function. Unable to estimate right ventricular systolic pressure. Right Atrium Normal right atrial size. Left Atrium Moderate LA dilatation Mitral Valve Mitral valve thickened. Mitral annular calcification. No evidence for mitral valve prolapse. Mild mitral stenosis. Mild mitral regurgitation. Aortic Valve Aortic valve not well visualized. No aortic valve stenosis or regurgitation. Tricuspid Valve Structurally normal tricuspid valve. No tricuspid stenosis. Trace tricuspid regurgitation. Pulmonic Valve Pulmonic valve not well visualized. No pulmonic stenosis. No pulmonic regurgitation. Pericardium No pericardial effusion. Aorta Normal size aortic root and proximal ascending aorta. CONCLUSIONS Patient was uncooperative and unable to follow commands.Left ventricular ejection fraction is estimated at 55-60 %. No obvious regional wall motion abnormalities. Normal right ventricular size and function. Mitral annular calcification. Degenerative calcification of mitral valve leaflets. Mild mitral stenosis and mild mitral regurgitation. Moderate LA dilatation Normal RV size and function No pericardial effusion No prior echo to compare within database Previewed by: Dr Brenton Acharya (Electronically Signed) Final Date: 04 December 2023 17:51
== END | disposition home or self-care (01) ==
LOC: RADECHMAIN 15:47
PROVIDERS: ATTEND Family Medicine
DX: I34.81 Nonrheumatic mitral (valve) annulus calcification (principal); I34.0 Nonrheumatic mitral (valve) insufficiency; I65.23 Occlusion and stenosis of bilateral carotid arteries
CPT/HCPCS: 93306; 93880

== ENCOUNTER 2024-01-01 05:43 | Day surgery (SDC) | payer MEDICARE ==
[2023-12-27 15:43] VITALS: BMI 33.8
[2024-01-01] MEDS: SODIUM CHLORIDE 0.9% 1,000 ML IV ONE (05:55)
[2024-01-01] MEDS ORDERED: ASPIRIN 325 MG TAB PO PRN (06:16)
[2024-01-01] MEDS ORDERED: EMPTY BAG 1 BAG with SODIUM CHLORIDE 0.9% 1,000 ML IV SCH (06:16)
[2024-01-01 06:17] LABS: Glucose,Whole Blood 152 mg/dL (70-110)
[2024-01-01 06:34] VITALS: RESP 16; TEMP 98.5
[2024-01-01] MEDS: amLODIPine 5 MG TAB PO SCH (07:11)
[2024-01-01] MEDS: ASPIRIN 81 MG ONE (07:11)
[2024-01-01] MEDS: hydrALAZINE HCL 50 MG TAB PO SCH (07:11)
[2024-01-01] MEDS: carvediloL 6.25 MG TAB PO SCH (07:11)
[2024-01-01] MEDS ORDERED: LIDOCAINE 1% INJ 10MG/ML (20 ML MDV) ONE (07:32)
[2024-01-01] MEDS ORDERED: fentaNYL (PF) 50 MCG/ML 2 ML AMP ONE (07:38)
[2024-01-01] MEDS: LIDOCAINE 1% INJ 10MG/ML (20 ML MDV) SQ ONE (07:44)
[2024-01-01] MEDS: MIDAZOLAM 2 MG/2 ML VIAL IVP ONE (07:45)
[2024-01-01] MEDS: fentaNYL (PF) 50 MCG/ML 2 ML AMP IVP ONE (07:45)
[2024-01-01] MEDS ORDERED: HEPARIN SODIUM 1,000 UN/ML (10ML VL) ONE (08:01)
[2024-01-01] MEDS: HEPARIN SODIUM 1,000 UN/ML (10ML VL) IVP ONE (08:04)
[2024-01-01] MEDS ORDERED: PROTAMINE SULFATE 10 MG/ML 5 ML VIAL ONE (08:44)
[2024-01-01] MEDS: PROTAMINE SULFATE 10 MG/ML 5 ML VIAL IVPB ONE (08:50)
[2024-01-01] MEDS ORDERED: CLOPIDOGREL 75 MG TAB ONE (08:50)
[2024-01-01] MEDS: IOPAMIDOL-370 100ML BTL INJ ONE (08:56)
[2024-01-01] MEDS: CLOPIDOGREL 75 MG TAB PO ONE (09:09)
[2024-01-01] MEDS ORDERED: ONDANSETRON 4 MG/2 ML VIAL ONE (09:19)
[2024-01-01] MEDS: ONDANSETRON 4 MG/2 ML VIAL IVP ONE (09:20)
--- NOTE | 2024-01-01 09:20 | P.OP ---
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 Percutaneous transluminal balloon angioplasty of the right tibioperoneal trunk and peroneal artery Percutaneous closure left common femoral artery with Vascade device Surgeon: Janice Anesthesia: Moderate sedation times 53 minutes Estimated blood loss: 5 Complications: none Condition: stable Findings: Aorta: patent with out any significant stenosis Iliacs: bilateral common iliac, external iliac and internal iliac arteries are patent with minimal atherosclerotic disease without any evidence of significant stenosis Femorals: bilateral common femoral, superficial femoral and profundus femoris arteries are patent without any significant stenosis Popliteal: bilateral popliteal arteries with some atherosclerotic disease without any significant stenosis Tibials: right tibioperoneal trunk with greater than 90% stenosis, peroneal artery with 70% stenosis and anterior tibial artery on the right with occlusion at the midportion without significant reconstitution. Left tibioperoneal trunk is patent with some disease and two-vessel runoff to the ankle Operative narrative: After written informed consent was obtained the patient all risks benefits competitions were described the patient is brought to the [facility] and laid in a supine position. The area of the left groin was prepped and draped in the usual sterile fashion. Local anesthesia with moderate sedation was performed with continuous pulse ox monitoring and EKG monitoring. Utilizing ultrasound the left femoral artery was visualized and shown to be patent without any significant plaque. Utilizing a multipurpose needle under ultrasound g uidance the artery was accessed. Guidewire was placed followed by 5-Mozambican sheath. 035 Glidewire was then placed into the aorta followed by RBI catheter. Angiogram was then obtained of the aorta. Catheter was then placed at the bifurcation and lower extremity runoffs were obtained. Catheter was then brought back and an up and over fashion the right lower extremity was accessed and selective angiogram was obtained distally demonstrating significant disease in the tibioperoneal trunk and peroneal artery. A 035 Glidewire advantage was then placed followed by a 6-Mozambican 55 cm destination sheath and up and over fashion. Utilizing 014 wire and cross and catheters the peroneal artery was accessed across the lesion. Balloon angioplasty was then performed of the tibial peroneal trunk and peroneal artery with a 2.5 mm balloon followed by a 3 mm balloon with good improvement of the stenosis. Attempt was placed at accessing the anterior tibial artery and crossing the lesion which was unable to be performed due to no reconstitution of the anterior tibial artery until foot. Once completed all guidewires, catheters and sheaths were removed, short 6- [place]ambican sheath was placed in the left groin and Vascade device was utilized and deployed in normal fashion and pressure was placed for hemostasis. Patient tolerated procedure well was sent to PACU for recovery Plan - Discharge Summary Discharge Rx Participant: Yes New Discharge Prescriptions: No Action RX: Oxybutynin Chloride 5 mg PO BID RX: Levothyroxine Sodium [Synthroid] 75 mcg PO DAILY RX: allopurinoL [Zyloprim] 100 mg PO DAILY RX: amLODIPine [Norvasc] 5 mg PO BID Amoxic-Pot Clav 500-125 mg [Augmentin 500-125 mg] 1 tab PO Q12HR 10 Days #20 tab RX: Lidocaine-Prilocaine Cream [Emla Cream 2.5%/2.5%] 1 applic TOPICAL DAILY PRN PRN Reason: dialysis RX: Clotrimazole [Clotrimazole AF] 1 applic TOPICAL BID RX: carvediloL [Coreg] 6.25 mg PO BID RX: Omeprazole 20 mg PO DAILY RX: Ondansetron Odt [Zofran ODT] 4 - 8 mg PO BID PRN PRN Reason: Nausea RX: Diclofenac Sodium [Diclofenac Sodium 1%] 1 applic TOPICAL DAILY PRN PRN Reason: Pain RX: Folic Acid 1 mg PO DAILY #30 tab RX: Atorvastatin [Lipitor] 20 mg PO HS #60 tab RX: hydrALAZINE HCL [Apresoline] 50 mg PO TID #90 tab RX: traMADol HCL 50 - 100 mg PO Q6H PRN PRN Reason: Pain RX: Insulin Glargine,Hum.rec.anlog [Lantus Solostar Pen] 20 units SQ HS Discharge Medication List RX: Levothyroxine Sodium [Synthroid] 75 mcg PO DAILY 10/28/17 [History] RX: Oxybutynin Chloride 5 mg PO BID 10/28/17 [History] RX: allopurinoL [Zyloprim] 100 mg PO DAILY 01/19/20 [History] RX: Lidocaine-Prilocaine Cream [Emla Cream 2.5%/2.5%] 1 applic TOPICAL DAILY PRN 12/01/22 [History] RX: Clotrimazole [Clotrimazole AF] 1 applic TOPICAL BID 10/08/23 [History] RX: Diclofenac Sodium [Diclofenac Sodium 1%] 1 applic TOPICAL DAILY PRN 10/08/23 [History] RX: Omeprazole 20 mg PO DAILY 10/08/23 [History] RX: Ondansetron Odt [Zofran ODT] 4 - 8 mg PO BID PRN 10/08/23 [History] RX: amLODIPine [Norvasc] 5 mg PO BID 10/08/23 [History] RX: carvediloL [Coreg] 6.25 mg PO BID 10/08/23 [History] RX: Atorvastatin [Lipitor] 20 mg PO HS #60 tab 10/11/23 [Rx] RX: Folic Acid 1 mg PO DAILY #30 tab 10/11/23 [Rx] RX: hydrALAZINE HCL [Apresoline] 50 mg PO TID #90 tab 10/11/23 [Rx] RX: traMADol HCL 50 - 100 mg PO Q6H PRN 11/01/23 [History] Amoxic-Pot Clav 500-125 mg [Augmentin 500-125 mg] 1 tab PO Q12HR 10 Days #20 tab 11/07/23 [Rx] RX: Insulin Glargine,Hum.rec.anlog [Lantus Solostar Pen] 20 units SQ HS 12/27/23 [History] Follow up Appointment(s)/Referral(s): Olivier Camacho DO [STAFF PHYSICIAN] - 1 Week (APPOINTMENT MADE ON December @ 10:45AM ) Patient Instructions/Handouts: Aortic Balloon Valvuloplasty (DC), Moderate Sedation (DC) Activity/Diet/Wound Care/Special Instructions: *NO LIFTING, PUSHING, OR PULLING ANYTHING OVER 5 POUNDS FOR 5 DAYS *NO DIVING FOR 3 DAYS *YOU CAN REMOVE YOUR DRESSING TOMORROW BUT DO NOT SUBMERSE YOUR PUNCTURE SITE IN WATER FOR A FEW DAYS TO PREVENT INFECTION - SO NO TUB BATHS, POOLS, HOT TUBS, DISHES...ETC *ANY SIGNS OF BLEEDING (HARDNESS, SWELLING, OR EXCESSIVE BRUISING) HOLD DIRECT PRESSURE ON YOUR PUNCTURE SITE AND COME TO THE NEAREST EMERGENCY ROOM TO GET YOUR PUNCTURE SITE LOOKED AT - DO NOT DRIVE YOURSELF! EITHER CALL EMS OR HAVE SOMEONE DRIVE YOU!
--- NOTE | 2024-01-01 10:10 | IR ---
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 CLINICAL INDICATION:Female, 63 years old with history of Right leg pain, 13.2min fluoro, 27.2Gycm2; , [facility] Total fluoroscopy time is 13.2 min. DAP: 27.2 Gycm2 Please see the operative/procedural note for further details.
[2024-01-01] MEDS: MORPHINE SULFATE 4 MG/ML SYRINGE IVP ONE (11:19)
[2024-01-01] MEDS ORDERED: MORPHINE SULFATE 4 MG/ML SYRINGE ONE (11:19)
[2024-01-01 11:26] LABS: Basophils # (A) 0.1 k/uL (0-0.2); Basophils % (A) 1 %; Eosinophils # (A) 0.2 k/uL (0-0.7); Eosinophils % (A) 1 %; HCT 39.4 % (34.0-46.0); HGB 12.3 gm/dL (11.4-16.0); Lymphocytes # (A) 1.2 k/uL (1.0-4.8); Lymphocytes % (A) 8 %; MCHC 31.2 g/dL (31.0-37.0); MCV 105.5 fL (80.0-100.0); Macrocytosis Moderate; Mean Platelet Volume 9.7; Monocytes # (A) 1.1 k/uL (0-1.0); Monocytes % (A) 7 %; Neutrophils % (A) 81 %; Platelet Count 453 k/uL (150-450); RBC 3.73 m/uL (3.80-5.40); RDW 14.9 % (11.5-15.5); WBC 14.9 k/uL (3.8-10.6)
[2024-01-01 11:34] LABS: African American GFR (CKD) 11 (>60 ml/min/1.73 sqM); Anion Gap 13 mmol/L; Blood Urea Nitrogen 33 mg/dL (7-17); Calcium 8.6 mg/dL (8.4-10.2); Carbon Dioxide 28 mmol/L (22-30); Chloride 91 mmol/L (98-107); Glucose 166 mg/dL (74-99); Non-African American GFR(CKD) 10 (>60 ml/min/1.73 sqM); Potassium 5.3 mmol/L (3.5-5.1); Sodium 132 mmol/L (137-145)
[2024-01-01] MEDS ORDERED: traMADol 50 MG TAB PO PRN (11:55)
[2024-01-01 12:28] VITALS: BP 159/71; PULSE 76
[2024-01-01] MEDS: traMADol 50 MG TAB PO PRN (12:32)
== END 2024-01-01 15:00 | disposition home or self-care (01) ==
LOC: CATHCVL 05:43
PROVIDERS: ATTEND Surgery
DX: I70.221 Atherosclerosis of native arteries of extremities with rest pain, right leg (principal); E11.22 Type 2 diabetes mellitus with diabetic chronic kidney disease; N18.6 End stage renal disease; E11.621 Type 2 diabetes mellitus with foot ulcer; L97.519 Non-pressure chronic ulcer of other part of right foot with unspecified severity; I96 Gangrene, not elsewhere classified; Z79.899 Other long term (current) drug therapy; Z99.2 Dependence on renal dialysis; Z79.82 Long term (current) use of aspirin
CPT/HCPCS: 36246; 37228; 75625; 75716; 80048; 85025; C1769 ×5; C1894 ×3; C1725; C1887; C1760; J2250; J2720; J2270; J2405; J2001; J3010; J1644; Q9967

== ENCOUNTER 2024-01-11 16:08 | Inpatient (IN) | payer MEDICARE ==
--- NOTE | 2024-01-11 16:34 | ED ---
General Adult HPI - General Chief complaint: Abdominal Pain Stated complaint: abd pain Time Seen by Provider: 01/11/24 16:11 Source: patient, EMS, RN notes reviewed Mode of arrival: EMS Limitations: no limitations - History of Present Illness Initial comments: Patient is a pleasant 63-year-old female presenting to the emergency department with abdominal discomfort. Patient is a poor historian and majority of history comes from . Patient has had several previous strokes. Abdominal discomfort seems to have started yesterday. Patient also has a gangrenous right toe. Patient did have angiogram type study done around 10 days ago. s tates toe does look worse over the past several days. He states the proximal region looks more red and the black region also seems to be extending proximally. There was questionable chest discomfort however patient denies this and states just her abdomen. - Related Data Home Medications Medication Instructions Recorded Confirmed Levothyroxine Sodium [Synthroid] 75 mcg PO DAILY 10/28/17 01/11/24 Oxybutynin Chloride 5 mg PO BID 10/28/17 01/11/24 allopurinoL [Zyloprim] 100 mg PO DAILY 01/19/20 01/11/24 Lidocaine-Prilocaine Cream [Emla 1 applic TOPICAL DAILY PRN 12/01/22 01/11/24 Cream 2.5%/2.5%] Clotrimazole [Clotrimazole AF] 1 applic TOPICAL BID 10/08/23 01/11/24 Diclofenac Sodium [Diclofenac 1 applic TOPICAL DAILY PRN 10/08/23 01/11/24 Sodium 1%] Omeprazole 20 mg PO DAILY 10/08/23 01/11/24 Ondansetron Odt [Zofran ODT] 4 - 8 mg PO BID PRN 10/08/23 01/11/24 amLODIPine [Norvasc] 5 mg PO BID 10/08/23 01/11/24 carvediloL [Coreg] 6.25 mg PO BID 10/08/23 01/11/24 traMADol HCL 50 - 100 mg PO Q6H PRN 11/01/23 01/11/24 Insulin Glargine,Hum.rec.anlog 12 units SQ HS 12/27/23 01/11/24 [Lantus Solostar Pen] Atorvastatin [Lipitor] 40 mg PO HS 01/11/24 01/11/24 hydrALAZINE HCL [Apresoline] 50 mg PO BID 01/11/24 01/11/24 Previous Rx's Medication Instructions Recorded Folic Acid 1 mg PO DAILY #30 tab 10/11/23 Amoxic-Pot Clav 500-125 mg 1 tab PO Q12HR 10 Days #20 tab 11/07/23 [Augmentin 500-125 mg] Clopidogrel [Plavix] 75 mg PO DAILY #30 tablet 01/01/24 Allergies Allergy/AdvReac Type Severity Reaction Status Date / Time codeine AdvReac Nausea Verified 01/11/24 16:51 Review of Systems ROS Statement: Those systems with pertinent positive or pertinent negative responses have been documented in the HPI. ROS Other: All systems not noted in ROS Statement are negative. Constitutional: Denies: fever Eyes: Denies: eye pain ENT: Denies: ear pain Respiratory: Denies: dyspnea Cardiovascular: Reports: as per HPI Endocrine: Denies: fatigue Gastrointestinal: Reports: as per HPI, abdominal pain Musculoskeletal: Denies: back pain Skin: Reports: as per HPI, rash Past Medical History Past Medical History: CVA/TIA, Dementia, Diabetes Mellitus, Dialysis, Hypertension, Renal Disease Additional Past Medical History / Comment(s): CVA x2 w/ memory loss, uses walker at home, hepatitis B, back pain, ESRD on hemodialysis History of Any Multi-Drug Resistant Organisms: None Reported Past Surgical History: Section, Cholecystectomy Additional Past Surgical History / Comment(s): left upper arm fistula Past Anesthesia/Blood Transfusion Reactions: No Reported Reaction Past Psychological History: No Psychological Hx Reported Past Drug Use History: Marijuana - Past Family History Mother Family Medical History: No Reported History General Exam Limitations: no limitations General appearance: alert, in no apparent distress Head exam: Present: normocephalic Eye exam: Present: normal appearance Neck exam: Present: normal inspection Respiratory exam: Present: normal lung sounds bilaterally Cardiovascular Exam: Present: regular rate, normal rhythm Expanded Peripheral pulses: 2+: Dorsalis Pedis (R), Dorsalis Pedis (L) GI/Abdominal exam: Present: soft, tenderness (Moderate tenderness left lower abdomen), normal bowel sounds. Absent: distended, guarding, rebound, rigid, pulsatile mass Extremities exam: Present: other (Gangrenous right great toe) Neurological exam: Present: alert Psychiatric exam: Present: normal affect, normal mood Skin exam: Present: other (Gangrenous right distal right toe with some proximal erythematous cellulitic appearance) Course Vital Signs 01/11/24 01/11/24 01/11/24 16:09 18:09 19:43 Temperature 98.1 F Pulse Rate 69 61 61 Pulse Rate [ Pulse Oximetery ] Respiratory 18 17 18 Rate Blood Pressure 153/65 180/71 191/74 Blood Pressure [Left Arm] O2 Sat by Pulse 99 97 Oximetry 01/11/24 01/11/24 01/12/24 21:03 23:00 01:00 Temperature Pulse Rate 67 75 76 Pulse Rate [ Pulse Oximetery ] Respiratory 19 19 19 Rate Blood Pressure 179/67 154/71 Blood Pressure [Left Arm] O2 Sat by Pulse 95 95 Oximetry 01/12/24 01/12/24 01:38 02:00 Temperature 98.8 F Pulse Rate 80 Pulse Rate [ 78 Pulse Oximetery ] Respiratory 19 16 Rate Blood Pressure 157/91 Blood Pressure 158/72 [Left Arm] O2 Sat by Pulse 97 96 Oximetry EKG Findings - EKG Results: EKG: interpreted by ERMD (Left axis. LVH with repolarization changes.), sinus rhythm Medical Decision Making - Medical Decision Making Was pt. sent in by a medical professional or institution (, PA, BANNER PAINTER, urgent care, hospital, or halfway...) When possible be specific @ -No Did you speak to anyone other than the patient for history (EMS, parent, family, police, friend...)? What history was obtained from this source @ - is present and provides majority of history as patient is a poor historian Did you review nursing and triage notes (agree or disagree)? Why? @ -I reviewed and agree with nursing and triage notes Were old charts reviewed (outside hosp., previous admission, EMS record, old EKG, old radiological studies, urgent care reports/EKG's, halfway records)? Report findings @ -No old charts were reviewed Differential Diagnosis (chest pain, altered mental status, abdominal pain women, abdominal pain men, vaginal bleeding, weakness, fever, dyspnea, syncope, headache, dizziness, GI bleed, back pain, seizure, CVA, palpatations, mental health, musculoskeletal)? @ -Differential Abdominal Pain Women: Appendicitis, Cholecystitis, diverticulosis, ischemic bowel, pancreatitis, hepatitis, UTI, gastroenteritis, AAA, incarcerated hernia, bowel obstruction, constipation, inflammatory bowel, hepatitis, peptic ulcer disease, splenic infarction, perforated viscus, vulvitis, ovarian torsion, PID, kidney stone, placenta abruption, this is not meant to be an all-inclusive list EKG interpreted by me (3pts min.). @ -As above X-rays interpreted by me (1pt min.). @ -Chest x-ray and abdominal x-rays reveal no acute abnormality CT interpreted by me (1pt min.). @ -CT ordered and still pending U/S interpreted by me (1pt. min.). @ -None done What testing was considered but not performed or refused? (CT, X-rays, U/S, labs)? Why? @ -CT scan of the abdomen pelvis was ordered. X-ray right foot will be ordered. What meds were considered but not given or refused? Why? @ -None Did you discuss the management of the patient with other professionals (professionals i.e. , PA, BANNER PAINTER, lab, RT, psych nurse, social work instructor, control systems drafting officer, teacher, optics technical officer, block and case maker)? Give summary @ -Case was discussed with Dr. Ford will admit covering Dr. Vazquez. Vascular consult will be placed. Was smoking cessation discussed for >3mins.? @ -No Was critical care preformed (if so, how long)? @ -No Were there social determinants of health that impacted care today? How? (Homelessness, low income, unemployed, alcoholism, drug addiction, transportation, low edu. Level, literacy, decrease access to med. care, intermediate, rehab)? @ -No Was there de-escalation of care discussed even if they declined (Discuss DNR or withdrawal of care, Hospice)? DNR status @ -No What co-morbidities impacted this encounter? (DM, HTN, Smoking, COPD, CAD, Cancer, CVA, ARF, Chemo, Hep., AIDS, mental health diagnosis, sleep apnea, morbid obesity)? @ -None Was patient admitted / discharged? Hospital course, mention meds given and route, prescriptions, significant lab abnormalities, going to OR and other pertinent info. @ -Patient reevaluated and feeling better. Patient and family are updated on results and plan. Patient will be admitted with vascular consult. Admission orders written. CT scan abdomen pelvis is still pending. Undiagnosed new problem with uncertain prognosis? @ -No Drug Therapy requiring intensive monitoring for toxicity (Heparin, Nitro, Insulin, Cardizem)? @ -No Were any procedures done? @ -No Diagnosis/symptom? @ -Gangrenous right great toe Acute, or Chronic, or Acute on Chronic? @ -Acute on chronic Uncomplicated (without systemic symptoms) or Complicated (systemic symptoms)? @ -Applicator with abdominal discomfort Side effects of treatment? @ -No Exacerbation, Progression, or Severe Exacerbation? @ -No Poses a threat to life or bodily function? How? (Chest pain, USA, OR, pneumonia, PE, COPD, DKA, ARF, appy, cholecystitis, CVA, Diverticulitis, Homicidal, Suicidal, threat to staff... and all critical care pts) @ -[Threat to limb through gangrenous infection CT scan of abdomen pelvis interpreted by myself does not reveal obvious acute abdominal abnormality - Lab Data Result diagrams: 01/11/24 16:27 01/11/24 16:27 Lab Results 01/11/24 01/11/24 01/11/24 Range/Units 16:27 16:27 16:27 WBC 10.9 H (3.8-10.6) k/uL RBC 3.78 L (3.80-5.40) m/uL Hgb 12.5 (11.4-16.0) gm/dL Hct 40.0 (34.0-46.0) % MCV 105.7 H (80.0-100.0) fL MCH 33.1 (25.0-35.0) pg MCHC 31.3 (31.0-37.0) g/dL RDW 13.9 (11.5-15.5) % Plt Count 376 (150-450) k/uL MPV 8.3 Neutrophils % 76 % Lymphocytes % 12 % Monocytes % 8 % Eosinophils % 2 % Basophils % 1 % Neutrophils # 8.3 H (1.3-7.7) k/uL Lymphocytes # 1.3 (1.0-4.8) k/uL Monocytes # 0.9 (0-1.0) k/uL Eosinophils # 0.2 (0-0.7) k/uL Basophils # 0.1 (0-0.2) k/uL Macrocytosis Moderate PT 9.8 L (10.0-12.5) sec INR 0.9 (<1.2) APTT 25.2 (22.0-30.0) sec Sodium 135 L (137-145) mmol/L Potassium 4.4 (3.5-5.1) mmol/L Chloride 94 L (98-107) mmol/L Carbon Dioxide 29 (22-30) mmol/L Anion Gap 12 mmol/L BUN 22 H (7-17) mg/dL Creatinine 3.05 H (0.52-1.04) mg/dL Est GFR (CKD-EPI)AfAm 18 (>60 ml/min/1.73 sqM) Est GFR (CKD-EPI)NonAf 16 (>60 ml/min/1.73 sqM) Glucose 139 H (74-99) mg/dL Plasma Lactic Acid Artur (0.7-2.0) mmol/L Calcium 9.6 (8.4-10.2) mg/dL Total Bilirubin 0.7 (0.2-1.3) mg/dL AST 23 (14-36) U/L ALT 13 (4-34) U/L Alkaline Phosphatase 79 (38-126) U/L Troponin I (0.000-0.034) ng/mL Total Protein 8.2 (6.3-8.2) g/dL Albumin 4.7 (3.5-5.0) g/dL Amylase 56 (30-110) U/L Lipase 106 (23-300) U/L 01/11/24 01/11/24 Range/Units 16:27 16:27 WBC (3.8-10.6) k/uL RBC (3.80-5.40) m/uL Hgb (11.4-16.0) gm/dL Hct (34.0-46.0) % MCV (80.0-100.0) fL MCH (25.0-35.0) pg MCHC (31.0-37.0) g/dL RDW (11.5-15.5) % Plt Count (150-450) k/uL MPV Neutrophils % % Lymphocytes % % Monocytes % % Eosinophils % % Basophils % % Neutrophils # (1.3-7.7) k/uL Lymphocytes # (1.0-4.8) k/uL Monocytes # (0-1.0) k/uL Eosinophils # (0-0.7) k/uL Basophils # (0-0.2) k/uL Macrocytosis PT (10.0-12.5) sec INR (<1.2) APTT (22.0-30.0) sec Sodium (137-145) mmol/L Potassium (3.5-5.1) mmol/L Chloride (98-107) mmol/L Carbon Dioxide (22-30) mmol/L Anion Gap mmol/L BUN (7-17) mg/dL Creatinine (0.52-1.04) mg/dL Est GFR (CKD-EPI)AfAm (>60 ml/min/1.73 sqM) Est GFR (CKD-EPI)NonAf (>60 ml/min/1.73 sqM) Glucose (74-99) mg/dL Plasma Lactic Acid Artur 1.2 (0.7-2.0) mmol/L Calcium (8.4-10.2) mg/dL Total Bilirubin (0.2-1.3) mg/dL AST (14-36) U/L ALT (4-34) U/L Alkaline Phosphatase (38-126) U/L Troponin I 0.026 (0.000-0.034) ng/mL Total Protein (6.3-8.2) g/dL Albumin (3.5-5.0) g/dL Amylase (30-110) U/L Lipase (23-300) U/L Disposition Clinical Impression: Gangrene of toe of right foot Disposition: ADMITTED IP TO THIS [facility] Is patient prescribed a controlled substance at d/c from ED?: No Time of Disposition: 20:29
[2024-01-11 17:00] LABS: ALT 13 U/L (4-34); African American GFR (CKD) 18 (>60 ml/min/1.73 sqM); Albumin 4.7 g/dL (3.5-5.0); Amylase 56 U/L (30-110); Anion Gap 12 mmol/L; Blood Urea Nitrogen 22 mg/dL (7-17); Calcium 9.6 mg/dL (8.4-10.2); Carbon Dioxide 29 mmol/L (22-30); Chloride 94 mmol/L (98-107); Glucose 139 mg/dL (74-99); Lipase 106 U/L (23-300); Non-African American GFR(CKD) 16 (>60 ml/min/1.73 sqM); Sodium 135 mmol/L (137-145); Total Bilirubin 0.7 mg/dL (0.2-1.3); Total Protein 8.2 g/dL (6.3-8.2)
[2024-01-11 17:01] LABS: INR 0.9 (<1.2); Partial Thromboplastin Time 25.2 sec (22.0-30.0); Prothrombin Time 9.8 sec (10.0-12.5)
[2024-01-11 17:03] LABS: AST 23 U/L (14-36); Alkaline Phosphatase 79 U/L (38-126); Potassium 4.4 mmol/L (3.5-5.1)
[2024-01-11] MEDS: MORPHINE SULFATE 4 MG/ML SYRINGE IVP STA (17:11)
[2024-01-11 17:20] LABS: Basophils # (A) 0.1 k/uL (0-0.2); Basophils % (A) 1 %; Eosinophils # (A) 0.2 k/uL (0-0.7); Eosinophils % (A) 2 %; HGB 12.5 gm/dL (11.4-16.0); Lymphocytes # (A) 1.3 k/uL (1.0-4.8); Lymphocytes % (A) 12 %; MCH 33.1 pg (25.0-35.0); MCHC 31.3 g/dL (31.0-37.0); MCV 105.7 fL (80.0-100.0); Macrocytosis Moderate; Mean Platelet Volume 8.3; Monocytes # (A) 0.9 k/uL (0-1.0); Monocytes % (A) 8 %; Neutrophils # (A) 8.3 k/uL (1.3-7.7); Neutrophils % (A) 76 %; Platelet Count 376 k/uL (150-450); RBC 3.78 m/uL (3.80-5.40); RDW 13.9 % (11.5-15.5); WBC 10.9 k/uL (3.8-10.6)
--- NOTE | 2024-01-11 17:46 | XR ---
EXAMINATION TYPE: XR chest 1V portable DATE OF EXAM: 01/11/2024 COMPARISON: 12/30/2020 HISTORY: Left upper quadrant pain TECHNIQUE: Single frontal view of the chest is obtained. FINDINGS: There is no focal air space opacity, pleural effusion, or pneumothorax seen. The cardiac silhouette size is within normal limits. The osseous structures are intact. IMPRESSION: No acute process.
--- NOTE | 2024-01-11 17:51 | XR ---
KUB. HISTORY: Abdominal pain. COMPARISON: None. TECHNIQUE: 2 supine views of the abdomen were obtained. FINDINGS: The lung bases are clear. The bowel gas pattern is nonspecific and there is no evidence of obstruction. No suspicious abdominal or pelvic calcifications are seen. The osseous structures are intact. IMPRESSION: Nonspecific abdomen without evidence of free air or obstruction.
[2024-01-11] MEDS ORDERED: NALOXONE 0.4 MG/ML 1 ML VIAL IV PRN (20:31)
[2024-01-11] MEDS ORDERED: MORPHINE SULFATE 4 MG/ML SYRINGE IV PRN (20:31)
[2024-01-11] MEDS: SODIUM CHLORIDE 0.9% 1,000 ML IV SCH (21:04)
[2024-01-11] MEDS ORDERED: DEXTROSE 50% SYRINGE 50 ML IVP PRN ×2 (21:04)
[2024-01-11] MEDS: LEVOFLOXACIN 500MG-D5W PMX 500 MG in DEXTROSE/WATER 1 100ML.BAG IVPB SCH (21:06)
[2024-01-11 22:13] LABS: Glucose,Whole Blood 123 mg/dL (70-110)
[2024-01-11] MEDS: ATORVASTATIN 40 MG TAB PO SCH (22:13)
[2024-01-11] MEDS: hydrALAZINE HCL 50 MG TAB PO SCH (22:13)
[2024-01-11] MEDS: carvediloL 6.25 MG TAB PO SCH (22:13)
[2024-01-11] MEDS: amLODIPine 5 MG TAB PO SCH (22:13)
[2024-01-11] MEDS: INSULIN ASPART (NovoLOG) 100 UNIT/ML VIAL SQ SCH (22:13)
[2024-01-11] MEDS: oxyBUTYnin chloride 5 MG TAB PO SCH (22:14)
[2024-01-11] MEDS: ENOXAPARIN 40 MG/0.4 ML SYRINGE SQ SCH (22:14)
[2024-01-11] MEDS: INSULIN DETEMIR (LEVEMIR) 100 UNIT/ML SYR SQ SCH (22:18)
[2024-01-12 06:09] LABS: Glucose,Whole Blood 143 mg/dL (70-110)
[2024-01-12] MEDS: LEVOTHYROXINE 75 MCG TAB PO SCH (06:21)
--- NOTE | 2024-01-12 06:54 | CT ---
EXAMINATION TYPE: CT abdomen pelvis w con CT DLP: 1316.4 mGycm, Automated exposure control for dose reduction was used. DATE OF EXAM: 01/11/2024 6:58 PM COMPARISON: None. CLINICAL INDICATION:Female, 63 years old with history of llq abp; LLQ pain TECHNIQUE: Axial CT of the abdomen and pelvis. Sagittal and coronal reformats were created on a [employer] workstation. Contrast used:80 mL of Isovue 300 with IV Contrast, (none if empty) Oral contrast used: without Oral Contrast (none if empty) FINDINGS: LOWER CHEST: Unremarkable lung bases. Heart is mildly enlarged. Radiodensity suggesting heavy calcifi cation or prosthesis involving the mitral valve. Mild calcification involving the aortic valve/proxim al aorta. Moderate to heavy calcifications of the visualized coronary arteries. Trace pericardial flu id without significant effusion. Possible small sliding-type hiatal hernia with questionable mild wal l thickening of the distal esophagus. ABDOMEN LIVER: No acute or significant parenchymal abnormality. GALLBLADDER AND BILE DUCTS: The gallbladder is surgically absent. Biliary tree is prominent, CBD is p rominent measuring about 16 mm proximally, and seems to taper distally without clear evidence of an o bstructing cause. PANCREAS: Unremarkable. SPLEEN: Unremarkable. ADRENAL GLANDS: Appear thickened, may be seen with hyperplasia.. KIDNEYS AND URETERS: Kidneys appear to enhance symmetrically but there is poor corticomedullary disti nction; correlate with renal and cardiac function. Ureters are not opacified or dilated. Extensive ar terial vascular calcifications limits assessment, without clear evidence of urinary tract calculus. PELVIS BLADDER: Mostly decompressed and has a generally thickened appearance of its wall. REPRODUCTIVE: Uterus is present, anteverted and demonstrates numerous heavily calcified parametrial v essels. These extend around a rounded masslike area at the uterine fundus, nonspecific could represen t fibroid or other lesion. This does appear relatively circumscribed. Ovaries are not clearly identif ied. No adnexal mass is suggested. ABDOMEN & PELVIS STOMACH AND BOWEL: Stomach and small bowel are nondistended, there is no clear evidence of obstructio n. Heterogeneous material in the stomach, likely food stuffs, but given their presence mucosal lesi ons cannot be excluded. There do seem to be a few mildly prominent fluid-filled loops of small bowel in the right mid to lower abdomen. Appendix is not identified with certainty, but the candidate appen shawna adjacent to the cecum does not appear dilated or inflamed. There is moderate stool throughout the colon, without clear evidence of an acute abnormality. Several diverticula in the distal colon witho ut clear evidence of diverticulitis. PERITONEUM/RETROPERITONEUM: No evidence of pneumoperitoneum or free fluid. VASCULATURE: Mild to moderate atherosclerotic calcifications are present throughout the abdominal aor ta and its branches proximally. No evidence of aortic aneurysm. Farther distally, there is severe ca lcification of the smaller arteries, including branches of the celiac axis, especially the splenic ar sukhdeep, and there are calcifications throughout the liver. Portal vein, superior mesenteric vein, appea r to be enhancing. Patent splenic vein cannot be identified. LYMPH NODES: No enlarged nodes by CT size criteria. SOFT TISSUE/ABDOMINAL WALL: Suspect mild nonspecific inflammation of the soft tissues of the left ing uinal region. Small fat containing umbilical hernia. MUSCULOSKELETAL: Mild/moderate diffuse degenerative changes. No clearly acute bony normality. IMPRESSION: 1. No clear evidence of an acute abnormality to explain left lower quadrant pain. 2. Distal colonic diverticula are present, without definite evidence of diverticulitis. 3. A few nonspecific, fluid-filled, mildly prominent small bowel loops in the right abdomen, possibl y related to enteritis. 4. Multiple other chronic and likely incidental findings as described above.
--- NOTE | 2024-01-12 07:16 | XR ---
EXAMINATION TYPE: XR foot complete RT DATE OF EXAM: 01/11/2024 8:50 PM CLINICAL INDICATION:Female, 63 years old with history of Gangrene right great toe; [facility] COMPARISON: None. TECHNIQUE: Three views right foot were obtained. FINDINGS: Mild generalized osseous demineralization is suggested. Mild osteoarthritic changes. No acute fractur es or dislocations. No periarticular erosions. Lisfranc joints appear normally aligned. Small to mode rate sized plantar and small dorsal calcaneal spurs. Irregularity of the soft tissues of the distal great toe likely related to the reported gangrene. No clear osseous destruction of the underlying distal phalanx. No radiopaque foreign body is seen. There are heavy arterial vascular calcifications throughout the foot, similar to the findings on body CT, nonspecific but could be related to diabetes and/or vasculitis. IMPRESSION: 1. Soft tissue irregularity of the distal great toe, without clear evidence of an acute bony abnorma lity. Progress studies as warranted. 2. If there is persistent concern, MRI or three-phase bone scan may be obtained for further evaluati on.
[2024-01-12] MEDS: FOLIC ACID 1 MG TAB PO SCH (08:29)
[2024-01-12] MEDS: allopurinoL 100 MG TAB PO SCH (08:29)
[2024-01-12] MEDS: PANTOPRAZOLE 40 MG TABLET PO SCH (08:29)
[2024-01-12] MEDS: CLOPIDOGREL 75 MG TAB PO SCH (08:29)
[2024-01-12] MEDS: PANTOPRAZOLE 40 MG/10 ML VIAL IV SCH (08:43)
[2024-01-12 09:16] LABS: Basophils # (A) 0.09 X 10*3/uL (0.00-0.10); Basophils % (A) 0.9 %; Eosinophils # (A) 0.24 X 10*3/uL (0.04-0.35); Eosinophils % (A) 2.4 %; HGB 10.4 g/dL (12.0-15.0); Lymphocytes # (A) 1.59 X 10*3/uL (0.90-5.00); MCH 32.7 pg (27.0-32.0); MCHC 31.5 g/dL (32.0-37.0); MCV 103.8 FL (80.0-97.0); Monocytes # (A) 1.33 X 10*3/uL (0.20-1.00); Monocytes % (A) 13.4 %; NRBC Per 100 WBC 0 X 10*3/uL (0.00-0.01); Neutrophils # (A) 6.67 X 10*3/uL (1.80-7.70); Neutrophils % (A) 66.9 %; Platelet Count 352 X 10*3/uL (140-440); RBC 3.18 X 10*6/uL (4.10-5.20); RDW 14.2 % (11.5-14.5); WBC 9.96 X 10*3/uL (4.50-10.00)
[2024-01-12 09:52] LABS: ALT 16 U/L (8-44); AST 24 U/L (13-35); Albumin 3.8 g/dL (3.8-4.9); Albumin/Globulin Ratio 1.52 Ratio (1.60-3.17); Alkaline Phosphatase 73 U/L (41-126); BUN/Creat Ratio 6.25 Ratio (12.00-20.00); Blood Urea Nitrogen 27.5 mg/dL (9.0-27.0); Calcium 9.2 mg/dL (8.7-10.3); Carbon Dioxide 25.1 mmol/L (21.6-31.8); Chloride 92 mmol/L (96-109); Globulin 2.5 g/dL (1.6-3.3); Glucose 142 mg/dL (70-110); Potassium 4.6 mmol/L (3.5-5.5); Sodium 133 mmol/L (135-145); Total Bilirubin 0.3 mg/dL (0.3-1.2); Total Protein 6.3 g/dL (6.2-8.2)
[2024-01-12] MEDS: AMPICILLIN-SULBACTAM 3 GM in SODIUM CHLORIDE 0.9% 100 ML IVPB SCH (11:29)
[2024-01-12 11:53] LABS: Glucose,Whole Blood 126 mg/dL (70-110)
--- NOTE | 2024-01-12 16:51 | P.HPIM ---
History of Present Illness H&P Date: 01/12/24 Chief Complaint: Toe gangrene This is a 63-year-old patient, with chronic stable medical conditions include end-stage kidney disease on hemodialysis, prior stroke with some memory loss, hypertension, diabetes,. Left arm AV fistula. Normally uses a walker/wheelchair. Because of arthritis Patient was was admitted in October of this year with right big toe cellulitis and some distal dry gangrene. Seen by the vascular team of Dr. Camacho. Was discharged on Augmentin with outpatient follow-up. Patient now presents with worsening gangrene of the right big toe. Patient not a good historian. Apparently has not followed up. Increasing pain in the right big toe. Denies any fever and chills. Appetite is fair. Does use a walker. [January 01, 2024: Dr. Camacho had angiogram that showed right lower extremity critical limb ischemia with great toe diagram green. Tibiofemoral trunk stenosis greater than 90% peroneal artery stenosis 70% right anterior tibial artery occlusion. Balloon angioplasty of the right tibioperoneal trunk and peroneal artery was carried out.] Review of systems: GEN.: Tired EYES: None HEENT: None NECK: None RESPIRATORY: None CARDIOVASCULAR: None GASTROINTESTINAL: As above e GENITOURINARY: None MUSCULOSKELETAL: Above LYMPHATICS: None HEMATOLOGICAL: None PSYCHIATRY: Forgetful NEUROLOGICAL: None Social history: Does not smoke. Alcohol rarely. Some marijuana. . Physical examination: VITAL SIGNS: 99, 83, 20, 142 x 50, 96% room air GENERAL: [BMI 39.3, reclining in bed EYES: [Pupils equal. Conjunctiva jessica]l. HEENT: [External appearance of nose and ears normal, oral cavity grossly normal]. NECK: [JVD not raised; masses not palpable]. HEART: [First and second heart sounds are normal; no edema]. LUNGS:[ Respiratory rate normal; clear to auscultation]. ABDOMEN: [Soft, nontender, liver spleen not palpable, no masses palpable]. PSYCH: [Able to answer some questions]l. MUSCULOSKELETAL:No Clubbing/cyanosis;muscles-grossly intact NEUROLOGICAL: [Cranial nerves grossly intact; no facial asymmetry, power and sensation grossly intact]. LYMPHATICS: [No lymph nodes palpable in the axilla and neck] EXTREMITY: Right foot big toe, dry gangrene findings INVESTIGATIONS, reviewed in the clinical context: January 12, 2024: White count 9.9 hemoglobin 10.4 platelets 352 sodium 133 potassium 4.6 BUN 27.[address] abdomen pelvis: Distal colonic diverticula present. Other chronic findings a CT scan. EKG tracing personally reviewed by me-LVH. Sinus rhythm. Chest x-ray film personally reviewed by me-possibly expiratory film. Unremarkable Assessment plan: -Right big toe gangrene that was noticed was smaller extent present in October of this year. Patient was being followed by the team of Dr. Camacho and also seen by ID Dr. Yates. December 31: Angioplasty of the right tibioperoneal trunk and peroneal artery scheduled by Dr. Janice Ang. Dr. Camacho's team consulted End-stage kidney disease on hemodialysis Left forearm AV fistula. Sunday Nephrology consulted -Obesity BMI 39.3 Weight loss measures -Hyperuricemia Allopurinol -Diabetes mellitus type 2, chronically insulin Levemir 12 units at night.. Accu-Cheks with sliding scale -Hypothyroid Synthroid 5 mcg -GERD PPI -Essential hypertension Amlodipine 5 mg twice daily Coreg 6.25 mg twice daily hydralazine 50 mg twice daily -Chronic urinary incontinence Oxybutynin -Severe cognitive impairment from prior stroke. -Full code Care was discussed with the patient and at the bedside. Patient had a scheduled appoint with Dr. Camacho this Sunday. Will wait for the input. Past Medical History Past Medical History: CVA/TIA, Dementia, Diabetes Mellitus, Dialysis, Hypertension, Renal Disease Additional Past Medical History / Comment(s): CVA x2 w/ memory loss, uses walker at home, hepatitis B, back pain, ESRD on hemodialysis History of Any Multi-Drug Resistant Organisms: None Reported Past Surgical History: Section, Cholecystectomy Additional Past Surgical History / Comment(s): left upper arm fistula Past Anesthesia/Blood Transfusion Reactions: No Reported Reaction Past Psychological History: No Psychological Hx Reported Past Drug Use History: Marijuana - Past Family History Mother Family Medical History: No Reported History Medications and Allergies Home Medications Medication Instructions Recorded Confirmed Type Levothyroxine Sodium [Synthroid] 75 mcg PO DAILY 10/28/17 01/11/24 History Oxybutynin Chloride 5 mg PO BID 10/28/17 01/11/24 History allopurinoL [Zyloprim] 100 mg PO DAILY 01/19/20 01/11/24 History Lidocaine-Prilocaine Cream [Emla 1 applic TOPICAL DAILY PRN 12/01/22 01/11/24 History Cream 2.5%/2.5%] Clotrimazole [Clotrimazole AF] 1 applic TOPICAL BID 10/08/23 01/11/24 History Diclofenac Sodium [Diclofenac 1 applic TOPICAL DAILY PRN 10/08/23 01/11/24 History Sodium 1%] Omeprazole 20 mg PO DAILY 10/08/23 01/11/24 History Ondansetron Odt [Zofran ODT] 4 - 8 mg PO BID PRN 10/08/23 01/11/24 History amLODIPine [Norvasc] 5 mg PO BID 10/08/23 01/11/24 History carvediloL [Coreg] 6.25 mg PO BID 10/08/23 01/11/24 History Folic Acid 1 mg PO DAILY #30 tab 10/11/23 01/11/24 Rx traMADol HCL 50 - 100 mg PO Q6H PRN 11/01/23 01/11/24 History Amoxic-Pot Clav 500-125 mg 1 tab PO Q12HR 10 Days #20 tab 11/07/23 01/11/24 Rx [Augmentin 500-125 mg] Insulin Glargine,Hum.rec.anlog 12 units SQ HS 12/27/23 01/11/24 History [Lantus Solostar Pen] Clopidogrel [Plavix] 75 mg PO DAILY #30 tablet 01/01/24 01/11/24 Rx Atorvastatin [Lipitor] 40 mg PO HS 01/11/24 01/11/24 History hydrALAZINE HCL [Apresoline] 50 mg PO BID 01/11/24 01/11/24 History Allergies Allergy/AdvReac Type Severity Reaction Status Date / Time codeine AdvReac Nausea Verified 01/11/24 16:51 Physical Exam Vitals: Vital Signs Temp Pulse Pulse Resp BP BP Pulse Ox 01/12/24 07:55 18 01/12/24 06:51 99.0 F 83 20 142/50 96 01/12/24 02:00 98.8 F 78 16 158/72 96 01/12/24 01:38 80 19 157/91 97 04/27/24 01:00 76 19 01/11/24 23:00 75 19 154/71 95 01/11/24 21:03 67 19 179/67 95 01/11/24 19:43 61 18 191/74 97 01/11/24 18:09 61 17 180/71 99 01/11/24 16:09 98.1 F 69 18 153/65 Intake and Output 01/11/24 01/12/24 01/12/24 22:59 06:59 14:59 Intake Total 375 Balance 375 Intake: Intake, IV Titration 375 Amount Sodium Chloride 0.9% 1, 375 000 ml @ 75 mls/hr IV . [id number] [facility] Rx#:[id number] Other: Voiding Method Bedside Commode Weight 97.522 kg 97.522 kg Results CBC & Chem 7: 01/12/24 05:44 01/12/24 05:44 Labs: Abnormal Lab Results - Last 24 Hours (Table) 01/11/24 01/11/24 01/11/24 Range/Units 16:27 16:27 16:27 WBC 10.9 H (3.8-10.6) k/uL RBC 3.78 L (3.80-5.40) m/uL Hgb (12.0-15.0) g/dL Hct (37.2-46.3) % MCV 105.7 H (80.0-100.0) fL MCH (27.0-32.0) pg MCHC (32.0-37.0) g/dL Neutrophils # 8.3 H (1.3-7.7) k/uL Monocytes # (0.20-1.00) X 10*3/uL PT 9.8 L (10.0-12.5) sec Sodium 135 L (137-145) mmol/L Chloride 94 L (98-107) mmol/L Anion Gap (4.00-12.00) mmol/L BUN 22 H (7-17) mg/dL Creatinine 3.05 H (0.52-1.04) mg/dL Est GFR (CKD-EPI) (>=60) BUN/Creatinine Ratio (12.00-20.00) Ratio Glucose 139 H (74-99) mg/dL POC Glucose (mg/dL) (70-110) mg/dL Albumin/Globulin Ratio (1.60-3.17) Ratio 01/11/24 01/12/24 01/12/24 Range/Units 22:12 05:44 05:44 WBC (3.8-10.6) k/uL RBC 3.18 L (3.80-5.40) m/uL Hgb 10.4 L (12.0-15.0) g/dL Hct 33.0 L (37.2-46.3) % MCV 103.8 H (80.0-100.0) fL MCH 32.7 H (27.0-32.0) pg MCHC 31.5 L (32.0-37.0) g/dL Neutrophils # (1.3-7.7) k/uL Monocytes # 1.33 H (0.20-1.00) X 10*3/uL PT (10.0-12.5) sec Sodium 133 L (137-145) mmol/L Chloride 92 L (98-107) mmol/L Anion Gap 15.90 H (4.00-12.00) mmol/L BUN 27.5 H (7-17) mg/dL Creatinine 4.4 H (0.52-1.04) mg/dL Est GFR (CKD-EPI) 11 L (>=60) BUN/Creatinine Ratio 6.25 L (12.00-20.00) Ratio Glucose 142 H (74-99) mg/dL POC Glucose (mg/dL) 123 H (70-110) mg/dL Albumin/Globulin Ratio 1.52 L (1.60-3.17) Ratio 01/12/24 Range/Units 06:06 WBC (3.8-10.6) k/uL RBC (3.80-5.40) m/uL Hgb (12.0-15.0) g/dL Hct (37.2-46.3) % MCV (80.0-100.0) fL MCH (27.0-32.0) pg MCHC (32.0-37.0) g/dL Neutrophils # (1.3-7.7) k/uL Monocytes # (0.20-1.00) X 10*3/uL PT (10.0-12.5) sec Sodium (137-145) mmol/L Chloride (98-107) mmol/L Anion Gap (4.00-12.00) mmol/L BUN (7-17) mg/dL Creatinine (0.52-1.04) mg/dL Est GFR (CKD-EPI) (>=60) BUN/Creatinine Ratio (12.00-20.00) Ratio Glucose (74-99) mg/dL POC Glucose (mg/dL) 143 H (70-110) mg/dL Albumin/Globulin Ratio (1.60-3.17) Ratio
[2024-01-12 16:52] LABS: Glucose,Whole Blood 141 mg/dL (70-110)
[2024-01-12 18:00] LABS: Appearance,Urine Turbid (Clear); Bacteria,Urine Few /hpf; Bilirubin,Urine Negative (Negative); Blood,Urine Small (Negative); Color,Urine Colorless; Glucose,Urine (UA) 2+ (Negative); Ketones,Urine Negative (Negative); Leukocyte Esterase,Urine Trace (Negative); Mucus,Urine Rare /hpf; Nitrite,Urine Negative (Negative); Protein,Urine 2+ (Negative); RBC,Urine 1 /hpf (0-5); Specific Gravity,Urine 1.016 (1.001-1.035); Squamous Epithelial Cell,Urine 40 /hpf (0-4); Urobilinogen,Urine <2.0 mg/dL (<2.0); WBC,Urine 5 /hpf (0-5)
[2024-01-12] MEDS: ACETAMINOPHEN TAB 325 MG TAB PO PRN (18:09)
--- NOTE | 2024-01-12 18:23 | P.NPCON ---
History of Present Illness - Reason for Consult Consult date: 01/12/24 - Chief Complaint Abdominal Pain - History of Present Illness Patient is a 63 yo female presenting to [facility] for worsening toe infection. History of right great toe gangrene treated with antibiotics early this year. She recently underwent right lower extremity angiogram with intervention for cri tical ischemia with vascular surgery. Patient seen today at bedside and unable to provide history which was obtained from chart. She does not believe she had dialysis yesterday but normally runs MWF per chart. Vital signs are stable. General: No acute distress. HEENT: Head exam is unremarkable. LUNGS: No audible rhonchi or wheezes. HEART: Rate and Rhythm are regular. ABDOMEN: Nontender. EXTREMITITES: no edema. Review of Systems Constitutional: Reports as per HPI Past Medical History Past Medical History: CVA/TIA, Dementia, Diabetes Mellitus, Dialysis, Hypertension, Renal Disease Additional Past Medical History / Comment(s): CVA x2 w/ memory loss, uses walker at home, hepatitis B, back pain, ESRD on hemodialysis History of Any Multi-Drug Resistant Organisms: None Reported Past Surgical History: Section, Cholecystectomy Additional Past Surgical History / Comment(s): left upper arm fistula Past Anesthesia/Blood Transfusion Reactions: No Reported Reaction Past Psychological History: No Psychological Hx Reported Past Drug Use History: Marijuana - Past Family History Mother Family Medical History: No Reported History Medications and Allergies Home Medications Medication Instructions Recorded Confirmed Type Levothyroxine Sodium [Synthroid] 75 mcg PO DAILY 10/28/17 01/11/24 History Oxybutynin Chloride 5 mg PO BID 10/28/17 01/11/24 History allopurinoL [Zyloprim] 100 mg PO DAILY 01/19/20 01/11/24 History Lidocaine-Prilocaine Cream [Emla 1 applic TOPICAL DAILY PRN 12/01/22 01/11/24 History Cream 2.5%/2.5%] Clotrimazole [Clotrimazole AF] 1 applic TOPICAL BID 10/08/23 01/11/24 History Diclofenac Sodium [Diclofenac 1 applic TOPICAL DAILY PRN 10/08/23 01/11/24 History Sodium 1%] Omeprazole 20 mg PO DAILY 10/08/23 01/11/24 History Ondansetron Odt [Zofran ODT] 4 - 8 mg PO BID PRN 10/08/23 01/11/24 History amLODIPine [Norvasc] 5 mg PO BID 10/08/23 01/11/24 History carvediloL [Coreg] 6.25 mg PO BID 10/08/23 01/11/24 History Folic Acid 1 mg PO DAILY #30 tab 10/11/23 01/11/24 Rx traMADol HCL 50 - 100 mg PO Q6H PRN 11/01/23 01/11/24 History Amoxic-Pot Clav 500-125 mg 1 tab PO Q12HR 10 Days #20 tab 11/07/23 01/11/24 Rx [Augmentin 500-125 mg] Insulin Glargine,Hum.rec.anlog 12 units SQ HS 12/27/23 01/11/24 History [Lantus Solostar Pen] Clopidogrel [Plavix] 75 mg PO DAILY #30 tablet 01/01/24 01/11/24 Rx Atorvastatin [Lipitor] 40 mg PO HS 01/11/24 01/11/24 History hydrALAZINE HCL [Apresoline] 50 mg PO BID 01/11/24 01/11/24 History Allergies Allergy/AdvReac Type Severity Reaction Status Date / Time codeine AdvReac Nausea Verified 01/11/24 16:51 Physical Exam Vitals: Vital Signs Temp Pulse Pulse Resp BP BP Pulse Ox 01/12/24 07:55 18 01/12/24 06:51 99.0 F 83 20 142/50 96 01/12/24 02:00 98.8 F 78 16 158/72 96 01/12/24 01:38 80 19 157/91 97 01/12/24 01:00 76 19 01/11/24 23:00 75 19 154/71 95 01/11/24 21:03 67 19 179/67 95 01/11/24 19:43 61 18 191/74 97 01/11/24 18:09 61 17 180/71 99 01/11/24 16:09 98.1 F 69 18 153/65 Intake and Output 01/11/24 01/12/24 01/12/24 22:59 06:59 14:59 Intake Total 375 Balance 375 Intake: Intake, IV Titration 375 Amount Sodium Chloride 0.9% 1, 375 000 ml @ 75 mls/hr IV . [id number] [facility] Rx#:[id number] Other: Voiding Method Bedside Commode Weight 97.522 kg 97.522 kg Results - Lab Results Most recent lab results Calcium 9.2 mg/dL (8.7-10.3) 01/12/24 05:44 01/12/24 05:44 01/12/24 05:44 Assessment and Plan Plan: Assessment: 1. ESRD on HD MWF via LUE AVF. Last HD possibly Sunday. 2. Right great toe chronic gangrene 3. PAD w/ recent RLE angioplasty 4. HTN with ESRD 5. Anemia with CKD 6. Renal Osteodystrophy Plan: Will plan for HD today as she did not run yesterday. ABX per ID Vascular surgery consulted Renal Diet Resume home BP medications
[2024-01-12 20:29] LABS: Glucose,Whole Blood 169 mg/dL (70-110)
--- NOTE | 2024-01-12 23:27 | P.CONS ---
History of Present Illness - Reason for Consult Consult date: 01/12/24 Right toe gangrene Requesting physician: Sukhdev Ford - Chief Complaint Abdominal pain and vomiting x few days - History of Present Illness Patient is a 63-year-old female with a past medical history significant for diabetes mellitus hypertension CVA TIA history of end-stage renal disease on dialysis patient has been brought into the hospital for evaluation abdominal discomfort symptom has been going on for a day before presentation to the hospital and the patient also have a history of right big toe tip gangrene for the patient apparently recently have an outpatient angiogram done patient on presentation to the hospital was afebrile did have a low-grade fever of 99 degrees Fahrenheit this morning patient was not tachycardic hypotensive or hypoxic did have white count of 10.9 with a left shift kidney function is elevated liver enzymes are normal amylase lipase was normal patient did have a CT of abdominal pelvis no clear evidence of any acute abnormality distal colonic diverticula and nonspecific enteritis patient did have a x-ray of the foot soft tissue irregularity of the distal great toe without clear evidence of acute bony abnormality infectious he was consulted because of getting this toe tip, patient has been complaining of pain to the right big toe especially when it is touched patient describes the pain to be dull to sharp without any radiation minimal redness and no drainage Review of Systems Positive point and negatives has been mentioned in the HPI, complete review of systems was performed and all other systems are negative Past Medical History Past Medical History: CVA/TIA, Dementia, Diabetes Mellitus, Dialysis, Hypertension, Renal Disease Additional Past Medical History / Comment(s): CVA x2 w/ memory loss, uses walker at home, hepatitis B, back pain, ESRD on hemodialysis History of Any Multi-Drug Resistant Organisms: None Reported Past Surgical History: Section, Cholecystectomy Additional Past Surgical History / Comment(s): left upper arm fistula Past Anesthesia/Blood Transfusion Reactions: No Reported Reaction Past Psychological History: No Psychological Hx Reported Past Drug Use History: Marijuana - Past Family History Mother Family Medical History: No Reported History Medications and Allergies Home Medications Medication Instructions Recorded Confirmed Type Levothyroxine Sodium [Synthroid] 75 mcg PO DAILY 10/28/17 01/11/24 History Oxybutynin Chloride 5 mg PO BID 10/28/17 01/11/24 History allopurinoL [Zyloprim] 100 mg PO DAILY 01/19/20 01/11/24 History Lidocaine-Prilocaine Cream [Emla 1 applic TOPICAL DAILY PRN 12/01/22 01/11/24 History Cream 2.5%/2.5%] Clotrimazole [Clotrimazole AF] 1 applic TOPICAL BID 10/08/23 01/11/24 History Diclofenac Sodium [Diclofenac 1 applic TOPICAL DAILY PRN 10/08/23 01/11/24 History Sodium 1%] Omeprazole 20 mg PO DAILY 10/08/23 01/11/24 History Ondansetron Odt [Zofran ODT] 4 - 8 mg PO BID PRN 10/08/23 01/11/24 History amLODIPine [Norvasc] 5 mg PO BID 10/08/23 01/11/24 History carvediloL [Coreg] 6.25 mg PO BID 10/08/23 01/11/24 History Folic Acid 1 mg PO DAILY #30 tab 10/11/23 01/11/24 Rx traMADol HCL 50 - 100 mg PO Q6H PRN 11/01/23 01/11/24 History Insulin Glargine,Hum.rec.anlog 12 units SQ HS 12/27/23 01/11/24 History [Lantus Solostar Pen] Clopidogrel [Plavix] 75 mg PO DAILY #30 tablet 01/01/24 01/11/24 Rx Atorvastatin [Lipitor] 40 mg PO HS 01/11/24 01/11/24 History hydrALAZINE HCL [Apresoline] 50 mg PO BID 01/11/24 01/11/24 History Amoxic-Pot Clav 500-125 mg 1 tab PO Q12HR 10 Days #20 tab 01/14/24 Rx [Augmentin 500-125 mg] Allergies Allergy/AdvReac Type Severity Reaction Status Date / Time codeine AdvReac Nausea Verified 01/11/24 16:51 Physical Exam Vitals: Vital Signs Temp Pulse Pulse Resp BP BP Pulse Ox 01/12/24 07:55 18 01/12/24 06:51 99.0 F 83 20 142/50 96 01/12/24 02:00 98.8 F 78 16 158/72 96 01/12/24 01:38 80 19 157/91 97 01/12/24 01:00 76 19 04/26/24 23:00 75 19 154/71 95 01/11/24 21:03 67 19 179/67 95 01/11/24 19:43 61 18 191/74 97 01/11/24 18:09 61 17 180/71 99 01/11/24 16:09 98.1 F 69 18 153/65 Intake and Output 01/11/24 01/12/24 01/12/24 22:59 06:59 14:59 Intake Total 375 Balance 375 Intake: Intake, IV Titration 375 Amount Sodium Chloride 0.9% 1, 375 000 ml @ 75 mls/hr IV . [id number] [facility] Rx#:[id number] Other: Voiding Method Bedside Commode Weight 97.522 kg 97.522 kg GENERAL DESCRIPTION: Middle-aged female lying in bed, no distress. No tachypnea or accessory muscle of respiration use. HEENT: Shows Pallor , no scleral icterus. Oral mucous membrane is dry. No pharyngeal erythema or thrush NECK: Trachea central, no thyromegaly. LUNGS: Unlabored breathing. Clear to auscultation anteriorly. No wheeze or crackle. HEART: S1, S2, regular rate and rhythm. No loud murmur ABDOMEN: Soft, no tenderness , guarding or rigidity, no organomegaly EXTREMITIES: Right big toe tip with necrotic changes minimal surrounding erythema and tender to touch SKIN: No rash, no masses palpable. NEUROLOGICAL: The patient is awake, alert, oriented x3, mood and affect normal. Results CBC & Chem 7: 01/12/24 05:44 01/12/24 05:44 Labs: Abnormal Lab Results - Last 24 Hours (Table) 01/11/24 01/11/24 01/11/24 Range/Units 16:27 16:27 16:27 WBC 10.9 H (3.8-10.6) k/uL RBC 3.78 L (3.80-5.40) m/uL Hgb (12.0-15.0) g/dL Hct (37.2-46.3) % MCV 105.7 H (80.0-100.0) fL MCH (27.0-32.0) pg MCHC (32.0-37.0) g/dL Neutrophils # 8.3 H (1.3-7.7) k/uL Monocytes # (0.20-1.00) X 10*3/uL PT 9.8 L (10.0-12.5) sec Sodium 135 L (137-145) mmol/L Chloride 94 L (98-107) mmol/L Anion Gap (4.00-12.00) mmol/L BUN 22 H (7-17) mg/dL Creatinine 3.05 H (0.52-1.04) mg/dL Est GFR (CKD-EPI) (>=60) BUN/Creatinine Ratio (12.00-20.00) Ratio Glucose 139 H (74-99) mg/dL POC Glucose (mg/dL) (70-110) mg/dL Albumin/Globulin Ratio (1.60-3.17) Ratio 01/11/24 01/12/24 01/12/24 Range/Units 22:12 05:44 05:44 WBC (3.8-10.6) k/uL RBC 3.18 L (3.80-5.40) m/uL Hgb 10.4 L (12.0-15.0) g/dL Hct 33.0 L (37.2-46.3) % MCV 103.8 H (80.0-100.0) fL MCH 32.7 H (27.0-32.0) pg MCHC 31.5 L (32.0-37.0) g/dL Neutrophils # (1.3-7.7) k/uL Monocytes # 1.33 H (0.20-1.00) X 10*3/uL PT (10.0-12.5) sec Sodium 133 L (137-145) mmol/L Chloride 92 L (98-107) mmol/L Anion Gap 15.90 H (4.00-12.00) mmol/L BUN 27.5 H (7-17) mg/dL Creatinine 4.4 H (0.52-1.04) mg/dL Est GFR (CKD-EPI) 11 L (>=60) BUN/Creatinine Ratio 6.25 L (12.00-20.00) Ratio Glucose 142 H (74-99) mg/dL POC Glucose (mg/dL) 123 H (70-110) mg/dL Albumin/Globulin Ratio 1.52 L (1.60-3.17) Ratio 01/12/24 Range/Units 06:06 WBC (3.8-10.6) k/uL RBC (3.80-5.40) m/uL Hgb (12.0-15.0) g/dL Hct (37.2-46.3) % MCV (80.0-100.0) fL MCH (27.0-32.0) pg MCHC (32.0-37.0) g/dL Neutrophils # (1.3-7.7) k/uL Monocytes # (0.20-1.00) X 10*3/uL PT (10.0-12.5) sec Sodium (137-145) mmol/L Chloride (98-107) mmol/L Anion Gap (4.00-12.00) mmol/L BUN (7-17) mg/dL Creatinine (0.52-1.04) mg/dL Est GFR (CKD-EPI) (>=60) BUN/Creatinine Ratio (12.00-20.00) Ratio Glucose (74-99) mg/dL POC Glucose (mg/dL) 143 H (70-110) mg/dL Albumin/Globulin Ratio (1.60-3.17) Ratio Assessment and Plan (1) Cellulitis of toe of right foot Status: Acute Code(s): L03.031 - CELLULITIS OF RIGHT TOE SNOMED Code(s): 36186842 (2) Gangrene of toe of right foot Status: Acute Code(s): I96 - GANGRENE, NOT ELSEWHERE CLASSIFIED SNOMED Code(s): 36434654517419773 Plan: 1patient with a right big toe tip gangrene with mild component of cellulitis started on exudate as the patient has significant tenderness, mild pressure and did have mild elevated white count 2-discontinue Levaquin 3 start the patient on Unasyn while waiting for the workup to be completed- We will follow on clinical condition and cultures to further adjust medication if needed Thank you for this consultation we will follow the patient along with you Dictation was produced using [employer] software. please excuse any grammatical, word or spelling errors. Time with Patient: Greater than 30
[2024-01-13] MEDS: cloNIDine HCL 0.1 MG TAB PO STA (02:56)
[2024-01-13 05:50] LABS: Glucose,Whole Blood 97 mg/dL (70-110)
[2024-01-13] MEDS: ENOXAPARIN 30 MG/0.3 ML SYRINGE SQ SCH (08:10)
--- NOTE | 2024-01-13 11:05 | P.PN ---
Subjective Progress Note Date: 01/13/24 Patient seen in follow-up for ESRD. No acute events over night. HD was ordered yesterday but does not look like it was completed. No new complaints, confused. Vital signs are stable. General: No acute distress. HEENT: Head exam is unremarkable. LUNGS: No audible rhonchi or wheezes. HEART: Rate and Rhythm are regular. ABDOMEN: Nontender. EXTREMITITES: no edema. Objective - Vital Signs Vital signs: Vital Signs Temp 98.3 F 01/13/24 07:10 Pulse 85 01/13/24 07:10 Resp 20 01/13/24 07:10 BP 203/76 01/13/24 07:10 Pulse Ox 96 01/13/24 07:10 FiO2 Intake & Output 01/12/24 01/13/24 01/13/24 18:59 06:59 18:59 Output Total 100 Balance -100 Output: Urine 100 Other: Voiding Method Bedside Commode Bedside Commode # Voids 2 3 - Labs CBC & Chem 7: 01/12/24 05:44 01/12/24 05:44 Labs: Abnormal Lab Results - Last 24 Hours (Table) 01/12/24 01/12/24 01/12/24 Range/Units 05:44 11:51 16:49 Sodium 133 L (135-145) mmol/L Chloride 92 L (96-109) mmol/L Anion Gap 15.90 H (4.00-12.00) mmol/L BUN 27.5 H (9.0-27.0) mg/dL Creatinine 4.4 H (0.6-1.5) mg/dL Est GFR (CKD-EPI) 11 L (>=60) BUN/Creatinine Ratio 6.25 L (12.00-20.00) Ratio Glucose 142 H (70-110) mg/dL POC Glucose (mg/dL) 126 H 141 H (70-110) mg/dL Albumin/Globulin Ratio 1.52 L (1.60-3.17) Ratio Urine Appearance (Clear) Urine Protein (Negative) Urine Glucose (UA) (Negative) Urine Blood (Negative) Ur Leukocyte Esterase (Negative) Ur Squamous Epith Cells (0-4) /hpf Urine Bacteria (None) /hpf Urine Mucus (None) /hpf 01/12/24 01/12/24 Range/Units 17:08 20:27 Sodium (135-145) mmol/L Chloride (96-109) mmol/L Anion Gap (4.00-12.00) mmol/L BUN (9.0-27.0) mg/dL Creatinine (0.6-1.5) mg/dL Est GFR (CKD-EPI) (>=60) BUN/Creatinine Ratio (12.00-20.00) Ratio Glucose (70-110) mg/dL POC Glucose (mg/dL) 169 H (70-110) mg/dL Albumin/Globulin Ratio (1.60-3.17) Ratio Urine Appearance Turbid H (Clear) Urine Protein 2+ H (Negative) Urine Glucose (UA) 2+ H (Negative) Urine Blood Small H (Negative) Ur Leukocyte Esterase Trace H (Negative) Ur Squamous Epith Cells 40 H (0-4) /hpf Urine Bacteria Few H (None) /hpf Urine Mucus Rare H (None) /hpf Microbiology - Last 24 Hours (Table) 01/11/24 16:37 Blood Culture - Preliminary Blood 01/11/24 16:27 Blood Culture - Preliminary Blood Assessment and Plan Plan: Assessment: 1. ESRD on HD MWF via LUE AVF. Last HD possibly Sunday. 2. Right great toe chronic gangrene 3. PAD w/ recent RLE angioplasty 4. HTN with ESRD 5. Anemia with CKD 6. Renal Osteodystrophy Plan: HD ordered yesterday but does nto appear to have received it. Plan for HD tomorrow to maintain MWF schedule, no urgent need today. ABX per ID Vascular surgery consulted Renal Diet Resume home BP medications
[2024-01-13 11:39] LABS: Glucose,Whole Blood 99 mg/dL (70-110)
[2024-01-13] MEDS: ACETAMINOPHEN TAB 325 MG TAB PO PRN (13:24)
--- NOTE | 2024-01-13 16:22 | P.PN ---
Subjective Progress Note Date: 01/13/24 Principal diagnosis: Reason for follow-up is right big toe tip gangrene Patient is a 63-year-old female with a past medical history significant for diabetes mellitus hypertension CVA TIA history of end-stage renal disease on dialysis patient has been brought into the hospital for evaluation abdominal discomfort, CT abdominal pelvis no evidence of acute abnormality also have right big toe tip gangrene prompting this consultation. On today's evaluation that is 01/13/2024 patient has been afebrile patient is sleepy lethargic today and not answering question, no distress has been noticed no vomiting or diarrhea reported by the family at the bedside. Patient did not have any blood draw today urine was mildly positive Objective - Vital Signs Vital signs: Vital Signs Temp 97.2 F L 01/13/24 13:19 Pulse 82 01/13/24 13:19 Resp 20 01/13/24 13:19 BP 112/69 01/13/24 13:19 Pulse Ox 98 01/13/24 13:19 FiO2 Intake & Output 01/12/24 01/13/24 01/13/24 18:59 06:59 18:59 Output Total 100 Balance -100 Output: Urine 100 Other: Voiding Method Bedside Commode Bedside Commode Bedside Commode # Voids 2 3 1 - Exam GENERAL DESCRIPTION: Middle-aged female lying in bed in no distress RESPIRATORY SYSTEM: Unlabored breathing , decreased breath sounds at bases HEART: S1 S2 regular rate and rhythm , ABDOMEN: Soft , no tenderness EXTREMITIES: Right big toe With necrotic changes minimal erythema - Labs CBC & Chem 7: 01/12/24 05:44 01/12/24 05:44 Labs: Abnormal Lab Results - Last 24 Hours (Table) 01/12/24 01/12/24 01/12/24 Range/Units 16:49 17:08 20:27 POC Glucose (mg/dL) 141 H 169 H (70-110) mg/dL Procalcitonin (0.02-0.09) ng/mL Urine Appearance Turbid H (Clear) Urine Protein 2+ H (Negative) Urine Glucose (UA) 2+ H (Negative) Urine Blood Small H (Negative) Ur Leukocyte Esterase Trace H (Negative) Ur Squamous Epith Cells 40 H (0-4) /hpf Urine Bacteria Few H (None) /hpf Urine Mucus Rare H (None) /hpf 01/13/24 Range/Units 05:32 POC Glucose (mg/dL) (70-110) mg/dL Procalcitonin 0.44 H (0.02-0.09) ng/mL Urine Appearance (Clear) Urine Protein (Negative) Urine Glucose (UA) (Negative) Urine Blood (Negative) Ur Leukocyte Esterase (Negative) Ur Squamous Epith Cells (0-4) /hpf Urine Bacteria (None) /hpf Urine Mucus (None) /hpf Microbiology - Last 24 Hours (Table) 01/11/24 16:37 Blood Culture - Preliminary Blood 01/11/24 16:27 Blood Culture - Preliminary Blood Assessment and Plan (1) Cellulitis of toe of right foot Current Visit: Yes Status: Acute Code(s): L03.031 - CELLULITIS OF RIGHT TOE SNOMED Code(s): 47938979 (2) Gangrene of toe of right foot Current Visit: Yes Status: Acute Code(s): I96 - GANGRENE, NOT ELSEWHERE CLASSIFIED SNOMED Code(s): 00480542396268197 Plan: 1patient with a right big toe tip gangrene with mild component of cellulitis started on exudate as the patient has significant tenderness, mild pressure and did have mild elevated white count 2-patient to continue with Unasyn while waiting for the workup to be completed- at the bedside questions were answered Dictation was produced using [employer] dictation software. please excuse any grammatical, word or spelling errors. Time with Patient: Less than 30
[2024-01-13 16:38] LABS: Glucose,Whole Blood 148 mg/dL (70-110)
--- NOTE | 2024-01-13 16:38 | P.PN ---
Progress Note - Text Progress Note Date: 01/13/24 Chief Complaint: Toe gangrene This is a 63-year-old patient, with chronic stable medical conditions include end-stage kidney disease on hemodialysis, prior stroke with some memory loss, hypertension, diabetes,. Left arm AV fistula. Normally uses a walker/wheelchair. Because of arthritis Patient was was admitted in October of this year with right big toe cellulitis and some distal dry gangrene. Seen by the vascular team of Dr. Camacho. Was discharged on Augmentin with outpatient follow-up. Patient now presents with worsening gangrene of the right big toe. Patient not a good historian. Apparently has not followed up. Increasing pain in the right big toe. Denies any fever and chills. Appetite is fair. Does use a walker. [January 01, 2024: Dr. Camacho had angiogram that showed right lower extremity critical limb ischemia with great toe diagram green. Tibiofemoral trunk stenosis greater than 90% peroneal artery stenosis 70% right anterior tibial artery occlusion. Balloon angioplasty of the right tibioperoneal trunk and peroneal artery was carried out.] January 12: Patient appears more tired today. On Sunday dialysis was not completed because of had some chest pain. Spoke at length with the on the phone yesterday. Patient is anxious about vascular input. Has appointment this coming Sunday with Dr. Camacho. Patient is due for next dialysis tomorrow. Likely element of uremic encephalopathy. Patient is arousable able to answer questions. Active Medications Acetaminophen (Acetaminophen Tab 325 Mg Tab) 650 mg PO Q6HR PRN PRN Reason: Fever and/ or Pain Last Admin: 01/13/24 13:24 Dose: 650 mg Allopurinol (Allopurinol 100 Mg Tab) 100 mg PO DAILY [facility] Last Admin: 01/13/24 08:10 Dose: 100 mg Amlodipine Besylate (Amlodipine 5 Mg Tab) 5 mg PO BID [facility] Last Admin: 01/13/24 08:10 Dose: 5 mg Atorvastatin Calcium (Atorvastatin 40 Mg Tab) 40 mg PO HS [facility] Last Admin: 01/12/24 21:09 Dose: 40 mg Carvedilol (Carvedilol 6.25 Mg Tab) 6.25 mg PO BID-W/MEALS [facility] Last Admin: 01/13/24 08:10 Dose: 6.25 mg Clopidogrel Bisulfate (Clopidogrel 75 Mg Tab) 75 mg PO DAILY [facility] Last Admin: 01/13/24 08:10 Dose: 75 mg Dextrose/Water (Dextrose 50% Syringe 50 Ml) 25 ml IVP PER PROTOCOL PRN; Pro tocol PRN Reason: Hypoglycemia Dextrose/Water (Dextrose 50% Syringe 50 Ml) 50 ml IVP PER PROTOCOL PRN; Protocol PRN Reason: Hypoglycemia Enoxaparin Sodium (Enoxaparin 30 Mg/0.3 Ml Syringe) 30 mg SQ DAILY [facility] Last Admin: 01/13/24 08:10 Dose: 30 mg Folic Acid (Folic Acid 1 Mg Tab) 1 mg PO DAILY [facility] Last Admin: 01/13/24 08:10 Dose: 1 mg Hydralazine HCl (Hydralazine Hcl 50 Mg Tab) 50 mg PO BID [facility] Last Admin: 01/13/24 08:10 Dose: 50 mg Ampicillin Sodium/Sulbactam (Sodium 3 gm/ Sodium Chloride) 100 mls @ 200 mls/hr IVPB Q24HR [facility]; Protocol Last Admin: 01/13/24 08:10 Dose: 200 mls/hr Insulin Aspart (Insulin Aspart (Novolog) 100 Unit/Ml Vial) 0 unit SQ AC-TID [facility]; Protocol Last Admin: 01/13/24 12:13 Dose: Not Given Insulin Detemir (Insulin Detemir (Levemir) 100 Unit/Ml Syr) 12 unit SQ HS [facility] Last Admin: 01/12/24 21:09 Dose: 12 unit Levothyroxine Sodium (Levothyroxine 75 Mcg Tab) 75 mcg PO DAILY@0700 [facility] Last Admin: 01/13/24 06:57 Dose: 75 mcg Oxybutynin Chloride (Oxybutynin Chloride 5 Mg Tab) 5 mg PO BID [facility] Last Admin: 01/13/24 08:10 Dose: 5 mg Pantoprazole Sodium (Pantoprazole 40 Mg Tablet) 40 mg PO DAILY [facility] Last Admin: 01/13/24 08:10 Dose: 40 mg Social history: Does not smoke. Alcohol rarely. Some marijuana. . Physical examination: VITAL SIGNS: T7.2, 82, 20, 112/69, 98% room air GENERAL: [But sleepy today. But arousable EYES: [Pupils equal. Conjunctiva jessica]l. HEENT: [External appearance of nose and ears normal, oral cavity grossly normal]. NECK: [JVD not raised; masses not palpable]. HEART: [First and second heart sounds are normal; no edema]. LUNGS:[ Respiratory rate normal; clear to auscultation]. ABDOMEN: [Soft, nontender, liver spleen not palpable, no masses palpable]. PSYCH: [Able to answer some questions]l. MUSCULOSKELETAL:No Clubbing/cyanosis;muscles-grossly intact EXTREMITY: Right foot big toe, dry gangrene findings INVESTIGATIONS, reviewed in the clinical context: January 12, 2024: White count 9.9 hemoglobin 10.4 platelets 352 sodium 133 potassium 4.6 BUN 27.[address] abdomen pelvis: Distal colonic diverticula present. Other chronic findings a CT scan. EKG tracing personally reviewed by me-LVH. Sinus rhythm. Chest x-ray film personally reviewed by me-possibly expiratory film. Unremarkable Assessment plan: -Right big toe gangrene that was noticed was smaller extent present in October of this year. Patient was being followed by the team of Dr. Camacho and also seen by ID Dr. Yates. December 31: Angioplasty of the right tibioperoneal trunk and peroneal artery scheduled by Dr. Janice Ang. Vascular input awaited End-stage kidney disease on hemodialysis Left forearm AV fistula. Sunday Nephrology consulted -Obesity BMI 39.3 Weight loss measures -Hyperuricemia Allopurinol -Diabetes mellitus type 2, chronically insulin Levemir 12 units at night.. Accu-Cheks with sliding scale -Hypothyroid Synthroid 5 mcg -GERD PPI -Essential hypertension Amlodipine 5 mg twice daily Coreg 6.25 mg twice daily hydralazine 50 mg twice daily -Chronic urinary incontinence Oxybutynin -Severe cognitive impairment from prior stroke. -Full code This with at the bedside. Awaiting input from vascular. Follow-up with nephrology for dialysis. Past Medical History Past Medical History: CVA/TIA, Dementia, Diabetes Mellitus, Dialysis, Hypertension, Renal Disease Additional Past Medical History / Comment(s): CVA x2 w/ memory loss, uses walker at home, hepatitis B, back pain, ESRD on hemodialysis History of Any Multi-Drug Resistant Organisms: None Reported Past Surgical History: Section, Cholecystectomy Additional Past Surgical History / Comment(s): left upper arm fistula Past Anesthesia/Blood Transfusion Reactions: No Reported Reaction Past Psychological History: No Psychological Hx Reported Past Drug Use History: Marijuana
--- NOTE | 2024-01-13 16:53 | P.GSCN ---
History of Present Illness Consult date: 01/13/24 History of present illness: Patient is a 63-year-old female with end-stage renal disease on hemodialysis, left AV fistula, hypertension, diabetes, stroke memory loss and peripheral vascular disease. She was seen by our office with Dr. Camacho for a new issue of a right great toe dry gangrene. She was here for an outpatient procedure on December 31 for which she underwent balloon angioplasty of the tibioperoneal trunk and anterior tibial artery. She has not been to see him in follow-up yet. She came into the hospital for chest pain during dialysis on Sunday. She denies any issues overall, she states that her walking seems a little bit better since the intervention. Past Medical History Past Medical History: CVA/TIA, Dementia, Diabetes Mellitus, Dialysis, Hypertension, Renal Disease Additional Past Medical History / Comment(s): CVA x2 w/ memory loss, uses walker at home, hepatitis B, back pain, ESRD on hemodialysis History of Any Multi-Drug Resistant Organisms: None Reported Past Surgical History: Section, Cholecystectomy Additional Past Surgical History / Comment(s): left upper arm fistula Past Anesthesia/Blood Transfusion Reactions: No Reported Reaction Past Psychological History: No Psychological Hx Reported Past Drug Use History: Marijuana - Past Family History Mother Family Medical History: No Reported History Medications and Allergies Home Medications Medication Instructions Recorded Confirmed Type Levothyroxine Sodium [Synthroid] 75 mcg PO DAILY 10/28/17 01/11/24 History Oxybutynin Chloride 5 mg PO BID 10/28/17 01/11/24 History allopurinoL [Zyloprim] 100 mg PO DAILY 01/19/20 01/11/24 History Lidocaine-Prilocaine Cream [Emla 1 applic TOPICAL DAILY PRN 12/01/22 01/11/24 History Cream 2.5%/2.5%] Clotrimazole [Clotrimazole AF] 1 applic TOPICAL BID 10/08/23 01/11/24 History Diclofenac Sodium [Diclofenac 1 applic TOPICAL DAILY PRN 10/08/23 01/11/24 History Sodium 1%] Omeprazole 20 mg PO DAILY 10/08/23 01/11/24 History Ondansetron Odt [Zofran ODT] 4 - 8 mg PO BID PRN 10/08/23 01/11/24 History amLODIPine [Norvasc] 5 mg PO BID 10/08/23 01/11/24 History carvediloL [Coreg] 6.25 mg PO BID 10/08/23 01/11/24 History Folic Acid 1 mg PO DAILY #30 tab 10/11/23 01/11/24 Rx traMADol HCL 50 - 100 mg PO Q6H PRN 11/01/23 01/11/24 History Amoxic-Pot Clav 500-125 mg 1 tab PO Q12HR 10 Days #20 tab 11/07/23 01/11/24 Rx [Augmentin 500-125 mg] Insulin Glargine,Hum.rec.anlog 12 units SQ HS 12/27/23 01/11/24 History [Lantus Solostar Pen] Clopidogrel [Plavix] 75 mg PO DAILY #30 tablet 01/01/24 01/11/24 Rx Atorvastatin [Lipitor] 40 mg PO HS 01/11/24 01/11/24 History hydrALAZINE HCL [Apresoline] 50 mg PO BID 01/11/24 01/11/24 History Allergies Allergy/AdvReac Type Severity Reaction Status Date / Time codeine AdvReac Nausea Verified 01/11/24 16:51 Surgical - Exam Vital Signs Temp Pulse Resp BP 98.1 F 69 18 153/65 01/11/24 16:09 01/11/24 16:09 01/11/24 16:09 01/11/24 16:09 Pleasant cooperative female in no acute distress, resting, is arousable, answers questions. Uncertain of her normal general mentation as this is my first time seeing her however she answers all questions in a very soft spoken voice. HEENT is normocephalic. Heart appears regular. Lungs are clear, no respiratory distress. Abdomen is obese. Extremities show no clubbing. The right great toe with dry gangrene. No. The drainage. No significant erythema. Feet are warm and dry Results - Labs 01/12/24 05:44 01/12/24 05:44 Abnormal Lab Results - Last 24 Hours (Table) 01/12/24 01/12/24 01/12/24 Range/Units 16:49 17:08 20:27 POC Glucose (mg/dL) 141 H 169 H (70-110) mg/dL Procalcitonin (0.02-0.09) ng/mL Urine Appearance Turbid H (Clear) Urine Protein 2+ H (Negative) Urine Glucose (UA) 2+ H (Negative) Urine Blood Small H (Negative) Ur Leukocyte Esterase Trace H (Negative) Ur Squamous Epith Cells 40 H (0-4) /hpf Urine Bacteria Few H (None) /hpf Urine Mucus Rare H (None) /hpf 01/13/24 01/13/24 Range/Units 05:32 16:36 POC Glucose (mg/dL) 148 H (70-110) mg/dL Procalcitonin 0.44 H (0.02-0.09) ng/mL Urine Appearance (Clear) Urine Protein (Negative) Urine Glucose (UA) (Negative) Urine Blood (Negative) Ur Leukocyte Esterase (Negative) Ur Squamous Epith Cells (0-4) /hpf Urine Bacteria (None) /hpf Urine Mucus (None) /hpf Microbiology - Last 24 Hours (Table) 01/11/24 16:37 Blood Culture - Preliminary Blood 01/11/24 16:27 Blood Culture - Preliminary Blood Assessment and Plan Assessment: Peripheral vascular disease with recent intervention Right great toe dry gangrene End-stage renal disease on dialysis Plan: At this point he does not appear to have significant infection of the toe. There is evidence of dry gangrene. There is no purulent drainage. It is likely that at some point at least a partial toe amputation will need to be performed however is not emergent at this point and would likely defer to an outpatient setting to allow for further demarcation given recent revascularization attempts. Continue with keeping the distal tip dry. Discussion had with as well over the phone.
[2024-01-13 20:57] LABS: Glucose,Whole Blood 191 mg/dL (70-110)
[2024-01-14 06:00] LABS: Glucose,Whole Blood 122 mg/dL (70-110)
--- NOTE | 2024-01-14 11:20 | P.PN ---
Subjective Progress Note Date: 01/14/24 Principal diagnosis: Right dry gangrene toe Patient was seen and examined today as a follow-up. She was just starting hemodialysis. She states she thinks she is doing well overall. She is afebrile. Objective - Vital Signs Vital signs: Vital Signs Temp 98.3 F 01/14/24 06:59 Pulse 79 01/14/24 06:59 Resp 20 01/14/24 06:59 BP 153/53 01/14/24 06:59 Pulse Ox 97 01/14/24 06:59 FiO2 Intake & Output 01/13/24 01/14/24 01/14/24 18:59 06:59 18:59 Output Total 200 Balance -200 Output: Urine 200 Straight 200 Other: Voiding Method Bedside Commode Bedside Commode # Voids 6 4 - Exam General appearance: The patient is alert, oriented, appears in no acute distress. HET: Head is normocephalic and atraumatic. Pupils are equal and reactive. Neck: Supple. Abdomen: Soft, nondistended. Extremities: Dry gangrene distal tip of right great toe, no drainage or odor noted. Neurological: No focal deficits. Strength and sensation are grossly intact. - Labs CBC & Chem 7: 01/12/24 05:44 01/12/24 05:44 Labs: Abnormal Lab Results - Last 24 Hours (Table) 01/13/24 01/13/24 01/13/24 Range/Units 05:32 16:36 20:52 POC Glucose (mg/dL) 148 H 191 H (70-110) mg/dL Procalcitonin 0.44 H (0.02-0.09) ng/mL 01/14/24 Range/Units 05:55 POC Glucose (mg/dL) 122 H (70-110) mg/dL Procalcitonin (0.02-0.09) ng/mL Microbiology - Last 24 Hours (Table) 01/11/24 16:37 Blood Culture - Preliminary Blood 01/11/24 16:27 Blood Culture - Preliminary Blood Assessment and Plan Assessment: 1. Peripheral vascular disease with recent intervention 2. Right great toe dry gangrene 3. End-stage renal disease on hemodialysis Plan: Right great toe with dry gangrene without any evidence of significant infection to the toe. Recommend outpatient follow-up with Dr. Camacho next week. Patient will likely need at least partial toe amputation however this can be done as an outpatient. Patient is cleared from vascular surgery for discharge. The impression and plan of care has been dictated as directed. Dr. Herrera I performed a history and examination of this patient, discussed the same with the dictator. I agree with the dictator's note ,documented as a scribe. Any additional findings or plans will be noted.
[2024-01-14 11:37] LABS: Glucose,Whole Blood 204 mg/dL (70-110)
--- NOTE | 2024-01-14 13:41 | P.PN ---
Subjective patient is seen for follow-up for end-stage renal disease. Seen on hemodialysis. Tolerating treatment well. Objective - Vital Signs Vital signs: Vital Signs Temp 97.8 F 01/14/24 13:28 Pulse 73 01/14/24 13:28 Resp 18 01/14/24 13:28 BP 142/62 01/14/24 13:28 Pulse Ox 97 01/14/24 06:59 FiO2 Intake & Output 01/13/24 01/14/24 01/14/24 18:59 06:59 18:59 Intake Total 500 Output Total 200 3000 Balance -200 -2500 Intake: Hemodialysis 500 Output: Urine 200 Straight 200 Hemodialysis 3000 Other: Voiding Method Bedside Commode Bedside Commode Bedside Commode # Voids 6 4 - Exam patient is awake, comfortable, no acute distress No edema noted Abdomen is soft nontender - Labs CBC & Chem 7: 01/12/24 05:44 01/12/24 05:44 Labs: Abnormal Lab Results - Last 24 Hours (Table) 01/13/24 01/13/24 01/14/24 Range/Units 16:36 20:52 05:55 POC Glucose (mg/dL) 148 H 191 H 122 H (70-110) mg/dL 01/14/24 Range/Units 11:35 POC Glucose (mg/dL) 204 H (70-110) mg/dL Microbiology - Last 24 Hours (Table) 01/11/24 16:37 Blood Culture - Preliminary Blood 01/11/24 16:27 Blood Culture - Preliminary Blood Assessment and Plan Assessment: 1. ESRD on HD MWF via LUE AVF. 2. Right great toe chronic gangrene 3. PAD w/ recent RLE angioplasty 4. HTN with ESRD 5. Anemia with CKD 6. Renal Osteodystrophy Plan: maintain hemodialysis on Sunday vent is a Sunday schedule. Continue with antibiotics
[2024-01-14 13:51] VITALS: BP 142/62; PULSE 73
[2024-01-14 15:19] VITALS: RESP 17; TEMP 98.5
--- NOTE | 2024-01-14 15:36 | CT ---
EXAMINATION TYPE: CT brain wo con DATE OF EXAM: 01/14/2024 COMPARISON: 10/08/2023 INDICATION: Decreased Mentation. DLP: 1106.4 mGycm, Automated exposure control for dose reduction was used. CONTRAST: None CT of the brain is performed utilizing 3 mm thick sections through the posterior fossa and 3 mm thick sections through the remaining calvarium. Study is performed within 24 hours of arrival to the hosp [facility]. No abnormal hyperdensity is present to suggest an acute intracranial hemorrhage. No mass lesion is evident. No acute infarcts are evident. There is hypodensity within the right basal ganglion compatible with o ld infarct. Some mild periventricular white matter hypodensity is present, likely on the basis of chr onic white matter ischemic changes. Ventricles and sulci are prominent for the patient age. Paranasal sinuses and mastoid air cells within the [id number] are clear. IMPRESSION: 1. No acute intracranial process radiographically apparent. Follow-up MRI can be performed as clini maria luisa indicated. 2. Chronic appearing periventricular white matter ischemic type changes. 3. Old right basal ganglion infarct.
--- NOTE | 2024-01-14 20:35 | P.DS ---
Providers Date of admission: 01/11/24 20:32 Expected date of discharge: 01/14/24 Attending physician: Sukhdev Ford Consults: 01/11/24 20:31 Consult Physician Routine Consulting Provider: Olivier Camacho Consult Reason/Comments: Right toe gangrene Do you want consulting provider notified?: Yes 01/11/24 20:47 Consult Physician Routine Consulting Provider: Cale Van Consult Reason/Comments: esrd on hd, had ct w contrast Do you want consulting provider notified?: Yes 01/11/24 21:05 Consult Physician Routine Consulting Provider: Prabhakar Tellez Consult Reason/Comments: Toe gangrene Do you want consulting provider notified?: Yes Primary care physician: [facility] Course: Chief Complaint: Toe gangrene This is a 63-year-old patient, with chronic stable medical conditions include end-stage kidney disease on hemodialysis, prior stroke with some memory loss, hypertension, diabetes,. Left arm AV fistula. Normally uses a w alker/wheelchair. Because of arthritis Patient was was admitted in October of this year with right big toe cellulitis and some distal dry gangrene. Seen by the vascular team of Dr. Camacho. Was di scharged on Augmentin with outpatient follow-up. Patient now presents with worsening gangrene of the right big toe. Patient not a good historian. Apparently has not followed up. Increasing pain in the right big toe. Denies any fever and chills. Appetite is fair. Does use a walker. [January 01, 2024: Dr. Camacho had angiogram that showed right lower extremity critical limb ischemia with great toe diagram green. Tibiofemoral trunk stenosis greater than 90% peroneal artery stenosis 70% right anterior tibial artery occlusion. Balloon angioplasty of the right tibioperoneal trunk and peroneal artery was carried out.] January 12: Patient appears more tired today. On Sunday dialysis was not completed because of had some chest pain. Spoke at length with the on the phone yesterday. Patient is anxious about vascular input. Has appointment this coming Sunday with Dr. Camacho. Patient is due for next dialysis tomorrow. Likely element of uremic encephalopathy. Patient is arousable able to answer questions. January 13: As patient had been a bit lethargic. CT scan of the brain was ordered. It came back to be negative. Patient underwent dialysis today. 3000 cc of fluid was removed. She perked up well after that. Patient was seen by vascular. Follow-up with Dr. Camacho outpatient. 10 days of Augmentin per ID. Patient had all of breakfast and after lunch. Discussion and discharge planning more than 35 minutes Social history: Does not smoke. Alcohol rarely. Some marijuana. . Physical examination: VITAL SIGNS: 88.5, 73, 17, 142/62, 97% room air GENERAL: In bed EYES: [Pupils equal. Conjunctiva jessica]l. HEENT: [External appearance of nose and ears normal, oral cavity grossly normal]. NECK: [JVD not raised; masses not palpable]. HEART: [First and second heart sounds are normal; no edema]. LUNGS:[ Respiratory rate normal; clear to auscultation]. ABDOMEN: [Soft, nontender, liver spleen not palpable, no masses palpable]. PSYCH: Able to answer questions. Forgetful. MUSCULOSKELETAL:No Clubbing/cyanosis;muscles-grossly intact EXTREMITY: Right foot big toe, dry gangrene findings INVESTIGATIONS, reviewed in the clinical context: January 12, 2024: White count 9.9 hemoglobin 10.4 platelets 352 sodium 133 potassium 4.6 BUN 27[address] abdomen pelvis: Distal colonic diverticula present. Other chronic findings a CT scan. EKG tracing personally reviewed by me-[facility]. Sinus rhythm. Chest x-ray film personally reviewed by me-possibly expiratory film. Unremarkable Assessment plan: -Right big toe gangrene that was noticed was smaller extent present in October of this year. Patient was being followed by the team of Dr. Camacho and also seen by ID Dr. Yates. December 31: Angioplasty of the right tibioperoneal trunk and peroneal artery scheduled by Dr. Janice NAM Unasyn. By vascular team. Patient to follow-up with Dr. Camacho. 10 days of Augmentin as per ID -Uremic encephalopathy: Improved Improved with dialysis. Patient had incomplete dialysis on Sunday. End-stage kidney disease on hemodialysis Left forearm AV fistula. Sunday Nephrology following. -Obesity BMI 39.3 Weight loss measures -Hyperuricemia Allopurinol -Diabetes mellitus type 2, chronically insulin Levemir 12 units at night.. Accu-Cheks with sliding scale -Hypothyroid Synthroid 5 mcg -GERD PPI -Essential hypertension Amlodipine 5 mg twice daily Coreg 6.25 mg twice daily hydralazine 50 mg twice daily -Chronic urinary incontinence Oxybutynin -Severe cognitive impairment from prior stroke. -Full code Disposition: Home Past Medical History Past Medical History: CVA/TIA, Dementia, Diabetes Mellitus, Dialysis, Hypertension, Renal Disease Additional Past Medical History / Comment(s): CVA x2 w/ memory loss, uses walker at home, hepatitis B, back pain, ESRD on hemodialysis History of Any Multi-Drug Resistant Organisms: None Reported Past Surgical History: Section, Cholecystectomy Additional Past Surgical History / Comment(s): left upper arm fistula Past Anesthesia/Blood Transfusion Reactions: No Reported Reaction Past Psychological History: No Psychological Hx Reported Past Drug Use History: Marijuana Plan - Discharge Summary Discharge Rx Participant: No New Discharge Prescriptions: Continue Oxybutynin Chloride 5 mg PO BID Levothyroxine Sodium [Synthroid] 75 mcg PO DAILY allopurinoL [Zyloprim] 100 mg PO DAILY amLODIPine [Norvasc] 5 mg PO BID Atorvastatin [Lipitor] 40 mg PO HS hydrALAZINE HCL [Apresoline] 50 mg PO BID Lidocaine-Prilocaine Cream [Emla Cream 2.5%/2.5%] 1 applic TOPICAL DAILY PRN PRN Reason: dialysis Clotrimazole [Clotrimazole AF] 1 applic TOPICAL BID carvediloL [Coreg] 6.25 mg PO BID Omeprazole 20 mg PO DAILY Ondansetron Odt [Zofran ODT] 4 - 8 mg PO BID PRN PRN Reason: Nausea Diclofenac Sodium [Diclofenac Sodium 1%] 1 applic TOPICAL DAILY PRN PRN Reason: Pain Folic Acid 1 mg PO DAILY #30 tab traMADol HCL 50 - 100 mg PO Q6H PRN PRN Reason: Pain Insulin Glargine,Hum.rec.anlog [Lantus Solostar Pen] 12 units SQ HS Clopidogrel [Plavix] 75 mg PO DAILY #30 tablet Amoxic-Pot Clav 500-125 mg [Augmentin 500-125 mg] 1 tab PO Q12HR 10 Days #20 tab Discharge Medication List Levothyroxine Sodium [Synthroid] 75 mcg PO DAILY 10/28/17 [History] Oxybutynin Chloride 5 mg PO BID 10/28/17 [History] allopurinoL [Zyloprim] 100 mg PO DAILY 01/19/20 [History] Lidocaine-Prilocaine Cream [Emla Cream 2.5%/2.5%] 1 applic TOPICAL DAILY PRN 12/01/22 [History] Clotrimazole [Clotrimazole AF] 1 applic TOPICAL BID 10/08/23 [History] Diclofenac Sodium [Diclofenac Sodium 1%] 1 applic TOPICAL DAILY PRN 10/08/23 [History] Omeprazole 20 mg PO DAILY 10/08/23 [History] Ondansetron Odt [Zofran ODT] 4 - 8 mg PO BID PRN 10/08/23 [History] amLODIPine [Norvasc] 5 mg PO BID 10/08/23 [History] carvediloL [Coreg] 6.25 mg PO BID 10/08/23 [History] Folic Acid 1 mg PO DAILY #30 tab 10/11/23 [Rx] traMADol HCL 50 - 100 mg PO Q6H PRN 11/01/23 [History] Insulin Glargine,Hum.rec.anlog [Lantus Solostar Pen] 12 units SQ HS 12/27/23 [History] Clopidogrel [Plavix] 75 mg PO DAILY #30 tablet 01/01/24 [Rx] Atorvastatin [Lipitor] 40 mg PO HS 01/11/24 [History] hydrALAZINE HCL [Apresoline] 50 mg PO BID 01/11/24 [History] Amoxic-Pot Clav 500-125 mg [Augmentin 500-125 mg] 1 tab PO Q12HR 10 Days #20 tab 01/14/24 [Rx] Follow up Appointment(s)/Referral(s): Des Vazquez DO [Primary Care Provider] - 01/17/24 4:00 pm Olivier Camacho DO [STAFF PHYSICIAN] - 01/22/24 9:00 am () [facility] [[facility]] - As Needed Discharge Disposition: HOME SELF-CARE
--- NOTE | 2024-01-15 08:22 | P.PN ---
Subjective Progress Note Date: 01/14/24 Principal diagnosis: Reason for follow-up is right big toe tip gangrene Patient is a 63-year-old female with a past medical history significant for diabetes mellitus hypertension CVA TIA history of end-stage renal disease on dialysis patient has been brought into the hospital for evaluation abdominal discomfort, CT abdominal pelvis no evidence of acute abnormality also have right big toe tip gangrene prompting this consultation. On today's evaluation that is 01/14/2024,the patient remains to be afebrile, patient was undergoing dialysis at the time of evaluation seem to be sleepy lethargic and did not answer any question breathing comfortably on room air no vomiting or diarrhea or any other changes reported by the nursing staff. No new labs has been repeated today blood culture has been negative Objective - Vital Signs Vital signs: Vital Signs Temp 98.3 F 01/14/24 06:59 Pulse 79 01/14/24 06:59 Resp 20 01/14/24 06:59 BP 153/53 01/14/24 06:59 Pulse Ox 97 01/14/24 06:59 FiO2 Intake & Output 01/13/24 01/14/24 01/14/24 18:59 06:59 18:59 Output Total 200 Balance -200 Output: Urine 200 Straight 200 Other: Voiding Method Bedside Commode Bedside Commode Bedside Commode # Voids 6 4 - Exam GENERAL DESCRIPTION: Middle-aged female lying in bed in no distress RESPIRATORY SYSTEM: Unlabored breathing , decreased breath sounds at bases HEART: S1 S2 regular rate and rhythm , ABDOMEN: Soft , no tenderness EXTREMITIES: Right big toe With necrotic changes minimal erythema - Labs CBC & Chem 7: 01/12/24 05:44 01/12/24 05:44 Labs: Abnormal Lab Results - Last 24 Hours (Table) 01/13/24 01/13/24 01/14/24 Range/Units 16:36 20:52 05:55 POC Glucose (mg/dL) 148 H 191 H 122 H (70-110) mg/dL 01/14/24 Range/Units 11:35 POC Glucose (mg/dL) 204 H (70-110) mg/dL Microbiology - Last 24 Hours (Table) 01/11/24 16:37 Blood Culture - Preliminary Blood 01/11/24 16:27 Blood Culture - Preliminary Blood Assessment and Plan (1) Cellulitis of toe of right foot Status: Acute Code(s): L03.031 - CELLULITIS OF RIGHT TOE SNOMED Code(s): 75288116 (2) Gangrene of toe of right foot Status: Acute Code(s): I96 - GANGRENE, NOT ELSEWHERE CLASSIFIED SNOMED Code(s): 70553671593357701 Plan: 1patient with a right big toe tip gangrene with mild component of cellulitis started on exudate as the patient has significant tenderness, mild pressure and did have mild elevated white count 2-patient has been treated with the Unasyn for possible cellulitis at the right big toe gangrene site with the plan to finish therapy with Augmentin discussed with the admitting physician Dictation was produced using [employer] dictation software. please excuse any grammatical, word or spelling errors. Time with Patient: Less than 30
== END 2024-01-14 16:56 | disposition home or self-care (01) | DRG 299 ==
LOC: EC 16:08 → 6NMEDSUR 20:32 → OBSVTOIN 20:32 → 6NMEDSUR 22:04 → 4SSUR 23:14
PROVIDERS: ADMIT Hospitalist; ATTEND Hospitalist
PROC: 5A1D70Z Performance of Urinary Filtration, Intermittent, Less than 6 Hours Per Day (ICD-10-PCS; principal; 2024-01-11)
DX: E11.52 Type 2 diabetes mellitus with diabetic peripheral angiopathy with gangrene (principal); N18.6 End stage renal disease; G93.49 Other encephalopathy; I12.0 Hypertensive chronic kidney disease with stage 5 chronic kidney disease or end stage renal disease; I70.261 Atherosclerosis of native arteries of extremities with gangrene, right leg; E11.22 Type 2 diabetes mellitus with diabetic chronic kidney disease; D63.1 Anemia in chronic kidney disease; M54.9 Dorsalgia, unspecified; R11.10 Vomiting, unspecified; M19.90 Unspecified osteoarthritis, unspecified site; E66.9 Obesity, unspecified; Z68.39 Body mass index [BMI] 39.0-39.9, adult; F03.90 Unspecified dementia, unspecified severity, without behavioral disturbance, psychotic disturbance, mood disturbance, and anxiety; E03.9 Hypothyroidism, unspecified; E79.0 Hyperuricemia without signs of inflammatory arthritis and tophaceous disease; I69.311 Memory deficit following cerebral infarction; K21.9 Gastro-esophageal reflux disease without esophagitis; R32 Unspecified urinary incontinence; E11.628 Type 2 diabetes mellitus with other skin complications; L03.031 Cellulitis of right toe; Z79.4 Long term (current) use of insulin; N25.0 Renal osteodystrophy; Z99.2 Dependence on renal dialysis; Z79.02 Long term (current) use of antithrombotics/antiplatelets; Z79.890 Hormone replacement therapy; Z79.899 Other long term (current) drug therapy; Z86.19 Personal history of other infectious and parasitic diseases; Z28.310 Unvaccinated for COVID-19; Z28.21 Immunization not carried out because of patient refusal; Z88.5 Allergy status to narcotic agent
CPT/HCPCS: 36415; 70450; 71045; 74018; 74177; 80053; 81001; 82150; 83605; 83690; 84145; 84484; 85025; 85610; 85730; 87040; 90935; 96361; 96365; 96366; 96372; 96375; 99285

== ENCOUNTER → 2024-02-12 | Outpatient (CLI) | payer MEDICARE, OTHER ==
--- NOTE | 2024-02-13 19:30 | US ---
EXAMINATION TYPE: US thyroid st tissue head/neck DATE OF EXAM: 02/12/2024 COMPARISON: ? 12/04/2023 CLINICAL INDICATION: Female, 63 years old with history of E04.1 NONTOXIC SINGLE THYROID NODULE; Nodul es seen on Carotid ultrasound; Per patients guardian patient has trouble swallowing GLAND SIZE: Right Lobe: 6.3 x 2.8 x 3.6 cm Overall Parenchyma: homogeneous Left Lobe: 4.7 x 2.0 x 2.0 cm Overall Parenchyma: homogeneous Isthmus Thickness: 0.4 cm NODULES RIGHT: # of nodules measured on right: 2 1. 0.8 X 0.7 x 0.7 cm, mid lateral, solid or almost completely solid, hypoechoic nodule, which is w ider than tall, with smooth margins, without echogenic foci. Prior size: No prior 2. 0.6 X 0.6 x 0.7 cm, mid mid, solid or almost completely solid, hyperechoic nodule, which is wide r than tall, with ill-defined margins, calcified. Prior size: 0.8 x 0.5 x 0.7 cm LEFT: # of nodules measured on left: 0 ISTHMUS: # of nodules measured in the isthmus: 0 Bilateral neck scanned, no evidence of lymphadenopathy. IMPRESSION: Subcentimeter nodules within the thyroid
== END | disposition home or self-care (01) ==
LOC: RADUSWWP 15:29
PROVIDERS: ATTEND Family Medicine
DX: E04.1 Nontoxic single thyroid nodule (principal)
CPT/HCPCS: 76536

== ENCOUNTER 2024-03-10 20:57 | Emergency (ER) | payer MEDICARE ==
--- NOTE | 2024-03-10 21:34 | ED ---
Altered Mental Status HPI - General Chief Complaint: Altered Mental Status Stated Complaint: Altered mental Time Seen by Provider: 03/10/24 21:16 Source: patient, EMS, RN notes reviewed, old records reviewed Mode of arrival: ambulatory Limitations: no limitations - History of Present Illness Initial Comments: This is a 63-year-old female to the ER for evaluation today. Patient presents to the emergency room today for for evaluation of altered mental status patient is a poor historian secondary to clinical condition. Patient is having difficulty breathing wheezing and sent to the ER for evaluation regards to altered mental status mildly worse than normal. Patient has been going through appropriate dialysis treatments denies missing any recent dialysis no specific complaints no headache chest pain shortness of breath or abdominal pain MD Complaint: altered mental status, confusion, decreased responsiveness Severity: mild Consistency of Symptoms: waxing and waning, getting worse Associated Symptoms: denies other symptoms Treatments Prior to Arrival: IV fluid, oxygen - Related Data Home Medications Medication Instructions Recorded Confirmed Levothyroxine Sodium [Synthroid] 75 mcg PO DAILY 10/28/17 01/11/24 Oxybutynin Chloride 5 mg PO BID 10/28/17 01/11/24 allopurinoL [Zyloprim] 100 mg PO DAILY 01/19/20 01/11/24 Lidocaine-Prilocaine Cream [Emla 1 applic TOPICAL DAILY PRN 12/01/22 01/11/24 Cream 2.5%/2.5%] Clotrimazole [Clotrimazole AF] 1 applic TOPICAL BID 10/08/23 01/11/24 Diclofenac Sodium [Diclofenac 1 applic TOPICAL DAILY PRN 10/08/23 01/11/24 Sodium 1%] Omeprazole 20 mg PO DAILY 10/08/23 01/11/24 Ondansetron Odt [Zofran ODT] 4 - 8 mg PO BID PRN 10/08/23 01/11/24 amLODIPine [Norvasc] 5 mg PO BID 10/08/23 01/11/24 carvediloL [Coreg] 6.25 mg PO BID 10/08/23 01/11/24 traMADol HCL 50 - 100 mg PO Q6H PRN 11/01/23 01/11/24 Insulin Glargine,Hum.rec.anlog 12 units SQ HS 12/27/23 01/11/24 [Lantus Solostar Pen] Atorvastatin [Lipitor] 40 mg PO HS 01/11/24 01/11/24 hydrALAZINE HCL [Apresoline] 50 mg PO BID 01/11/24 01/11/24 Previous Rx's Medication Instructions Recorded Folic Acid 1 mg PO DAILY #30 tab 10/11/23 Clopidogrel [Plavix] 75 mg PO DAILY #30 tablet 01/01/24 Amoxic-Pot Clav 500-125 mg 1 tab PO Q12HR 10 Days #20 tab 01/14/24 [Augmentin 500-125 mg] Allergies Allergy/AdvReac Type Severity Reaction Status Date / Time codeine AdvReac Nausea Verified 03/10/24 21:04 Review of Systems ROS Statement: Those systems with pertinent positive or pertinent negative responses have been documented in the HPI. ROS Other: All systems not noted in ROS Statement are negative. Past Medical History Past Medical History: CVA/TIA, Dementia, Diabetes Mellitus, Dialysis, Hypertension, Renal Disease Additional Past Medical History / Comment(s): CVA x2 w/ memory loss, uses walker at home, hepatitis B, back pain, ESRD on hemodialysis History of Any Multi-Drug Resistant Organisms: None Reported Past Surgical History: Section, Cholecystectomy Additional Past Surgical History / Comment(s): left upper arm fistula Past Anesthesia/Blood Transfusion Reactions: No Reported Reaction Past Psychological History: No Psychological Hx Reported Smoking Status: Never smoker Past Alcohol Use History: Occasional Past Drug Use History: Marijuana - Past Family History Mother Family Medical History: No Reported History General Exam General appearance: alert, in no apparent distress Head exam: Present: atraumatic, normocephalic, normal inspection Eye exam: Present: normal appearance, PERRL, EOMI. Absent: scleral icterus, conjunctival injection, periorbital swelling ENT exam: Present: normal exam, mucous membranes moist Neck exam: Present: normal inspection. Absent: tenderness, meningismus, lymphadenopathy Respiratory exam: Present: normal lung sounds bilaterally. Absent: respiratory distress, wheezes, rales, rhonchi, stridor Cardiovascular Exam: Present: regular rate, normal rhythm, normal heart sounds. Absent: systolic murmur, diastolic murmur, rubs, gallop, clicks GI/Abdominal exam: Present: soft, normal bowel sounds. Absent: distended, tenderness, guarding, rebound, rigid Extremities exam: Present: normal inspection, full ROM, normal capillary refill. Absent: tenderness, pedal edema, joint swelling, calf tenderness Back exam: Present: normal inspection Neurological exam: Present: alert, oriented X3, CN II-XII intact Psychiatric exam: Present: normal affect, normal mood Skin exam: Present: warm, dry, intact, normal color. Absent: rash Course Vital Signs 03/10/24 03/11/24 03/11/24 20:58 01:36 04:00 Temperature 97.3 F L Pulse Rate 96 87 72 Respiratory 16 15 18 Rate Blood Pressure 121/62 153/67 106/54 O2 Sat by Pulse 97 97 96 Oximetry 03/11/24 03/11/24 07:56 08:08 Temperature 99.2 F Pulse Rate 98 Respiratory 16 Rate Blood Pressure 163/71 O2 Sat by Pulse 95 Oximetry - Reevaluation(s) Reevaluation #1: 03/10/24 21:39 Medical records reviewed Reevaluation #2: 03/10/24 21:39 Symptoms unchanged Reevaluation #3: 03/10/24 21:39 Patient informed of results and questions answered Reevaluation #4: Was pt. sent in by a medical professional or institution (, PA, DOOR CORE ASSEMBLER, urgent ca re, hospital, or jail...) When possible be specific @ -no Did you speak to anyone other than the patient for history (EMS, parent, family, police, friend...)? What history was obtained from this source @ -no Did you review nursing and triage notes (agree or disagree)? Why? @ -agree Are old charts reviewed (outside hosp., previous admission, EMS record, old EKG, old radiological studies, urgent care reports/EKG's, jail records)? Report findings @ -yes Differential Diagnosis (chest pain, altered mental status, abdominal pain women, abdominal pain men, vaginal bleeding, weakness, fever, dyspnea, syncope, headache, dizziness, GI bleed, back pain, seizure, CVA, palpatations, mental health, musculoskeletal)? @ -prior EKG interpreted by me (3pts min.). @ -yes X-rays interpreted by me (1pt min.). @ -Yes negative for acute disease CT interpreted by me (1pt min.). @ -no U/S interpreted by me (1pt. min.). @ -no What testing was considered but not performed or refused? (CT, X-rays, U/S, labs)? Why? @ -none What meds were considered but not given or refused? Why? @ -none Did you discuss the management of the patient with other professionals (professionals i.e. , PA, DOOR CORE ASSEMBLER, lab, RT, psych nurse, social worker psychiatric, tractor engine mechanic, teacher, enforcement officer, social work case manager)? Give summary @ -no Was smoking cessation discussed for >3mins.? @ -no Was critical care preformed (if so, how long)? @ -no Were there social determinants of health that impacted care today? How? (Homel essness, low income, unemployed, alcoholism, drug addiction, transportation, low edu. Level, literacy, decrease access to med. care, care home, rehab)? @ -none Was there de-escalation of care discussed even if they declined (Discuss DNR or withdrawal of care, Hospice)? DNR status @ -no What co-morbidities impacted this encounter? (DM, HTN, Smoking, COPD, CAD, Cancer, CVA, ARF, Chemo, Hep., AIDS, mental health diagnosis, sleep apnea, morbid obesity)? @ -none Was patient admitted / discharged? Hospital course, mention meds given and route, prescriptions, significant lab abnormalities, going to OR and other pertinent info. @ - 63 female to ER for altered mental status will need to be discharged home as there is no acute cause of symptoms here in the ER Discharge Undiagnosed new problem with uncertain prognosis? @ -no Drug Therapy requiring intensive monitoring for toxicity (Heparin, Nitro, Insulin, Cardizem)? @ -no Were any procedures done? @ -no Diagnosis/symptom? @ -Renal failure weakness Acute, or Chronic, or Acute on Chronic? @ -Acute Uncomplicated (without systemic symptoms) or Complicated (systemic symptoms)? @ -Complicated Side effects of treatment? @ -no Exacerbation, Progression, or Severe Exacerbation? @ -exacerbation Poses a threat to life or bodily function? How? (Chest pain, [place], [place], pneumonia, PE, COPD, DKA, ARF, appy, cholecystitis, CVA, Diverticulitis, Homicidal, Suicidal, threat to staff... and all critical care pts) @ -yes extremes of age renal failure on dialysis Reevaluation #5: Differential Altered Mental Status: Hypoglycemia, DKA, hypercapnia, ETOH, overdose, CO poisoning, trauma, myxedema coma, HTN encephalopathy, infection, encephalitis, psychosis, intercranial hemorrhage, hepatic encephalopathy, meningitis, CVA, this is not meant to be an all-inclusive list Medical Decision Making - Medical Decision Making 63 female to ER for altered mental status will need to be discharged home as there is no acute cause of symptoms here in the ER - Lab Data Result diagrams: 03/10/24 21:58 03/10/24 21:58 Lab Results 03/10/24 03/10/24 03/10/24 Range/Units 21:58 21:58 21:58 WBC 14.3 H (3.8-10.6) k/uL RBC 4.07 (3.80-5.40) m/uL Hgb 13.0 (11.4-16.0) gm/dL Hct 42.4 (34.0-46.0) % MCV 104.2 H (80.0-100.0) fL MCH 32.0 (25.0-35.0) pg MCHC 30.7 L (31.0-37.0) g/dL RDW 13.7 (11.5-15.5) % Plt Count 389 (150-450) k/uL MPV 9.4 Neutrophils % 75 % Lymphocytes % 16 % Monocytes % 7 % Eosinophils % 1 % Basophils % 1 % Neutrophils # 10.6 H (1.3-7.7) k/uL Lymphocytes # 2.2 (1.0-4.8) k/uL Monocytes # 1.0 (0-1.0) k/uL Eosinophils # 0.1 (0-0.7) k/uL Basophils # 0.1 (0-0.2) k/uL Macrocytosis Slight PT 10.9 (10.0-12.5) sec INR 1.0 (<1.2) APTT 21.5 L (22.0-30.0) sec Sodium 135 L (137-145) mmol/L Potassium 4.5 (3.5-5.1) mmol/L Chloride 88 L (98-107) mmol/L Carbon Dioxide 31 H (22-30) mmol/L Anion Gap 16 mmol/L BUN 32 H (7-17) mg/dL Creatinine 3.36 H (0.52-1.04) mg/dL Est GFR (CKD-EPI)AfAm 16 (>60 ml/min/1.73 sqM) Est GFR (CKD-EPI)NonAf 14 (>60 ml/min/1.73 sqM) Glucose 213 H (74-99) mg/dL Calcium 9.4 (8.4-10.2) mg/dL Phosphorus 4.2 (2.5-4.5) mg/dL Magnesium 1.9 (1.6-2.3) mg/dL Total Bilirubin 0.5 (0.2-1.3) mg/dL AST 19 (14-36) U/L ALT 14 (4-34) U/L Alkaline Phosphatase 66 (38-126) U/L Ammonia (<30) umol/L Troponin I (0.000-0.034) ng/mL Total Protein 6.3 (6.3-8.2) g/dL Albumin 3.7 (3.5-5.0) g/dL Urine Color Urine Appearance (Clear) Urine pH (5.0-8.0) Ur Specific [place] (1.001-1.035) Urine Protein (Negative) Urine Glucose (UA) (Negative) Urine Ketones (Negative) Urine Blood (Negative) Urine Nitrite (Negative) Urine Bilirubin (Negative) Urine Urobilinogen (<2.0) mg/dL Ur Leukocyte Esterase (Negative) Urine RBC (0-5) /hpf Urine WBC (0-5) /hpf Ur Squamous Epith Cells (0-4) /hpf Urine Bacteria (None) /hpf Urine Mucus (None) /hpf Urine Opiates Screen (NotDetected) Ur Oxycodone Screen (NotDetected) Urine Methadone Screen (NotDetected) Ur Barbiturates Screen (NotDetected) U Tricyclic Antidepress (NotDetected) Ur Phencyclidine Scrn (NotDetected) Ur Amphetamines Screen (NotDetected) U Methamphetamines Scrn (NotDetected) U Benzodiazepines Scrn (NotDetected) Urine Cocaine Screen (NotDetected) U Marijuana (THC) Screen (NotDetected) Serum Alcohol <10 mg/dL 03/10/24 03/10/24 03/11/24 Range/Units 21:58 21:58 02:14 WBC (3.8-10.6) k/uL RBC (3.80-5.40) m/uL Hgb (11.4-16.0) gm/dL Hct (34.0-46.0) % MCV (80.0-100.0) fL MCH (25.0-35.0) pg MCHC (31.0-37.0) g/dL RDW (11.5-15.5) % Plt Count (150-450) k/uL MPV Neutrophils % % Lymphocytes % % Monocytes % % Eosinophils % % Basophils % % Neutrophils # (1.3-7.7) k/uL Lymphocytes # (1.0-4.8) k/uL Monocytes # (0-1.0) k/uL Eosinophils # (0-0.7) k/uL Basophils # (0-0.2) k/uL Macrocytosis PT (10.0-12.5) sec INR (<1.2) APTT (22.0-30.0) sec Sodium (137-145) mmol/L Potassium (3.5-5.1) mmol/L Chloride (98-107) mmol/L Carbon Dioxide (22-30) mmol/L Anion Gap mmol/L BUN (7-17) mg/dL Creatinine (0.52-1.04) mg/dL Est GFR (CKD-EPI)AfAm (>60 ml/min/1.73 sqM) Est GFR (CKD-EPI)NonAf (>60 ml/min/1.73 sqM) Glucose (74-99) mg/dL Calcium (8.4-10.2) mg/dL Phosphorus (2.5-4.5) mg/dL Magnesium (1.6-2.3) mg/dL Total Bilirubin (0.2-1.3) mg/dL AST (14-36) U/L ALT (4-34) U/L Alkaline Phosphatase (38-126) U/L Ammonia <9 (<30) umol/L Troponin I 0.068 H* (0.000-0.034) ng/mL Total Protein (6.3-8.2) g/dL Albumin (3.5-5.0) g/dL Urine Color Colorless Urine Appearance Clear (Clear) Urine pH 8.0 (5.0-8.0) Ur Specific [place] 1.009 (1.001-1.035) Urine Protein 2+ H (Negative) Urine Glucose (UA) 2+ H (Negative) Urine Ketones Negative (Negative) Urine Blood Negative (Negative) Urine Nitrite Negative (Negative) Urine Bilirubin Negative (Negative) Urine Urobilinogen <2.0 (<2.0) mg/dL Ur Leukocyte Esterase Small H (Negative) Urine RBC 1 (0-5) /hpf Urine WBC 43 H (0-5) /hpf Ur Squamous Epith Cells <1 (0-4) /hpf Urine Bacteria Rare H (None) /hpf Urine Mucus Rare H (None) /hpf Urine Opiates Screen Not Detected (NotDetected) Ur Oxycodone Screen Not Detected (NotDetected) Urine Methadone Screen Not Detected (NotDetected) Ur Barbiturates Screen Not Detected (NotDetected) U Tricyclic Antidepress Not Detected (NotDetected) Ur Phencyclidine Scrn Not Detected (NotDetected) Ur Amphetamines Screen Not Detected (NotDetected) U Methamphetamines Scrn Not Detected (NotDetected) U Benzodiazepines Scrn Not Detected (NotDetected) Urine Cocaine Screen Not Detected (NotDetected) U Marijuana (THC) Screen Not Detected (NotDetected) Serum Alcohol mg/dL - EKG Data -: EKG Interpreted by Me (EKG Is sinus 92 NH 143 QRS 109 QTc 423) - Radiology Data Radiology results: report reviewed (Chest x-ray is negative for acute disease), image reviewed Disposition Clinical Impression: Delirium due to general medical condition, Metabolic encephalopathy, Nausea and vomiting, Dementia, Weakness, ESRD (end stage renal disease) on dialysis Disposition: HOME SELF-CARE Condition: Fair Instructions (If sedation given, give patient instructions): Altered Mental Status (ED) Is patient prescribed a controlled substance at d/c from ED?: No Referrals: Des Vazquez DO [Primary Care Provider] - 1-2 days Time of Disposition: 01:20
[2024-03-10] MEDS: SODIUM CHLORIDE 0.9% 1,000 ML IV ONE (22:01)
[2024-03-10 22:16] LABS: Basophils # (A) 0.1 k/uL (0-0.2); Basophils % (A) 1 %; Eosinophils # (A) 0.1 k/uL (0-0.7); Eosinophils % (A) 1 %; HCT 42.4 % (34.0-46.0); Lymphocytes # (A) 2.2 k/uL (1.0-4.8); Lymphocytes % (A) 16 %; MCHC 30.7 g/dL (31.0-37.0); MCV 104.2 fL (80.0-100.0); Macrocytosis Slight; Mean Platelet Volume 9.4; Monocytes % (A) 7 %; Neutrophils # (A) 10.6 k/uL (1.3-7.7); Neutrophils % (A) 75 %; Platelet Count 389 k/uL (150-450); RBC 4.07 m/uL (3.80-5.40); RDW 13.7 % (11.5-15.5); WBC 14.3 k/uL (3.8-10.6)
[2024-03-10 22:28] LABS: ALT 14 U/L (4-34); AST 19 U/L (14-36); African American GFR (CKD) 16 (>60 ml/min/1.73 sqM); Albumin 3.7 g/dL (3.5-5.0); Alcohol <10 mg/dL; Alkaline Phosphatase 66 U/L (38-126); Anion Gap 16 mmol/L; Blood Urea Nitrogen 32 mg/dL (7-17); Calcium 9.4 mg/dL (8.4-10.2); Carbon Dioxide 31 mmol/L (22-30); Chloride 88 mmol/L (98-107); Glucose 213 mg/dL (74-99); Magnesium 1.9 mg/dL (1.6-2.3); Non-African American GFR(CKD) 14 (>60 ml/min/1.73 sqM); Phosphorus 4.2 mg/dL (2.5-4.5); Potassium 4.5 mmol/L (3.5-5.1); Sodium 135 mmol/L (137-145); Total Bilirubin 0.5 mg/dL (0.2-1.3); Total Protein 6.3 g/dL (6.3-8.2)
[2024-03-10 22:36] LABS: Prothrombin Time 10.9 sec (10.0-12.5)
[2024-03-10 22:46] LABS: Partial Thromboplastin Time 21.5 sec (22.0-30.0)
--- NOTE | 2024-03-11 00:03 | XR ---
EXAM: XR Chest, 2 Views CLINICAL HISTORY: ITS.REASON XR Reason: altered mental status TECHNIQUE: Frontal and lateral views of the chest. COMPARISON: No relevant prior studies available. FINDINGS: Lungs: Unremarkable. No consolidation. Pleural space: Unremarkable. No pneumothorax. Heart: Unremarkable. No cardiomegaly. Mediastinum: Unremarkable. Normal mediastinal contour. Bones/joints: Unremarkable. No acute fracture. IMPRESSION: Normal chest x-rays.
[2024-03-11 02:47] LABS: Amphetamine Screen,Urine Not Detected (NotDetected); Barbiturate Screen,Urine Not Detected (NotDetected); Benzodiazepines Screen,Urine Not Detected (NotDetected); Cocaine Screen,Urine Not Detected (NotDetected); Methadone Screen, Urine Not Detected (NotDetected); Opiate Screen,Urine Not Detected (NotDetected); Oxycodone Screen, Urine Not Detected (NotDetected); Phencyclidine Screen,Urine Not Detected (NotDetected); Tricyclic Antidepressant,Urine Not Detected (NotDetected); Urn Cannabinoid Scrn Not Detected (NotDetected)
[2024-03-11 03:07] LABS: Appearance,Urine Clear (Clear); Bacteria,Urine Rare /hpf; Bilirubin,Urine Negative (Negative); Blood,Urine Negative (Negative); Color,Urine Colorless; Glucose,Urine (UA) 2+ (Negative); Ketones,Urine Negative (Negative); Leukocyte Esterase,Urine Small (Negative); Mucus,Urine Rare /hpf; Nitrite,Urine Negative (Negative); Protein,Urine 2+ (Negative); RBC,Urine 1 /hpf (0-5); Specific Gravity,Urine 1.009 (1.001-1.035); Squamous Epithelial Cell,Urine <1 /hpf (0-4); Urobilinogen,Urine <2.0 mg/dL (<2.0); WBC,Urine 43 /hpf (0-5)
[2024-03-11 07:58] VITALS: BP 163/71; PULSE 98; RESP 16
[2024-03-11 08:08] VITALS: TEMP 99.2
== END 2024-03-11 08:18 | disposition home or self-care (01) ==
LOC: EC 20:57
DX: F03.90 Unspecified dementia, unspecified severity, without behavioral disturbance, psychotic disturbance, mood disturbance, and anxiety (principal); F05 Delirium due to known physiological condition; G93.41 Metabolic encephalopathy; N18.6 End stage renal disease; F12.90 Cannabis use, unspecified, uncomplicated; Z88.5 Allergy status to narcotic agent; Z99.2 Dependence on renal dialysis
CPT/HCPCS: 36415; 71046; 80053; 80306; 80320; 81001; 82140; 83735; 84100; 84484; 85025; 85610; 85730; 87077; 87086; 87186; 93005; 96360; 96361; 99285

== ENCOUNTER → 2024-04-22 | Outpatient (CLI) | payer MEDICARE | END | disposition home or self-care (01) | LOC: LABPRL 13:50 | PROVIDERS: ATTEND Family Medicine | DX: D64.9 Anemia, unspecified (principal) | CPT/HCPCS: 85025 ==

== ENCOUNTER 2024-05-02 19:55 | Inpatient (IN) | payer MEDICARE ==
[~2024-05-02 19:55] MED LIST changes: +ACETAMINOPHEN IV (For NPO) 1,000 MG/100 ML VIAL ONE; -LIDOCAINE 1% INJ 10MG/ML (20 ML MDV) SQ ONE; -METOPROLOL TARTRATE 50 MG TAB PO ONE; -MIDAZOLAM 2 MG/2 ML VIAL IV ONE; +SODIUM CHLORIDE 0.9% 1,000 ML BAG ONE; +SODIUM CHLORIDE 0.9% 100 ML BAG ONE; +SODIUM CHLORIDE 0.9% 250 ML BAG ONE; -SODIUM CHLORIDE 0.9% 500 ML 500 ML IV ONE; -SODIUM CHLORIDE 0.9% 500 ML 500 ML IV SCH; +VANCOMYCIN 1,000 MG VIAL ONE; +VANCOMYCIN 500 MG VIAL ONE; -amLODIPine 5 MG TAB PO ONE; +ceFAZolin 1,000 MG VIAL ONE; -fentaNYL (PF) 50 MCG/ML 2 ML AMP IV ONE; -hydrALAZINE HCL 20 MG/ML 1 ML VIAL IVP STA; -hydrALAZINE HCL 20 MG/ML 1 ML VIAL ONE
[2024-05-02] MEDS ORDERED: HEPARIN SODIUM 1,000 UN/ML (10ML VL) ONE (22:03)
[2024-05-02] MEDS ORDERED: HEPARIN SOD,PORK IN 0.45% NACL 250 ML IV ONE (22:03)
[2024-05-03] MEDS ORDERED: INSULIN DETEMIR (LEVEMIR) 100 UNIT/ML SYR SQ ONE (08:00)
[2024-05-03] MEDS ORDERED: INSULIN ASPART (NovoLOG) 100 UNIT/ML VIAL SQ ONE ×3 (08:00→20:46)
[2024-05-03] MEDS ORDERED: VANCOMYCIN 1,000 MG VIAL ONE (08:00)
[2024-05-03] MEDS ORDERED: ACETAMINOPHEN SUPPOSITORY 650 MG SUPP RECTAL ONE (08:00)
[2024-05-03] MEDS ORDERED: SODIUM CHLORIDE 0.9% 250 ML BAG ONE (08:00)
[2024-05-03] MEDS ORDERED: HEPARIN SODIUM 1,000 UN/ML (10ML VL) ONE (11:50)
[2024-05-03] MEDS ORDERED: CALCIUM ACETATE 667 MG TAB ONE (13:23)
[2024-05-03] MEDS ORDERED: FAMOTIDINE 20 MG TAB ONE (13:23)
[2024-05-03] MEDS ORDERED: LORATADINE 10 MG TAB ONE (13:23)
[2024-05-03] MEDS ORDERED: LEVOTHYROXINE 75 MCG TAB ONE (13:24)
[2024-05-03] MEDS ORDERED: LINAGLIPTIN 5 MG TABLET ONE (13:24)
[2024-05-03] MEDS ORDERED: METOPROLOL SUCCINATE (ER) 25 MG TAB.ER.24H PO ONE (13:24)
[2024-05-03] MEDS ORDERED: ASPIRIN 325 MG TAB ONE (13:24)
[2024-05-03] MEDS ORDERED: ONDANSETRON ODT 4 MG TAB ONE (13:34)
[2024-05-03] MEDS ORDERED: HEPARIN SOD,PORK IN 0.45% NACL 250 ML IV ONE (22:50)
[2024-05-04] MEDS ORDERED: HEPARIN SOD,PORK IN 0.45% NACL 250 ML IV ONE (03:48)
[2024-05-04] MEDS ORDERED: SODIUM CHLORIDE 0.9% 100 ML BAG IV ONE (08:00)
[2024-05-04] MEDS ORDERED: VANCOMYCIN 1,000 MG VIAL ONE (08:00)
[2024-05-04] MEDS ORDERED: INSULIN DETEMIR (LEVEMIR) 100 UNIT/ML SYR SQ ONE ×2 (08:00)
[2024-05-04] MEDS ORDERED: INSULIN ASPART (NovoLOG) 100 UNIT/ML VIAL SQ ONE ×2 (08:00→20:53)
[2024-05-04] MEDS ORDERED: SODIUM CHLORIDE 0.9% 1,000 ML BAG ONE (08:00)
[2024-05-04] MEDS ORDERED: LINAGLIPTIN 5 MG TABLET ONE ×2 (08:00→09:03)
[2024-05-04] MEDS ORDERED: SODIUM CHLORIDE 0.9% 250 ML BAG ONE (08:00)
[2024-05-04] MEDS ORDERED: FAMOTIDINE 20 MG TAB ONE ×3 (09:02→20:52)
[2024-05-04] MEDS ORDERED: LORATADINE 10 MG TAB ONE (09:02)
[2024-05-04] MEDS ORDERED: ASPIRIN 325 MG TAB ONE (09:02)
[2024-05-04] MEDS ORDERED: DOCUSATE 100 MG CAP ONE (09:02)
[2024-05-04] MEDS ORDERED: PIPERACILLIN-TAZOBACTAM 3.375 GM VIAL ONE ×2 (09:03→20:54)
[2024-05-04] MEDS ORDERED: LEVOTHYROXINE 75 MCG TAB ONE (09:03)
[2024-05-04] MEDS ORDERED: ACETAMINOPHEN TAB 500 MG TAB ONE (09:03)
[2024-05-04] MEDS ORDERED: amLODIPine 5 MG TAB ONE ×2 (09:03→20:53)
[2024-05-04] MEDS ORDERED: METOPROLOL SUCCINATE (ER) 25 MG TAB.ER.24H PO ONE (09:03)
[2024-05-04] MEDS ORDERED: CALCIUM ACETATE 667 MG TAB ONE ×2 (18:23→18:30)
[2024-05-04] MEDS ORDERED: CLOPIDOGREL 75 MG TAB ONE (20:52)
[2024-05-04] MEDS ORDERED: THIAMINE 100 MG TAB ONE (20:52)
[2024-05-04] MEDS ORDERED: allopurinoL 100 MG TAB ONE (20:54)
[2024-05-05] MEDS ORDERED: PIPERACILLIN-TAZOBACTAM 3.375 GM VIAL ONE (08:32)
[2024-05-05] MEDS ORDERED: LORATADINE 10 MG TAB ONE (08:32)
[2024-05-05] MEDS ORDERED: LEVOTHYROXINE 75 MCG TAB ONE (08:32)
[2024-05-05] MEDS ORDERED: FAMOTIDINE 20 MG TAB ONE ×2 (08:32→20:40)
[2024-05-05] MEDS ORDERED: fentaNYL (PF) 50 MCG/ML 2 ML AMP ONE (16:16)
[2024-05-05] MEDS ORDERED: KETAMINE HCL IN 0.9 % NACL 50 MG/5 ML SYRINGE ONE (16:16)
[2024-05-05] MEDS ORDERED: LIDOCAINE 1% INJ 10MG/ML (20 ML MDV) ONE (16:16)
[2024-05-05] MEDS ORDERED: MIDAZOLAM 2 MG/2 ML VIAL ONE (16:16)
[2024-05-05] MEDS ORDERED: CLOPIDOGREL 75 MG TAB ONE (20:40)
[2024-05-05] MEDS ORDERED: TAMSULOSIN 0.4 MG CAP.ER.24H PO ONE (20:40)
[2024-05-05] MEDS ORDERED: DOCUSATE 100 MG CAP ONE (20:40)
[2024-05-05] MEDS ORDERED: allopurinoL 100 MG TAB ONE (20:41)
[2024-05-05] MEDS ORDERED: THIAMINE 100 MG TAB ONE (20:41)
[2024-05-05] MEDS ORDERED: HYDROmorphone 0.5 MG/0.5 ML SYRINGE ONE (23:25)
[2024-05-06] MEDS ORDERED: PIPERACILLIN-TAZOBACTAM 3.375 GM VIAL ONE ×2 (01:22→14:15)
[2024-05-06] MEDS ORDERED: HYDROmorphone 0.5 MG/0.5 ML SYRINGE ONE (04:10)
[2024-05-06] MEDS ORDERED: HEPARIN SODIUM,PORCINE 5,000 UNIT/ML 1 ML VIAL ONE (14:14)
[2024-05-06] MEDS ORDERED: CLOPIDOGREL 75 MG TAB ONE (21:43)
[2024-05-06] MEDS ORDERED: DOCUSATE 100 MG CAP ONE (21:43)
[2024-05-06] MEDS ORDERED: FAMOTIDINE 20 MG TAB ONE (21:44)
[2024-05-06] MEDS ORDERED: amLODIPine 5 MG TAB ONE (21:44)
[2024-05-06] MEDS ORDERED: allopurinoL 100 MG TAB ONE (21:44)
[2024-05-06] MEDS ORDERED: THIAMINE 100 MG TAB ONE (21:44)
[2024-05-07] MEDS ORDERED: HEPARIN SODIUM,PORCINE 5,000 UNIT/ML 1 ML VIAL ONE ×2 (00:05→09:06)
[2024-05-07] MEDS ORDERED: ZINC OXIDE PASTE (Z-GUARD) 1 APPLIC TOPICAL ONE (03:40)
[2024-05-07] MEDS ORDERED: FLUTICASONE NASAL 50MCG/SPRAY 16GM BTL ONE (08:00)
[2024-05-07] MEDS ORDERED: SODIUM CHLORIDE 0.9% 100 ML BAG IV ONE (08:00)
[2024-05-07] MEDS ORDERED: LINAGLIPTIN 5 MG TABLET ONE (08:00)
[2024-05-07] MEDS ORDERED: DOCUSATE 100 MG CAP ONE (09:06)
[2024-05-07] MEDS ORDERED: CALCIUM ACETATE 667 MG TAB ONE ×2 (09:06→13:10)
[2024-05-07] MEDS ORDERED: LORATADINE 10 MG TAB ONE (09:06)
[2024-05-07] MEDS ORDERED: FAMOTIDINE 20 MG TAB ONE ×2 (09:06→20:20)
[2024-05-07] MEDS ORDERED: LEVOTHYROXINE 75 MCG TAB ONE (09:06)
[2024-05-07] MEDS ORDERED: METOPROLOL TARTRATE 25 MG TAB ONE (09:06)
[2024-05-07] MEDS ORDERED: ASPIRIN 81 MG ONE (09:06)
[2024-05-07] MEDS ORDERED: TAMSULOSIN 0.4 MG CAP.ER.24H PO ONE (09:07)
[2024-05-07] MEDS ORDERED: PIPERACILLIN-TAZOBACTAM 3.375 GM VIAL ONE ×2 (09:07→20:23)
[2024-05-07] MEDS ORDERED: HYDROmorphone 0.5 MG/0.5 ML SYRINGE ONE (09:07)
[2024-05-07] MEDS ORDERED: METOPROLOL SUCCINATE (ER) 25 MG TAB.ER.24H PO ONE (09:21)
[2024-05-07] MEDS ORDERED: THIAMINE 100 MG TAB ONE (20:21)
[2024-05-07] MEDS ORDERED: allopurinoL 100 MG TAB ONE (22:16)
[2024-05-07] MEDS ORDERED: amLODIPine 5 MG TAB ONE (22:17)
[2024-05-07] MEDS ORDERED: CLOPIDOGREL 75 MG TAB ONE (22:18)
[2024-05-08] MEDS ORDERED: HYDROmorphone 0.5 MG/0.5 ML SYRINGE ONE ×2 (00:25→23:20)
[2024-05-08] MEDS ORDERED: HYDROmorphone 1 MG/ML 1 ML SYRINGE ONE ×2 (05:57→17:08)
[2024-05-08] MEDS ORDERED: VANCOMYCIN 1,000 MG VIAL ONE (08:00)
[2024-05-08] MEDS ORDERED: SODIUM CHLORIDE 0.9% 100 ML BAG IV ONE (08:00)
[2024-05-08] MEDS ORDERED: DEXTROSE 50% SYRINGE 50 ML IVP ONE ×2 (08:00→11:55)
[2024-05-08] MEDS ORDERED: LINAGLIPTIN 5 MG TABLET ONE (08:00)
[2024-05-08] MEDS ORDERED: SODIUM CHLORIDE 0.9% 250 ML BAG ONE (08:00)
[2024-05-08] MEDS ORDERED: INSULIN ASPART (NovoLOG) 100 UNIT/ML VIAL SQ ONE (12:34)
[2024-05-08] MEDS ORDERED: PIPERACILLIN-TAZOBACTAM 3.375 GM VIAL ONE ×2 (13:24→23:04)
[2024-05-08] MEDS ORDERED: amLODIPine 5 MG TAB ONE (23:17)
[2024-05-08] MEDS ORDERED: allopurinoL 100 MG TAB ONE (23:17)
[2024-05-08] MEDS ORDERED: FAMOTIDINE 20 MG TAB ONE (23:18)
[2024-05-08] MEDS ORDERED: CLOPIDOGREL 75 MG TAB ONE (23:18)
[2024-05-08] MEDS ORDERED: THIAMINE 100 MG TAB ONE (23:19)
[2024-05-09] MEDS ORDERED: ACETAMINOPHEN IV (For NPO) 1,000 MG/100 ML VIAL ONE (08:00)
[2024-05-09] MEDS ORDERED: SODIUM CHLORIDE 0.9% 100 ML BAG IV ONE (08:00)
[2024-05-09] MEDS ORDERED: LINAGLIPTIN 5 MG TABLET ONE (08:00)
[2024-05-09] MEDS ORDERED: CALCIUM ACETATE 667 MG TAB ONE (08:19)
[2024-05-09] MEDS ORDERED: LEVOTHYROXINE 75 MCG TAB ONE (08:20)
[2024-05-09] MEDS ORDERED: LORATADINE 10 MG TAB ONE (08:20)
[2024-05-09] MEDS ORDERED: FAMOTIDINE 20 MG TAB ONE ×2 (08:20→22:40)
[2024-05-09] MEDS ORDERED: ASPIRIN 81 MG ONE (08:20)
[2024-05-09] MEDS ORDERED: PIPERACILLIN-TAZOBACTAM 3.375 GM VIAL ONE ×2 (08:21→22:41)
[2024-05-09] MEDS ORDERED: METOPROLOL SUCCINATE (ER) 25 MG TAB.ER.24H PO ONE (08:21)
[2024-05-09] MEDS ORDERED: TAMSULOSIN 0.4 MG CAP.ER.24H PO ONE (08:21)
[2024-05-09] MEDS ORDERED: HYDROmorphone 0.5 MG/0.5 ML SYRINGE ONE (08:21)
[2024-05-09] MEDS ORDERED: amLODIPine 5 MG TAB ONE ×2 (08:21→22:41)
[2024-05-09] MEDS ORDERED: traMADol 50 MG TAB ONE (18:12)
[2024-05-09] MEDS ORDERED: DOCUSATE 100 MG CAP ONE (22:40)
[2024-05-09] MEDS ORDERED: THIAMINE 100 MG TAB ONE (22:40)
[2024-05-09] MEDS ORDERED: CLOPIDOGREL 75 MG TAB ONE (22:40)
[2024-05-09] MEDS ORDERED: allopurinoL 100 MG TAB ONE (22:41)
[2024-05-10] MEDS ORDERED: PANTOPRAZOLE 40 MG/10 ML VIAL ONE (08:50)
[2024-05-10] MEDS ORDERED: PIPERACILLIN-TAZOBACTAM 3.375 GM VIAL ONE (08:50)
[2024-05-10] MEDS ORDERED: LORATADINE 10 MG TAB ONE (09:00)
[2024-05-10] MEDS ORDERED: CALCIUM ACETATE 667 MG TAB ONE (09:00)
[2024-05-10] MEDS ORDERED: LEVOTHYROXINE 75 MCG TAB ONE (09:00)
[2024-05-10] MEDS ORDERED: traMADol 50 MG TAB ONE (09:00)
[2024-05-10] MEDS ORDERED: FAMOTIDINE 20 MG TAB ONE ×2 (09:00→21:23)
[2024-05-10] MEDS ORDERED: TAMSULOSIN 0.4 MG CAP.ER.24H PO ONE (09:01)
[2024-05-10] MEDS ORDERED: METOPROLOL SUCCINATE (ER) 25 MG TAB.ER.24H PO ONE (09:01)
[2024-05-10] MEDS ORDERED: amLODIPine 5 MG TAB ONE (09:01)
[2024-05-10] MEDS ORDERED: DEXTROSE 50% SYRINGE 50 ML IVP PRN ×2 (10:11)
[2024-05-10] MEDS ORDERED: ACETAMINOPHEN TAB 325 MG TAB ONE (10:23)
[2024-05-10] MEDS ORDERED: INSULIN ASPART (NovoLOG) 100 UNIT/ML VIAL SQ SCH (12:30)
[2024-05-10] MEDS ORDERED: CLOPIDOGREL 75 MG TAB ONE (21:22)
[2024-05-11] MEDS ORDERED: ACETAMINOPHEN TAB 500 MG TAB PO PRN
[2024-05-11] MEDS ORDERED: SODIUM CHLORIDE 0.9% 1,000 ML IV SCH
[2024-05-11] MEDS ORDERED: traMADol 50 MG TAB PO PRN
[2024-05-11] MEDS ORDERED: ACETAMINOPHEN SUPPOSITORY 650 MG SUPP RECTAL PRN
[2024-05-11] MEDS ORDERED: ONDANSETRON ODT 8 MG TAB.RAPDIS PO PRN
[2024-05-11] MEDS ORDERED: LEVOTHYROXINE 75 MCG TAB PO SCH (06:30)
[2024-05-11] MEDS ORDERED: CALCIUM ACETATE 667 MG TAB PO SCH (07:30)
[2024-05-11] MEDS ORDERED: VANCOMYCIN IV PER PHARMACY 1 EACH MISC MISCELLANE PRN (08:00)
[2024-05-11] MEDS ORDERED: LINAGLIPTIN 5 MG TABLET PO SCH (09:00)
[2024-05-11] MEDS ORDERED: HEPARIN SODIUM,PORCINE 5,000 UNIT/ML 1 ML VIAL SQ SCH (09:00)
[2024-05-11] MEDS ORDERED: DOCUSATE 100 MG CAP PO SCH (09:00)
[2024-05-11] MEDS ORDERED: FAMOTIDINE 20 MG TAB PO SCH (09:00)
[2024-05-11] MEDS ORDERED: PIPERACILLIN-TAZOBACTAM 3.375 GM in SODIUM CHLORIDE 0.9% 100 ML IVPB SCH (09:00)
[2024-05-11] MEDS ORDERED: FLUTICASONE NASAL 50MCG/SPRAY 16GM BTL NASAL SCH (09:00)
[2024-05-11] MEDS ORDERED: METOPROLOL SUCCINATE (ER) 25 MG TAB.ER.24H PO SCH (09:00)
[2024-05-11] MEDS ORDERED: TAMSULOSIN 0.4 MG CAP.ER.24H PO SCH (09:00)
[2024-05-11] MEDS ORDERED: LORATADINE 10 MG TAB PO SCH (09:00)
[2024-05-11] MEDS ORDERED: ASPIRIN 81 MG PO SCH (09:00)
[2024-05-11] MEDS ORDERED: amLODIPine 5 MG TAB PO SCH (09:00)
[2024-05-11] MEDS ORDERED: allopurinoL 100 MG TAB PO SCH (21:00)
[2024-05-11] MEDS ORDERED: THIAMINE 100 MG TAB PO SCH (21:00)
[2024-05-11] MEDS ORDERED: CLOPIDOGREL 75 MG TAB PO SCH (21:00)
--- NOTE | 2024-05-13 10:11 | PN ---
PROGRESS NOTE DATE OF SERVICE: 05/10/2024 LOCATION: 251. REASON FOR FOLLOWUP: Right diabetic foot ulcer infection. INTERVAL HISTORY: The patient is afebrile. The patient is hemodynamically stable, not requiring any pressor support. Mentation remains to be issue as the patient did not provide any history. No vomiting, diarrhea or any other changes reported by the nursing staff. PHYSICAL EXAMINATION: VITAL SIGNS: The patient is afebrile. Pulse of 78. She is 97% on room air. GENERAL DESCRIPTION: This is a middle-aged female, lying in bed, in no distress. RESPIRATORY SYSTEM: Unlabored breathing. Clear to auscultation anteriorly. HEART: S1, S2. Regular rate and rhythm. ABDOMEN: Soft. No tenderness. Right foot wound is currently dressed. No drainage on the dressing. DIAGNOSTIC IMPRESSION AND PLAN: The patient with right diabetic foot wound with the gangrene and the previous right big toe amputation, status post debridement of the wound and second toe amputation. Cultures are currently growing anaerobic gram-negative. The patient covered with Zosyn and vanc, to continue possible transfer to tertiary care for mental status changes concerning for seizures Discussed with the neurologist. MMODL / IJN: [id number] / BEREKET
--- NOTE | 2024-05-23 08:30 | CA ---
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 67 - 155 / 56 - 104 cm??? LV Systolic Volume MOD BP 59.3 cm??? 22 - 58 / 19 - 49 cm??? LV Ejection Fraction MOD BP 49.1 % >= 55 % LV Diastolic Volume MOD 4C 120.6 cm??? LV Systolic Volume MOD 4C 60.2 cm??? LV Ejection Fraction MOD 4C 50.1 % LV Diastolic Length 4C 8.3 cm LV Systolic Length 4C 7.3 cm LV Diastolic Volume MOD 2C 105.3 cm??? LV Systolic Volume MOD 2C 56.0 cm??? LV Ejection Fraction MOD 2C 46.8 % LV Diastolic Length 2C 7.7 cm LV Systolic Length 2C 7.0 cm DOPPLER AV Peak Velocity 148.0 cm/s AV Peak Gradient 8.8 mmHg AV Mean Velocity 109.9 cm/s AV Mean Gradient 5.2 mmHg AV Velocity Time Integral 26.5 cm LVOT Peak Velocity 94.5 cm/s LVOT Peak Gradient 3.6 mmHg LVOT Velocity Time Integral 18.0 cm LVOT Stroke Volume 55.1 cm??? AV Area Cont Eq vti 2.1 cm??? AV Area Cont Eq pk 2.0 cm??? MV Peak Velocity 165.2 cm/s MV Peak Gradient 10.9 mmHg MV Mean Velocity 109.6 cm/s MV Mean Gradient 5.4 mmHg MV Velocity Time Integral 25.4 cm MV Area PHT 7.9 cm??? Mitral E Point Velocity 106.1 cm/s Mitral A Point Velocity 141.5 cm/s Mitral E to A Ratio 0.8 MV Deceleration Time 96.0 ms TR Peak Velocity 253.8 cm/s TR Peak Gradient 25.8 mmHg Right Atrial Pressure 15.0 mmHg Pulmonary Artery Systolic Pressu 40.8 mmHg Right Ventricular Systolic Press 40.8 mmHg FINDINGS Left Ventricle Left ventricular ejection fraction is estimated at 45-50 %. Mildly increased left ventricular diastolic volume. Mildly increased left ventricular systolic volume. Mildly decreased left ventricular ejection fraction with regional variability. Right Ventricle Normal right ventricular size and function. Mild pulmonary hypertension. Right Atrium Normal right atrial size. Left Atrium Left atrial dilatation. Mitral Valve Mitral valve thickened. No evidence for mitral valve prolapse. Moderate mitral stenosis. Mild mitral regurgitation. Aortic Valve Aortic valve not well visualized. No aortic valve stenosis or regurgitation. Tricuspid Valve Structurally normal tricuspid valve. No tricuspid stenosis. Mild tricuspid regurgitation. Pulmonic Valve Pulmonic valve not well visualized. Pericardium No pericardial effusion. Aorta Aortic annulus normal. CONCLUSIONS Left ventricular ejection fraction 45-50% with apical hypokinesis Reduce [id number] Mild mitral regurgitation Mild tricuspid regurgitation Moderate mitral stenosis No pericardial effusion Previewed by: Dr. John Son DO (Electronically Signed) Final Date: 03 May 2024 18:08
--- NOTE | 2024-05-23 13:59 | CT ---
Patient Renetta Quinonez ID [id number] Order # EXAMINATION TYPE: CT brain wo con DATE OF EXAM: 05/02/2024 COMPARISON: No comparison available on downtime PACS. INDICATION: Acute mental status changes DLP: 1160.4 mGycm, Automated exposure control for dose reduction was used. CONTRAST: None CT of the brain is performed utilizing 3 mm thick sections through the posterior fossa and 3 mm thick sections through the remaining calvarium. Study is performed within 24 hours of arrival to the hosp ital. No abnormal hyperdensity is present to suggest an acute intracranial hemorrhage. No mass lesion is evident. No acute infarcts are evident. There is an old lacunar infarct in right basal ganglion. Periventricul ar white matter hypodensity is present, likely on the basis of chronic white matter ischemic changes. Ventricles and sulci are prominent for the patient age. Paranasal sinuses and mastoid air cells within the alyxn-go-nrgc are clear. IMPRESSION: 1. No acute intracranial process. Follow up MRI can be performed as clinically indicated. 2. Atrophy with chronic appearing periventricular white matter ischemic changes. 3. Old right is a ganglion lacunar infarct
--- NOTE | 2024-05-26 11:07 | CT ---
Report Patient: Renetta Quinonez Ordering Physician: Unknown, Unknown ID: [id number] Phone, Pager: Phone: N/A Pager: N/A : 1960 Age/Gender: 63Y, F Primary Location: N/A Procedure: CT brain wo con Study Date: 05/10/2024 8:15:00 PM EXAMINATION TYPE: CT brain wo con DATE OF EXAM: 05/10/2024 COMPARISON: 01/14/2024 HISTORY: 63-year-old female altered mental status, confusion TECHNIQUE: Examination was done in axial plane without intravenous contrast. Coronal and sagittal r econstructions performed. CT DLP: 1125.4 mGycm Automated exposure control for dose reduction was used. FINDINGS: Generalized patient motion causing some limitation in assessment. Allowing for this limitation, there is is no evidence of acute intracranial hemorrhage, acute ischem ic changes, mass, mass-effect, or extra-axial fluid collection. There is no effacement of cerebral s ulci or basal subarachnoid cisterns. There is no hydrocephalus. There is no midline shift. Thomas-wh ite matter distinction is preserved. Old white matter infarct with encephalomalacia right fatima radiata and extending down into the right basal ganglia and anterior right thalamus. Mild volume loss overlying the bilateral cerebral convexi ties. 1.7 cm mucosal retention cyst floor of the right maxillary sinus. Otherwise, paranasal sinuses and ma stoid air cells well pneumatized. Orbits and globes are intact. IMPRESSION: 1. Motion limited exam. No definite acute intracranial abnormality seen. 2. There is mild generalized cerebral atrophy and an old white matter infarct right fatima radiata ex tending into the right basal ganglia and anterior right thalamus.
--- NOTE | 2024-05-26 16:56 | CT ---
Patient: Renetta Quinonez Ordering Physician: Unknown, Unknown ID: [id number] Phone, Pager: Phone: N/A Pager: N/A : 1960 Age/Gender: 63Y, F Primary Location: N/A Procedure: CT foot RT w con Stud y Date: 05/04/2024 10:46:00 PM EXAMINATION TYPE: CT foot RT w con CT DLP: 292 mGycm, Automated exposure control for dose reduction was used. DATE OF EXAM: 05/06/2024 6:58 PM COMPARISON: 01/11/2024 CLINICAL INDICATION: Decreased mentation, gangrene TECHNIQUE: Axial images were obtained of the CT foot RT w con, Additional coronal and sagittal reform atted images and soft tissue and bone window were obtained for review. 3-D reconstruction was created on a separate workstation. Contrast used: mL of , (None if empty) Oral contrast used: (None if empty) FINDINGS: There is severe atherosclerosis of the arterial vasculature. Subcutaneous gas is seen track ing from the first and second webspace predominantly around the second digit up into the mid foot. So ft tissue wound is also present along the stump of the first and second digit amputation site. No def initive osseous erosion identified. There is amputation changes of the first digit metatarsal shaft. Amputation site appears without osseous erosion. There is no evidence of fracture or dislocation. Mild multifocal degeneration with joint space teari ng osteophyte formation. There is calcaneal plantar spurring present Achilles calcaneal enthesophyte is also present. IMPRESSION: 1. Postsurgical changes with gas tracking around the second digit surgical site/wound into the dorsa l midfoot. No osseous erosion visualized to suggest osteomyelitis. No organizing fluid collections. 2. Severe is atherosclerosis of the arterial vasculature. 3. No evidence for acute fracture.
--- NOTE | 2024-06-03 09:45 | XR ---
Renetta Quinonez D ID [id number] 1960 EXAMINATION TYPE: XR chest 1V DATE OF EXAM: 05/05/2024 COMPARISON: 03/10/2024 HISTORY: 63-year-old female with shortness of breath TECHNIQUE: Single frontal view of the chest is obtained. FINDINGS: Heart borderline enlarged. Asymmetric interstitial and patchy opacity throughout the left lung. No sizable pleural effusion on the frontal view. IMPRESSION: Asymmetric interstitial and patchy opacity throughout the left lung. Either asymmetric i nterstitial pulmonary edema versus pneumonitis.
--- NOTE | 2024-06-03 15:36 | XR ---
Patient Renetta Quinonez ID [id number] Order # EXAMINATION TYPE: XR chest 2V DATE OF EXAM: 05/02/2024 COMPARISON: No comparison available on downtime PACS. INDICATION: Acute mental status changes TECHNIQUE: Frontal and lateral views of the chest are obtained. FINDINGS: The heart size is normal. The pulmonary vasculature is normal. The lungs are clear. IMPRESSION: 1. No acute pulmonary process.
--- NOTE | 2024-06-03 18:33 | US ---
Patient Renetta Quinonez ID [id number] Order # EXAMINATION TYPE: US abdomen limited DATE OF EXAM: 05/04/2024 COMPARISON: NONE CLINICAL INDICATION: Elevated enzymes TECHNIQUE: Multiple sonographic images of the right upper quadrant are obtained. FINDINGS: EXAM MEASUREMENTS: Liver Length: 16.9 cm CBD: 1.3 cm Right Kidney: 8.9 x 5.0 x 4.4 cm DIRECTOR REVENUE NOTES: Limited exam ICU post cholecystectomy Pancreas: wnl Liver: wnl Gallbladder: Surgically absent Evidence for sonographic Vernon's sign: No CBD: Dilated post cholecystectomy. Normal up to 1.0 cm. IMPRESSION: 1. Dilated common bile duct at 1.3 cm. Normal less than 1.0 cm. 2. No suspicious fluid collections gallbladder fossa
--- NOTE | 2024-06-12 12:36 | XR ---
EXAMINATION TYPE: XR foot complete RT DATE OF EXAM: 05/04/2024 COMPARISON: Right foot examined in 3 projections. HISTORY: Gas right foot great toe TECHNIQUE: 3 view right foot FINDINGS: Subcutaneous emphysema is at the area of amputation of the great toe extending through the metatarsal phalangeal joint spaces. Clinical correlation for gas-forming organism is recommended. Inf ection is likely present. Gas appears to extend along the superior surface to the tarsometatarsal chaz ction level. Soft tissue emphysema in the plantar aspect of foot extends to the level of the amputati on. Note is made of extensive vascular calcification. Plantar calcaneal heel spur is present. An acute fr acture is not evident. No suspicious cortical erosion is identified. IMPRESSION: 1. Findings suggestive for gas forming organism within the right foot. This extends from the amputat ion of the great toe region to this superior soft tissues to the level of the tarsometatarsal junctio n inferiorly along plantar surface to the level of the amputation first metatarsal. 2. No definite radiographic evidence of osteomyelitis. The infection may be within the soft tissues
--- NOTE | 2024-06-12 14:42 | CONS ---
CONSULTATION REASON FOR CONSULTATION: Sepsis. HISTORY OF PRESENT ILLNESS: The patient is a 63-year-old female with a past medical history significant for end-stage renal disease, on dialysis. The patient apparently, recently did have a right big toe amputation done by Dr. Mack. It is not very clear when she had this surgery done and any aftercare for the same. The patient has been sent to the hospital from the dialysis center. Current evaluation of weakness, lethargy. The patient has been evaluated by the ER physician, has been diagnosed with non STEMI. She also noticed to have a nonhealing wound to the right big toe, did have a fever of 102.8 degrees Fahrenheit concerning for sepsis, which prompted this consultation. The patient is currently lethargic and did not answer any questions. Most information has been extracted from review of the chart. No clear history of any nausea, vomiting. Diarrhea and reported by the nursing staff. REVIEW OF SYSTEMS: Positive points mentioned in the HPI. Complete history could not be obtained. PAST MEDICAL HISTORY: Reviewed. PAST SURGICAL HISTORY: Reviewed. SOCIAL HISTORY: Reviewed. FAMILY HISTORY: Reviewed. ALLERGIES: Codeine. MEDICATIONS: Currently, the patient is on vancomycin, pharmacy to dose. She is on: 1. Allopurinol. 2. Amlodipine. 3. Calcium. 4. Plavix. 5. Fluticasone. 6. Levothyroxine. 7. Lipitor. 8. Metoprolol. 9. Famotidine. PHYSICAL EXAMINATION: VITAL SIGNS: Blood pressure is 132/81 with a pulse of 100, temperature 100.7 degrees or 102.8 degrees Fahrenheit. The patient is 99% on room air. GENERAL: The patient is a middle-aged female lying in bed in no distress. No tachypnea or accessory muscle or respiration use. HEENT: Shows pallor. No scleral icterus. Oral mucosa is dry. NECK: Trachea central. No thyromegaly. LUNGS: Unlabored breathing. Clear to auscultation anteriorly. No wheeze or crackle. HEART: S1, S2. Regular rate and rhythm. ABDOMEN: Soft, no tenderness. No guarding or rigidity. EXTREMITIES: Right big toe amputation site wound with some necrotic changes. Minimal surrounding swelling, redness. No foul smelling drainage. LABS: Creatinine is 3.15. Hemoglobin is 9.7, white count 32.16. Initial white count was 40.58. The patient did have a CT of the brain, no acute intracranial process. Chest x- ray, no acute pulmonary process. DIAGNOSTIC IMPRESSION AND PLAN: Sepsis in this patient who did have fever, elevated white count, source likely right big toe amputation site, wound infection with secondary cellulitis likely from a gram- positive skin [place], gram-negative infection less likely but not entirely excluded . We did obtain local culture to guide further antibiotic therapy, both aerobic and anaerobic. The patient to continue with vancomycin pharmacy to dose. We will add Zosyn for gram- negative and anaerobic coverage while waiting for the culture to finalize. We will follow on clinical condition and culture to further adjust medication if needed. Thank you for this consultation. I will follow this patient along with you. MMODL / IJN: [id number] /
--- NOTE | 2024-06-12 14:42 | PN ---
PROGRESS NOTE LOCATION: 251. REASON FOR FOLLOWUP: Sepsis, diabetic foot infection. HISTORY OF PRESENT ILLNESS: Fever pattern has improved with temperature of 100.2 degrees Fahrenheit. The patient is hemodynamically stable, has been transferred to the ICU to be on the safe side. Currently not requiring any pressor support. The patient is slightly more awake today. Showed clinical response yesterday. Has been complaining of she needs to go to pee. No chest pain or cough. No abdominal pain. No diarrhea has been reported. PHYSICAL EXAMINATION: VITAL SIGNS: Blood pressure is 147/69, pulse of 94, temperature 98.5. She is 92% on 5 L. GENERAL DESCRIPTION: This is an elderly female, lying in bed in no distress. RESPIRATORY SYSTEM: Unlabored breathing. Clear to auscultation anteriorly. HEART: S1, S2. Regular rhythm. ABDOMEN: Soft, no tenderness. EXTREMITIES: Foot wound is currently dressed. No drainage on the dressing. LABS: White count is up to 47.6. Cultures are currently pending. DIAGNOSTIC IMPRESSION AND PLAN: The patient with sepsis, concerning for a big toe amputation site wound and cellulitis. Currently waiting for Vascular Surgery for debridement. The patient is broadly covered with Zosyn and vancomycin, to continue while waiting for the culture to finalize. Prognosis is guarded. at the bedside. Questions were answered. MMODL / IJN: [id number] /
--- NOTE | 2024-06-12 14:43 | PN ---
PROGRESS NOTE DATE OF SERVICE: 05/05/2024 LOCATION: 251. REASON FOR FOLLOWUP: Sepsis, right diabetic foot wound infection, and gangrene. INTERVAL HISTORY: The patient is afebrile. The patient is hemodynamically stable, not requiring any pressor support. The patient is currently getting dialysis, slightly sleepy, lethargic, not a very good historian. No vomiting, diarrhea, or any other changes reported by the nursing staff. PHYSICAL EXAMINATION: VITAL SIGNS: Blood pressure 113/53, pulse of 85, temperature of 98. She is 96% on 2 L nasal cannula. GENERAL DESCRIPTION: This is a middle-aged female, lying in bed, in no distress. RESPIRATORY SYSTEM: Unlabored breathing. Clear to auscultation anteriorly. HEART: S1, S2. Regular rate and rhythm. ABDOMEN: Soft. No tenderness. EXTREMITIES: Right foot is currently dressed. No drainage on the dressing. LABORATORY DATA: White count is down to 32,000. Cultures are currently pending. DIAGNOSTIC IMPRESSION AND PLAN: The patient with right diabetic foot ulcer, gangrene and possible osteomyelitis. Currently waiting for debridement and deep culture. We are still waiting for the initial culture. The patient is broadly covered with vancomycin, Zosyn, to continue. White count is trending down and monitor clinical course closely. MMODL / IJN: [id number] /
--- NOTE | 2024-06-12 14:43 | CONS ---
DATE OF SERVICE: 05/04/24 CONSULTATION HISTORY OF PRESENT ILLNESS: Renetta is well known to me from the past. The patient had a right foot second toe amputation done about 2 weeks ago. The patient was last seen in the wound clinic on Sunday. We changed the dressing. The patient came with history of high blood cell count, weakness, dizziness and high liver enzyme. The patient was treated with heparin which has been stopped because of the high INR. PAST HISTORY: History of diabetes, history of stroke in the past. PHYSICAL EXAMINATION: GENERAL: The patient was seen in the intensive care unit. CHEST: Clear. Few crackles at the lung bases. ABDOMEN: Soft, nontender. VASCULAR: 1+ bilateral by the Doppler. The patient has a right foot 2nd toe, has some ischemic changes. Stump site has some skin necrosis. We placed Medihoney gel and patient is on vancomycin under the care of Infectious Disease. The patient is scheduled to have a CT scan. We will wait for the CAT scan result. The dorsum aspect of the foot has mild tenderness. No crepitation noted. No discharge noted. We will wait for CT scan. We will check liver enzymes result and the patient will be scheduled for a 2nd toe ray amputation and wound debridement. Follow with you. ANTL / IJN: [id number] / BEREKET
--- NOTE | 2024-06-12 14:44 | PN ---
PROGRESS NOTE SUBJECTIVE: The patient had right foot wound debridement and second toe ray amputation. The patient is on IV antibiotic under care of infectious disease. The patient has been doing well, drainage from the wound VAC is minimal. We will continue. MMYAMILKAL / IJN: [id number] /
--- NOTE | 2024-06-12 14:44 | PN ---
PROGRESS NOTE DATE OF SERVICE: 05/07/2024 LOCATION: 251. REASON FOR FOLLOWUP: Right diabetic foot infection, osteomyelitis, and sepsis. INTERVAL HISTORY: The patient is afebrile. The patient is hemodynamically stable, not requiring any pressor support, was undergoing dialysis. The patient was lethargic, did not answer any questions. No vomiting, diarrhea, or any other change reported by the nursing staff. PHYSICAL EXAMINATION: VITAL SIGNS: Blood pressure is 90/57 with a pulse of 85, temperature of 97.6, she is 96% on 2 L nasal cannula. GENERAL DESCRIPTION: This is a middle-aged female, lying in bed, in no distress. RESPIRATORY SYSTEM: Unlabored breathing. Clear to auscultation anteriorly. HEART: S1, S2. Regular rate and rhythm. ABDOMEN: Soft. No tenderness. EXTREMITIES: Right foot wound is covered with a wound VAC. LABORATORY DATA: Creatinine is 4.19. White count is 28.75. Cultures are still pending. DIAGNOSTIC IMPRESSION AND PLAN: The patient with right diabetic foot infection, gangrene in this patient who is status post debridement and amputation of the second toe. Cultures are currently pending. The patient is broadly covered with vancomycin and Zosyn, to continue and monitor clinical course closely. MMODL / IJN: [id number] /
--- NOTE | 2024-06-12 14:44 | OP ---
OPERATIVE REPORT DATE OF SERVICE : PREOPERATIVE DIAGNOSIS: Infected wound post right big toe ray amputation with ischemic changes involving the second toe, measurement is 4 x 3 cm. POSTOPERATIVE DIAGNOSIS: Infected wound post right big toe ray amputation with ischemic changes involving the second toe, measurement is 4 x 3 x 2 cm. PROCEDURE PERFORMED: Debridement of the infected stump and ray amputation of the second toe right foot. DESCRIPTION OF PROCEDURE: This patient was brought to the operating room. Right foot was prepped and drapes were applied in the usual sterile manner. A 1% lidocaine infiltrated under IV sedation. This patient had a ray amputation of big toe. The patient came with marked swelling, tenderness, and ischemic changes involving the second toe. There was some tenderness noted on the dorsal aspect of the foot suggestive of an infection or pus under the skin. The patient's white cell count was high. A vertical incision was made on the dorsal aspect of the foot, deepened through skin, fat and fascia and the tendons were divided and incision was extended to the plantar aspect of the foot, deepened through skin, fascia, and the tendons were divided. Then there was necrotic flap noted of the right big toe stump, which was also excised. There was jerry pus noted under the skin of the dorsal aspect of the foot. All the devitalized tissue was excised on the dorsum of the superior aspect of the foot. The second metatarsal was divided at the metatarsophalangeal joint. All the devitalized tissue was excised which was sent for deep culture. There were some bleeding points which were electrocoagulated. Wound was copiously irrigated with hydrogen peroxide and saline. Specimen was sent for deep cultures. After that, we replaced the wound VAC to the wound and the patient was transferred to the recovery room in satisfactory condition. Blood loss was less than 20 mL. MMODL / IJN: [id number] /
--- NOTE | 2024-06-12 14:45 | PN ---
PROGRESS NOTE DATE OF SERVICE: 05/08/2024 LOCATION: 251. REASON FOR FOLLOWUP: Right diabetic foot infection, osteomyelitis, and gangrene. INTERVAL HISTORY: The patient is afebrile. The patient is hemodynamically stable, not requiring any pressor support. The patient is sleepy, lethargic, and did not answer any question. No vomiting or diarrhea has been reported. PHYSICAL EXAMINATION: VITAL SIGNS: Blood pressure 130/62 with a pulse of 68, temperature of 98.8, she is 98% on 2 L nasal cannula oxygen. GENERAL DESCRIPTION: This is a middle-aged female, lying in bed, in no distress. RESPIRATORY SYSTEM: Unlabored breathing. Clear to auscultation anteriorly. HEART: S1, S2. Regular rate and rhythm. ABDOMEN: Soft, no tenderness. Right foot wound is currently covered with a wound VAC. LABS: Her white count is 25.27. Cultures are currently pending. DIAGNOSTIC IMPRESSION AND PLAN: The patient with right big toe amputation site gangrene, this patient is status post revision of right big toe amputation site and amputation of the right second toe. Cultures are currently pending. The patient is covered with vancomycin and Zosyn. White count is still elevated, need to be monitored closely and continue local wound care as ordered. MMODL / IJN: [id number] /
--- NOTE | 2024-06-12 14:46 | PN ---
PROGRESS NOTE DATE OF SERVICE: 05/09/2024 LOCATION: 251. REASON FOR FOLLOWUP: Right diabetic foot infection, osteomyelitis, and leukocytosis. INTERVAL HISTORY: The patient is afebrile. The patient is in the ICU, breathing comfortably in 2 L cannula oxygen. She is sleepy, lethargic, and did not answer any questions and no questions or concerns reported by the nursing staff. PHYSICAL EXAMINATION: VITAL SIGNS: Blood pressure is 124/63, pulse of 80, temperature of 98, she is 92% on 2 L nasal cannula. GENERAL DESCRIPTION: This is a middle-aged female, lying in bed, in no distress. RESPIRATORY SYSTEM: Unlabored breathing. Clear to auscultation anteriorly. HEART: S1, S2. Regular rate and rhythm. ABDOMEN: Soft, nontender. EXTREMITIES: Right foot wound with wound VAC. LABORATORY DATA: White count slightly up to 29,000 today from yesterday of 25,000. Creatinine 4.04. Culture is still pending. DIAGNOSTIC IMPRESSION AND PLAN: The patient with right big toe amputation site wound gangrene in this patient, status post debridement with amputation of the 2nd toe as well. We are still waiting on the culture. The patient is broadly covered with vancomycin, Zosyn, to continue adjusting antibiotic further on the basis of culture. Monitor clinical course closely. MMODL / IJN: [id number] /
--- NOTE | 2024-06-12 14:47 | PN ---
PROGRESS NOTE This patient has a right foot wound and big toe amputation done with wound debridement. The patient had a wound VAC which was removed yesterday. There was minimal drainage. The patient on IV antibiotic, under the care of Infectious Disease, will be changing dressing with Medihoney gel, dressing should be changed on a daily basis. MMODL / IJN: [id number] /
--- NOTE | 2024-06-21 11:55 | PN ---
PROGRESS NOTE DATE OF SERVICE: 05/06/2024 LOCATION: 251. REASON FOR FOLLOWUP: Right diabetic foot infection, leukocytosis. INTERVAL HISTORY: The patient has been evaluated by Vascular Surgery and the patient is status post right first and second toe amputation, wound VAC application and deep cultures. The patient is currently in ICU, severe lethargic, did not provide any history. No vomiting. Diarrhea reported by the nursing staff. PHYSICAL EXAMINATION: VITAL SIGNS: Blood pressure 116/54 with a pulse of 68, temperature 98. GENERAL DESCRIPTION: This is a middle-aged female, lying in bed, in no distress. RESPIRATORY SYSTEM: Unlabored breathing. Clear to auscultation anteriorly. HEART: S1, S2. Regular rate and rhythm. ABDOMEN: Soft. No tenderness. EXTREMITIES: Right foot wound is currently covered with a wound VAC. LABORATORY DATA: Last WBC in the chart is 32,000. I was not able to find any culture. DIAGNOSTIC IMPRESSION AND PLAN: The patient with sepsis secondary to right diabetic foot infection with underlying osteomyelitis in this patient, status post amputation of the right second toe and debridement of the right big toe amputation site as well as deep culture, which will be followed. The patient is broadly covered with vancomycin and Zosyn to continue adjusting antibiotic further on the basis of culture report and monitor clinical course closely. MMODL / IJN: [id number] /
== END 2024-05-11 00:30 | DRG 463 ==
LOC: 2SICU 19:55
PROVIDERS: ADMIT Hospitalist; ATTEND Hospitalist
PROC: 5A1D70Z Performance of Urinary Filtration, Intermittent, Less than 6 Hours Per Day (ICD-10-PCS; principal; 2024-05-02)
PROC: 0JBQ0ZZ Excision of Right Foot Subcutaneous Tissue and Fascia, Open Approach (ICD-10-PCS; 2024-05-02)
PROC: 0Y6R0Z0 Detachment at Right 2nd Toe, Complete, Open Approach (ICD-10-PCS; 2024-05-02)
DX: T87.43 Infection of amputation stump, right lower extremity (principal); A41.59 Other Gram-negative sepsis; K72.00 Acute and subacute hepatic failure without coma; N18.6 End stage renal disease; G93.41 Metabolic encephalopathy; I21.A1 Myocardial infarction type 2; E11.52 Type 2 diabetes mellitus with diabetic peripheral angiopathy with gangrene; B17.9 Acute viral hepatitis, unspecified; L03.115 Cellulitis of right lower limb; N39.0 Urinary tract infection, site not specified; Z89.411 Acquired absence of right great toe; E11.621 Type 2 diabetes mellitus with foot ulcer; L97.519 Non-pressure chronic ulcer of other part of right foot with unspecified severity; I25.10 Atherosclerotic heart disease of native coronary artery without angina pectoris; M89.8X9 Other specified disorders of bone, unspecified site; R79.89 Other specified abnormal findings of blood chemistry; D64.9 Anemia, unspecified; E11.22 Type 2 diabetes mellitus with diabetic chronic kidney disease; I08.1 Rheumatic disorders of both mitral and tricuspid valves; E03.9 Hypothyroidism, unspecified; E78.5 Hyperlipidemia, unspecified; I27.20 Pulmonary hypertension, unspecified; Z86.73 Personal history of transient ischemic attack (TIA), and cerebral infarction without residual deficits; Z88.5 Allergy status to narcotic agent; Z87.440 Personal history of urinary (tract) infections; Z79.890 Hormone replacement therapy; Y84.8 Other medical procedures as the cause of abnormal reaction of the patient, or of later complication, without mention of misadventure at the time of the procedure; Z90.49 Acquired absence of other specified parts of digestive tract
CPT/HCPCS: 36410; 70450; 71045; 71046; 76705; 76937; 82607; 82746; 83036; 84145; 86850; 86900; 86901; 87040; 87070; 87075; 87077; 87186; 87205; 90935; 93005; 93306; 94760; 96374; 96375; 99285

== ENCOUNTER → 2024-05-05 | Day surgery (SDC) | payer MEDICARE | LOC: OR 10:45 | PROVIDERS: ATTEND Surgery Vascular Surgery | DX: Z12.11 Encounter for screening for malignant neoplasm of colon (principal) ==